=== PATIENT | female | born 1945 | race Caucasian/White ===

== ENCOUNTER 2024-02-15 01:46 | Outpatient (REF) | payer MEDICARE, SELFPAY ==
[2024-02-15 11:27] LABS: Hematocrit 31.1 % (36.0-48.0); Hemoglobin 9.4 g/dL (12.0-16.0); Mean Corpuscular HGB Conc 30.2 g/dL (29.9-35.2); Mean Corpuscular Hemoglobin 26.6 pg (26.7-34.0); Mean Corpuscular Volume 88.1 fL (81.0-99.0); Mean Platelet Volume 10.5 fL (9.5-13.5); Platelet Count 530 10^3/uL (150-450); Red Blood Count 3.53 10^6/uL (4.20-5.40); Red Cell Distribution Width 22.6 % (11.0-15.0); White Blood Count 23.1 10^3/uL (4.0-11.0)
[2024-02-15 11:35] LABS: INR 2.57; Prothrombin Time 24.8 sec (9.0-11.6)
[2024-02-15 11:36] LABS: Anion Gap 17.7; BUN Creatinine Ratio 12.7; Calcium 8.7 mg/dL (8.5-10.1); Carbon Dioxide 25.5 mmol/L (21.0-32.0); Chloride 93 mmol/L (98-107); Estimated GFR (African America 11 (>=60); Estimated GFR (Non-African Ame 9 (>=60); Glucose 145 mg/dL (74-106); Potassium 5.2 mmol/L (3.5-5.1); Sodium 131 mmol/L (136-145); Vancomycin Trough 18.9 ug/mL (5.0-20.0)
[2024-02-15 14:53] LABS: Band Neutrophils Absolute 0.2 10^3/uL (0.0-0.3); Segmented Neut Absolute Manual 19.63 10^3/uL (1.4-6.5)
[2024-02-15 14:54] LABS: Anisocytosis 2+; Eosinophils Absolute Manual 0.23 10^3/uL (0.00-0.70); Hypochromasia 1+; Lymphocytes Absolute Manual 1.61 10^3/uL (1.20-3.80); Monocytes Absolute Manual 1.38 10^3/uL (0.30-0.80)
== END 2024-02-15 01:47 | disposition home or self-care (01) ==
LOC: LAB 01:46
PROVIDERS: PCP Family Medicine; Visit Provider Family Medicine
DX: M86.9 Osteomyelitis, unspecified (principal)
CPT/HCPCS: 36415; 80048; 80202; 85007; 85027; 85610

== ENCOUNTER 2024-02-22 07:45 | Outpatient (REF) | payer MEDICARE, SELFPAY ==
[2024-02-22 08:57] LABS: Basophils Absolute Auto 0.1 10^3/uL (0.0-0.1); Basophils Percent Auto 0.6 % (0.2-2.0); Eosinophils Absolute Auto 0.8 10^3/uL (0.0-0.7); Eosinophils Percent Auto 4.4 % (0.9-7.0); Hematocrit 25.1 % (36.0-48.0); Hemoglobin 7.7 g/dL (12.0-16.0); Immature Granulocytes Abs Auto 0.25 10^3/uL (0.00-0.03); Immature Granulocytes Pct Auto 1.3 % (0.0-0.5); Lymphocytes Absolute Auto 1.4 10^3/uL (1.2-3.8); Lymphocytes Percent Auto 7.6 % (20.5-60.0); Mean Corpuscular HGB Conc 30.7 g/dL (29.9-35.2); Mean Corpuscular Hemoglobin 27.3 pg (26.7-34.0); Mean Platelet Volume 10.5 fL (9.5-13.5); Monocytes Absolute Auto 1.3 10^3/uL (0.3-0.8); Neutrophils Absolute Auto 14.9 10^3/uL (1.4-6.5); Neutrophils Percent Auto 79.1 % (43.0-75.0); Platelet Count 466 10^3/uL (150-450); Red Blood Count 2.82 10^6/uL (4.20-5.40); Red Cell Distribution Width 21.7 % (11.0-15.0); White Blood Count 18.8 10^3/uL (4.0-11.0)
[2024-02-22 09:12] LABS: INR 2.85; Prothrombin Time 27.2 sec (9.0-11.6)
[2024-02-22 09:25] LABS: Anion Gap 13.2; BUN Creatinine Ratio 13.7; Calcium 8.4 mg/dL (8.5-10.1); Carbon Dioxide 27.4 mmol/L (21.0-32.0); Chloride 97 mmol/L (98-107); Estimated GFR (African America 14 (>=60); Estimated GFR (Non-African Ame 11 (>=60); Glucose 98 mg/dL (74-106); Potassium 4.6 mmol/L (3.5-5.1); Sodium 133 mmol/L (136-145)
== END 2024-02-22 07:46 | disposition home or self-care (01) ==
LOC: LAB 07:45
PROVIDERS: PCP Family Medicine; Visit Provider Family Medicine
DX: N18.6 End stage renal disease (principal)
CPT/HCPCS: 36415; 80048; 85025; 85610

== ENCOUNTER 2024-02-24 03:49 | Outpatient (REF) | payer MEDICARE, SELFPAY ==
[2024-02-24 08:27] LABS: Anion Gap 12.3; BUN Creatinine Ratio 15.6; Calcium 8.6 mg/dL (8.5-10.1); Carbon Dioxide 27.8 mmol/L (21.0-32.0); Chloride 98 mmol/L (98-107); Estimated GFR (African America 19 (>=60); Estimated GFR (Non-African Ame 16 (>=60); Glucose 101 mg/dL (74-106); Potassium 4.1 mmol/L (3.5-5.1); Sodium 134 mmol/L (136-145)
== END 2024-02-24 03:50 | disposition home or self-care (01) ==
LOC: LAB 03:49
PROVIDERS: PCP Family Medicine; Visit Provider Family Medicine
DX: M86.9 Osteomyelitis, unspecified (principal)
CPT/HCPCS: 36415; 80048

== ENCOUNTER 2024-02-29 09:00 | Outpatient (REF) | payer MEDICARE, SELFPAY ==
--- OUTSIDE RECORDS SUMMARY | 2024-02-26 02:17 | XMS_ITS | CCD ---
Author Organization [facility] Inform ion Partnership [facility] Care Team Providers Care Talent Specialist Name Role Phone JOCELYN, RUGEN Unavailable Unavailable JOCELYN, RUGEN Unavailable Unavailable JOCELYN, RUGEN Unavailable Unavailable Yuhas Annabelle ROA Primary Care Provider ANNABELLE ARCHER L Attending Unavailable YUHAS, ANNABELLE L Referring Unavailable YUHAS, ANNABELLE L Primary Care Unavailable YUHAS, ANNABELLE L Attending Unavailable YUHAS, ANNABELLE L Referring Unavailable YUHAS, ANNABELLE L Primary Care Unavailable SERVICE, JOBST Referring Unavailable YUHAS, ANNABELLE L Primary Care Unavailable SERVICE, JOBST Referring Unavailable YUHAS, ANNABELLE L Primary Care Unavailable SERVICE, JOBST Referring Unavailable YUHAS, ANNABELLE L Primary Care Unavailable SERVICE, JOBST Referring Unavailable YUHAS, ANNABELLE L Primary Care Unavailable YUHAS, ANNABELLE L Referring Unavailable YUHAS, ANNABELLE L Primary Care Unavailable SERVICE, JOBST Referring Unavailable YUHAS, ANNABELLE L Primary Care Unavailable YUHAS, ANNABELLE L Primary Care Unavailable ERNESTO DELEON Attending Unavailable YUHAS, ANNABELLE L Admitting Unavailable [place] Consulting Unavailable ERNESTO DELEON Attending Unavailable ERNESTO DELEON Referring Unavailable YUHAS, ANNABELLE L Primary Care Unavailable YUHAS, ANNABELLE L Attending Unavailable YUHAS, ANNABELLE L Referring Unavailable YUHAS, ANNABELLE L Primary Care Unavailable SERVICE, JOBST Referring Unavailable YUHAS, ANNABELLE L Primary Care Unavailable LIGIBEL, SEMBRIA L Referring Unavailable YUHAS, ANNABELLE L Primary Care Unavailable LIGIBEL, SEMBRIA L Referring Unavailable YUHAS, ANNABELLE L Primary Care Unavailable SERVICE, JOBST Referring Unavailable YUHAS, ANNABELLE L Primary Care Unavailable SERVICE, JOBST Referring Unavailable YUHAS, ANNABELLE L Primary Care Unavailable YUHAS, ANNABELLE L Primary Care Unavailable BRYANT LANG Attending UnavailDOTTY Leahy Attending Unavailable DOTTY HADLEY Referring Unavailable YUHAS, ANNABELLE L Primary Care Unavailable YUHAS, ANNABELLE L Primary Care Unavailable LYDIAYONAS Attending Unavailable LYDIAYONAS HOUSE Attending Unavailable LYDIA, YONAS L Referring Unavailable YUHAS, ANNABELLE L Primary Care Unavailable SERVICE, JOBST Referring Unavailable YUHAS, ANNABELLE L Primary Care Unavailable RANKER, ANNABELLE O Referring Unavailable YUHAS, ANNABELLE L Primary Care Unavailable SERVICE, JOBST Referring Unavailable YUHAS, ANNABELLE L Primary Care Unavailable RANKER, ANNABELLE O Referring Unavailable YUHAS, ANNABELLE L Primary Care Unavailable SERVICE, JOBST Referring Unavailable YUHAS, ANNABELLE L Primary Care Unavailable Yuhas, DO Annabelle Primary Care Provider [phone] MD Virgen Vivar Admit Provider [phone] MD Virgen Vivar Attending Provider MD Tres King Other Provider MD Emelyn Bennett Other Provider MD Mukul Durbin Other Provider [phone] DO Mirza Coulter Emergency Provider [phone] YUHAS, ANNABELLE L Referring Unavailable YUHAS, ANNABELLE L Primary Care Unavailable GANIM, EVELYN A Admitting Unavailable GANIM, EVELYN A Attending Unavailable YONAS FREEMAN Referring Unavailable YUHAS, ANNABELLE L Primary Care Unavailable ABDELRAHMAN GOMEZ Consulting Unavailable NISREEN SCHUSTER Consulting Unavailable ONLY), [facility] (INPATIENT Consult ing Unavailable PATY BRITT Consulting Unavailable SOLA CANTU Consulting Unavailable VELMA MACDONALD I Consulting Unavailable ([facility] ONLY), SURGERY B Consulting Unavailabl e DIVISION OF INFECTIOUS DISEASE, [facility] Consulting Unavailable MYAH VERDE Consulting Unavailable YUHAS, ANNABELLE L Referring Unavailable YUHAS, ANNABELLE L Primary Care Unavailable TAMAR, NAHUSH Referring Unavailable YUHAS, ANNABELLE L Primary Care Unavailable YUHAS, ANNABELLE L Referring Unavailable YUHAS, ANNABELLE L Primary Care Unavailable MD Carlos Novak Other Provider DO Teddy Valero Other Provider Margret Morales Admitting Unavailable Mona Banks Primary Care Unavailable Margret Morales Attending Unavailable Annabelle Archer Primary Care Unavailable Virgen Vivar Attending Unavailable Virgen Vivar Admitting Unavailable Carlos Novak Consulting Unavailable Tres King Consulting Unavailable Emelyn Bennett Consulting Unavailable Teddy Valero Consulting Unavailable Mukul Durbin Consulting Unavaila ble Medications Current Medications Medication Drug Class(es) Dates Sig (Normalized) Sig (Original) acetaminophen 650 mg oral tablet (2 sources) Start: 02-10-2021 take 650 mg by mouth every six hours Acetaminophen Active 650 MG PO Q6H February 10, 2021 12:00am Pain or Fever acetaminophen 325 mg / HYDROcodone bitartrate 5 mg oral tablet (3 sources) Opioid Agonist Start: 02-15-2024 End: 02-19-2024 take 1 tablet by mouth every six hours Hydrocodone-Acetami nophen Active 1 TAB PO Every 6 hours 12 3 February 19, 2024 allopurinol 100 mg oral tablet (12 sources) Xanthine Oxidase Inhibitor Start: 10-31-2023 allopurinoL (ZYLOPRIM) 100 mg tablet Indications: Hyperuricemia TAKE 2 TABLETS EVERY MORNING 180 tablet 0 10/31/2023 Active Start: 04-26-2023 End: 10-31-2023 allopurinoL (ZYLOPRIM) 100 m g tablet Indications: Hyperuricemia TAKE 2 TABLETS EVERY MORNING 180 tablet 1 04/26/2023 10/31/2023 Discontinued Start: 02-10-2021 End: 02-19-2024 Allopurinol Active 100 MG PO [id number] 0 February 19, 2024 12:00am atorvastatin 20 mg oral tablet (11 sources) HMG-CoA Reductase Inhibitor Start: 02-10-2021 End: 09-23-2023 take 20 mg by mouth once daily at bedtime Atorvastatin Active 20 MG PO Daily at bedtime February 10, 2021 12:00am brimonidine tartrate 2 mg/ml ophthalmic solution (2 sources) alpha-Adrenergic Agonist Start: 02-15-2024 take 1 drop(s) into the eye(s) three times daily Brimonidine Active 1 DROPS OPHTHALMIC Three times daily February 15, 2024 12:00am Start: 02-15-2024 take 1 drop(s) into the eye(s) every eight hours Brimonidine Active 1 DROPS OPHTHALMIC Every 8 hours February 15, 2024 12:00am calcitriol 0.32704 mg oral capsule (11 sources) Vitamin D3 Analog Start: 02-15-2024 take 0.25 ug by mouth once daily Calcitriol Active 0.25 MCG PO Daily February 15, 2024 12:00am Start: 03-19-2023 End: 09-23-2023 calcitrioL (ROCALTROL) 0.25 MCG capsule Indications: Chronic kidney disease, stage 4 (severe) ([facility] [place]) TAKE 1 CAPSULE EVERY MORNING 90 capsule 1 09/23/2023 Active dapagliflozin 5 mg oral tablet (8 sources) Sodium-Glucose Cotransporter 2 Inhibitor take 1 tablet by mouth every twenty-four hours FARXIGA 5 mg tablet Take 1 tablet (5 mg total) by mouth daily. 0 Active docusate sodium 100 mg oral capsule (3 sources) Start: End: take 100 mg by mouth twice daily Docusate Sodium Active 100 MG PO Twice daily February 19, 2024 1:27pm ferrous sulfate 325 mg oral tablet (2 sources) Start: take 1 tablet by mouth once daily Ferrous Sulfate (Ferosul) 325 mg (65 mg iron) tablet Active 325 MG PO Daily February 15, 2024 12:00am furosemide 40 mg oral tablet (15 sources) Loop Diuretic Start: take 1 tablet by mouth twice daily Furosemide (Lasix) 40 mg Tablet Active 40 MG PO Twice daily February 15, 2024 12:00am Start: 10-31-2023 furosemide (LA SIX) 40 mg tablet Indications: Chronic kidney disease, stage 4 (severe) ([facility] [place]) take 1 tablet twice a day 180 tablet 0 10/31/2023 Active Start: 04-26-2023 End: 10-31-2023 furosemide (LASIX) 40 mg tab let Indications: Chronic kidney disease, stage 4 (severe) ([facility] [place]) TAKE 1 TABLET TWICE A DAY 180 tablet 1 04/26/2023 10/31/2023 Discontinued Start: 02-13-2021 End: 02-15-2024 take 1 tablet by mouth once daily Furosemide (Lasix) 40 mg Tablet Discontinued 40 MG PO Daily 0 February 13, 2021 11:54am February 15, 2024 3:06pm Start: 02-10-2021 End: 02-13-2021 take 1 tablet by mouth twice daily Furosemide (Lasix) 40 mg Tablet Discontinued 40 MG PO Twice daily February 10, 2021 12:00am February 13, 2021 11:58am gabapentin 100 mg oral capsule (1 source) Anti-epileptic Agent Start: 02-19-2024 Gabapentin Active 100 MG PO Q48H 0 February 19, 2024 12:00am hydrALAZINE hydrochloride 25 mg oral tablet (11 sources) Arteriolar Vasodilator Start: 02-15-2024 take 25 mg by mouth three times daily Hydralazine Active 25 MG PO Three times daily February 15, 2024 12:00am Start: 07-07-2023 End: 10-14-2023 take 1 tablet by mouth three times daily hydrALAZINE (APRESOLINE) 25 mg tablet Indications: Hypertensive renal disease Take 1 tablet (25 mg total) by mouth 3 (three) times a day. 270 tablet 0 10/14/2023 Active 3 ml insulin isophane, human 100 unt/ml pen injector (12 sources) Start: 02-15-2024 Insulin Nph Is oph U-100 Human (Humulin N Nph Insulin Kwikpen) 100 unit/mL (3 mL) Insulin Pen Active 30 UNIT SUBCUT Twice daily February 15, 2024 12:00am Start: 10-13-2022 inject 0.3 mL by sub cutaneous injection in the morning insulin NPH (HumuLIN N,NovoLIN N) 100 unit/mL injection Inject 0.3 mL (30 Units total) under the skin in the morning and 0.3 mL (30 Units total) in the evening. Inject before meals. 30 mL 1 10/13/2022 Active Start: 02-13-2021 End: 02-15-2024 inject 20 [IU] by subcutaneous injection twice daily, then inject 20 [IU] by subcutaneous injection twice daily Insulin Nph Isoph U-100 Human (Humulin N Nph Insulin Kwikpen) 100 unit/mL (3 mL) Insulin Pen Discontinued 20 UNIT SUBCUT Twice daily 0 February 13, 2021 12:00am February 15, 2024 3:06pm Same home insulin. The change her dose to 20 units twice a day labetalol hydrochloride 100 mg oral tablet (14 sources) beta-Adrenergic Wang Start: 02-15-2024 take 200 mg by mouth twice daily Labetalol Active 200 MG PO Twice daily February 15, 2024 12:00am Start: 07-10-2023 take 2 tablets by [facility] in the morning, then take 2 tablets by mouth at bedtime labetaloL (NORMODYNE) 200 mg tablet Indications: Hypertensive renal disease Take 2 tablets (400 mg total) by mouth in the morning and 2 tablets (400 mg total) before bedtime. 360 tablet 0 07/10/2023 Active Start: 02-13-2021 End: 02-15-2024 take 100 mg by mouth twice daily Labetalol Discontinue d 100 MG PO Twice daily 60 February 13, 2021 12:00am February 15, 2024 3:06pm Start: 02-10-2021 End: 02-13-2021 take 300 mg by mouth twice daily Labetalol Discontinue d 300 MG PO Twice daily February 10, 2021 12:00am February 13, 2021 11:58am lidocaine 0.04 mg/mg medicated patch (12 sources) Antiarrhythmic, Amide Local Anesthetic Start: 02-15-2024 apply 1 dose topically once daily Lidocaine (Aspercreme (Lidocaine)) 4 % adhesive patch,medicated Active 1 PATCH TOPICAL Daily February 15, 2024 12:00am may leave on for up to 12 hrs Start: 02-15-2024 Lidocaine Acti ve 1 APPLIC TOPICAL Twice daily February 15, 2024 12:00am Start: 06-03-2023 apply 1 dose transde rmal route once daily lidocaine (SALONPAS) 4 % Place 1 patch on the skin daily. 30 patch 0 06/03/2023 Active polyethylene glycol 3350 02651 mg powder for oral solution (2 sources) Osmotic Laxative Start: 02-15-2024 take 17 g by mouth once daily Polyethylene Glycol 3350 (Laxative Peg 3350) 17 gram/dose powder Active 17 GM PO Daily February 15, 2024 12:00am QUEtiapine 50 mg oral tablet (4 sources) Atypical Antipsychotic Start: 02-15-2024 take 1 tablet by mouth once daily in the morning Quetiapine (Seroquel) 25 mg tablet Active 25 MG PO Every morning February 15, 2024 12:00am Start: 02-15-2024 take 1 tablet by [facility] once daily at bedtime Quetiapine (Seroquel) 50 mg tablet Active 50 MG PO Daily at bedtime February 15, 2024 12:00am warfarin sodium 2.5 mg oral tablet (15 sources) Vitamin K Antagonist Start: 02-15-2024 take 2.5 mg by mouth once daily at bedtime Warfarin Active 2.5 MG PO Daily at bedtime February 15, 2024 12:00am Follow your doctor's instructions on dosing based on the blood test PT/INR report Start: 10-31-2023 JANTOVEN 2.5 m g tablet Indications: Atrial fibrillation ([facility]) TAKE 1 TO 2 TABLETS IN THE EVENING. TAKE DAILY DIRECTED BY INTERNATIONAL NORMALIZED RATIO TESTING 180 tablet 0 10/31/2023 Active Start: 02-10-2021 End: 02-15-2024 take 2.5 mg by mouth once daily Warfarin Discontinued 2.5 MG PO Daily 0 February 13, 2021 11:54am February 15, 2024 3:06pm Follow your doctor's instructions on dosing based on the blood test PT/INR report Completed/Discontinued Medications Medication Drug Class(es) Dates Sig (Normalized) Sig (Original) cefdinir 50 mg/ml oral suspension (2 sources) Cephalosporin Antibacterial Start: 02-13-2021 End: 02-15-2024 take 150 mg by mouth twice daily Cefdinir Discontinued 150 MG PO Twice daily 42 7 February 13, 2021 12:00am February 15, 2024 3:06pm cholecalciferol 5000 unt / folic acid 1 mg oral tablet (6 sources) Vitamin D End: 10-14-2023 take 1 mg by mouth once daily vitamin D3-folic acid 125 mcg (5,000 unit)-1 mg tablet Take 125 mcg by mouth daily. 0 10/14/2023 Discontinued (Discontinued by another clinician) dexamethasone 1 mg/ml / neomycin 3.5 mg/ml / polymyxin b 65370 unt/ml ophthalmic suspension (6 sources) Aminoglycoside Antibacterial, Polymyxin-class Antibacterial, Corticosteroid End: 10-14-2023 take 1 drop(s) into the eye(s) once daily neomycin-polymyxin- dexAMETHasone (MAXITROL) 3.5mg/mL-10,000 unit/mL-0.1 % ophthalmic suspension INSTILL 1 DROP INTO EACH EYE ONCE DAILY 0 10/14/2023 Discontinued (Patient Stopped On Own) doxycycline hyclate 100 mg oral tablet (2 sources) Tetracycline-class Drug Start: 02-13-2021 End: 02-15-2024 take 100 mg by mouth twice daily Doxycycline Hyclate Discontinued 100 MG PO Twice daily 14 February 13, 2021 12:00am February 15, 2024 3:06pm ergocalciferol 1.25 mg oral capsule (2 sources) Provitamin D2 Compound Start: 02-10-2021 End: 02-15-2024 Ergocalciferol (Vitamin D2) (Drisdol) 1,250 mcg (50,000 unit) Capsule Discontinued 93032 UNIT PO every week February 10, 2021 12:00am February 15, 2024 3:06pm Thursday glucose 0.4 mg/mg oral gel (2 sources) Start: 02-13-2021 End: 02-15-2024 Dextrose (Glutose-15) 40 % Gel Discontinued 0.6 GM PO PRN 37.5 February 13, 2021 12:00am February 15, 2024 3:06pm As needed for blood sugar less than 100 Insulin Nph Isoph U-100 Human (Humulin N Nph U-100 Insulin) 100 unit/mL Cartridge (2 sources) Start: 02-10-2021 End: 02-13-2021 inject 30 [IU] by subcutaneous injection twice daily in the morning Insulin Nph Isoph U-100 Human (Humulin N Nph U-100 Insulin) 100 unit/mL Cartridge Discontinued 30 UNIT SUBCUT Twice daily February 10, 2021 12:00am February 13, 2021 11:58am 30 Units AM 30 Units PM lactobacillus acidophilus [id number] unt oral capsule (2 sources) Start: 02-13-2021 End: 02-15-2024 take 100 mg by mouth twice daily Lactobacillus Acidophilus Discontinued 100 MG PO Twice daily February 13, 2021 12:00am February 15, 2024 3:06pm lisinopril 5 mg oral tablet (4 sources) Angiotensin Converting Enzyme Inhibitor Start: 02-13-2021 End: 02-15-2024 take 5 mg by mouth once daily Lisinopril Discontinued 5 MG PO Daily February 13, 2021 12:00am February 15, 2024 3:06pm Start: 02-10-2021 End: 02-13-2021 take 20 mg by mouth once daily Lisinopril Discontinued 20 MG PO Daily February 10, 2021 12:00am February 13, 2021 11:58am meropenem 500 mg injection (2 sources) Penem Antibacterial Start: 02-15-2024 End: 02-19-2024 take 500 mg intravenously three times weekly Meropenem-0.9% Sodium Chloride Discontinued 500 MG IV 3 Times a week February 15, 2024 12:00am February 19, 2024 1:29pm Vancomycin In 0.9 % Sodium Chl (2 sources) Start: 02-15-2024 End: 02-19-2024 Vancomycin In 0.9 % Sodium Chl Discontinued 1 GM IV 3 Times a week February 15, 2024 12:00am February 19, 2024 1:29pm Start: 02-15-2024 Vancomycin In 0.9 % Sodium Chl Active 1 GM IV 3 Times a week February 15, 2024 12:00am Problems Active Problems Problem Classification Problem Date Documented Date Episodic/Chronic Acute and unspecified renal failure (2 sources) Acute renal failure syndrome; Translations: [Acute kidney failure, unspecified] 07-08-2023 Episodic Administrative/social admission (3 sources) Advance directive discussed with patient; Translations: [Other specified counseling] Onset: 02-15-2024 02-17-2024 Episodic Cancer of kidney and renal pelvis (10 sources) Renal cell carcinoma; Translations: [Malignant neoplasm of unspecified kidney, except renal pelvis] Onset: 10-27-2017 03-14-2021 Chronic Cardiac dysrhythmias (20 sources) Atrial fibrillation; Translations: [Unspecified atrial fibrillation] Onset: 12-29-2019 07-22-2023 Chronic Cataract (8 sources) Nuclear senile cataract; Translations: [Age-related nuclear cataract, unspecified eye] Onset: 01-28-2018 05-18-2023 Chronic Chronic kidney disease (20 sources) Chronic kidney disease stage 4; Translations: [Chronic kidney disease, stage 4 (severe)] Onset: 11-28-2019 11-28-2019 Chronic Chronic kidney disease (1 source) Chronic kidney disease; Translations: [Chronic kidney disease, stage 3b] Onset: 11-06-2023 Chronic ulcer of skin (13 sources) Non-pressure chronic ulcer of back limited to breakdown of skin; Translations: [Pressure ulcer of unspecified buttock, stage 3] Onset: 01-29-2024 02-16-2024 Chronic Congestive heart failure; nonhypertensive (19 sources) Chronic diastolic heart failure; Translations: [Chronic diastolic (congestive) heart failure] Onset: 11-28-2019 Resolved: 04-28-2022 05-18-2023 Chronic Deficiency and other anemia (1 source) Anemia in chronic kidney disease; Translations: [Anemia in chronic kidney disease] Onset: 02-15-2024 Chronic Diabetes mellitus with complications (14 sources) 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; Translations: [Type 2 diabetes mellitus with mild nonproliferative diabetic retinopathy without macular edema, unspecified eye] Onset: 10-13-2018 04-28-2022 Chronic Diabetes mellitus without complication (14 sources) Type 2 diabetes mellitus; Translations: [Type 2 diabetes mellitus without complications] Onset: 04-28-2022 05-18-2023 Chronic Diseases of white blood cells (5 sources) Leukocytosis; Translations: [Elevated white blood cell count, unspecified] Onset: 02-15-2024 02-15-2024 Chronic Disorders of lipid metabolism (10 sources) Hyperlipidemia; Translations: [Hyperlipidemia, unspecified] Onset: 01-08-2018 01-08-2018 Chronic Essential hypertension (20 sources) Essential hypertension; Translations: [Essential (primary) hypertension] Onset: 04-28-2022 Resolved: 05-18-2023 04-28-2022 Chronic Fever of unknown origin (1 source) Fever Onset: 01-31-2024 Episodic Gangrene (1 source) Gangrene, not elsewhere classified; Translations: [Gangrene, not elsewhere classified] Onset: 01-31-2024 Episodic Hypertension with complications and secondary hypertension (11 sources) Hypertensive renal disease; Translations: [Hypertensive chronic kidney disease with stage 1 through stage 4 chronic kidney disease, or unspecified chronic kidney disease] Onset: 01-29-2022 04-28-2022 Chronic Immunizations and screening for infectious disease (1 source) Encounter for screening for other viral diseases; Translations: [Encounter for screening for other viral diseases] Onset: 01-07-2024 Episodic Malaise and fatigue (3 sources) Weakness; Translations: [Asthenia] Onset: 01-31-2024 3 Episodic Nonmalignant breast conditions (1 source) Unspecified lump in the left breast, unspecified quadrant; Translations: [Unspecified lump in the left breast, unspecified quadrant] Onset: 02-09-2024 Episodic Open wounds of extremities (1 source) Unspecified open wound, right hip, initial encounter; Translations: [Unspecified open wound, right hip, initial encounter] Onset: 02-11-2024 Episodic Open wounds of head; neck; and trunk (1 source) Unspecified open wound of lower back and pelvis without penetration into retroperitoneum, initial encounter; Translations: [Unspecified open wound of lower back and pelvis without penetration into retroperitoneum, initial encounter] Onset: 02-05-2024 Episodic Osteoarthritis (8 sources) Osteoarthritis of knee; Translations: [Osteoarthritis of knee, unspecified] Onset: 04-28-2022 04-28-2022 Chronic Other circulatory disease (2 sources) Low blood pressure; Translations: [Hypotension, unspecified] 02-15-2024 Episodic Other circulatory disease (3 sources) Hypotension, unspecified; Translations: [Hypotension, unspecified] Onset: 02-15-2024 02-15-2024 Episodic Other injuries and conditions due to external causes (1 source) Systemic inflammatory response syndrome (SIRS) of non-infectious origin without acute organ dysfunction; Translations: [Systemic inflammatory response syndrome (sirs) of non-infectious origin without acute organ dysfunction] Onset: 01-31-2024 Episodic Other injuries and conditions due to external causes (1 source) Wound of skin; Translations: [Other injury of unspecified body region, initial encounter] 02-16-2024 Episodic Other injuries and conditions due to external causes (2 sources) Other injury of unspecified body region, initial encounter; Translations: [Other specified sites, including multiple injury] Onset: 02-15-2024 02-19-2024 Episodic Other lower respiratory disease (1 source) Acute pulmonary edema; Translations: [Acute pulmonary edema] Onset: 12-20-2023 Episodic Other lower respiratory disease (1 source) Shortness of breath; Translations: [Shortness of breath] Onset: 12-20-2023 Episodic Other lower respiratory disease (1 source) Shortness of breath Onset: 12-20-2023 Episodic Other lower respiratory disease (1 source) Dyspnea Onset: 12-20-2023 Episodic Other nutritional; endocrine; and metabolic disorders (9 sources) Body mass index 40+ - severely obese; Translations: [Body mass index (BMI) 50.0-59.9, adult] Onset: 11-30-2017 11-28-2019 Chronic Other nutritional; endocrine; and metabolic disorders (8 sources) Hypoxemia; Translations: [Obesity, unspecified] Onset: 11-29-2019 11-29-2019 Chronic Other nutritional; endocrine; and metabolic disorders (1 source) Body mass index (BMI) 50.0-59.9, adult; Translations: [Body mass index (BMI) 50.0-59.9, adult] Onset: 11-28-2019 Chronic Other nutritional; endocrine; and metabolic disorders (1 source) Calciphylaxis; 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] 02-16-2024 Chronic Other nutritional; endocrine; and metabolic disorders (2 sources) Other disorders of calcium metabolism; 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] Onset: 02-15-2024 02-19-2024 Chronic Other nutritional; endocrine; and metabolic disorders (9 sources) Hyperuricemia; Translations: [Hyperuricemia without signs of inflammatory arthritis and tophaceous disease] Onset: 05-30-2017 04-28-2022 Episodic Other skin disorders (1 source) Skin problem Onset: 01-21-2024 Episodic Pneumonia (except that caused by tuberculosis or sexually transmitted disease) (2 sources) Pneumonia; Translations: [Pneumonia, unspecified organism] 07-08-2023 Episodic Pulmonary heart disease (1 source) Pulmonary hypertension due to lung diseases and hypoxia; Translations: [Pulmonary hypertension due to lung diseases and hypoxia] Onset: 12-23-2023 Chronic Residual codes; unclassified (1 source) Disorientation, unspecified; Translations: [Disorientation, unspecified] Onset: 02-01-2024 Episodic Respiratory failure; insufficiency; arrest (adult) (2 sources) Acute respiratory failure; Translations: [Acute respiratory failure with hypoxia] 07-08-2023 Episodic Septicemia (except in labor) (5 sources) Sepsis, unspecified organism; Translations: [Sepsis] Onset: 02-01-2024 02-16-2024 Episodic Shock (1 source) Severe sepsis with septic shock; Translations: [Severe sepsis with septic shock] Onset: 02-15-2024 Episodic Superficial injury; contusion (4 sources) Contusion of lower back and pelvis, initial encounter; Translations: [Contusion of left hip, initial encounter] Onset: 01-21-2024 Episodic Syncope (5 sources) Syncope; Translations: [Syncope and collapse] Onset: 02-15-2024 02-15-2024 Episodic Thyroid disorders (1 source) Other specified hypothyroidism; Translations: [Other specified hypothyroidism] Onset: 12-20-2023 Chronic Unclassified (1 source) Wound Check Onset: 01-21-2024 Unclassified (1 source) Unspecified lump in the left breast, overlapping quadrants; Translations: [Unspecified lump in the left breast, overlapping quadrants] Onset: 02-09-2024 Past or Other Problems Problem Classification Problem Date Documented Da te Episodic/Chronic Deficiency and other anemia (8 sources) Iron deficiency anemia; Translations: [Iron deficiency anemia, unspecified] Onset: 11-29-2019 Resolved: 04-28-2022 04-28-2022 Episodic Inflammation; infection of eye (except that caused by tuberculosis or sexually transmitteddisease) (8 sources) Allergic conjunctivitis; Translations: [Acute atopic conjunctivitis, unspecified eye] Onset: 07-07-2023 07-07-2023 Episodic Mood disorders (8 sources) Mood disorders Onset: 06-01-2023 Resolved: 10-14-2023 06-01-2023 Other aftercare (3 sources) [facility] (current) use of insulin; 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] Onset: 05-18-2023 Episodic Other and unspecified benign neoplasm (8 sources) History of polyp of colon; Translations: [Personal history of colonic polyps] Onset: 05-05-2018 05-05-2018 Episodic Other and unspecified benign neoplasm (8 sources) Polyp of transverse colon; Translations: [Polyp of colon] Onset: 07-07-2018 07-07-2018 Episodic Other and unspecified benign neoplasm (8 sources) Polyp of descending colon; Translations: [Polyp of colon] Onset: 07-07-2018 07-07-2018 Episodic Residual codes; unclassified (8 sources) Edema; Translations: [Edema, unspecified] Onset: 01-08-2018 Resolved: 04-28-2022 04-28-2022 Episodic Urinary tract infections (8 sources) Escherichia coli urinary tract infection; Translations: [Urinary tract infection, site not specified] Onset: 11-27-2019 Resolved: 04-28-2022 04-28-2022 Episodic Results Test Name Value Interpretation Reference Range Facility Albumin [Mass/volume] in Ser um or Plasma by Bromocresol green (BCG) dye binding methoOrdered By: Emelyn Bennett on 02-19-2024 Albumin BCG dye [Mass/Vol] 2.5 g/dL Low 3.5-5.7 [facility] Calcium [Mass/volume] in Ser um or PlasmaOrdered By: Emelyn Bennett on 02-19-2024 Calcium [Mass/Vol] 8.1 mg/dL Low 8.6-10.3 [facility] Comment on above: Performed By: #### D IFF CBC, HS TROP, MG, CMP, BNP #### [facility] [address] [place] [address] Capillary blood glucose manjeet urement by glucometer (mass/volume)Ordered By: Virgen Vivar on 02-19-2024 Glucose [Mass/Vol] 159 mg/dL Normal [facility] Comment on above: Random Glucose Refer ence Range is dependent on time and content of last meal. Glucose of more than 200 mg/dL in a nonstressed, ambulatory subject supports the diagnosis of Diabetes Mellitus. Result Comment: [facility] Glucose Reference Range is dependent on time and content of last meal. Glucose of more than 200 mg/dL in a nonstressed, ambulatory subject supports the diagnosis of Diabetes Mellitus. PERFORMED BY: [place] [address] PATHOLOGIST JOB SITE SUPERVISOR SERGIO VIRGEN M.D. Performed By: #### G LULS #### Point of Care testing , Carbon dioxide, total [Moles /volume] in Serum or PlasmaOrdered By: Emelyn Bennett on 02-19-2024 CO2 [Moles/Vol] 27.1 mmol/L Normal 21.0-31.0 [facility] Comment on above: Performed By: #### D IFF CBC, HS TROP, MG, CMP, BNP #### [facility] [address] [place] [address] [place] Chloride [Moles/volume] in S boris or PlasmaOrdered By: Emelyn Bennett on 02-19-2024 Chloride [Moles/Vol] 96 mmol/L Low 98-107 [facility] Comment on above: Performed By: #### D IFF CBC, HS TROP, MG, CMP, BNP #### [facility] [address] Creatinine [Mass/volume] in Serum or PlasmaOrdered By: Emelyn Bennett on 02-19-2024 Creatinine [Mass/Vol] 3.00 mg/dL Significan t change up 0.60-1.20 [facility] Comment on above: Delta: 2.21 on 02/17-499 Performed By: #### D IFF CBC, HS TROP, MG, CMP, BNP #### [address] Erythrocyte distribution wid th [Ratio] by Automated countOrdered By: Emelyn Bennett on 02-19-2024 Erythrocyte distribution width (RBC) [Ratio] 23.5 % High 11.9-15.3 [facility] Comment on above: Performed By: #### C UBLD, LACTIC #### [address] Erythrocytes [#/volume] in B lood by Automated countOrdered By: Emelyn Bennett on 02-19-2024 RBC (Bld) [#/Vol] 3.13 10*6/uL Low 3.60-5.00 [facility] Comment on above: Performed By: #### C UBLD, LACTIC #### [place] [address] [place] Glucose [Mass/volume] in Ser um or PlasmaOrdered By: Emelyn Bennett on 02-19-2024 Glucose [Mass/Vol] 147 mg/dL High 70-100 [facility] Comment on above: ADA recommended refe rence rangeRandom Glucose Reference Range is dependent on time and content of last meal. Glucose of more than 200 mg/dL in a nonstressed, ambulatory subject supports the diagnosis of Diabetes Mellitus. Result Comment: [facility] Glucose Reference Range is dependent on time and content of last meal. Glucose of more than 200 mg/dL in a nonstressed, ambulatory subject supports the diagnosis of Diabetes Mellitus. ADA recommended reference range Performed By: #### D IFF CBC, HS TROP, MG, CMP, BNP #### [address] Hematocrit [Volume Fraction] of Blood by Automated countOrdered By: Emelyn Bennett on 02-19-2024 Hematocrit (Bld) [Volume fraction] 26.3 % Low 34.0-46.4 [facility] Comment on above: Performed By: #### C UBLD, LACTIC #### [address] Hemoglobin [Mass/volume] in BloodOrdered By: Emelyn Bennett on 02-19-2024 Hemoglobin (Bld) [Mass/Vol] 8.4 g/dL Low 11.8-15.4 [facility] Comment on above: Performed By: #### C UBLD, LACTIC #### [address] Hemogram CBC Without Diffon 02-19-2024 Mean Corpuscular HGB Conc 31.8 g/dL Low 32.0-35.0 [facility] Comment on above: Performed By: #### C UBLD, LACTIC #### [address] WBC (Bld) [#/Vol] 15.1 10*3/uL High 3.8-11.6 [facility] Comment on above: Performed By: #### C UBLD, LACTIC #### [address] INR in Platelet poor plasma by Coagulation assayOrdered By: Virgen Vivar on 02-19-2024 INR Coag (PPP) [Relative time] 3.0 {INR} Normal [facility] Comment on above: INR Therapeutic Rang e A) Pre- and Peroperative OAT started two weeks before surgery. NOT HIP SURGERY: 1.5 - 2.5 HIP SURGERY: 2 - 3B) Primary and secondary prevention of venous THROMBOSIS: 2 - 3C) Active venous thrombosis, pulmonary embolismand prevention of recurrent venous thrombosis: 2 - 3D) Prevention of arterial thromboembolismincluding patients with mechanical heart valves: 3 - 4.5 Result Comment: INR Therapeutic Range A) Pre- and Peroperative OAT started two weeks before surgery. NOT HIP SURGERY: 1.5 - 2.5 HIP SURGERY: 2 - 3 B) Primary and secondary prevention of venous THROMBOSIS: 2 - 3 C) Active venous thrombosis, pulmonary embolism and prevention of recurrent venous thrombosis: 2 - 3 D) Prevention of arterial thromboembolism including patients with mechanical heart valves: 3 - 4.5 PERFORMED BY: [place] [address] PATHOLOGIST JOB SITE SUPERVISOR SERGIO VIRGEN M.D. Performed By: #### D IFF CBC, HS TROP, MG, CMP, BNP #### [facility] [address] [place] [address] Leukocytes [#/volume] correc ann for nucleated erythrocytes in Blood by Automated counOrdered By: Emelyn Bennett on 02-19-2024 WBC corrected for nucl RBC Auto (Bld) [#/Vol] 15.1 10*3/uL High 3.8-11.6 [facility] MCH [Entitic mass] by Automa ann countOrdered By: Emelyn Bennett on 02-19-2024 MCH (RBC) [Entitic mass] 26.8 pg Normal 24.7-34.3 [facility] Comment on above: Performed By: #### C UBLD, LACTIC #### [facility] [address] [place] [address] MCHC Auto (RBC) [Mass/Vol]Or dered By: Emelyn Bennett on 02-19-2024 MCHC (RBC) [Mass/Vol] 31.8 g/dL Low 32.0-35.0 [facility] MCV [Entitic volume] by Auto mated countOrdered By: Emelyn Bennett on 02-19-2024 MCV (RBC) [Entitic vol] 84.0 fL Normal 80-100 [facility] Comment on above: Performed By: #### C UBLD, LACTIC #### [facility] [address] [place] [address] No Panel InformationOrdered By: Emelyn Bennett on 02-19-2024 Estimated GFR (CKD-EPI) 15.239 mL/Min [facility] Creatinine Clearance (Chem 15.97 [facility] Phosphate [Mass/volume] in S boris or PlasmaOrdered By: Emelyn Bennett on 02-19-2024 Phosphate [Mass/Vol] 3.5 mg/dL Normal 2.5-4.5 [facility] Comment on above: Performed By: #### D IFF CBC, HS TROP, MG, CMP, BNP #### [address] Platelet mean volume [Entiti c volume] in Blood by Automated countOrdered By: Emelyn Bennett on 02-19-2024 Platelet mean volume (Bld) [Entitic vol] 7.9 fL Normal 6.3-10.7 [facility] Comment on above: Result Comment: PERF ORMED BY: [place] [address] PATHOLOGIST JOB SITE SUPERVISOR SERGIO VIRGEN M.D. Performed By: #### C UBLD, LACTIC #### [address] Platelets [#/volume] in Bloo d by Automated countOrdered By: Emelyn Bennett on 02-19-2024 Platelets (Bld) [#/Vol] 489 10*3/uL High 150-450 [facility] Comment on above: Performed By: #### C UBLD, LACTIC #### [address] Potassium [Moles/volume] in Serum or PlasmaOrdered By: Emelyn Bennett on 02-19-2024 Potassium [Moles/Vol] 4.3 mmol/L Normal 3.5-5.1 [facility] Comment on above: Performed By: #### D IFF CBC, HS TROP, MG, CMP, BNP #### [facility] [address] [place] [address] Prothrombin time (PT)Ordered By: Obaydah Daromar on 02-19-2024 PT Coag (PPP) [Time] 33.2 s High 9.0-12.9 [facility] Comment on above: A hematocrit value g reater than 55% may lead to inaccurate results in coagulation testing. Patients having hematocrit values >55% require a special collection tube for coagulation studies. Please contact the laboratory at [phone] for redraw instructions. Result Comment: A he matocrit value greater than 55% may lead to inaccurate results in coagulation testing. Patients having hematocrit values >55% require a special collection tube for coagulation studies. Please contact the laboratory at [phone] for redraw instructions. Performed By: #### D IFF CBC, HS TROP, MG, CMP, BNP #### [address] Renal Function Panelon 02-18 Albumin [Mass/Vol] 2.5 g/dL Low 3.5-5.7 [facility] Comment on above: Performed By: #### D IFF CBC, HS TROP, MG, CMP, BNP #### [address] Creatinine Clr Calc Pharmacy 15.97 Normal [facility] Comment on above: Result Comment: PERF ORMED BY: [place] [address] PATHOLOGIST JOB SITE SUPERVISOR SERGIO VIRGEN M.D. Performed By: #### D IFF CBC, HS TROP, MG, CMP, BNP #### [address] GFR/1.73 sq M.predicted MDRD (S/P/Bld) [Vol rate/Area] 15.239 mL/min/{1.73_m2} Normal [facility] Comment on above: Performed By: #### D IFF CBC, HS TROP, MG, CMP, BNP #### [address] Serum or plasma anion gap de terminationOrdered By: Emelyn Bennett on 02-19-2024 Anion gap [Moles/Vol] 13.2 mmol/L Normal 6.0-15.0 [facility] Comment on above: Performed By: #### D IFF CBC, HS TROP, MG, CMP, BNP #### [facility] [address] [place] [address] [place] Sodium [Moles/volume] in Ser um or PlasmaOrdered By: Emelyn Bennett on 02-19-2024 Sodium [Moles/Vol] 132 mmol/L Low 136-145 [facility] Comment on above: Performed By: #### D IFF CBC, HS TROP, MG, CMP, BNP #### [facility] [address] [place] [address] [place] Urea nitrogen [Mass/volume] in Serum or PlasmaOrdered By: Emelyn Bennett on 02-19-2024 Urea nitrogen [Mass/Vol] 35 mg/dL High 7-25 [facility] Comment on above: Performed By: #### D IFF CBC, HS TROP, MG, CMP, BNP #### [facility] [address] Glucose Poct Glucometerson 0 02-18-2024 Glucose [Mass/Vol] 266 mg/dL Normal [facility] Comment on above: Result Comment: [facility] Glucose Reference Range is dependent on time and content of last meal. Glucose of more than 200 mg/dL in a nonstressed, ambulatory subject supports the diagnosis of Diabetes Mellitus. PERFORMED BY: [place] [address] PATHOLOGIST JOB SITE SUPERVISOR SERGIO VIRGEN M.D. Performed By: #### C UBLD, LACTIC #### [facility] [address] Glucose [Mass/Vol] 241 mg/dL Normal [facility] Comment on above: Result Comment: [facility] Glucose Reference Range is dependent on time and content of last meal. Glucose of more than 200 mg/dL in a nonstressed, ambulatory subject supports the diagnosis of Diabetes Mellitus. PERFORMED BY: [place] [address] PATHOLOGIST JOB SITE SUPERVISOR SERGIO VIRGEN M.D. Performed By: #### C UBLD, LACTIC #### [address] Commemt1 Glu2: Cleaned Meter Normal [facility] Comment on above: Result Comment: PERF ORMED BY: [place] [address] PATHOLOGIST JOB SITE SUPERVISOR SERGIO VIRGEN M.D. Performed By: #### P HOS #### [address] Glucose [Mass/Vol] 273 mg/dL Normal [facility] Comment on above: Result Comment: [facility] Glucose Reference Range is dependent on time and content of last meal. Glucose of more than 200 mg/dL in a nonstressed, ambulatory subject supports the diagnosis of Diabetes Mellitus. Performed By: #### P HOS #### [address] Commemt1 Glu2: Cleaned Meter Normal [facility] Comment on above: Result Comment: PERF ORMED BY: [place] [address] PATHOLOGIST JOB SITE SUPERVISOR SERGIO VIRGEN M.D. Performed By: #### P HOS #### [address] Glucose [Mass/Vol] 164 mg/dL Normal [facility] Comment on above: Result Comment: [facility] Glucose Reference Range is dependent on time and content of last meal. Glucose of more than 200 mg/dL in a nonstressed, ambulatory subject supports the diagnosis of Diabetes Mellitus. Performed By: #### P HOS #### [address] Hemogram CBC Without Diffon 02-18-2024 Erythrocyte distribution width (RBC) [Ratio] 23.4 % High 11.9-15.3 [facility] Comment on above: Performed By: #### P HOS #### [address] Hematocrit (Bld) [Volume fraction] 26.1 % Low 34.0-46.4 [facility] Comment on above: Performed By: #### P HOS #### [address] Hemoglobin (Bld) [Mass/Vol] 8.4 g/dL Low 11.8-15.4 [facility] Comment on above: Performed By: #### P HOS #### [address] MCH (RBC) [Entitic mass] 26.7 pg Normal 24.7-34.3 [facility] Comment on above: Performed By: #### P HOS #### [address] MCV (RBC) [Entitic vol] 83.4 fL Normal 80-100 [facility] Comment on above: Performed By: #### P HOS #### [address] Mean Corpuscular HGB Conc 32.0 g/dL Normal 32.0-35.0 [facility] Comment on above: Performed By: #### P HOS #### [address] Platelet mean volume (Bld) [Entitic vol] 8.2 fL Normal 6.3-10.7 [facility] Comment on above: Result Comment: PERF ORMED BY: [place] [address] PATHOLOGIST JOB SITE SUPERVISOR SERGIO VIRGEN M.D. Performed By: #### P HOS #### [address] Platelets (Bld) [#/Vol] 471 10*3/uL High 150-450 [facility] Comment on above: Performed By: #### P HOS #### [address] RBC (Bld) [#/Vol] 3.14 10*6/uL Low 3.60-5.00 [facility] Comment on above: Performed By: #### P HOS #### [address] WBC (Bld) [#/Vol] 16.3 10*3/uL High 3.8-11.6 [facility] Comment on above: Performed By: #### P HOS #### [address] No Panel InformationOrdered By: Virgen Vivar on 02-18-2024 Bedside Glucose Comment Glu2: cleaned meter [facility] Prothrombin Time INRon 02-17 INR Coag (PPP) [Relative time] 4.1 {INR} Normal [facility] Comment on above: Result Comment: INR Therapeutic Range A) Pre- and Peroperative OAT started two weeks before surgery. NOT HIP SURGERY: 1.5 - 2.5 HIP SURGERY: 2 - 3 B) Primary and secondary prevention of venous THROMBOSIS: 2 - 3 C) Active venous thrombosis, pulmonary embolism and prevention of recurrent venous thrombosis: 2 - 3 D) Prevention of arterial thromboembolism including patients with mechanical heart valves: 3 - 4.5 PERFORMED BY: [place] [address] PATHOLOGIST JOB SITE SUPERVISOR SERGIO VIRGEN M.D. Performed By: #### C UBLD, LACTIC #### [address] PT Coag (PPP) [Time] 45.3 s High 9.0-12.9 [facility] Comment on above: Result Comment: A he matocrit value greater than 55% may lead to inaccurate results in coagulation testing. Patients having hematocrit values >55% require a special collection tube for coagulation studies. Please contact the laboratory at [phone] for redraw instructions. Performed By: #### C UBLD, LACTIC #### [address] Renal Function Panelon 02-17 Albumin [Mass/Vol] 2.5 g/dL Low 3.5-5.7 [facility] Comment on above: Performed By: #### D IFF CBC, HS TROP, MG, CMP, BNP #### [address] Anion gap [Moles/Vol] 13.4 mmol/L Normal 6.0-15.0 [facility] Comment on above: Performed By: #### D IFF CBC, HS TROP, MG, CMP, BNP #### [address] Calcium [Mass/Vol] 8.1 mg/dL Low 8.6-10.3 [facility] Comment on above: Performed By: #### D IFF CBC, HS TROP, MG, CMP, BNP #### [place] [address] [place] Chloride [Moles/Vol] 97 mmol/L Low 98-107 [facility] Comment on above: Performed By: #### D IFF CBC, HS TROP, MG, CMP, BNP #### [address] CO2 [Moles/Vol] 27.6 mmol/L Normal 21.0-31.0 [facility] Comment on above: Performed By: #### D IFF CBC, HS TROP, MG, CMP, BNP #### [place] [address] [place] Creatinine [Mass/Vol] 2.21 mg/dL High 0.60-1.20 [facility] Comment on above: Performed By: #### D IFF CBC, HS TROP, MG, CMP, BNP #### [place] [address] [place] Creatinine Clr Calc Pharmacy 21.68 Normal [facility] Comment on above: Result Comment: PERF ORMED BY: [place] [address] PATHOLOGIST JOB SITE SUPERVISOR SERGIO VIRGEN M.D. Performed By: #### D IFF CBC, HS TROP, MG, CMP, BNP #### [place] [address] [place] GFR/1.73 sq M.predicted MDRD (S/P/Bld) [Vol rate/Area] 21.991 mL/min/{1.73_m2} Normal [facility] Comment on above: Performed By: #### D IFF CBC, HS TROP, MG, CMP, BNP #### [facility] [address] [place] [address] [place] Glucose [Mass/Vol] 149 mg/dL High 70-100 [facility] Comment on above: Result Comment: [facility] Glucose Reference Range is dependent on time and content of last meal. Glucose of more than 200 mg/dL in a nonstressed, ambulatory subject supports the diagnosis of Diabetes Mellitus. ADA recommended reference range Performed By: #### D IFF CBC, HS TROP, MG, CMP, BNP #### [facility] [address] Phosphate [Mass/Vol] 2.8 mg/dL Normal 2.5-4.5 [facility] Comment on above: Performed By: #### D IFF CBC, HS TROP, MG, CMP, BNP #### [facility] [address] Potassium [Moles/Vol] 4.0 mmol/L Normal 3.5-5.1 [facility] Comment on above: Performed By: #### D IFF CBC, HS TROP, MG, CMP, BNP #### [place] [address] [place] Sodium [Moles/Vol] 134 mmol/L Low 136-145 [facility] Comment on above: Performed By: #### D IFF CBC, HS TROP, MG, CMP, BNP #### [place] [address] [place] Urea nitrogen [Mass/Vol] 21 mg/dL Normal 7-25 [facility] Comment on above: Performed By: #### D IFF CBC, HS TROP, MG, CMP, BNP #### [facility] [address] Glucose Poct Glucometerson 0 02-17-2024 Glucose [Mass/Vol] 155 mg/dL Normal [facility] Comment on above: Result Comment: [facility] Glucose Reference Range is dependent on time and content of last meal. Glucose of more than 200 mg/dL in a nonstressed, ambulatory subject supports the diagnosis of Diabetes Mellitus. PERFORMED BY: [place] [address] PATHOLOGIST JOB SITE SUPERVISOR SERGIO VIRGEN M.D. Performed By: #### D IFF CBC, HS TROP, MG, CMP, BNP #### [address] Glucose [Mass/Vol] 271 mg/dL Normal [facility] Comment on above: Result Comment: [facility] Glucose Reference Range is dependent on time and content of last meal. Glucose of more than 200 mg/dL in a nonstressed, ambulatory subject supports the diagnosis of Diabetes Mellitus. PERFORMED BY: [place] [phone] PATHOLOGIST JOB SITE SUPERVISOR SERGIO VIRGEN M.D. Performed By: #### P HOS #### [address] Glucose [Mass/Vol] 135 mg/dL Normal [facility] Comment on above: Result Comment: [facility] Glucose Reference Range is dependent on time and content of last meal. Glucose of more than 200 mg/dL in a nonstressed, ambulatory subject supports the diagnosis of Diabetes Mellitus. PERFORMED BY: [place] [phone] PATHOLOGIST JOB SITE SUPERVISOR SERGIO VIRGEN M.D. Performed By: #### C UBLD, LACTIC #### [address] Glucose [Mass/Vol] 150 mg/dL Normal [facility] Comment on above: Result Comment: [facility] Glucose Reference Range is dependent on time and content of last meal. Glucose of more than 200 mg/dL in a nonstressed, ambulatory subject supports the diagnosis of Diabetes Mellitus. PERFORMED BY: [place] [phone] PATHOLOGIST JOB SITE SUPERVISOR SERGIO VIRGEN M.D. Performed By: #### C UBLD, LACTIC #### [address] Hemogram CBC Without Diffon 02-17-2024 Erythrocyte distribution width (RBC) [Ratio] 23.3 % High 11.9-15.3 [facility] Comment on above: Performed By: #### C UBLD, LACTIC #### [address] Hematocrit (Bld) [Volume fraction] 26.8 % Low 34.0-46.4 [facility] Comment on above: Performed By: #### C UBLD, LACTIC #### [address] Hemoglobin (Bld) [Mass/Vol] 8.5 g/dL Low 11.8-15.4 [facility] Comment on above: Performed By: #### C UBLD, LACTIC #### [address] MCH (RBC) [Entitic mass] 26.8 pg Normal 24.7-34.3 [facility] Comment on above: Performed By: #### C UBLD, LACTIC #### [address] MCV (RBC) [Entitic vol] 84.3 fL Normal 80-100 [facility] Comment on above: Performed By: #### C UBLD, LACTIC #### [address] Mean Corpuscular HGB Conc 31.8 g/dL Low 32.0-35.0 [facility] [facility] Comment on above: Performed By: #### C UBLD, LACTIC #### [address] Platelet mean volume (Bld) [Entitic vol] 8.6 fL Normal 6.3-10.7 [facility] Comment on above: Result Comment: PERF ORMED BY: [place] [address] PATHOLOGIST JOB SITE SUPERVISOR SERGIO VIRGEN M.D. Performed By: #### C UBLD, LACTIC #### [address] Platelets (Bld) [#/Vol] 478 10*3/uL High 150-450 [facility] Comment on above: Performed By: #### C UBLD, LACTIC #### [address] RBC (Bld) [#/Vol] 3.18 10*6/uL Low 3.60-5.00 [facility] Comment on above: Performed By: #### C UBLD, LACTIC #### [address] WBC (Bld) [#/Vol] 20.2 10*3/uL High 3.8-11.6 [facility] Comment on above: Performed By: #### C UBLD, LACTIC #### [address] Prothrombin Time INRon 02-16 INR Coag (PPP) [Relative time] 5.7 {INR} Off scale high [facility] Comment on above: Result Comment: Crit ical value result called at 0644 on 02/17/24 INR Therapeutic Range A) Pre- and Peroperative OAT started two weeks before surgery. NOT HIP SURGERY: 1.5 - 2.5 HIP SURGERY: 2 - 3 B) Primary and secondary prevention of venous THROMBOSIS: 2 - 3 C) Active venous thrombosis, pulmonary embolism and prevention of recurrent venous thrombosis: 2 - 3 D) Prevention of arterial thromboembolism including patients with mechanical heart valves: 3 - 4.5 PERFORMED BY: [place] [address] PATHOLOGIST JOB SITE SUPERVISOR SERGIO VIRGEN M.D. Performed By: #### C UBLD, LACTIC #### [address] PT Coag (PPP) [Time] 63.0 s High 9.0-12.9 [facility] Comment on above: Result Comment: A he matocrit value greater than 55% may lead to inaccurate results in coagulation testing. Patients having hematocrit values >55% require a special collection tube for coagulation studies. Please contact the laboratory at [phone] for redraw instructions. Performed By: #### C UBLD, LACTIC #### [address] Renal Function Panelon 02-16 Albumin [Mass/Vol] 2.5 g/dL Low 3.5-5.7 [facility] Comment on above: Performed By: #### C UBLD, LACTIC #### [address] Anion gap [Moles/Vol] 13.2 mmol/L Normal 6.0-15.0 Th e [facility] Comment on above: Performed By: #### C UBLD, LACTIC #### [address] Calcium [Mass/Vol] 8.1 mg/dL Low 8.6-10.3 [facility] Comment on above: Performed By: #### C UBLD, LACTIC #### [address] Chloride [Moles/Vol] 99 mmol/L Normal 98-107 [facility] Comment on above: Performed By: #### C UBLD, LACTIC #### [address] CO2 [Moles/Vol] 25.8 mmol/L Normal 21.0-31.0 [facility] Comment on above: Performed By: #### C UBLD, LACTIC #### [address] Creatinine [Mass/Vol] 2.30 mg/dL Significan t change up 0.60-1.20 [facility] Comment on above: Performed By: #### C UBLD, LACTIC #### [place] [address] [place] Creatinine Clr Calc Pharmacy 20.38 Normal [facility] Comment on above: Result Comment: PERF ORMED BY: [place] [address] PATHOLOGIST JOB SITE SUPERVISOR SERGIO VIRGEN M.D. Performed By: #### C UBLD, LACTIC #### [place] [address] [place] GFR/1.73 sq M.predicted MDRD (S/P/Bld) [Vol rate/Area] 20.962 mL/min/{1.73_m2} Normal [facility] Comment on above: Performed By: #### C UBLD, LACTIC #### [address] Glucose [Mass/Vol] 117 mg/dL High 70-100 [facility] Comment on above: Result Comment: [facility] Glucose Reference Range is dependent on time and content of last meal. Glucose of more than 200 mg/dL in a nonstressed, ambulatory subject supports the diagnosis of Diabetes Mellitus. ADA recommended reference range Performed By: #### C UBLD, LACTIC #### [address] Phosphate [Mass/Vol] 2.9 mg/dL Normal 2.5-4.5 [facility] Comment on above: Performed By: #### C UBLD, LACTIC #### [place] [address] [place] Potassium [Moles/Vol] 4.0 mmol/L Normal 3.5-5.1 [facility] Comment on above: Performed By: #### C UBLD, LACTIC #### [place] [address] [place] Sodium [Moles/Vol] 134 mmol/L Low 136-145 [facility] Comment on above: Performed By: #### C UBLD, LACTIC #### [place] [address] [place] Urea nitrogen [Mass/Vol] 23 mg/dL Significant change down 02-17 [facility] Comment on above: Performed By: #### C UBLD, LACTIC #### [place] [address] [place] Alanine aminotransferase [En zymatic activity/volume] in Serum or PlasmaOrdered By: Virgen Vivar on 02-16-2024 ALT [Catalytic activity/Vol] 26 U/L Normal 7-52 [facility] Comment on above: Performed By: #### P HOS #### [place] [address] [place] Alkaline phosphatase [Enzyma tic activity/volume] in Serum or PlasmaOrdered By: Obaydah Daromar on 02-16-2024 ALP [Catalytic activity/Vol] 158 U/L High 34-104 [facility] Comment on above: Performed By: #### P HOS #### [address] Anisocytosis [Presence] in B lood by Light microscopyOrdered By: Obaydah Daromar on 02-16-2024 Anisocytosis Ql (Bld) Marked Normal [facility] Comment on above: Performed By: #### C UBLD, LACTIC #### [address] Aspartate aminotransferase [ Enzymatic activity/volume] in Serum or PlasmaOrdered By: Obaydah Daromar on 02-16-2024 AST [Catalytic activity/Vol] 32 U/L Normal 13-39 [facility] Comment on above: Performed By: #### P HOS #### [address] Automated basophil %Ordered By: Obaydah Daromar on 02-16-2024 Basophils/100 WBC (Bld) 0.7 % Normal . [facility] Comment on above: Performed By: #### C UBLD, LACTIC #### [address] Automated basophil countOrde red By: Obaydah Daromar on 02-16-2024 Basophils (Bld) [#/Vol] 0.2 10*3/uL Normal 0.0-0.2 [facility] Comment on above: Performed By: #### C UBLD, LACTIC #### [address] Automated blood monocyte cou ntOrdered By: Obaydah Daromar on 02-16-2024 Monocytes (Bld) [#/Vol] 2.3 10*3/uL High 0.0-0.8 [facility] Comment on above: Performed By: #### C UBLD, LACTIC #### [address] Automated eosinophil %Ordere d By: Obaydah Daromar on 02-16-2024 Eosinophils/100 WBC (Bld) 2.1 % Normal . [facility] Comment on above: Performed By: #### C UBLD, LACTIC #### [address] Automated eosinophil countOr dered By: Obaydah Daromar on 02-16-2024 Eosinophils (Bld) [#/Vol] 0.5 10*3/uL High 0.0-0.45 [facility] Comment on above: Performed By: #### C UBLD, LACTIC #### [address] Automated monocyte %Ordered By: Obaydah Daromar on 02-16-2024 Monocytes/100 WBC (Bld) 9.0 % Normal . [facility] Comment on above: Performed By: #### C UBLD, LACTIC #### [address] Automated neutrophil %Ordere d By: Obaydah Daromar on 02-16-2024 Neutrophils/100 WBC (Bld) 84.9 % Normal . [facility] Comment on above: Performed By: #### C UBLD, LACTIC #### [address] Beta Hydroxybuterateon 02-15 Beta Hydroxybuterate 0.22 mmol/L Normal 0.02-0.27 [facility] Comment on above: Result Comment: PERF ORMED BY: [place] [address] PATHOLOGIST JOB SITE SUPERVISOR SERGIO VIRGEN M.D. Performed By: #### C UBLD, LACTIC #### [address] Beta hydroxybutyrate [Moles/ volume] in Serum or PlasmaOrdered By: Emelyn Bennett on 02-16-2024 Beta hydroxybutyrate [Moles/Vol] 0.22 mmol/L 0.02-0.27 [facility] Bilirubin.total [Mass/volume ] in Serum or PlasmaOrdered By: Obabbie Lucianoomar on 02-16-2024 Bilirubin [Mass/Vol] 0.7 mg/dL Normal 0.3-1.0 [facility] Comment on above: Performed By: #### P HOS #### [address] C reactive protein [Mass/vol ume] in Serum or PlasmaOrdered By: Obshemardaskylar Daromar on 02-16-2024 CRP [Mass/Vol] 28.4 mg/dL High 0.0-0.5 [facility] C-Reactive Proteinon 024 C-Reactive Protein 28.4 mg/dL High 0.0-0.5 [facility] Comment on above: Result Comment: PERF ORMED BY: [place] [address] PATHOLOGIST JOB SITE SUPERVISOR SERGIO VIRGEN M.D. Performed By: #### C UBLD, LACTIC #### [address] Comprehensive Metabolic Pane harley 02-16-2024 Albumin [Mass/Vol] 2.8 g/dL Low 3.5-5.7 [facility] Comment on above: Performed By: #### P HOS #### [address] Anion gap [Moles/Vol] 17.5 mmol/L High 6.0-15.0 Th e [facility] Comment on above: Performed By: #### P HOS #### [address] Calcium [Mass/Vol] 8.6 mg/dL Normal 8.6-10.3 [facility] Comment on above: Performed By: #### P HOS #### [address] Chloride [Moles/Vol] 96 mmol/L Low 98-107 [facility] Comment on above: Performed By: #### P HOS #### [place] [address] [place] CO2 [Moles/Vol] 20.6 mmol/L Low 21.0-31.0 [facility] Comment on above: Performed By: #### P HOS #### [address] Creatinine [Mass/Vol] 4.26 mg/dL High 0.60-1.20 [facility] Comment on above: Performed By: #### P HOS #### [place] [address] [place] Creatinine Clr Calc Pharmacy 11.00 Normal [facility] Comment on above: Performed By: #### P HOS #### [place] [address] [place] GFR/1.73 sq M.predicted MDRD (S/P/Bld) [Vol rate/Area] 10.005 mL/min/{1.73_m2} Normal [facility] Comment on above: Performed By: #### P HOS #### [address] Glucose [Mass/Vol] 172 mg/dL High 70-100 [facility] Comment on above: Result Comment: [facility] Glucose Reference Range is dependent on time and content of last meal. Glucose of more than 200 mg/dL in a nonstressed, ambulatory subject supports the diagnosis of Diabetes Mellitus. ADA recommended reference range Performed By: #### P HOS #### [address] Potassium [Moles/Vol] 5.1 mmol/L Normal 3.5-5.1 [facility] Comment on above: Performed By: #### P HOS #### [place] [address] [place] Sodium [Moles/Vol] 129 mmol/L Low 136-145 [facility] Comment on above: Performed By: #### P HOS #### [address] Urea nitrogen [Mass/Vol] 57 mg/dL High 7-25 [facility] Comment on above: Performed By: #### P HOS #### [address] [place] [address] [facility] echo transthoracicon [facility] echo transthoracic [facility] [address] [place] [address] [place] [address] Echocardiogram Signed Patient: Rosa Winter MR#: [id number] : 1945 Acct:[id number] Age/Sex: 78 / F ADM Date: 02/15/24 Loc: Room: [address] [place] [address] Type: ADM IN Attending Dr: Virgen Vivar MD Ordering Provider: Mukul Durbin MD Date of Service: 02/16/24 [facility] echo transthoracic: evaluate for systolic/diastolic dysfunction Copies to: MD Anders Ramirez MD Weight: 207 lb Performed By: Mary Jo Vogel RDCS BSA: 1.9 m2 BP: 93/55 mmHg HR: 55 Reason For Study: evaluate for systolic/diastolic dysfunction History: DM. Afib. CHF. CKD. HLD. Morbid Obesity. Interpretation Summary The left ventricular wall motion is normal. Mild concentric left ventricular hypertrophy. Ejection Fraction = 60-65%. The left atrium appears severely dilated. The right atrium is moderately dilated. There is mild mitral regurgitation. There is mild tricuspid regurgitation. The right ventricular systolic pressure is 55 mmHg. Right ventricular systolic pressure is consistent with moderate pulmonary hypertension. Moderately dilated inferior vena cava There is no comparison study available. Procedure/Quality: A two-dimensional transthoracic echocardiogram with color flow, Doppler and injection of contrast agent Definity was performed. A two- dimensional transthoracic echocardiogram with color flow and Doppler was performed. Left Ventricle: The left ventricular size is normal. Mild concentric left ventricular hypertrophy. Ejection Fraction = 60-65%. The left ventricular wall motion is normal. Left Atrium: The left atrium appears severely dilated. The atrial septum appears normal. Right Atrium: The right atrium is moderately dilated. Right Ventricle: The right ventricular size, thickness and function are normal. Aortic Valve: The aortic valve is normal in structure and function. No aortic regurgitation is present. Mitral Valve: The mitral valve is moderately sclerotic. There is mild mitral regurgitation. Tricuspid Valve: The tricuspid valve is normal in structure and function. There is mild tricuspid regurgitation. The right ventricular systolic pressure is 55 mmHg. Right ventricular systolic pressure is consistent with moderate pulmonary hypertension. Pulmonic Valve: The pulmonic valve is normal in structure and function. Arteries: The aortic root is normal size. Pericardium/Pleura: No pericardial effusion seen. There is no pleural effusion. IVC/Hepatic Veins: Moderately dilated inferior vena cava. Measurements with Normals IVSd: 1.2 cm (0.7-1.1 cm)LVIDd: 4.7 cm (3.7-5.4 cm) LVPWd: 1.3 cm (0.7-1.1 cm)LVIDs: 3.3 cm (2.3-3.6 cm) LA dimension: 5.9 cm (2.3-4.0 cm)Ao root diam: 2.7 cm(2.0-3.6 cm) asc Aorta Diam: 3.1 cm(2.1-3.4cm) Doppler with Normals RVSP(TR): 57.8 mmHg (18-35mmHg) LV V1 max: 115.7 cm/sec(0.7-1.7m/s)MV E max devi: 159.0 cm/sec(0.8-1.3m/s) MMode/2D Measurements Calculations TAPSE: 1.6 cm FS: 30.2 % Ao root area: LVOT diam: 1.9 cm RV S Devi: EDV(Teich): 5.6 cm2 LVOT area: 11.1 cm/sec 101.1 ml 2.9 cm2 ESV(Teich): 43.0 ml EF(Teich): 57.5 % __ LVLd ap4: 6.5 cm SV(MOD-sp4): EDV(MOD-sp4): 63.9 ml 88.7 ml LVLs ap4: 5.7 cm ESV(MOD-sp4): 24.8 ml EF(MOD-sp4): 72.0 % Doppler Measurements Calculations MV dec time: MV V2 max: MV dec slope: Ao V2 max: 0.18 sec 181.5 cm/sec 873.4 cm/sec2 174.8 cm/sec MV max PG: Ao max P.0 mmHg 12.2 mmHg MV V2 mean: Ao mean P.4 cm/sec 6.4 mmHg MV mean PG: Ao V2 mean: 4.2 mmHg 121.2 cm/sec MV V2 VTI: 43.0 cm Ao V2 VTI: 33.9 cm MVA(VTI): 1.7 cm2 ESPERANZA(I,D): 2.2 cm2 ESPERANZA(V,D): 1.9 cm2 __ LV V1 max PG: MR max devi: TV max P.0 mmHg TR max devi: 5.4 mmHg 423.9 cm/sec 352.9 cm/sec LV V1 mean PG: MR max PG: TR max P.6 mmHg 72.0 mmHg 49.8 mmHg LV V1 mean: RAP systole: 76.6 cm/sec 8.0 mmHg LV V1 VTI: 24.9 cm Transcribed By: SCV Performed At: 02/16/24 0937 Signed By: Anders Ernandez MD 02/16/24 1403 Normal [facility] Erythrocyte Sedimentation Ra tena 02-16-2024 ESR (Bld) [Velocity] mm/h High 0-29 [facility] Comment on above: Result Comment: PERF ORMED BY: [place] [address] PATHOLOGIST JOB SITE SUPERVISOR SERGIO VIRGEN M.D. Performed By: #### C UBLD, LACTIC #### [address] Erythrocyte sedimentation ra te by Photometric methodOrdered By: Virgen Vivar on 02-16-2024 ESR Photometric method (Bld) [Velocity] > 130 mm/hr High 0-29 [facility] Ferritin [Mass/volume] in Se rum or PlasmaOrdered By: Emelyn Bennett on 02-16-2024 Ferritin [Mass/Vol] 655.5 ng/mL High 11.0-306.8 [facility] Comment on above: Result Comment: PERF ORMED BY: [place] [address] PATHOLOGIST JOB SITE SUPERVISOR SERGIO VIRGEN M.D. Performed By: #### C UBLD, LACTIC #### [facility] [address] [place] [address] Glucose Poct Glucometerson 0 02-16-2024 Commemt1 Glu2: Cleaned Meter Normal [facility] Comment on above: Result Comment: PERF ORMED BY: [place] [address] PATHOLOGIST JOB SITE SUPERVISOR SERGIO VIRGEN M.D. Performed By: #### G LULS #### Point of Care testing , Glucose [Mass/Vol] 228 mg/dL Normal [facility] Comment on above: Result Comment: [facility] Glucose Reference Range is dependent on time and content of last meal. Glucose of more than 200 mg/dL in a nonstressed, ambulatory subject supports the diagnosis of Diabetes Mellitus. Performed By: #### G LULS #### Point of Care testing , Glucose [Mass/Vol] 147 mg/dL Normal [facility] Comment on above: Result Comment: [facility] Glucose Reference Range is dependent on time and content of last meal. Glucose of more than 200 mg/dL in a nonstressed, ambulatory subject supports the diagnosis of Diabetes Mellitus. PERFORMED BY: [place] [address] PATHOLOGIST JOB SITE SUPERVISOR SERGIO VIRGEN M.D. Performed By: #### C UBLD, LACTIC #### [facility] [address] [place], [place] [id number] [facility] Hypochromia LM Ql (Bld)Order ed By: Virgen Vivar on 02-16-2024 Hypochromia Ql (Bld) Slight [facility] Iron [Mass/volume] in Serum or PlasmaOrdered By: Emelyn Bennett on 02-16-2024 Iron [Mass/Vol] 12 ug/dL Low 50-212 [facility] Comment on above: Performed By: #### C UBLD, LACTIC #### [facility] [address] Iron and TIBC Profileon 01-25 % Iron Saturation 9.8 % Low 20-50 [facility] Comment on above: Performed By: #### C UBLD, LACTIC #### [facility] [address] Total Iron Binding Capacity 123 ug/dL Low 255-450 [facility] Comment on above: Performed By: #### C UBLD, LACTIC #### [facility] [address] Iron binding capacity [Mass/ volume] in Serum or PlasmaOrdered By: Emelyn Sabrina on 02-16-2024 Iron binding capacity [Mass/Vol] 123 ug/dL Low 255-450 [facility] Iron saturation [Mass Fracti on] in Serum or PlasmaOrdered By: Emelyn Sabrina on 02-16-2024 Iron saturation [Mass fraction] 9.8 % Low 20-50 [facility] Leukocytes [#/volume] in Blo od by Automated countOrdered By: Obaydah Daromar on 02-16-2024 WBC (Bld) [#/Vol] 25.6 10*3/uL High 3.8-11.6 [facility] Comment on above: Performed By: #### C UBLD, LACTIC #### [facility] [address] [place] [address] [place] Lymphocytes [#/volume] in Bl ood by Automated countOrdered By: Obaydah Daromar on 02-16-2024 Lymphocytes (Bld) [#/Vol] 0.8 10*3/uL Low 1.00-4.8 [facility] Comment on above: Performed By: #### C UBLD, LACTIC #### [facility] [address] [place] [address] [place] Lymphocytes/100 leukocytes i n Blood by Automated countOrdered By: Obaydah Daromar on 02-16-2024 Lymphocytes/100 WBC (Bld) 3.3 % Normal . [facility] Comment on above: Performed By: #### C UBLD, LACTIC #### [facility] [address] Magnesium [Mass/volume] in S boris or PlasmaOrdered By: Obshemardah Mustaphaomar on 02-16-2024 Magnesium [Mass/Vol] 2.0 mg/dL Normal 1.9-2.7 [facility] Comment on above: Result Comment: PERF ORMED BY: [place] [address] PATHOLOGIST JOB SITE SUPERVISOR SERGIO VIRGEN M.D. Performed By: #### P HOS #### [facility] [address] [place] [address] Neutrophils [#/volume] in Bl ood by Automated countOrdered By: Obabbie Lucianoomar on 02-16-2024 Neutrophils (Bld) [#/Vol] 21.8 10*3/uL High 1.8-7.7 [facility] Comment on above: Performed By: #### C UBLD, LACTIC #### [facility] [address] [place] [address] Nucleated erythrocytes [Pres ence] in Blood by Automated countOrdered By: Sharondaskylar Lucianoomar on 02-16-2024 Nucleated RBC Auto Ql (Bld) 0.1 /100{WBC} 0-0.5 [facility] Ovalocyte detectionOrdered B y: Obaydah Daromar on 02-16-2024 Ovalocytes LM Ql (Bld) Slight [facility] Platelet adequacy [Presence] in Blood by Light microscopyOrdered By: Obshemardah Mustaphaomar on 02-16-2024 Platelets LM Ql (Bld) Increased Normal [facility] Platelet morphology finding [Identifier] in BloodOrdered By: Obaydah Daromar on 02-16-2024 Platelet morphology finding Nom (Bld) N/A [facility] Platelets Large [Presence] i n Blood by Light microscopyOrdered By: Obshemardah Daromar on 02-16-2024 Platelets Large LM Ql (Bld) Slight [facility] Polychromasia [Presence] in Blood by Light microscopyOrdered By: Virgen Vivar on 02-16-2024 Polychromasia LM Ql (Bld) Slight [facility] Protein [Mass/volume] in Ser um or PlasmaOrdered By: Virgen Vivar on 02-16-2024 Protein [Mass/Vol] 6.2 g/dL Low 6.4-8.9 [facility] Comment on above: Performed By: #### P HOS #### [address] Prothrombin Time INRon 02-15 INR Coag (PPP) [Relative time] 4.6 {INR} Normal [facility] Comment on above: Result Comment: INR Therapeutic Range A) Pre- and Peroperative OAT started two weeks before surgery. NOT HIP SURGERY: 1.5 - 2.5 HIP SURGERY: 2 - 3 B) Primary and secondary prevention of venous THROMBOSIS: 2 - 3 C) Active venous thrombosis, pulmonary embolism and prevention of recurrent venous thrombosis: 2 - 3 D) Prevention of arterial thromboembolism including patients with mechanical heart valves: 3 - 4.5 PERFORMED BY: [place] [address] PATHOLOGIST JOB SITE SUPERVISOR SERGIO VIRGEN M.D. Performed By: #### P HOS #### [address] PT Coag (PPP) [Time] 51.2 s High 9.0-12.9 [facility] Comment on above: Result Comment: A he matocrit value greater than 55% may lead to inaccurate results in coagulation testing. Patients having hematocrit values >55% require a special collection tube for coagulation studies. Please contact the laboratory at [phone] for redraw instructions. Performed By: #### P HOS #### [address] RBC morphologyOrdered By: Ena Vivar on 02-16-2024 RBC morphology finding Nom (Bld) N/A [facility] Scan and CBCon 02-16-2024 Erythrocyte distribution width (RBC) [Ratio] 23.7 % High 11.9-15.3 [facility] Comment on above: Performed By: #### C UBLD, LACTIC #### [address] Hematocrit (Bld) [Volume fraction] 29.6 % Low 34.0-46.4 [facility] Comment on above: Performed By: #### C UBLD, LACTIC #### [address] Hemoglobin (Bld) [Mass/Vol] 9.1 g/dL Low 11.8-15.4 [facility] Comment on above: Performed By: #### C UBLD, LACTIC #### [address] Hypochromasia Slight Normal [facility] Comment on above: Performed By: #### C UBLD, LACTIC #### [address] Large Platelets Slight Normal [facility] Comment on above: Performed By: #### C UBLD, LACTIC #### [address] MCH (RBC) [Entitic mass] 26.1 pg Normal 24.7-34.3 [facility] Comment on above: Performed By: #### C UBLD, LACTIC #### [address] MCV (RBC) [Entitic vol] 84.5 fL Normal 80-100 [facility] [facility] Comment on above: Performed By: #### C UBLD, LACTIC #### [address] Mean Corpuscular HGB Conc 30.9 g/dL Low 32.0-35.0 [facility] Comment on above: Performed By: #### C UBLD, LACTIC #### [address] NRBC% 0.1 /100{WBC} Normal 0-0.5 [facility] Comment on above: Performed By: #### C UBLD, LACTIC #### [address] [place] [address] [place] Ovalocytes Slight Normal [facility] Comment on above: Performed By: #### C UBLD, LACTIC #### [address] Platelet Estimate Increased Normal Normal [facility] Comment on above: Performed By: #### C UBLD, LACTIC #### [address] Platelet mean volume (Bld) [Entitic vol] 8.3 fL Normal 6.3-10.7 [facility] Comment on above: Performed By: #### C UBLD, LACTIC #### [address] Platelets (Bld) [#/Vol] 543 10*3/uL High 150-450 [facility] Comment on above: Performed By: #### C UBLD, LACTIC #### [address] Polychromasia Slight Normal [facility] Comment on above: Performed By: #### C UBLD, LACTIC #### [address] RBC (Bld) [#/Vol] 3.50 10*6/uL Low 3.60-5.00 [facility] Comment on above: Performed By: #### C UBLD, LACTIC #### [address] Serum globulin measurement b y calculation (mass/volume)Ordered By: Virgen Vivar on 02-16-2024 Globulin (S) [Mass/Vol] 3.4 g/dL Normal [facility] Comment on above: Performed By: #### P HOS #### [address] Serum or plasma albumin/glob ulin mass ratioOrdered By: Virgen Lucianoomar on 02-16-2024 Albumin/Globulin [Mass ratio] 0.8 {ratio} Normal [facility] Comment on above: Performed By: #### P HOS #### [address] [place] [address] [place] Transferrin [Mass/volume] in Serum or PlasmaOrdered By: Emelyn Bennett on 02-16-2024 Transferrin [Mass/Vol] 88 mg/dL Low 203-362 [facility] Comment on above: Performed By: #### C UBLD, LACTIC #### [place] [address] [place] Alanine aminotransferase [En zymatic activity/volume] in Serum or PlasmaOrdered By: Alejandro Rendon on 02-15-2024 ALT [Catalytic activity/Vol] 28 U/L Normal 7-52 [facility] Comment on above: Performed By: #### D IFF CBC, HS TROP, MG, CMP, BNP #### [place] [address] [place] Albumin [Mass/volume] in Ser um or Plasma by Bromocresol green (BCG) dye binding methoOrdered By: Alejandro Rendon on 02-15-2024 Albumin BCG dye [Mass/Vol] 2.8 g/dL Low 3.5-5.7 [facility] Alkaline phosphatase [Enzyma tic activity/volume] in Serum or PlasmaOrdered By: Alejandro Rendon on 02-15-2024 ALP [Catalytic activity/Vol] 151 U/L High 34-104 [facility] Comment on above: Performed By: #### D IFF CBC, HS TROP, MG, CMP, BNP #### [place] [address] [place] Anisocytosis [Presence] in B lood by Light microscopyOrdered By: Alejandro Rendon on 02-15-2024 Anisocytosis Ql (Bld) Marked Normal [facility] Comment on above: Performed By: #### D IFF CBC, HS TROP, MG, CMP, BNP #### [place] [address] [place] Aspartate aminotransferase [ Enzymatic activity/volume] in Serum or PlasmaOrdered By: Alejandro Rendon on 02-15-2024 AST [Catalytic activity/Vol] 40 U/L High 13-39 [facility] Comment on above: Performed By: #### D IFF CBC, HS TROP, MG, CMP, BNP #### [facility] [address] BNP ser/plasOrdered By: Shannon Rendon on 02-15-2024 Natriuretic peptide B (Bld) [Mass/Vol] 525.0 pg/mL High 5-100 [facility] Comment on above: Result Comment: PERF ORMED BY: [place] [address] PATHOLOGIST JOB SITE SUPERVISOR SERGIO VIRGEN M.D. Performed By: #### D IFF CBC, HS TROP, MG, CMP, BNP #### [address] Basophils Auto (Bld) [#/Vol] Ordered By: Alejandro Rendon on 02-15-2024 Basophils (Bld) [#/Vol] N/A [facility] Basophils/100 WBC Auto (Bld) Ordered By: Alejandro Rendon on 02-15-2024 Basophils/100 WBC (Bld) N/A [facility] Bilirubin.total [Mass/volume ] in Serum or PlasmaOrdered By: Alejandro Rendon on 02-15-2024 Bilirubin [Mass/Vol] 0.6 mg/dL Normal 0.3-1.0 [facility] Comment on above: Performed By: #### D IFF CBC, HS TROP, MG, CMP, BNP #### [address] Blood Cultureon 02-15-2024 Bacteria identified Cx Nom (Bld) NO GROWTH 5 DAYS PERFORMED BY: [place] [address] PATHOLOGIST JOB SITE SUPERVISOR SERGIO VIRGEN M.D. Normal [facility] Comment on above: Performed By: #### P HOS #### [address] Bacteria identified Cx Nom (Bld) NO GROWTH 5 DAYS PERFORMED BY: [place] [address] PATHOLOGIST JOB SITE SUPERVISOR SERGIO VIRGEN M.D. Normal [facility] Comment on above: Performed By: #### C UBLD, LACTIC #### [facility] [address] [place] [id number] [facility] CT abdomen pelvis w conon CT abdomen pelvis w con [facility] [place] [address] [place] [address] CT Scan Report Signed Patient: Rosa Winter MR#: [id number] : 1945 Acct:[id number] Age/Sex: 78 / F ADM Date: 02/15/24 Loc: Room: [address] [place] [address] Type: ADM IN Attending Dr: Virgen Vivar MD Copies to: ELEAZAR Sher MD Ordering Provider: Alejandro Rendon PA-C Date of Service: 02/15/24 CT/CT abdomen pelvis w con: abdominal infection CT ABDOMEN AND PELVIS WITH INTRAVENOUS CONTRAST: CLINICAL HISTORY: Unresponsive hypotensive at dialysis today. Elevated white count. COMPARISON: None TECHNIQUE: Spiral images were obtained through the abdomen and pelvis following the administration of intravenous contrast. This CT exam was performed using one or more following dose reduction techniques: Automated exposure control, adjustment of the mA and/or kV according to patient size, or use of iterative reconstruction technique. FINDINGS: Lung Bases: [Bibasilar atelectasis] Organs:Liver gallbladder portal vein pancreas and adrenal glands appear unremarkable. Splenic granulomas. No enhancing renal mass or hydronephrosis. Abdominal demonstrates moderate calcification without aneurysm.[ GI: Stomach is grossly unremarkable. Small bowel appears nondilated. Moderate stool burden.[ Pelvis:[Urinary bladder is grossly unremarkable. Uterus has been removed. No adnexal mass.] Peritoneum/Retroperitoneum :No free air, free fluid or lymphadenopathy.[ Abd wall/Bones:Abdominal wall demonstrates no acute findings. Osseous structures demonstrate degenerative change.[ CT/CT abdomen pelvis w con IMPRESSION: No acute findings. Impression dictated by: Brennan Mcdonough Jr., D.O.02/15/2024 7:43 PM Dictation Location: [place] [address] Transcribed By: [facility] 02/15/241942 Dictated By: Brennan Mcdonough Jr, DO 02/15/241937 Signed By: 02/15/241942 [facility] Calcium [Mass/volume] in Ser um or PlasmaOrdered By: Alejandro Rendon on 02-15-2024 Calcium [Mass/Vol] 8.9 mg/dL Normal 8.6-10.3 [facility] Comment on above: Performed By: #### D IFF CBC, HS TROP, MG, CMP, BNP #### [facility] [address] Capillary blood glucose manjeet urement by glucometer (mass/volume)Ordered By: Alejandro Rendon on 02-15-2024 Glucose [Mass/Vol] 254 mg/dL Normal [facility] Comment on above: Random Glucose Refer ence Range is dependent on time and content of last meal. Glucose of more than 200 mg/dL in a nonstressed, ambulatory subject supports the diagnosis of Diabetes Mellitus. Result Comment: [place] om Glucose Reference Range is dependent on time and content of last meal. Glucose of more than 200 mg/dL in a nonstressed, ambulatory subject supports the diagnosis of Diabetes Mellitus. Performed By: #### C UBLD, LACTIC #### [facility] [address] Carbon dioxide, total [Moles /volume] in Serum or PlasmaOrdered By: Alejandro Rendon on 02-15-2024 CO2 [Moles/Vol] 20.8 mmol/L Low 21.0-31.0 [facility] Comment on above: Performed By: #### D IFF CBC, HS TROP, MG, CMP, BNP #### [facility] [address] Chloride [Moles/volume] in S boris or PlasmaOrdered By: Alejandro Rendon on 02-15-2024 Chloride [Moles/Vol] 95 mmol/L Low 98-107 [facility] Comment on above: Performed By: #### D IFF CBC, HS TROP, MG, CMP, BNP #### [facility] [address] [place] [id number] [facility] Comprehensive Metabolic Pane harley 02-15-2024 Albumin [Mass/Vol] 2.8 g/dL Low 3.5-5.7 [facility] Comment on above: Performed By: #### D IFF CBC, HS TROP, MG, CMP, BNP #### [facility] [address] Creatinine Clr Calc Pharmacy 11.60 Normal [facility] Comment on above: Performed By: #### D IFF CBC, HS TROP, MG, CMP, BNP #### [facility] [address] GFR/1.73 sq M.predicted MDRD (S/P/Bld) [Vol rate/Area] 10.662 mL/min/{1.73_m2} Normal [facility] Comment on above: Performed By: #### D IFF CBC, HS TROP, MG, CMP, BNP #### [address] Creatinine [Mass/volume] in Serum or PlasmaOrdered By: Alejandro Rendon on 02-15-2024 Creatinine [Mass/Vol] 4.04 mg/dL High 0.60-1.20 [facility] Comment on above: Performed By: #### D IFF CBC, HS TROP, MG, CMP, BNP #### [facility] [address] Diff and CBCon 02-15-2024 Giant Platelet Tally 1 /100{WBC} Normal [facility] Comment on above: Performed By: #### D IFF CBC, HS TROP, MG, CMP, BNP #### [facility] [address] [place] [address] Mean Corpuscular HGB Conc 31.1 g/dL Low 32.0-35.0 [facility] Comment on above: Performed By: #### D IFF CBC, HS TROP, MG, CMP, BNP #### [address] Metamyelocytes 1 % High 0-0 [facility] Comment on above: Performed By: #### D IFF CBC, HS TROP, MG, CMP, BNP #### [address] Monocytes/100 WBC (Bld) 25.57 % High 0.00-20.00 [facility] Comment on above: Result Comment: For adults in ED, MDW > 20.0 may be associated with a higher risk of sepsis during the first 12 hrs of hospital admission Performed By: #### D IFF CBC, HS TROP, MG, CMP, BNP #### [address] Myelocytes 1 % High 0-0 [facility] Comment on above: Performed By: #### D IFF CBC, HS TROP, MG, CMP, BNP #### [address] Ovalocytes Slight Normal [facility] Comment on above: Performed By: #### D IFF CBC, HS TROP, MG, CMP, BNP #### [address] Platelet Estimate Increased Normal Normal [facility] Comment on above: Performed By: #### D IFF CBC, HS TROP, MG, CMP, BNP #### [address] Platelet Morphology Normal Normal Normal [facility] Comment on above: Result Comment: PERF ORMED BY: [place] [address] PATHOLOGIST JOB SITE SUPERVISOR SERGIO VIRGEN M.D. Performed By: #### D IFF CBC, HS TROP, MG, CMP, BNP #### [address] Poikilocytosis Slight Normal [facility] Comment on above: Performed By: #### D IFF CBC, HS TROP, MG, CMP, BNP #### [address] Polychromasia Marked Normal [facility] Comment on above: Performed By: #### D IFF CBC, HS TROP, MG, CMP, BNP #### [address] Promyelocytes 1 % High 0-0 [facility] Comment on above: Performed By: #### D IFF CBC, HS TROP, MG, CMP, BNP #### [facility] [address] Tear Drop Cells Slight Normal [facility] Comment on above: Performed By: #### D IFF CBC, HS TROP, MG, CMP, BNP #### [facility] [address] ECG 12 lead ECGon 02-15-2024 ECG 12 lead ECG [facility] [place] [address] [place] [address] Electrocardiograph Report Signed Patient: Rosa Winter MR#: [id number] : 1945 Acct:[id number] Age/Sex: 78 / F ADM Date: 02/15/24 Loc: Room: [address] [place] [address] Type: ADM IN Attending Dr: Virgen Vivar MD Ordering Provider: Alejandro Rendon PA-C Date of Service: 02/15/24 ECG/ECG 12 lead ECG: Weakness Copies to: Test Reason : Blood Pressure : 91/51 mmHG Vent. Rate : 54 BPM Atrial Rate : 326 BPM P-R Int : * ms QRS Dur : 92 ms QT Int : 460 ms P-R-T Axes : * -8 59 degrees QTcB Int : 436 ms Atrial fibrillation with slow ventricular response Confirmed by Mirza COULTER DO ([id number]) on 02/15/2024 7:43:42 PM Referred By: Electronically Signed By: Mirza OCULTER DO Transcribed By: MUS Signed By Mirza Coulter DO 0 02/15/241942 Normal [facility] Eosinophils Auto (Bld) [#/Vo l]Ordered By: Alejandro Rendon on 02-15-2024 Eosinophils (Bld) [#/Vol] N/A [facility] Eosinophils/100 WBC Auto (Bl d)Ordered By: Alejandro Rendon on 02-15-2024 Eosinophils/100 WBC (Bld) N/A [facility] Erythrocyte distribution wid th [Ratio] by Automated countOrdered By: Alejandro Rendon on 02-15-2024 Erythrocyte distribution width (RBC) [Ratio] 23.2 % High 11.9-15.3 [facility] Comment on above: Performed By: #### D IFF CBC, HS TROP, MG, CMP, BNP #### [facility] [address] [place] [address] [place] Erythrocytes [#/volume] in B lood by Automated countOrdered By: Alejandro Rendon on 02-15-2024 RBC (Bld) [#/Vol] 3.79 10*6/uL Normal 3.60-5.00 [facility] Comment on above: Performed By: #### D IFF CBC, HS TROP, MG, CMP, BNP #### [facility] [address] [place] [address] [place] Giant platelets/100 leukocyt es [Ratio] in Blood by Manual countOrdered By: Alejandro Rendon on 02-15-2024 Giant platelets/100 WBC Manual cnt (Bld) [Ratio] 1 /100{WBC} [facility] Glucose Poct Glucometerson 0 02-15-2024 Commemt1 Glu2: Cleaned Meter Normal [facility] Comment on above: Result Comment: PERF ORMED BY: [place] [address] PATHOLOGIST JOB SITE SUPERVISOR SERGIO VIRGEN M.D. Performed By: #### C UBLD, LACTIC #### [address] Glucose [Mass/volume] in Ser um or PlasmaOrdered By: Alejandro Rendon on 02-15-2024 Glucose [Mass/Vol] 211 mg/dL High 70-100 [facility] Comment on above: ADA recommended refe rence rangeRandom Glucose Reference Range is dependent on time and content of last meal. Glucose of more than 200 mg/dL in a nonstressed, ambulatory subject supports the diagnosis of Diabetes Mellitus. Result Comment: [place] om Glucose Reference Range is dependent on time and content of last meal. Glucose of more than 200 mg/dL in a nonstressed, ambulatory subject supports the diagnosis of Diabetes Mellitus. ADA recommended reference range Performed By: #### D IFF CBC, HS TROP, MG, CMP, BNP #### [facility] [address] [place] [address] [place] Hematocrit [Volume Fraction] of Blood by Automated countOrdered By: Alejandro Rendon on 02-15-2024 Hematocrit (Bld) [Volume fraction] 32.2 % Low 34.0-46.4 [facility] Comment on above: Performed By: #### D IFF CBC, HS TROP, MG, CMP, BNP #### [facility] [address] Hemoglobin [Mass/volume] in BloodOrdered By: Alejandro Rendon on 02-15-2024 Hemoglobin (Bld) [Mass/Vol] 10.0 g/dL Low 11.8-15.4 [facility] Comment on above: Performed By: #### D IFF CBC, HS TROP, MG, CMP, BNP #### [facility] [address] [place] [address] [place] INR in Platelet poor plasma by Coagulation assayOrdered By: Virgen Vivar on 02-15-2024 INR Coag (PPP) [Relative time] 3.9 {INR} Normal [facility] Comment on above: INR Therapeutic Rang e A) Pre- and Peroperative OAT started two weeks before surgery. NOT HIP SURGERY: 1.5 - 2.5 HIP SURGERY: 2 - 3B) Primary and secondary prevention of venous THROMBOSIS: 2 - 3C) Active venous thrombosis, pulmonary embolismand prevention of recurrent venous thrombosis: 2 - 3D) Prevention of arterial thromboembolismincluding patients with mechanical heart valves: 3 - 4.5 Result Comment: INR Therapeutic Range A) Pre- and Peroperative OAT started two weeks before surgery. NOT HIP SURGERY: 1.5 - 2.5 HIP SURGERY: 2 - 3 B) Primary and secondary prevention of venous THROMBOSIS: 2 - 3 C) Active venous thrombosis, pulmonary embolism and prevention of recurrent venous thrombosis: 2 - 3 D) Prevention of arterial thromboembolism including patients with mechanical heart valves: 3 - 4.5 PERFORMED BY: [place] [address] PATHOLOGIST JOB SITE SUPERVISOR SERGIO VIRGEN M.D. Performed By: #### C UBLD, LACTIC #### [place] [address] [place] Lactate [Moles/volume] in Se rum or PlasmaOrdered By: Alejandro Rendon on 02-15-2024 Lactate [Moles/Vol] 1.5 mmol/L Normal 0.5-2.2 [facility] Comment on above: Result Comment: PERF ORMED BY: [place] [address] PATHOLOGIST JOB SITE SUPERVISOR SERGIO VIRGEN M.D. Performed By: #### C UBLD, LACTIC #### [facility] [address] [place] [address] Leukocytes [#/volume] correc ann for nucleated erythrocytes in Blood by Automated counOrdered By: Alejandro Rendon on 02-15-2024 WBC corrected for nucl RBC Auto (Bld) [#/Vol] 24.2 10*3/uL High 3.8-11.6 [facility] Leukocytes [#/volume] in Blo od by Automated countOrdered By: Alejandro Rendon on 02-15-2024 WBC (Bld) [#/Vol] 24.2 10*3/uL High 3.8-11.6 [facility] Comment on above: Performed By: #### D IFF CBC, HS TROP, MG, CMP, BNP #### [facility] [address] [place] [address] Lymphocytes Auto (Bld) [#/Vo l]Ordered By: Alejandro Rendon on 02-15-2024 Lymphocytes (Bld) [#/Vol] N/A [facility] Lymphocytes/100 WBC Auto (Bl d)Ordered By: Alejandro Rendon on 02-15-2024 Lymphocytes/100 WBC (Bld) N/A [facility] Lymphocytes/100 leukocytes i n Blood by Manual countOrdered By: Alejandro Rendon on 02-15-2024 Lymphocytes/100 WBC (Bld) 6 % Low 18-42 [facility] Comment on above: Performed By: #### D IFF CBC, HS TROP, MG, CMP, BNP #### [facility] [address] [place] [address] MCH [Entitic mass] by Automa ann countOrdered By: Alejandro Rendon on 02-15-2024 MCH (RBC) [Entitic mass] 26.4 pg Normal 24.7-34.3 [facility] Comment on above: Performed By: #### D IFF CBC, HS TROP, MG, CMP, BNP #### [facility] [address] MCHC Auto (RBC) [Mass/Vol]Or dered By: Alejandro Rendon on 02-15-2024 MCHC (RBC) [Mass/Vol] 31.1 g/dL Low 32.0-35.0 [facility] MCV [Entitic volume] by Auto mated countOrdered By: Alejandro Rendon on 02-15-2024 MCV (RBC) [Entitic vol] 85.0 fL Normal 80-100 [facility] Comment on above: Performed By: #### D IFF CBC, HS TROP, MG, CMP, BNP #### [facility] [address] [place] [address] Magnesium [Mass/volume] in S boris or PlasmaOrdered By: Alejandro Rendon on 02-15-2024 Magnesium [Mass/Vol] 2.1 mg/dL Normal 1.9-2.7 [facility] Comment on above: Result Comment: PERF ORMED BY: [place] [address] PATHOLOGIST JOB SITE SUPERVISOR SERGIO VIRGEN M.D. Performed By: #### D IFF CBC, HS TROP, MG, CMP, BNP #### [facility] [address] [place] [address] Manual blood segmented neutr ophils/100 leukocytesOrdered By: Alejandro Rendon on 02-15-2024 Segmented neutrophils/100 WBC (Bld) 83 % High 50-70 [facility] Comment on above: Performed By: #### D IFF CBC, HS TROP, MG, CMP, BNP #### [facility] [address] [place] [address] [place] Metamyelocytes/100 WBC Manua l cnt (Bld)Ordered By: Alejandro Rendon on 02-15-2024 Metamyelocytes/100 WBC (Bld) 1 % High 0-0 [facility] Monocyte distribution width [Entitic volume] in Blood by AutomatedOrdered By: Alejandro Rendon on 02-15-2024 Monocyte distribution width Auto (Bld) [Entitic vol] 25.57 % High 0.00-20.00 [facility] Comment on above: For adults in ED, MD W > 20.0 may be associated with a higher risk of sepsis during the first 12 hrs of hospital admission Monocytes Auto (Bld) [#/Vol] Ordered By: Alejandro Rendon on 02-15-2024 Monocytes (Bld) [#/Vol] N/A [facility] Monocytes/100 WBC Auto (Bld) Ordered By: Alejandro Rendon on 02-15-2024 Monocytes/100 WBC (Bld) N/A [facility] Monocytes/100 leukocytes in Blood by Manual countOrdered By: Alejandro Rendon on 02-15-2024 Monocytes/100 WBC (Bld) 6 % Normal 2-11 [facility] Comment on above: Performed By: #### D IFF CBC, HS TROP, MG, CMP, BNP #### [facility] [address] Myelocytes/100 WBC Manual cn t (Bld)Ordered By: Alejandro Rendon on 02-15-2024 Myelocytes/100 WBC (Bld) 1 % High 0-0 [facility] Neutrophils Auto (Bld) [#/Vo l]Ordered By: Alejandro Rendon on 02-15-2024 Neutrophils (Bld) [#/Vol] N/A [facility] Neutrophils/100 WBC Auto (Bl d)Ordered By: Alejandro Rendon on 02-15-2024 Neutrophils/100 WBC (Bld) N/A [facility] No Panel InformationOrdered By: Alejandro Rendon on 02-15-2024 Estimated GFR (CKD-EPI) 10.662 mL/Min [facility] Creatinine Clearance (Chem 11.60 [facility] Bedside Glucose Comment Glu2: cleaned meter [facility] Nucleated erythrocytes [Pres ence] in Blood by Automated countOrdered By: Alejandro Rendon on 02-15-2024 Nucleated RBC Auto Ql (Bld) N/A [facility] Ovalocyte detectionOrdered B y: Alejandro Rendon on 02-15-2024 Ovalocytes LM Ql (Bld) [facility] Peripheral white blood cell differential % bands, microscopic examOrdered By: Alejandro Rendon on 02-15-2024 Band form neutrophils/100 WBC (Bld) 3 % Normal 0-5 [facility] Comment on above: Performed By: #### D IFF CBC, HS TROP, MG, CMP, BNP #### [facility] [address] [place] [address] [place] Phosphate [Mass/volume] in S boris or PlasmaOrdered By: Alejandro Rendon on 02-15-2024 Phosphate [Mass/Vol] 5.1 mg/dL High 2.5-4.5 [facility] Comment on above: Result Comment: PERF ORMED BY: [place] [address] PATHOLOGIST JOB SITE SUPERVISOR SERGIO VIRGEN M.D. Performed By: #### P HOS #### [facility] [address] [place] [address] Platelet adequacy [Presence] in Blood by Light microscopyOrdered By: Alejandro Rendon on 02-15-2024 Platelets LM Ql (Bld) Increased Normal [facility] Platelet mean volume [Entiti c volume] in Blood by Automated countOrdered By: Alejandro Rendon on 02-15-2024 Platelet mean volume (Bld) [Entitic vol] 8.3 fL Normal 6.3-10.7 [facility] Comment on above: Performed By: #### D IFF CBC, HS TROP, MG, CMP, BNP #### [facility] [address] [place] [address] Platelet morphology finding [Identifier] in BloodOrdered By: Alejandro Rendon on 02-15-2024 Platelet morphology finding Nom (Bld) Normal Normal [facility] Platelets [#/volume] in Bloo d by Automated countOrdered By: Alejandro Rendon on 02-15-2024 Platelets (Bld) [#/Vol] 465 10*3/uL High 150-450 [facility] Comment on above: Performed By: #### D IFF CBC, HS TROP, MG, CMP, BNP #### [facility] [address] [place] [address] [place] Poikilocytosis [Presence] in Blood by Light microscopyOrdered By: Alejandro Rendon on 02-15-2024 Poikilocytosis LM Ql (Bld) Slight [facility] Polychromasia [Presence] in Blood by Light microscopyOrdered By: Alejandro Rendon on 02-15-2024 Polychromasia LM Ql (Bld) Marked [facility] Potassium [Moles/volume] in Serum or PlasmaOrdered By: Alejandro Rendon on 02-15-2024 Potassium [Moles/Vol] 4.9 mmol/L Normal 3.5-5.1 [facility] Comment on above: Performed By: #### D IFF CBC, HS TROP, MG, CMP, BNP #### [facility] [address] [place] [address] [place] Promyelocytes/100 WBC Manual cnt (Bld)Ordered By: Alejandro Rendon on 02-15-2024 Promyelocytes/100 WBC (Bld) 1 % High 0-0 [facility] Protein [Mass/volume] in Ser um or PlasmaOrdered By: Alejandro Rendon on 02-15-2024 Protein [Mass/Vol] 6.3 g/dL Low 6.4-8.9 [facility] Comment on above: Performed By: #### D IFF CBC, HS TROP, MG, CMP, BNP #### [facility] [address] [place] [id number] [facility] Prothrombin time (PT)Ordered By: Virgen Vivar on 02-15-2024 PT Coag (PPP) [Time] 43.4 s High 9.0-12.9 [facility] Comment on above: A hematocrit value g reater than 55% may lead to inaccurate results in coagulation testing. Patients having hematocrit values >55% require a special collection tube for coagulation studies. Please contact the laboratory at [phone] for redraw instructions. Result Comment: A he matocrit value greater than 55% may lead to inaccurate results in coagulation testing. Patients having hematocrit values >55% require a special collection tube for coagulation studies. Please contact the laboratory at [phone] for redraw instructions. Performed By: #### C UBLD, LACTIC #### [facility] [address] [id number] [facility] RBC morphologyOrdered By: Nathen Rendon on 02-15-2024 RBC morphology finding Nom (Bld) N/A [facility] Serum globulin measurement b y calculation (mass/volume)Ordered By: Alejandro Rendon on 02-15-2024 Globulin (S) [Mass/Vol] 3.5 g/dL Normal [facility] Comment on above: Performed By: #### D IFF CBC, HS TROP, MG, CMP, BNP #### [facility] [address] [place] [address] Serum or plasma albumin/glob ulin mass ratioOrdered By: Alejandro Rendon on 02-15-2024 Albumin/Globulin [Mass ratio] 0.8 {ratio} [facility] Comment on above: Performed By: #### D IFF CBC, HS TROP, MG, CMP, BNP #### [facility] [address] [place] [address] Serum or plasma anion gap de terminationOrdered By: Alejandro Rendon on 02-15-2024 Anion gap [Moles/Vol] 18.1 mmol/L High 6.0-15.0 [facility] Comment on above: Performed By: #### D IFF CBC, HS TROP, MG, CMP, BNP #### [facility] [address] [place] [address] Sodium [Moles/volume] in Ser um or PlasmaOrdered By: Alejandro Rendon on 02-15-2024 Sodium [Moles/Vol] 129 mmol/L Low 136-145 [facility] Comment on above: Performed By: #### D IFF CBC, HS TROP, MG, CMP, BNP #### [facility] [address] [place] [address] Teardrop cell detectionOrder ed By: Alejandro Rendon on 02-15-2024 Dacrocytes LM Ql (Bld) Slight [facility] Troponin I High Sensitivityo n 02-15-2024 Troponin I High Sensitivity 21.4 pg/mL High 0.0-15.0 [facility] Comment on above: Result Comment: PERF ORMED BY: [place] [address] PATHOLOGIST JOB SITE SUPERVISOR SERGIO VIRGEN M.D. Performed By: #### D IFF CBC, HS TROP, MG, CMP, BNP #### [facility] [address] Troponin I.cardiac [Mass/vol ume] in Serum or Plasma by Detection limit <= 0.01 ng/Ordered By: Alejandro Rendon on 02-15-2024 Troponin I.cardiac DL <= 0.01 ng/mL [Mass/Vol] 21.4 pg/mL High 0.0-15.0 [facility] Urea nitrogen [Mass/volume] in Serum or PlasmaOrdered By: Alejandro Rendon on 02-15-2024 Urea nitrogen [Mass/Vol] 52 mg/dL High - [facility] Comment on above: Performed By: #### D IFF CBC, HS TROP, MG, CMP, BNP #### [facility] [address] [place] [address] XR chest 1V portableon 02-14 XR chest 1V portable [facility] [place] [address] [place] [address] XRay Report Signed Patient: Rosa Winter MR#: [id number] : 1945 Acct:[id number] Age/Sex: 78 / F ADM Date: 02/15/24 Loc: ER Room: Type: [facility] ER Attending Dr: Copies to: Alejandro Rendon PA-C Ordering Provider: Alejandro Rendon PA-C Date of Service: 02/15/24 XR/XR chest 1V portable: Weakness SINGLE VIEW CHEST CLINICAL HISTORY: Unresponsive at dialysis. COMPARISON: Chest 02/10/2021 FINDINGS: Left-sided dialysis catheter is in place. Heart and mediastinal structures appear unchanged. Degree of vascular congestion is unchanged. No consolidation pneumothorax pleural effusion or free air. XR/XR chest 1V portable IMPRESSION: NO ACUTE FINDINGS Impression dictated by: Brennan Mcdonough Jr., D.OSom02/15/2024 2:52 PM Dictation Location: [place] [address] Transcribed By: [facility] 02/15/24 1452 Dictated By: Brennan Mcdonough Jr, DO 02/15/24 1451 Signed By: 02/15/24 1452 Normal [facility] CBC AND AUTO DIFFon 02-13-20 Anisocytosis Ql (Bld) 2+ Abnormal NONE [facility] Comment on above: Performed By: #### C MAGAN, 38337-5 #### [facility] ([id number]) [address] [place] [address] Eosinophils (Bld) [#/Vol] 0.2 10*3/uL Normal 0.0-0.4 [facility] Comment on above: Performed By: #### Rob CARRERO, 91310-8 #### [facility] ([id number]) [address], [facility] [address] [place] [address] Eosinophils/100 WBC (Bld) 1.0 % Normal [facility] Comment on above: Performed By: #### Rob CARRERO, 47077-8 #### [facility] ([id number]) [address] [place] [address] Erythrocyte distribution width (RBC) [Ratio] 23.7 % High 11.5-15.0 [facility] Comment on above: Performed By: #### Rob CARRERO, 82860-2 #### [facility] ([id number]) [address], [facility] [address] [place] [address] Hematocrit (Bld) [Volume fraction] 30.3 % Low 35-47 [facility] Comment on above: Performed By: #### Rob CARRERO, 75117-1 #### [facility] ([id number]) [address], [facility] [address] [place] [address] Hemoglobin (Bld) [Mass/Vol] 9.9 g/dL Low 11.7-15.5 [facility] Comment on above: Performed By: #### Rob CARRERO, 26096-1 #### [facility] ([id number]) [address] [place] [address] HYPOCHROMIA 1+ Abnormal NONE [facility] Comment on above: Performed By: #### Rob CARRERO, 47049-9 #### [facility] ([id number]) [address] [place] [address] Lymphocytes (Bld) [#/Vol] 0.8 10*3/uL Low 1.0-3.5 [facility] Comment on above: Performed By: #### Rob CARRERO, 50030-6 #### [facility] ([id number]) [address] [address] [place] [address] Lymphocytes/100 WBC (Bld) 4.0 % Normal [facility] Comment on above: Performed By: #### Rob CARRERO 09567-5 #### [facility] ([id number]) [address] [facility] [address] [place] [address] MCH (RBC) [Entitic mass] 27.5 pg Normal 27-34 [facility] Comment on above: Performed By: #### Rob CARRERO, 21629-9 #### [facility] ([id number]) [address] [place] [address] MCHC (RBC) [Mass/Vol] 32.5 g/dL Normal 32-36 [facility] Comment on above: Performed By: #### Rob CARRERO, 81179-4 #### [facility] ([id number]) [address] [place] [address] MCV (RBC) [Entitic vol] 85 fL Normal 80-100 [facility] Comment on above: Performed By: #### Rob CARRERO, 11016-4 #### [facility] ([id number]) [address] [place] [address] Monocytes (Bld) [#/Vol] 1.8 10*3/uL High 0-0.9 [facility] Comment on above: Performed By: #### Rob CARRERO 55273-8 #### [facility] ([id number]) [address] [place] [address] Monocytes/100 WBC (Bld) 9.0 % Normal [facility] Comment on above: Performed By: #### Rob CARRERO, 79589-8 #### [facility] ([id number]) [address] [place] [address] MYELOCYTE 2.0 % Normal [facility] Comment on above: Performed By: #### Rob CARRERO, 58867-7 #### [facility] ([id number]) [address] [place] [address] Neutrophils (Bld) [#/Vol] 17.3 10*3/uL High 1.5-6.6 [facility] Comment on above: Performed By: #### Rob CARRERO, 87720-2 #### [facility] ([id number]) [address] [place] [address] Platelet mean volume (Bld) [Entitic vol] 8.5 fL Normal 7-12 [facility] Comment on above: Performed By: #### Rob CARRERO, 31341-1 #### [facility] ([id number]) [address], [address] [place] [address] Platelets (Bld) [#/Vol] 430 10*3/uL Normal 150-450 [facility] Comment on above: Performed By: #### Rob CARRERO, 18305-0 #### [facility] ([id number]) [address] [place] [address] POLYCHROMASIA 1+ Abnormal NONE [facility] Comment on above: Performed By: #### Rob CARRERO, 02457-2 #### [facility] ([id number]) [address] [place] [address] RBC COUNT 3.59 X10E12/L Low 3.80-5.20 [facility] Comment on above: Performed By: #### Rob CARRERO, 03778-0 #### [facility] ([id number]) [address] [place] [address] SEG NEUTROPHIL 84.0 % Normal [facility] Comment on above: Performed By: #### Rob CARRERO 95912-8 #### [facility] ([id number]) [address] [place] [address] WBC (Bld) [#/Vol] 20.5 10*3/uL High 4.0-11.0 [facility] Comment on above: Performed By: #### Rob CARRERO 91793-0 #### [facility] ([id number]) [address] [place] [address] COMPREHENSIVE METABOLIC PANE Harley 02-13-2024 Albumin [Mass/Vol] 2.9 g/dL Low 3.2-5.3 [facility] Comment on above: Performed By: #### Rob CARRERO 90689-5 #### [facility] ([id number]) [address] [place] [address] ALP [Catalytic activity/Vol] 134 U/L High 39-130 [facility] Comment on above: Performed By: #### Rob CARRERO 33221-4 #### [facility] ([id number]) [address] [place] [address] ALT [Catalytic activity/Vol] 20 U/L Normal 0-31 [facility] Comment on above: Performed By: #### Rob CARRERO 80609-4 #### [facility] ([id number]) [address] [place] [address] Anion gap [Moles/Vol] 16 mmol/L High 5-15 [facility] Comment on above: Performed By: #### Rob CARRERO 35177-7 #### [facility] ([id number]) [address] [place] [address] AST [Catalytic activity/Vol] 37 U/L Normal 0-41 [facility] Comment on above: Performed By: #### Rob CARRERO, 41753-4 #### [facility] ([id number]) [address] [place] [address] Bilirubin [Mass/Vol] 0.6 mg/dL Normal 0.3-1.2 [facility] Comment on above: Performed By: #### Rob CARRERO, 21788-9 #### [facility] ([id number]) [address] [place] [address] Calcium [Mass/Vol] 9.2 mg/dL Normal 8.5-10.5 [facility] Comment on above: Performed By: #### Rob CARRERO, 35772-5 #### [facility] ([id number]) [address] [place] [address] Chloride [Moles/Vol] 97 mmol/L Low 98-109 [facility] Comment on above: Performed By: #### Rob CARRERO, 99715-4 #### [facility] ([id number]) [address] [place] [address] CO2 [Moles/Vol] 22 mmol/L Normal 22-32 [facility] Comment on above: Performed By: #### Rob CARRERO, 01160-6 #### [facility] ([id number]) [address] [place] [address] Creatinine [Mass/Vol] 4.21 mg/dL High 0.40-1.00 [facility] Comment on above: Result Comment: METH OD TRACEABLE TO IDMS STANDARD Performed By: #### Rob CARRERO, 30812-7 #### [facility] ([id number]) [address] [place] [address] GFR/1.73 sq M.predicted among non-blacks MDRD (S/P/Bld) [Vol rate/Area] 10 mL/min/{1.73_m2} Low >59 [facility] Comment on above: Result Comment: Reported eGFR is based on the CKD-EPI 2020 equation that does not use a race coefficient. Performed By: #### Rob CARRERO, 36356-7 #### [facility] ([id number]) [address] [place] [address] Glucose [Mass/Vol] 162 mg/dL High 65-99 [facility] Comment on above: Performed By: #### Rob CARRERO 32205-2 #### [facility] ([id number]) [address] [place] [address] Potassium [Moles/Vol] 4.8 mmol/L Normal 3.5-5.0 [facility] Comment on above: Performed By: #### Rob CARRERO, 03217-8 #### [facility] ([id number]) [address] [place] [address] Protein [Mass/Vol] 6.2 g/dL Normal 6.0-8.0 [facility] Comment on above: Performed By: #### Rob CARRERO, 11229-7 #### [facility] ([id number]) [address] [place] [address] Sodium [Moles/Vol] 135 mmol/L Normal 134-146 [facility] Comment on above: Performed By: #### Rob CARRERO 56485-1 #### [facility] ([id number]) [address] [place] [address] Urea nitrogen [Mass/Vol] 64 mg/dL High 5-27 [facility] Comment on above: Performed By: #### Rob CARRERO, 71036-8 #### [facility] ([id number]) [address] [place] [address] Glucose Glucometer (BldC) [M ass/Vol]on 02-13-2024 Glucose [Mass/Vol] 301 mg/dL High 65-99 [facility] Glucose [Mass/Vol] 231 mg/dL High 65-99 [facility] MAGNESIUMon 02-13-2024 Magnesium [Mass/Vol] 2.2 mg/dL Normal 1.8-2.6 [facility] Comment on above: Performed By: #### Rob CARRERO, 45075-9 #### [facility] ([id number]) [address] [place] [address] PHOSPHORUSon 02-13-2024 Phosphate [Mass/Vol] 4.6 mg/dL Normal 2.4-4.9 [facility] Comment on above: Performed By: #### Rob CARRERO, 80129-1 #### [facility] ([id number]) [address] [facility] [address] [place] [address] PROTIME AND INRon 02-13-2024 INR Coag (PPP) [Relative time] 2.7 {INR} High 0.8-1.1 [facility] Comment on above: Performed By: #### Rob CARRERO, 72107-6 #### [facility] ([id number]) [address] [facility] [address] [place] [address] PT Coag (PPP) [Time] 30.2 s High 9.8-13.2 [facility] Comment on above: Performed By: #### Rob CARRERO, 06186-8 #### [facility] ([id number]) [address] [place] [address] CBC AND AUTO DIFFon 02-12-20 24 ABSOLUTE BASOPHIL 0.1 X10E9/L Normal 0.0-0.2 [facility] Comment on above: Performed By: #### Rob CARRERO, 54403-2 #### [facility] ([id number]) [address] [place] [address] ABSOLUTE NEUTROPHIL 20.4 X10E9/L High 1.5-6.6 [facility] Comment on above: Performed By: #### Rob CARRERO 12812-1 #### [facility] ([id number]) [address] [place] [address] Anisocytosis Ql (Bld) 2+ Abnormal NONE [facility] Comment on above: Performed By: #### Rob CARRERO 78996-5 #### [facility] ([id number]) [address] [place] [address] Basophils/100 WBC (Bld) 0.6 % Normal [facility] Comment on above: Performed By: #### Rob CARRERO 92585-6 #### [facility] ([id number]) [address] [place] [address] Eosinophils (Bld) [#/Vol] 0.5 10*3/uL High 0.0-0.4 [facility] Comment on above: Performed By: #### Rob CARRERO 33297-8 #### [facility] ([id number]) [address] [place] [address] Eosinophils/100 WBC (Bld) 2.0 % Normal [facility] Comment on above: Performed By: #### Rob CARRERO 38007-5 #### [facility] ([id number]) [address] [place] [address] Erythrocyte distribution width (RBC) [Ratio] 24.4 % High 11.5-15.0 [facility] Comment on above: Performed By: #### Rob CARRERO 38148-1 #### [facility] ([id number]) [address] [place] [address] Hematocrit (Bld) [Volume fraction] 33.1 % Low 35-47 [facility] Comment on above: Performed By: #### Rob CARRERO 18672-2 #### [facility] ([id number]) [address] [place] [address] Hemoglobin (Bld) [Mass/Vol] 10.2 g/dL Low 11.7-15.5 [facility] Comment on above: Performed By: #### Rob CARRERO, 23025-5 #### [facility] ([id number]) [address] [place] [address] Lymphocytes (Bld) [#/Vol] 1.4 10*3/uL Normal 1.0-3.5 [facility] Comment on above: Performed By: #### Rob CARRERO, 99013-4 #### [facility] ([id number]) [address] [place] [address] Lymphocytes/100 WBC (Bld) 5.6 % Normal [facility] Comment on above: Performed By: #### Rob CARRERO, 07240-3 #### [facility] ([id number]) [address] [place] [address] MCH (RBC) [Entitic mass] 26.4 pg Low 27-34 [facility] Comment on above: Performed By: #### Rob CARRERO, 18876-5 #### [facility] ([id number]) [address] [place] [address] MCHC (RBC) [Mass/Vol] 30.8 g/dL Low 32-36 [facility] Comment on above: Performed By: #### Rob CARRERO, 76934-2 #### [facility] ([id number]) [address] [place] [address] MCV (RBC) [Entitic vol] 86 fL Normal 80-100 [facility] Comment on above: Performed By: #### Rob CARRERO, 73494-0 #### [facility] ([id number]) [address] [place] [address] Monocytes (Bld) [#/Vol] 2.7 10*3/uL High 0-0.9 [facility] Comment on above: Performed By: #### Rob CARRERO, 64083-9 #### [facility] ([id number]) [address] [place] [address] Monocytes/100 WBC (Bld) 10.6 % Normal [facility] Comment on above: Performed By: #### Rob CARRERO, 24019-5 #### [facility] ([id number]) [address] [place] [address] Neutrophils/100 WBC (Bld) 81.2 % Normal [facility] Comment on above: Performed By: #### Rob CARRERO, 86326-2 #### [facility] ([id number]) [address] [place] [address] OVALOCYTE 1+ Abnormal NONE [facility] Comment on above: Performed By: #### Rob CARRERO, 44996-4 #### [facility] ([id number]) [address] [place] [address] Platelet mean volume (Bld) [Entitic vol] 8.5 fL Normal 7-12 [facility] Comment on above: Performed By: #### Rob CARRERO, 91702-9 #### [facility] ([id number]) [address] [place] [address] Platelets (Bld) [#/Vol] 472 10*3/uL High 150-450 [facility] Comment on above: Performed By: #### Rob CARRERO, 07972-2 #### [facility] ([id number]) [address] [place] [address] POLYCHROMASIA 1+ Abnormal NONE [facility] Comment on above: Performed By: #### Rob CARRERO, 64992-9 #### [facility] ([id number]) [address] [place] [address] RBC COUNT 3.86 X10E12/L Normal 3.80-5.20 [facility] Comment on above: Performed By: #### Rob CARRERO, 48805-7 #### [facility] ([id number]) [address] [place] [address] WBC (Bld) [#/Vol] 25.1 10*3/uL High 4.0-11.0 [facility] Comment on above: Performed By: #### Rob CARRERO, 02134-4 #### [facility] ([id number]) [address] [place] [address] COMPREHENSIVE METABOLIC PANE Harley 02-12-2024 Albumin [Mass/Vol] 3.0 g/dL Low 3.2-5.3 [facility] Comment on above: Performed By: #### Rob CARRERO, 86291-6 #### [facility] ([id number]) [address] [place] [address] ALP [Catalytic activity/Vol] 132 U/L High 39-130 [facility] Comment on above: Performed By: #### Rob CARRERO, 29418-5 #### [facility] ([id number]) [address] [place] [address] ALT [Catalytic activity/Vol] 21 U/L Normal 0-31 [facility] Comment on above: Performed By: #### Rob CARRERO, 70268-6 #### [facility] ([id number]) [address] [place] [address] Anion gap [Moles/Vol] 14 mmol/L Normal 5-15 [facility] Comment on above: Performed By: #### Rob CARRERO, 25749-1 #### [facility] ([id number]) [address] [place] [address] AST [Catalytic activity/Vol] 25 U/L Normal 0-41 [facility] Comment on above: Performed By: #### Rob CARRERO, [id number] #### [facility] ([id number]) [address], [address] [place] [address] Bilirubin [Mass/Vol] 0.7 mg/dL Normal 0.3-1.2 [facility] Comment on above: Performed By: #### Rob CARRERO 14098-5 #### [facility] ([id number]) [address], [address] [place] [address] Calcium [Mass/Vol] 9.1 mg/dL Normal 8.5-10.5 [facility] Comment on above: Performed By: #### Rob CARRERO, [id number] #### [facility] ([id number]) [address] [place] [address] Chloride [Moles/Vol] 99 mmol/L Normal 98-109 [facility] Comment on above: Performed By: #### Rob CARRERO 37956-2 #### [facility] ([id number]) [address] [place] [address] CO2 [Moles/Vol] 23 mmol/L Normal 22-32 [facility] Comment on above: Performed By: #### Rob CARRERO, 73431-0 #### [facility] ([id number]) [address] [place] [address] Creatinine [Mass/Vol] 3.30 mg/dL High 0.40-1.00 [facility] Comment on above: Result Comment: METH OD TRACEABLE TO IDMS STANDARD Performed By: #### Rob CARRERO, 95732-2 #### [facility] ([id number]) [address] [place] [address] GFR/1.73 sq M.predicted among non-blacks MDRD (S/P/Bld) [Vol rate/Area] 14 mL/min/{1.73_m2} Low >59 [facility] Comment on above: Result Comment: Reported eGFR is based on the CKD-EPI 2020 equation that does not use a race coefficient. Performed By: #### Rob CARRERO, 54729-2 #### [facility] ([id number]) [address], [address] [place] [address] Glucose [Mass/Vol] 158 mg/dL High 65-99 [facility] Comment on above: Performed By: #### Rob CARRERO 67486-2 #### [facility] ([id number]) [address], [address] [place] [address] Potassium [Moles/Vol] 4.2 mmol/L Normal 3.5-5.0 [facility] Comment on above: Performed By: #### Rob CARRERO 89299-4 #### [facility] ([id number]) [address], [address] [place] [address] Protein [Mass/Vol] 6.6 g/dL Normal 6.0-8.0 [facility] Comment on above: Performed By: #### Rob CARRERO 78741-3 #### [facility] ([id number]) [address], [address] [place] [address] Sodium [Moles/Vol] 136 mmol/L Normal 134-146 [facility] Comment on above: Performed By: #### Rob CARRERO 76031-7 #### [facility] ([id number]) [address], [address] [place] [address] Urea nitrogen [Mass/Vol] 36 mg/dL High 5-27 [facility] Comment on above: Performed By: #### Rob CARRERO, 23866-1 #### [facility] ([id number]) [address], [address] [place] [address] Glucose Glucometer (BldC) [M ass/Vol]on 07-19-2024 Glucose [Mass/Vol] 221 mg/dL High 65-99 [facility] Glucose [Mass/Vol] 237 mg/dL High 65-99 [facility] Glucose [Mass/Vol] 355 mg/dL High 65-99 [facility] Glucose [Mass/Vol] 219 mg/dL High 65-99 [facility] PHOSPHORUSon 02-12-2024 Phosphate [Mass/Vol] 4.0 mg/dL Normal 2.4-4.9 [facility] Comment on above: Performed By: #### Rob CARRERO, 14873-8 #### [facility] ([id number]) [address] [place] [address] PROTIME AND INRon 02-12-2024 INR Coag (PPP) [Relative time] 3.1 {INR} High 0.8-1.1 [facility] Comment on above: Performed By: #### Rob CARRERO, 93360-0 #### [facility] ([id number]) [address] [place] [address] PT Coag (PPP) [Time] 34.7 s High 9.8-13.2 [facility] Comment on above: Performed By: #### Rob CARRERO, 02535-6 #### [facility] ([id number]) [address], [address] [place] [address] CBC AND AUTO DIFFon 02-11-20 ABSOLUTE BASOPHIL 0.1 X10E9/L Normal 0.0-0.2 [facility] Comment on above: Performed By: #### Rob CARRERO, 10375-0 #### [facility] ([id number]) [address], [address] [place] [address] ABSOLUTE NEUTROPHIL 18.2 X10E9/L High 1.5-6.6 [facility] Comment on above: Performed By: #### Rob CARRERO, 24108-9 #### [facility] ([id number]) [address], [address] [place] [address] Anisocytosis Ql (Bld) 2+ Abnormal NONE [facility] Comment on above: Performed By: #### Rob CARRERO, 76141-3 #### [facility] ([id number]) [address], [address] [place] [address] Basophils/100 WBC (Bld) 0.5 % Normal [facility] Comment on above: Performed By: #### Rob CARRERO, 48480-4 #### [facility] ([id number]) [address] [place] [address] Eosinophils (Bld) [#/Vol] 0.6 10*3/uL High 0.0-0.4 [facility] Comment on above: Performed By: #### Rob CARRERO 28425-9 #### [facility] ([id number]) [address] [place] [address] Eosinophils/100 WBC (Bld) 2.5 % Normal [facility] Comment on above: Performed By: #### Rob CARRERO, 98991-0 #### [facility] ([id number]) [address] [place] [address] Erythrocyte distribution width (RBC) [Ratio] 24.1 % High 11.5-15.0 [facility] Comment on above: Performed By: #### Rob CARRERO, 77300-6 #### [facility] ([id number]) [address], [address] [place] [address] Hematocrit (Bld) [Volume fraction] 28.8 % Low 35-47 [facility] Comment on above: Performed By: #### Rob CARRERO, 45322-7 #### [facility] ([id number]) [address] [place] [address] Hemoglobin (Bld) [Mass/Vol] 8.9 g/dL Low 11.7-15.5 [facility] Comment on above: Performed By: #### Rob CARRERO, 17076-6 #### [facility] ([id number]) [address] [place] [address] Lymphocytes (Bld) [#/Vol] 1.2 10*3/uL Normal 1.0-3.5 [facility] Comment on above: Performed By: #### Rob CARRERO, 68847-3 #### [facility] ([id number]) [address] [place] [address] Lymphocytes/100 WBC (Bld) 5.5 % Normal [facility] Comment on above: Performed By: #### Rob CARRERO, 25721-3 #### [facility] ([id number]) [address] [place] [address] MCH (RBC) [Entitic mass] 26.6 pg Low 27-34 [facility] Comment on above: Performed By: #### Rob CARRERO, 82001-8 #### [facility] ([id number]) [address] [place] [address] MCHC (RBC) [Mass/Vol] 31.0 g/dL Low 32-36 [facility] Comment on above: Performed By: #### Rob CARRERO, 51564-7 #### [facility] ([id number]) [address] [place] [address] MCV (RBC) [Entitic vol] 86 fL Normal 80-100 [facility] Comment on above: Performed By: #### Rob CARRERO, 10049-6 #### [facility] ([id number]) [address] [place] [address] Monocytes (Bld) [#/Vol] 2.2 10*3/uL High 0-0.9 [facility] Comment on above: Performed By: #### Rob CARRERO, 99544-9 #### [facility] ([id number]) [address], [address] [place] [address] Monocytes/100 WBC (Bld) 10.0 % Normal [facility] Comment on above: Performed By: #### Rob CARRERO, 63797-9 #### [facility] ([id number]) [address], [address] [place] [address] Neutrophils/100 WBC (Bld) 81.5 % Normal [facility] Comment on above: Performed By: #### Rob CARRERO, 41997-3 #### [facility] ([id number]) [address], [address] [place] [address] Platelet mean volume (Bld) [Entitic vol] 8.4 fL Normal 7-12 [facility] Comment on above: Performed By: #### Rob CARRERO, 13134-3 #### [facility] ([id number]) [address], [address] [place] [address] Platelets (Bld) [#/Vol] 402 10*3/uL Normal 150-450 [facility] Comment on above: Performed By: #### Rob CARRERO, 30587-8 #### [facility] ([id number]) [address] [place] [address] POLYCHROMASIA 1+ Abnormal NONE [facility] Comment on above: Performed By: #### Rob CARRERO, 37586-8 #### [facility] ([id number]) [address], [address] [place] [address] RBC COUNT 3.36 X10E12/L Low 3.80-5.20 [facility] Comment on above: Performed By: #### Rob CARRERO, 99480-5 #### [facility] ([id number]) [address], [address] [place] [address] WBC (Bld) [#/Vol] 22.3 10*3/uL High 4.0-11.0 [facility] Comment on above: Performed By: #### Rob CARRERO, 60533-2 #### [facility] ([id number]) [address], [address] [place] [address] COMPREHENSIVE METABOLIC PANE Harley 02-11-2024 Albumin [Mass/Vol] 2.7 g/dL Low 3.2-5.3 [facility] Comment on above: Performed By: #### Rob CARRERO, 70231-9 #### [facility] ([id number]) [address], [address] [place] [address] ALP [Catalytic activity/Vol] 111 U/L Normal 39-130 [facility] Comment on above: Performed By: #### Rob CARRERO, 70380-5 #### [facility] ([id number]) [address], [address] [place] [address] ALT [Catalytic activity/Vol] 16 U/L Normal 0-31 [facility] Comment on above: Performed By: #### Rob CARRERO, 07906-8 #### [facility] ([id number]) [address], [address] [place] [address] Anion gap [Moles/Vol] 13 mmol/L Normal 5-15 [facility] Comment on above: Performed By: #### Rob CARRERO, 87216-5 #### [facility] ([id number]) [address], [address] [place] [address] AST [Catalytic activity/Vol] 18 U/L Normal 0-41 [facility] Comment on above: Performed By: #### Rob CARRERO, 89689-5 #### [facility] ([id number]) [address], [address] [place] [address] Bilirubin [Mass/Vol] 0.6 mg/dL Normal 0.3-1.2 [facility] Comment on above: Performed By: #### Rob ACRRERO, 79448-9 #### [facility] ([id number]) [address], [address] [place] [address] Calcium [Mass/Vol] 8.8 mg/dL Normal 8.5-10.5 [facility] Comment on above: Performed By: #### Rob CARRERO, 51027-6 #### [facility] ([id number]) [address], [address] [place] [address] Chloride [Moles/Vol] 100 mmol/L Normal 98-109 [facility] Comment on above: Performed By: #### Rob CARRERO, 25240-9 #### [facility] ([id number]) [address], [address] [place] [address] CO2 [Moles/Vol] 22 mmol/L Normal 22-32 [facility] Comment on above: Performed By: #### Rob CARRERO, 97441-3 #### [facility] ([id number]) [address], [address] [place] [address] Creatinine [Mass/Vol] 4.51 mg/dL High 0.40-1.00 [facility] Comment on above: Result Comment: METH OD TRACEABLE TO IDMS STANDARD Performed By: #### Rob CARRERO, 60568-6 #### [facility] ([id number]) [address], [address] [place] [address] GFR/1.73 sq M.predicted among non-blacks MDRD (S/P/Bld) [Vol rate/Area] 9 mL/min/{1.73_m2} Low >59 [facility] Comment on above: Result Comment: Reported eGFR is based on the CKD-EPI 2020 equation that does not use a race coefficient. Performed By: #### Rob CARRERO, 06439-6 #### [facility] ([id number]) [address], [address] [place] [address] Glucose [Mass/Vol] 150 mg/dL High 65-99 [facility] Comment on above: Performed By: #### Rob CARRERO, 04332-3 #### [facility] ([id number]) [address], [address] [place] [address] Potassium [Moles/Vol] 4.5 mmol/L Normal 3.5-5.0 [facility] Comment on above: Performed By: #### Rob CARRERO, 96341-9 #### [facility] ([id number]) [address], [address] [place] [address] Protein [Mass/Vol] 6.0 g/dL Normal 6.0-8.0 [facility] Comment on above: Performed By: #### Rob CARRERO, 93394-6 #### [facility] ([id number]) [address] [place] [address] Sodium [Moles/Vol] 135 mmol/L Normal 134-146 [facility] Comment on above: Performed By: #### Rob CARRERO, 58233-9 #### [facility] ([id number]) [address] [place] [address] Urea nitrogen [Mass/Vol] 56 mg/dL High 5-27 [facility] Comment on above: Performed By: #### Rob CARRERO, 09202-6 #### [facility] ([id number]) [address], [address] [place] [address] Glucose Glucometer (BldC) [M ass/Vol]on 02-11-2024 Glucose [Mass/Vol] 206 mg/dL High 65-99 [facility] Glucose [Mass/Vol] 206 mg/dL High 65-99 [facility] Glucose [Mass/Vol] 151 mg/dL High 65-99 [facility] PHOSPHORUSon 02-11-2024 Phosphate [Mass/Vol] 5.0 mg/dL High 2.4-4.9 [facility] Comment on above: Performed By: #### Rob CARRERO, 72911-8 #### [facility] ([id number]) [address], [address] [place] [address] PROTIME AND INRon 02-11-2024 INR Coag (PPP) [Relative time] 3.7 {INR} High 0.8-1.1 [facility] Comment on above: Performed By: #### Rob CARRERO, 05285-2 #### [facility] ([id number]) [address], [facility] [address] [place] [address] PT Coag (PPP) [Time] 41.2 s High 9.8-13.2 [facility] Comment on above: Performed By: #### Rob CARRERO, 64366-0 #### [facility] ([id number]) [address] [address] Vancomycin [Mass/Vol]on 01-24 VANCOMYCIN 21.9 ug/mL Normal 5.0-40.0 [facility] Comment on above: Result Comment: Peak 30-40 ug/mL Trough 5-20 ug/ml Performed By: #### Rob CARRERO, 69753-6 #### [facility] ([id number]) [address] [address] CBC AND AUTO DIFFon 02-10-20 24 Anisocytosis Ql (Bld) 2+ Abnormal NONE [facility] Comment on above: Performed By: #### Rob CARRERO, 15193-7 #### [facility] ([id number]) [address] [address] [place] [address] Erythrocyte distribution width (RBC) [Ratio] 24.3 % High 11.5-15.0 [facility] Comment on above: Performed By: #### Rob CARRERO, 05162-9 #### [facility] ([id number]) [address] [address] Hematocrit (Bld) [Volume fraction] 28.4 % Low 35-47 [facility] Comment on above: Performed By: #### Rob CARRERO, 58547-8 #### [facility] ([id number]) [address] [place] [address] Hemoglobin (Bld) [Mass/Vol] 9.1 g/dL Low 11.7-15.5 [facility] Comment on above: Performed By: #### Rob CARRERO, 58050-1 #### [facility] ([id number]) [address] [place] [address] Lymphocytes (Bld) [#/Vol] 1.4 10*3/uL Normal 1.0-3.5 [facility] Comment on above: Performed By: #### Rob CARRERO, 78985-7 #### [facility] ([id number]) [address] [place] [address] Lymphocytes/100 WBC (Bld) 6.0 % Normal [facility] Comment on above: Performed By: #### Rob CARRERO, 93234-1 #### [facility] ([id number]) [address] [place] [address] MCH (RBC) [Entitic mass] 27.1 pg Normal 27-34 [facility] Comment on above: Performed By: #### Rob CARRERO, 75004-8 #### [facility] ([id number]) [address] [place] [address] MCHC (RBC) [Mass/Vol] 31.9 g/dL Low 32-36 [facility] Comment on above: Performed By: #### Rob CARRERO, 64937-0 #### [facility] ([id number]) [address] [place] [address] MCV (RBC) [Entitic vol] 85 fL Normal 80-100 [facility] Comment on above: Performed By: #### Rob CARRERO, 71739-5 #### [facility] ([id number]) [address] [place] [address] Metamyelocytes/100 WBC (Bld) 2.0 % Normal [facility] Comment on above: Performed By: #### Rob CARRERO, 77332-3 #### [facility] ([id number]) [address] [place] [address] Monocytes (Bld) [#/Vol] 1.8 10*3/uL High 0-0.9 [facility] Comment on above: Performed By: #### Rob CARRERO, 54608-3 #### [facility] ([id number]) [address] [place] [address] Monocytes/100 WBC (Bld) 8.0 % Normal [facility] Comment on above: Performed By: #### Rob CARRERO, 61497-0 #### [facility] ([id number]) [address] [place] [address] Neutrophils (Bld) [#/Vol] 19.0 10*3/uL High 1.5-6.6 [facility] Comment on above: Performed By: #### Rob CARRERO, 92352-6 #### [facility] ([id number]) [address] [place] [address] Platelet mean volume (Bld) [Entitic vol] 8.5 fL Normal 7-12 [facility] Comment on above: Performed By: #### Rob CARRERO, 69435-4 #### [facility] ([id number]) [address] [place] [address] Platelets (Bld) [#/Vol] 404 10*3/uL Normal 150-450 [facility] Comment on above: Performed By: #### Rob CARRERO, 13117-7 #### [facility] ([id number]) [address] [place] [address] POLYCHROMASIA 1+ Abnormal NONE [facility] Comment on above: Performed By: #### Rob CARRERO, 53132-5 #### [facility] ([id number]) [address] [place] [address] RBC COUNT 3.34 X10E12/L Low 3.80-5.20 [facility] Comment on above: Performed By: #### Rob CARRERO, 50161-2 #### [facility] ([id number]) [address] [place] [address] SEG NEUTROPHIL 84.0 % Normal [facility] Comment on above: Performed By: #### Rob CARRERO, 86204-6 #### [facility] ([id number]) [address] [place] [address] WBC (Bld) [#/Vol] 22.7 10*3/uL High 4.0-11.0 [facility] Comment on above: Performed By: #### Rob CARRERO, 73501-9 #### [facility] ([id number]) [address] [place] [address] COMPREHENSIVE METABOLIC PANE Harley 02-10-2024 Albumin [Mass/Vol] 2.7 g/dL Low 3.2-5.3 [facility] Comment on above: Performed By: #### Rob CARRERO, 63177-5 #### [facility] ([id number]) [address] [place] [address] ALP [Catalytic activity/Vol] 101 U/L Normal 39-130 [facility] Comment on above: Performed By: #### Rob CARRERO, 92357-9 #### [facility] ([id number]) [address] [place] [address] ALT [Catalytic activity/Vol] 15 U/L Normal 0-31 [facility] Comment on above: Performed By: #### Kadeem Rivas [id number] #### [facility] ([id number]) [address] [place] [address] Anion gap [Moles/Vol] 13 mmol/L Normal 5-15 [facility] Comment on above: Performed By: #### Rob CARRERO, 09890-4 #### [facility] ([id number]) [address] [place] [address] AST [Catalytic activity/Vol] 15 U/L Normal 0-41 [facility] Comment on above: Performed By: #### Rob CARRERO, 92340-9 #### [facility] ([id number]) [address] [place] [address] Bilirubin [Mass/Vol] 0.7 mg/dL Normal 0.3-1.2 [facility] Comment on above: Performed By: #### Rob CARRERO, 62270-6 #### [facility] ([id number]) [address] [place] [address] Calcium [Mass/Vol] 8.5 mg/dL Normal 8.5-10.5 [facility] Comment on above: Performed By: #### Rob CARRERO, 88127-9 #### [facility] ([id number]) [address] [place] [address] Chloride [Moles/Vol] 99 mmol/L Normal 98-109 [facility] Comment on above: Performed By: #### Rob CARRERO, 91007-7 #### [facility] ([id number]) [address] [place] [address] CO2 [Moles/Vol] 22 mmol/L Normal 22-32 [facility] Comment on above: Performed By: #### Rob CARRERO, 85268-3 #### [facility] ([id number]) [address] [place] [address] Creatinine [Mass/Vol] 3.23 mg/dL High 0.40-1.00 [facility] Comment on above: Result Comment: METH OD TRACEABLE TO IDMS STANDARD Performed By: #### Rob CARRERO, 00362-4 #### [facility] ([id number]) [address] [place] [address] GFR/1.73 sq M.predicted among non-blacks MDRD (S/P/Bld) [Vol rate/Area] 14 mL/min/{1.73_m2} Low >59 [facility] Comment on above: Result Comment: Reported eGFR is based on the CKD-EPI 2020 equation that does not use a race coefficient. Performed By: #### Rob CARRERO 93619-5 #### [facility] ([id number]) [address] [place] [address] Glucose [Mass/Vol] 150 mg/dL High 65-99 [facility] Comment on above: Performed By: #### Rob CARRERO, 23094-7 #### [facility] ([id number]) [address] [place] [address] Potassium [Moles/Vol] 4.5 mmol/L Normal 3.5-5.0 [facility] Comment on above: Performed By: #### Rob CARRERO, 85794-4 #### [facility] ([id number]) [address] [place] [address] Protein [Mass/Vol] 5.8 g/dL Low 6.0-8.0 [facility] Comment on above: Performed By: #### Rob CARRERO, 39500-8 #### [facility] ([id number]) [address] [place] [address] Sodium [Moles/Vol] 134 mmol/L Normal 134-146 [facility] Comment on above: Performed By: #### Rob CARRERO, 24263-2 #### [facility] ([id number]) [address] [place] [address] Urea nitrogen [Mass/Vol] 38 mg/dL High 5-27 [facility] Comment on above: Performed By: #### Rob CARRERO, 80891-8 #### [facility] ([id number]) [address] [place] [address] Glucose Glucometer (BldC) [M ass/Vol]on 02-10-2024 Glucose [Mass/Vol] 208 mg/dL High 65-99 [facility] Glucose [Mass/Vol] 251 mg/dL High 65-99 [facility] Glucose [Mass/Vol] 278 mg/dL High 65-99 [facility] Glucose [Mass/Vol] 246 mg/dL High 65-99 [facility] PHOSPHORUSon 02-10-2024 Phosphate [Mass/Vol] 4.1 mg/dL Normal 2.4-4.9 [facility] Comment on above: Performed By: #### Rob CARRERO, [id number] #### [facility] ([id number]) [address] [place] [address] PROTIME AND INRon 02-10-2024 INR Coag (PPP) [Relative time] 4.3 {INR} Critically high 0.8-1.1 [facility] Comment on above: Performed By: #### Rob CARRERO, [id number] #### [facility] ([id number]) [address] [place] [address] PT Coag (PPP) [Time] 47.0 s High 9.8-13.2 [facility] Comment on above: Performed By: #### Rob CARRERO, [id number] #### [facility] ([id number]) [address], [address] [place] [address] BLOOD CULTUREon 02-09-2024 Bacteria identified Aer cx Nom (Bld) CULTURE RESULTS NO GROWTH 5 DAYS Normal [facility] Bacteria identified Aer cx Nom (Bld) CULTURE RESULTS NO GROWTH 5 DAYS Normal [facility] CBC AND AUTO DIFFon 02-09-20 24 ABSOLUTE BASOPHIL 0.2 X10E9/L Normal 0.0-0.2 [facility] Comment on above: Performed By: #### Rob CARRERO, [id number] #### [facility] ([id number]) [address], [address] [place] [address] ABSOLUTE NEUTROPHIL 23.9 X10E9/L High 1.5-6.6 [facility] Comment on above: Performed By: #### Rob CARRERO, [id number] #### [facility] ([id number]) [address] [place] [address] Basophils/100 WBC (Bld) 0.6 % Normal [facility] Comment on above: Performed By: #### Rob CARRERO, [id number] #### [facility] ([id number]) [address], [address] [place] [address] Eosinophils (Bld) [#/Vol] 0.5 10*3/uL High 0.0-0.4 [facility] [facility] Comment on above: Performed By: #### Rob CARRERO, 35249-7 #### [facility] ([id number]) [address] [place] [address] Eosinophils/100 WBC (Bld) 1.7 % Normal [facility] Comment on above: Performed By: #### Rob CARRERO, 35397-7 #### [facility] ([id number]) [address], [address] [place] [address] Erythrocyte distribution width (RBC) [Ratio] 24.4 % High 11.5-15.0 [facility] Comment on above: Performed By: #### Rob CARRERO, 73406-5 #### [facility] ([id number]) [address], [address] [place] [address] Hematocrit (Bld) [Volume fraction] 28.2 % Low 35-47 [facility] Comment on above: Performed By: #### Rob CARRERO, 99343-9 #### [facility] ([id number]) [address], [address] [place] [address] Hemoglobin (Bld) [Mass/Vol] 8.8 g/dL Low 11.7-15.5 [facility] Comment on above: Performed By: #### Rob CARRERO, 00751-7 #### [facility] ([id number]) [address], [address] [place] [address] Lymphocytes (Bld) [#/Vol] 1.5 10*3/uL Normal 1.0-3.5 [facility] Comment on above: Performed By: #### Rob CARRERO, 67758-4 #### [facility] ([id number]) [address] [place] [address] Lymphocytes/100 WBC (Bld) 5.4 % Normal [facility] Comment on above: Performed By: #### Rob CARRERO, 33756-2 #### [facility] ([id number]) [address] [place] [address] MCH (RBC) [Entitic mass] 26.6 pg Low 27-34 [facility] Comment on above: Performed By: #### Rob CARRERO, 41586-1 #### [facility] ([id number]) [address], [address] [place] [address] MCHC (RBC) [Mass/Vol] 31.4 g/dL Low 32-36 [facility] Comment on above: Performed By: #### Rob CARRERO, 17914-1 #### [facility] ([id number]) [address], [address] [place] [address] MCV (RBC) [Entitic vol] 85 fL Normal 80-100 [facility] Comment on above: Performed By: #### Rob CARRERO, 12110-1 #### [facility] ([id number]) [address], [address] [place] [address] Monocytes (Bld) [#/Vol] 2.2 10*3/uL High 0-0.9 [facility] Comment on above: Performed By: #### C MAGAN, 90510-7 #### [facility] ([id number]) [address], [address] [place] [address] Monocytes/100 WBC (Bld) 7.6 % Normal [facility] Comment on above: Performed By: #### Rob CARRERO, 26840-8 #### [facility] ([id number]) [address], [address] [place] [address] Neutrophils/100 WBC (Bld) 84.7 % Normal [facility] Comment on above: Performed By: #### Rob CARRERO, 80188-5 #### [facility] ([id number]) [address] [place] [address] OVALOCYTE 1+ Abnormal NONE [facility] Comment on above: Performed By: #### Rob CARRERO, 48953-6 #### [facility] ([id number]) [address], [address] [place] [address] Platelet mean volume (Bld) [Entitic vol] 8.6 fL Normal 7-12 [facility] Comment on above: Performed By: #### Rob CARRERO, 89184-8 #### [facility] ([id number]) [address], [address] [place] [address] Platelets (Bld) [#/Vol] 386 10*3/uL Normal 150-450 [facility] Comment on above: Performed By: #### Rob CARRERO, 90119-9 #### [facility] ([id number]) [address] [place] [address] POLYCHROMASIA 1+ Abnormal NONE [facility] Comment on above: Performed By: #### Rob CARRERO, 34499-3 #### [facility] ([id number]) [address] [place] [address] RBC COUNT 3.32 X10E12/L Low 3.80-5.20 [facility] Comment on above: Performed By: #### Rob CARRERO, 83020-5 #### [facility] ([id number]) [address] [place] [address] WBC (Bld) [#/Vol] 28.2 10*3/uL High 4.0-11.0 [facility] Comment on above: Performed By: #### Rob CARRERO, 86644-2 #### [facility] ([id number]) [address], [address] [place] [address] COMPREHENSIVE METABOLIC PANE [facility] 02-09-2024 Albumin [Mass/Vol] 2.7 g/dL Low 3.2-5.3 [facility] Comment on above: Performed By: #### Rob CARRERO, 57602-2 #### [facility] ([id number]) [address] [place] [address] ALP [Catalytic activity/Vol] 98 U/L Normal 39-130 [facility] Comment on above: Performed By: #### Rob CARRERO, 82638-6 #### [facility] ([id number]) [address] [place] [address] ALT [Catalytic activity/Vol] 12 U/L Normal 0-31 [facility] Comment on above: Performed By: #### Rob CARRERO, 84823-5 #### [facility] ([id number]) [address] [place] [address] Anion gap [Moles/Vol] 16 mmol/L High 5-15 [facility] Comment on above: Performed By: #### Rob CARRERO, 83831-4 #### [facility] ([id number]) [address] [place] [address] AST [Catalytic activity/Vol] 11 U/L Normal 0-41 [facility] Comment on above: Performed By: #### Rob CARRERO, 34390-5 #### [facility] ([id number]) [address], [address] [place] [address] Bilirubin [Mass/Vol] 0.6 mg/dL Normal 0.3-1.2 [facility] Comment on above: Performed By: #### Rob CARRERO 75169-2 #### [facility] ([id number]) [address], [address] [place] [address] Calcium [Mass/Vol] 8.7 mg/dL Normal 8.5-10.5 [facility] Comment on above: Performed By: #### Rob CARRERO 55369-7 #### [facility] ([id number]) [address], [address] [place] [address] Chloride [Moles/Vol] 98 mmol/L Normal 98-109 [facility] Comment on above: Performed By: #### Rob CARRERO, 28517-0 #### [facility] ([id number]) [address], [address] [place] [address] CO2 [Moles/Vol] 21 mmol/L Low 22-32 [facility] Comment on above: Performed By: #### Rob CARRERO, 57759-3 #### [facility] ([id number]) [address], [address] [place] [address] Creatinine [Mass/Vol] 5.39 mg/dL High 0.40-1.00 [facility] Comment on above: Result Comment: METH OD TRACEABLE TO IDMS STANDARD Performed By: #### Rob CARRERO, 58689-7 #### [facility] ([id number]) [address], [address] [place] [address] GFR/1.73 sq M.predicted among non-blacks MDRD (S/P/Bld) [Vol rate/Area] 8 mL/min/{1.73_m2} Low >59 [facility] Comment on above: Result Comment: Reported eGFR is based on the CKD-EPI 2020 equation that does not use a race coefficient. Performed By: #### Rob CARRERO, 69484-5 #### [facility] ([id number]) [address], [address] [place] [address] Glucose [Mass/Vol] 154 mg/dL High 65-99 [facility] Comment on above: Performed By: #### Rob CARRERO 94174-9 #### [facility] ([id number]) [address], [address] [place] [address] Potassium [Moles/Vol] 4.4 mmol/L Normal 3.5-5.0 [facility] Comment on above: Performed By: #### Rob CARRERO, 10949-4 #### [facility] ([id number]) [address], [address] [place] [address] Protein [Mass/Vol] 5.7 g/dL Low 6.0-8.0 [facility] Comment on above: Performed By: #### Rob CARRERO, 46838-8 #### [facility] ([id number]) [address], [address] [place] [address] Sodium [Moles/Vol] 135 mmol/L Normal 134-146 [facility] Comment on above: Performed By: #### Rob CARRERO, 41957-1 #### [facility] ([id number]) [address], [address] [place] [address] Urea nitrogen [Mass/Vol] 77 mg/dL High 5-27 [facility] Comment on above: Performed By: #### Rob CARRERO, 98143-9 #### [facility] ([id number]) [address], [address] [place] [address] CRP [Mass/Vol]on 02-09-2024 C REACTIVE PROTEIN 16.8 mg/dL High 0.000-0.7 4 4 [facility] Comment on above: Performed By: #### Rob CARRERO, 67180-7 #### [facility] ([id number]) [address], [address] [place] [address] Glucose Glucometer (BldC) [M ass/Vol]on 02-09-2024 Glucose [Mass/Vol] 250 mg/dL High 65-99 [facility] Glucose [Mass/Vol] 187 mg/dL High 65-99 [facility] Glucose [Mass/Vol] 147 mg/dL High 65-99 [facility] Glucose [Mass/Vol] 176 mg/dL High 65-99 [facility] PHOSPHORUSon 02-09-2024 Phosphate [Mass/Vol] 5.3 mg/dL High 2.4-4.9 [facility] Comment on above: Performed By: #### Rob CARRERO, 81520-6 #### [facility] ([id number]) [address], [address] [place] [address] PROTIME AND INRon 02-09-2024 INR Coag (PPP) [Relative time] 5.0 {INR} Critically high 0.8-1.1 [facility] Comment on above: Performed By: #### Rob CARRERO, 07796-8 #### [facility] ([id number]) [address] [place] [address] PT Coag (PPP) [Time] 54.5 s High 9.8-13.2 [facility] Comment on above: Performed By: #### Rob CARRERO, 39816-6 #### [facility] ([id number]) [address], [address] [place] [address] Procalcitonin IA [Mass/Vol]o n 02-09-2024 PROCALCITONIN 1.90 ng/mL High <0.05 [facility] Comment on above: Result Comment: NOTE <0.50 ng/mL - Low risk of severe sepsis and/or septic shock. <2.00 ng/mL - Recommend retesting within 6-24 hours. >2.00 ng/mL - High risk of sepsis and/or septic shock. Performed By: #### C MP, 04785-7 #### [facility] ([id number]) [address], [address] [place] [address] CBC AND AUTO DIFFon 02-08-20 24 ABSOLUTE BASOPHIL 0.2 X10E9/L Normal 0.0-0.2 [facility] Comment on above: Performed By: #### C GAGE, 4679-7, CMP, FEPR, PINR, THYR, 2276- 4, 2284-8, 2132-9, 2692-2, 2777-1 #### [facility] ([id number]) [address], [address] [place] [address] ABSOLUTE NEUTROPHIL 21.6 X10E9/L High 1.5-6.6 [facility] Comment on above: Performed By: #### C BCA, 4679-7, CMP, FEPR, PINR, THYR, 2276- 4, 2284-8, 2132-9, 2692-2, 2777-1 #### [facility] ([id number]) [address], [address] [place] [address] Basophils/100 WBC (Bld) 0.8 % Normal [facility] Comment on above: Performed By: #### C BCA, 4679-7, CMP, FEPR, PINR, THYR, 2276- 4, 2284-8, 2132-9, 2692-2, 2777-1 #### [facility] ([id number]) [address], [address] [place] [address] Eosinophils (Bld) [#/Vol] 0.5 10*3/uL High 0.0-0.4 [facility] Comment on above: Performed By: #### C BCA, 4679-7, CMP, FEPR, PINR, THYR, 2276- 4, 2284-8, 2132-9, 2692-2, 2777-1 #### [facility] ([id number]) [address], [address] [place] [address] Eosinophils/100 WBC (Bld) 1.8 % Normal [facility] Comment on above: Performed By: #### C BCA, 4679-7, CMP, FEPR, PINR, THYR, 2276- 4, 2284-8, 2132-9, 2692-2, 2777-1 #### [facility] ([id number]) [address], [address] [place] [address] Erythrocyte distribution width (RBC) [Ratio] 24.1 % High 11.5-15.0 [facility] Comment on above: Performed By: #### C BCA, 4679-7, CMP, FEPR, PINR, THYR, 2276- 4, 2284-8, 2-9, 2692-2, 277-1 #### [facility] ([id number]) [address], [address] [place] [address] Hematocrit (Bld) [Volume fraction] 28.7 % Low 35-47 [facility] Comment on above: Performed By: #### C BCA, 4679-7, CMP, FEPR, PINR, THYR, 2276- 4, 2284-8, 2132-9, 2692-2, 2777-1 #### [facility] ([id number]) [address] [place] [address] Hemoglobin (Bld) [Mass/Vol] 9.3 g/dL Low 11.7-15.5 [facility] Comment on above: Performed By: #### C BCA, 4679-7, CMP, FEPR, PINR, THYR, 2276- 4, 2284-8, 2132-9, 2692-2, 2777-1 #### [facility] ([id number]) [address] [place] [address] Lymphocytes (Bld) [#/Vol] 1.6 10*3/uL Normal 1.0-3.5 [facility] Comment on above: Performed By: #### C BCA, 4679-7, CMP, FEPR, PINR, THYR, 2276- 4, 2284-8, 2-9, 2692-2, 2776-1 #### [facility] ([id number]) [address], [address] [place] [address] Lymphocytes/100 WBC (Bld) 6.3 % Normal [facility] Comment on above: Performed By: #### C BCA, 4679-7, CMP, FEPR, PINR, THYR, 2276- 4, 4-8, 2131-9, 2691-2, 2776- #### [facility] ([id number]) [address] [place] [address] MCH (RBC) [Entitic mass] 27.3 pg Normal 27-34 [facility] Comment on above: Performed By: #### C BCA, 4679-7, CMP, FEPR, PINR, THYR, 2276- 4, 2284-8, 2-9, 2692-2, 2776- #### [facility] ([id number]) [address] [place] [address] MCHC (RBC) [Mass/Vol] 32.3 g/dL Normal 32-36 [facility] Comment on above: Performed By: #### C BCA, 4679-7, CMP, FEPR, PINR, THYR, 2276- 4, 2284-8, 2-9, 2692-2, 2776-1 #### [facility] ([id number]) [address] [place] [address] MCV (RBC) [Entitic vol] 84 fL Normal 80-100 [facility] Comment on above: Performed By: #### C BCA, 4679-7, CMP, FEPR, PINR, THYR, 2276- 4, 2284-8, 2-9, 2692-2, 2777-1 #### [facility] ([id number]) [address] [place] [address] Monocytes (Bld) [#/Vol] 2.2 10*3/uL High 0-0.9 [facility] Comment on above: Performed By: #### C BCA, 4679-7, CMP, FEPR, PINR, THYR, 2276- 4, 2284-8, 2-9, 2692-2, 2777-1 #### [facility] ([id number]) [address] [place] [address] Monocytes/100 WBC (Bld) 8.2 % Normal [facility] Comment on above: Performed By: #### C BCA, 4679-7, CMP, FEPR, PINR, THYR, 2276- 4, 4-8, 2131-9, 2692-2, 277-1 #### [facility] ([id number]) [address] [place] [address] Neutrophils/100 WBC (Bld) 82.9 % Normal [facility] Comment on above: Performed By: #### C BCA, 4679-7, CMP, FEPR, PINR, THYR, 2276- 4, 2284-8, 2-9, 2692-2, 2777-1 #### [facility] ([id number]) [address] [place] [address] Platelet mean volume (Bld) [Entitic vol] 8.4 fL Normal 7-12 [facility] Comment on above: Performed By: #### C BCA, 4679-7, CMP, FEPR, PINR, THYR, 2276- 4, 2284-8, 2132-9, 2692-2, 2777-1 #### [facility] ([id number]) [address] [place] [address] Platelets (Bld) [#/Vol] 400 10*3/uL Normal 150-450 [facility] Comment on above: Performed By: #### C BCA, 4679-7, CMP, FEPR, PINR, THYR, 2276- 4, 2284-8, 2132-9, 2692-2, 2777-1 #### [facility] ([id number]) [address], [address] [place] [address] POLYCHROMASIA 1+ Abnormal NONE [facility] Comment on above: Performed By: #### C BCA, 4679-7, CMP, FEPR, PINR, THYR, 2276- 4, 2284-8, 2132-9, 2692-2, 2777-1 #### [facility] ([id number]) [address], [address] [place] [address] RBC COUNT 3.41 X10E12/L Low 3.80-5.20 [facility] Comment on above: Performed By: #### C BCA, 4679-7, CMP, FEPR, PINR, THYR, 2276- 4, 2284-8, 2132-9, 2692-2, 2777-1 #### [facility] ([id number]) [address], [address] [place] [address] WBC (Bld) [#/Vol] 26.1 10*3/uL High 4.0-11.0 [facility] Comment on above: Performed By: #### C BCA, 4679-7, CMP, FEPR, PINR, THYR, 2276- 4, 2284-8, 2132-9, 2692-2, 2777-1 #### [facility] ([id number]) [address] [place] [address] COMPREHENSIVE METABOLIC PANE [facility] 02-08-2024 Albumin [Mass/Vol] 2.7 g/dL Low 3.2-5.3 [facility] Comment on above: Performed By: #### C BCA, 4679-7, CMP, FEPR, PINR, THYR, 2276- 4, 2284-8, 2132-9, 2692-2, 2777-1 #### [facility] ([id number]) [address] [place] [address] ALP [Catalytic activity/Vol] 103 U/L Normal 39-130 [facility] Comment on above: Performed By: #### C BCA, 4679-7, CMP, FEPR, PINR, THYR, 2276- 4, 2284-8, 2132-9, 2692-2, 2777-1 #### [facility] ([id number]) [address] [place] [address] ALT [Catalytic activity/Vol] 14 U/L Normal 0-31 [facility] Comment on above: Performed By: #### C BCA, 4679-7, CMP, FEPR, PINR, THYR, 2276- 4, 2284-8, 2132-9, 2692-2, 2777-1 #### [facility] ([id number]) [address] [place] [address] Anion gap [Moles/Vol] 16 mmol/L High 5-15 [facility] Comment on above: Performed By: #### C BCA, 4679-7, CMP, FEPR, PINR, THYR, 2276- 4, 2284-8, 2132-9, 2692-2, 2777-1 #### [facility] ([id number]) [address] [place] [address] AST [Catalytic activity/Vol] 12 U/L Normal 0-41 [facility] Comment on above: Performed By: #### C BCA, 4679-7, CMP, FEPR, PINR, THYR, 2276- 4, 2284-8, 2132-9, 2692-2, 2777-1 #### [facility] ([id number]) [address] [place] [address] Bilirubin [Mass/Vol] 0.7 mg/dL Normal 0.3-1.2 [facility] Comment on above: Performed By: #### C BCA, 4679-7, CMP, FEPR, PINR, THYR, 2276- 4, 2284-8, 2132-9, 2692-2, 2777-1 #### [facility] ([id number]) [address] [place] [address] Calcium [Mass/Vol] 8.8 mg/dL Normal 8.5-10.5 [facility] Comment on above: Performed By: #### C BCA, 4679-7, CMP, FEPR, PINR, THYR, 2276- 4, 2284-8, 2-9, 2692-2, 2777-1 #### [facility] ([id number]) [address] [place] [address] Chloride [Moles/Vol] 99 mmol/L Normal 98-109 [facility] Comment on above: Performed By: #### C BCA, 4679-7, CMP, FEPR, PINR, THYR, 2276- 4, 2284-8, 2132-9, 2692-2, 2777-1 #### [facility] ([id number]) [address] [place] [address] CO2 [Moles/Vol] 21 mmol/L Low 22-32 [facility] Comment on above: Performed By: #### C BCA, 4679-7, CMP, FEPR, PINR, THYR, 2276- 4, 2284-8, 2132-9, 2692-2, 2777-1 #### [facility] ([id number]) [address] [place] [address] Creatinine [Mass/Vol] 4.49 mg/dL High 0.40-1.00 [facility] Comment on above: Result Comment: METH OD TRACEABLE TO IDMS STANDARD Performed By: #### C BCA, 4679-7, CMP, FEPR, PINR, THYR, 2276-4, 2284-8, 2132-9, 2692-2, 2777-1 #### [facility] ([id number]) [address] [place] [address] GFR/1.73 sq M.predicted among non-blacks MDRD (S/P/Bld) [Vol rate/Area] 9 mL/min/{1.73_m2} Low >59 [facility] Comment on above: Result Comment: Reported eGFR is based on the CKD-EPI 2020 equation that does not use a race coefficient. Performed By: #### C BCA, 4679-7, CMP, FEPR, PINR, THYR, 2276-4, 2284-8, 2-9, 2692-2, 2777-1 #### [facility] ([id number]) [address] [place] [address] Glucose [Mass/Vol] 162 mg/dL High 65-99 [facility] Comment on above: Performed By: #### C BCA, 4679-7, CMP, FEPR, PINR, THYR, 2276- 4, 2284-8, 2-9, 2692-2, 2777-1 #### [facility] ([id number]) [address] [place] [address] Potassium [Moles/Vol] 4.7 mmol/L Normal 3.5-5.0 [facility] Comment on above: Performed By: #### C BCA, 4679-7, CMP, FEPR, PINR, THYR, 2276- 4, 2284-8, 2132-9, 2692-2, 2777-1 #### [facility] ([id number]) [address], [address] [place] [address] Protein [Mass/Vol] 5.6 g/dL Low 6.0-8.0 [facility] Comment on above: Performed By: #### C BCA, 4679-7, CMP, FEPR, PINR, THYR, 2276- 4, 2284-8, 2132-9, 2692-2, 2777-1 #### [facility] ([id number]) [address], [address] [place] [address] Sodium [Moles/Vol] 136 mmol/L Normal 134-146 [facility] Comment on above: Performed By: #### C BCA, 4679-7, CMP, FEPR, PINR, THYR, 2276- 4, 2284-8, 2132-9, 2692-2, 2777-1 #### [facility] ([id number]) [address] [place] [address] Urea nitrogen [Mass/Vol] 63 mg/dL High 5-27 [facility] Comment on above: Performed By: #### C BCA, 4679-7, CMP, FEPR, PINR, THYR, 2276- 4, 2284-8, 2132-9, 2692-2, 2777-1 #### [facility] ([id number]) [address] [place] [address] Clinical Pathology Blood Sme ar Reviewon 02-08-2024 Clinical Pathology Blood Smear Review Normal [facility] Comment on above: Result Comment: [facility] [address] [place] [address] Clinical Pathology Report Patient Name:ROSA WINTER:1945 (Age: 78)Gender:FTaken:4Reported:4Physician(s):Kesha Garrido M.D. ([phone])Copy To: Rec. #:[id number]: #[id number] Final Pathologic Diagnosis Peripheral blood smear: Neutrophilia and normocytic anemia. See note. Comment Note: The etiology is not evident from the morphology. There is no significant left shifting or toxic granulation typically seen with infections and no blasts. Neutrophilia can be due to medications, toxins, tissue necrosis, autoimmune disorders, renal disease, etc. The anemia may be due to blood loss, nutritional deficiencies, ineffective erythropoiesis, etc. There is no hemolysis. Report Electronically Signed Out 02/09/2024Hawa Sam MD Interpretation [place] [address], License number: [id number]. Clinical History S31.000A, S71.001A, L89.303, A41.9, R41.0. BLOOD SMEAR EVALUATION CBC (02/08/2024 0613): WBC = 26.1 X10E9/L; HGB = 9.3 g/dL; HCT = 28.7%; MCV = 84 fL; PLT = 400 X10E9/L OTHER LAB DATA: BLOOD SMEAR: Leukocytes: There is an absolute neutrophilia with a slight left shift, but no toxic granulation, vacuolization or blasts. Lymphocytes and monocytes are unremarkable. Erythrocytes: Anisocytosis, hypochromasia, occasional target cells. Platelets: Morphologically unremarkable, no clumping. Specimen(s) Received Blood Smear Review Fee Codes(s): 1; 35076 Glucose Glucometer ([facility]) [M ass/Vol]on 02-08-2024 Glucose [Mass/Vol] 299 mg/dL High 65-99 [facility] Glucose [Mass/Vol] 217 mg/dL High 65-99 [facility] Glucose [Mass/Vol] 234 mg/dL High 65-99 [facility] Glucose [Mass/Vol] 208 mg/dL High 65-99 [facility] PHOSPHORUSon 02-08-2024 Phosphate [Mass/Vol] 4.3 mg/dL Normal 2.4-4.9 [facility] Comment on above: Performed By: #### C BCA, 4679-7, CMP, FEPR, PINR, THYR, 2276- 4, 2284-8, 2-9, 2-2, 2777-1 #### [facility] ([id number]) [address], [address] [place] [address] PROTIME AND INRon 02-08-2024 INR Coag (PPP) [Relative time] 3.7 {INR} High 0.8-1.1 [facility] Comment on above: Performed By: #### C BCA, 4679-7, CMP, FEPR, PINR, THYR, 2276- 4, 2284-8, 2131-9, 2-2, 2777-1 #### [facility] [facility] ([id number]) [address] [facility], [address] [place] [address] PT Coag (PPP) [Time] 40.6 s High 9.8-13.2 [facility] Comment on above: Performed By: #### C BCA, 4679-7, CMP, FEPR, PINR, THYR, 2276- 4, 2284-8, 2131-9, 2-2, 2777-1 #### [facility] ([id number]) [address] [facility], [address] [place] [address] comment (Bld) [Interp]on 02-08-2024 STAFF REVIEW NOTE Normal [facility] Comment on above: Result Comment: [facility] [address] [place] [address] Clinical Pathology Report Patient Name:ROSA WINTER:1945 (Age: 78)Gender:FTaken:4Reported:4Physician(s):Kesha Garrido M.D. ([phone])Copy To: Rec. #:[id number]: #[phone] Final Pathologic Diagnosis Peripheral blood smear: Neutrophilia and normocytic anemia. See note. Comment Note: The etiology is not evident from the morphology. There is no significant left shifting or toxic granulation typically seen with infections and no blasts. Neutrophilia can be due to medications, toxins, tissue necrosis, autoimmune disorders, renal disease, etc. The anemia may be due to blood loss, nutritional deficiencies, ineffective erythropoiesis, etc. There is no hemolysis. Report Electronically Signed Out sps/02/09/2024Hawa Sam MD Interpretation performed at [facility], [address] [place] [address], License number: [id number]. Clinical History S31.000A, S71.001A, L89.303, A41.9, R41.0. BLOOD SMEAR EVALUATION CBC (02/08/2024 0613): WBC = 26.1 X10E9/L; HGB = 9.3 g/dL; HCT = 28.7%; MCV = 84 fL; PLT = 400 X10E9/L OTHER LAB DATA: BLOOD SMEAR: Leukocytes: There is an absolute neutrophilia with a slight left shift, but no toxic granulation, vacuolization or blasts. Lymphocytes and monocytes are unremarkable. Erythrocytes: Anisocytosis, hypochromasia, occasional target cells. Platelets: Morphologically unremarkable, no clumping. Specimen(s) Received Blood Smear Review Fee Codes(s): 1; 44428 Performed By: #### C BCA, 4679-7, CMP, FEPR, PINR, THYR, 2276-4, 2284-8, 2132-9, 2692-2, 2777-1 #### [facility] ([id number]) [address] [place] [address], [address] [place] [address] US BREAST LT LIMITEDon 02-07 US BREAST LT LIMITED US BREAST LT LIMITE D EXAM: US BREAST LT LIMITED, 02/08/2024 10:09 AM CLINICAL INDICATIONS:left breast lesion. Targeted ultrasound performed for further characterization of an area of palpable abnormality/lump COMPARISON: Compared to prior study dated bilateral screening mammograms 12/09/2021 TECHNIQUE: Multiple real-time curiel-scale images of the left breast in the retroareolar axis and area of concern were performed. Color Doppler was utilized to assess vascular flow. FINDINGS: There is no focal mass, architectural distortion or abnormal vascularity seen. No abscess is identified. Skin thickening is noted. Heterogeneous tissue is noted in the area of concern. Patient could not undergo mammography at this time given her current condition. IMPRESSION: Probably benign area of skin thickening and heterogeneous tissue in the left breast with no focal mass or abscess identified at the site of concern left breast. Patient could not undergo mammography at this time given her current condition. BI-RADS: BI-RADS 3 - Probably Benign Recommendation: Ultrasound in 1 month following appropriate treatment. At that time patient should also undergo bilateral diagnostic mammograms. Skin biopsy may need to be considered as well if skin thickening persists following treatment. Finalized by Nick Douglas MD on 02/08/2024 10:46 AM 3 US 1 MONTH Normal [facility] CBC AND AUTO DIFFon 02-07-20 24 Anisocytosis Ql (Bld) 2+ Abnormal NONE [facility] Comment on above: Performed By: #### C BCA, 4679-7, CMP, FEPR, PINR, THYR, 2276- 4, 2284-8, 2132-9, 2692-2, 2777-1 #### [facility] ([id number]) [address], [address] [place] [address] Band form neutrophils/100 WBC (Bld) 2.9 % Normal [facility] Comment on above: Performed By: #### C BCA, 4679-7, CMP, FEPR, PINR, THYR, 2276- 4, 2284-8, 2132-9, 2692-2, 2777-1 #### [facility] ([id number]) [address], [address] [place] [address] Eosinophils (Bld) [#/Vol] 0.2 10*3/uL Normal 0.0-0.4 [facility] Comment on above: Performed By: #### C BCA, 4679-7, CMP, FEPR, PINR, THYR, 2276- 4, 2284-8, 2132-9, 2692-2, 2777-1 #### [facility] ([id number]) [address], [address] [place] [address] Eosinophils/100 WBC (Bld) 1.0 % Normal [facility] Comment on above: Performed By: #### C BCA, 4679-7, CMP, FEPR, PINR, THYR, 2276- 4, 2284-8, 2132-9, 2692-2, 2777-1 #### [facility] ([id number]) [address], [address] [place] [address] Erythrocyte distribution width (RBC) [Ratio] 23.1 % High 11.5-15.0 [facility] Comment on above: Performed By: #### C BCA, 4679-7, CMP, FEPR, PINR, THYR, 2276- 4, 2284-8, 2132-9, 2692-2, 2777-1 #### [facility] ([id number]) [address], [address] [place] [address] Hematocrit (Bld) [Volume fraction] 28.7 % Low 35-47 [facility] Comment on above: Performed By: #### C BCA, 4679-7, CMP, FEPR, PINR, THYR, 2276- 4, 2284-8, 2132-9, 2692-2, 2777-1 #### [facility] ([id number]) [address], [address] [place] [address] Hemoglobin (Bld) [Mass/Vol] 9.3 g/dL Low 11.7-15.5 [facility] Comment on above: Performed By: #### C BCA, 4679-7, CMP, FEPR, PINR, THYR, 2276- 4, 2284-8, 2132-9, 2692-2, 2777-1 #### [facility] ([id number]) [address], [address] [place] [address] Lymphocytes (Bld) [#/Vol] 0.5 10*3/uL Low 1.0-3.5 [facility] Comment on above: Performed By: #### C BCA, 4679-7, CMP, FEPR, PINR, THYR, 2276- 4, 2284-8, 2132-9, 2692-2, 2777-1 #### [facility] ([id number]) [address], [address] [place] [address] Lymphocytes/100 WBC (Bld) 1.9 % Normal [facility] Comment on above: Performed By: #### C BCA, 4679-7, CMP, FEPR, PINR, THYR, 2276- 4, 2284-8, 2-9, 2692-2, 2777-1 #### [facility] ([id number]) [address], [address] [place] [address] MCH (RBC) [Entitic mass] 27.5 pg Normal 27-34 [facility] Comment on above: Performed By: #### C BCA, 4679-7, CMP, FEPR, PINR, THYR, 2276- 4, 2284-8, 2-9, 2692-2, 2777-1 #### [facility] ([id number]) [address] [place] [address] MCHC (RBC) [Mass/Vol] 32.5 g/dL Normal 32-36 [facility] Comment on above: Performed By: #### C BCA, 4679-7, CMP, FEPR, PINR, THYR, 2276- 4, 2284-8, 2-9, 2692-2, 2777-1 #### [facility] ([id number]) [address] [place] [address] MCV (RBC) [Entitic vol] 85 fL Normal 80-100 [facility] Comment on above: Performed By: #### C BCA, 4679-7, CMP, FEPR, PINR, THYR, 2276- 4, 2284-8, 2132-9, 2692-2, 2777-1 #### [facility] ([id number]) [address], [address] [place] [address] Metamyelocytes/100 WBC (Bld) 1.9 % Normal [facility] Comment on above: Performed By: #### C BCA, 4679-7, CMP, FEPR, PINR, THYR, 2276- 4, 2284-8, 2132-9, 2692-2, 2777-1 #### [facility] ([id number]) [address], [address] [place] [address] Monocytes (Bld) [#/Vol] 2.1 10*3/uL High 0-0.9 [facility] Comment on above: Performed By: #### C BCA, 4679-7, CMP, FEPR, PINR, THYR, 2276- 4, 2284-8, 2-9, 2692-2, 2777-1 #### [facility] ([id number]) [address], [address] [place] [address] Monocytes/100 WBC (Bld) 8.6 % Normal [facility] Comment on above: Performed By: #### C BCA, 4679-7, CMP, FEPR, PINR, THYR, 2276- 4, 2284-8, 2132-9, 2692-2, 2777-1 #### [facility] ([id number]) [address], [address] [place] [address] Neutrophils (Bld) [#/Vol] 21.1 10*3/uL High 1.5-6.6 [facility] Comment on above: Performed By: #### C BCA, 4679-7, CMP, FEPR, PINR, THYR, 2276- 4, 2284-8, 2132-9, 2692-2, 2777-1 #### [facility] ([id number]) [address], [address] [place] [address] Platelet mean volume (Bld) [Entitic vol] 8.5 fL Normal 7-12 [facility] Comment on above: Performed By: #### C BCA, 4679-7, CMP, FEPR, PINR, THYR, 2276- 4, 2284-8, 2132-9, 2692-2, 2777-1 #### [facility] ([id number]) [address], [address] [place] [address] Platelets (Bld) [#/Vol] 398 10*3/uL Normal 150-450 [facility] Comment on above: Performed By: #### C BCA, 4679-7, CMP, FEPR, PINR, THYR, 2276- 4, 2284-8, 2132-9, 2692-2, 2776-1 #### [facility] ([id number]) [address], [address] [place] [address] POLYCHROMASIA 1+ Abnormal NONE [facility] Comment on above: Performed By: #### C BCA, 4679-7, CMP, FEPR, PINR, THYR, 2276- 4, 2284-8, 2132-9, 2692-2, 2777-1 #### [facility] ([id number]) [address], [address] [place] [address] RBC COUNT 3.39 X10E12/L Low 3.80-5.20 [facility] Comment on above: Performed By: #### C BCA, 4679-7, CMP, FEPR, PINR, THYR, 2276- 4, 2284-8, 2132-9, 2692-2, 2777-1 #### [facility] ([id number]) [address], [address] [place] [address] SEG NEUTROPHIL 83.7 % Normal [facility] Comment on above: Performed By: #### C BCA, 4679-7, CMP, FEPR, PINR, THYR, 2276- 4, 2284-8, 2131-9, 2692-2, 2777-1 #### [facility] ([id number]) [address], [address] [place] [address] WBC (Bld) [#/Vol] 24.3 10*3/uL High 4.0-11.0 [facility] Comment on above: Performed By: #### C BCA, 4679-7, CMP, FEPR, PINR, THYR, 2276- 4, 4-8, 2131-9, 2692-2, 2777-1 #### [facility] ([id number]) [address], [address] [place] [address] COMPREHENSIVE METABOLIC PANE Harley 02-07-2024 Albumin [Mass/Vol] 2.7 g/dL Low 3.2-5.3 [facility] Comment on above: Performed By: #### C BCA, 4679-7, CMP, FEPR, PINR, THYR, 2276- 4, 2283-8, 2131-9, 2691-2, 2776-1 #### [facility] ([id number]) [address], [address] [place] [address] ALP [Catalytic activity/Vol] 101 U/L Normal 39-130 [facility] Comment on above: Performed By: #### C BCA, 4679-7, CMP, FEPR, PINR, THYR, 2276- 4, 4-8, 2131-9, 2-2, 277-1 #### [facility] ([id number]) [address], [address] [place] [address] ALT [Catalytic activity/Vol] 16 U/L Normal 0-31 [facility] Comment on above: Performed By: #### C BCA, 4679-7, CMP, FEPR, PINR, THYR, 2276- 4, 4-8, 2132-9, 2692-2, 2777-1 #### [facility] ([id number]) [address], [address] [place] [address] Anion gap [Moles/Vol] 14 mmol/L Normal 5-15 [facility] Comment on above: Performed By: #### C BCA, 4679-7, CMP, FEPR, PINR, THYR, 2276- 4, 2284-8, 2-9, 2692-2, 2777-1 #### [facility] ([id number]) [address], [address] [place] [address] AST [Catalytic activity/Vol] 12 U/L Normal 0-41 [facility] Comment on above: Performed By: #### C BCA, 4679-7, CMP, FEPR, PINR, THYR, 2276- 4, 2284-8, 2-9, 2692-2, 2777-1 #### [facility] ([id number]) [address], [address] [place] [address] Bilirubin [Mass/Vol] 0.8 mg/dL Normal 0.3-1.2 [facility] Comment on above: Performed By: #### C BCA, 4679-7, CMP, FEPR, PINR, THYR, 2276- 4, 2284-8, 2-9, 2692-2, 2777-1 #### [facility] ([id number]) [address], [address] [place] [address] Calcium [Mass/Vol] 8.6 mg/dL Normal 8.5-10.5 [facility] Comment on above: Performed By: #### C BCA, 4679-7, CMP, FEPR, PINR, THYR, 2276- 4, 2284-8, 2132-9, 2692-2, 2777-1 #### [facility] ([id number]) [address], [address] [address] Chloride [Moles/Vol] 99 mmol/L Normal 98-109 [facility] Comment on above: Performed By: #### C BCA, 4679-7, CMP, FEPR, PINR, THYR, 2276- 4, 2284-8, 2132-9, 2692-2, 2777-1 #### [facility] ([id number]) [address], [address] [address] CO2 [Moles/Vol] 23 mmol/L Normal 22-32 [facility] Comment on above: Performed By: #### C BCA, 4679-7, CMP, FEPR, PINR, THYR, 2276- 4, 2284-8, 2-9, 2692-2, 2777-1 #### [facility] ([id number]) [address] [address] Creatinine [Mass/Vol] 3.33 mg/dL High 0.40-1.00 [facility] Comment on above: Result Comment: METH OD TRACEABLE TO IDMS STANDARD Performed By: #### C BCA, 4679-7, CMP, FEPR, PINR, THYR, 2276-4, 2284-8, 2-9, 2692-2, 2777-1 #### [facility] ([id number]) [address] [address] GFR/1.73 sq M.predicted among non-blacks MDRD (S/P/Bld) [Vol rate/Area] 13 mL/min/{1.73_m2} Low >59 [facility] Comment on above: Result Comment: Reported eGFR is based on the CKD-EPI 2020 equation that does not use a race coefficient. Performed By: #### C BCA, 4679-7, CMP, FEPR, PINR, THYR, 2276-4, 2284-8, 2132-9, 2692-2, 2777-1 #### [facility] ([id number]) [address] [address] [place] [address] Glucose [Mass/Vol] 177 mg/dL High 65-99 [facility] Comment on above: Performed By: #### C BCA, 4679-7, CMP, FEPR, PINR, THYR, 2276- 4, 2284-8, 2-9, 2692-2, 2777-1 #### [facility] ([id number]) [address], [address] [place] [address] Potassium [Moles/Vol] 4.6 mmol/L Normal 3.5-5.0 [facility] Comment on above: Performed By: #### C BCA, 4679-7, CMP, FEPR, PINR, THYR, 2276- 4, 2284-8, 2-9, 2692-2, 2777-1 #### [facility] ([id number]) [address], [address] [place] [address] Protein [Mass/Vol] 5.5 g/dL Low 6.0-8.0 [facility] Comment on above: Performed By: #### C BCA, 4679-7, CMP, FEPR, PINR, THYR, 2276- 4, 4-8, 2-9, 2692-2, 2777-1 #### [facility] ([id number]) [address], [address] [place] [address] Sodium [Moles/Vol] 136 mmol/L Normal 134-146 [facility] Comment on above: Performed By: #### C BCA, 4679-7, CMP, FEPR, PINR, THYR, 2276- 4, 4-8, 2131-9, 2692-2, 2777-1 #### [facility] ([id number]) [address], [address] [place] [address] Urea nitrogen [Mass/Vol] 47 mg/dL High 5-27 [facility] Comment on above: Performed By: #### C BCA, 4679-7, CMP, FEPR, PINR, THYR, 2276- 4, 2283-8, 9, 2-2, 2777-1 #### [facility] ([id number]) [address] [facility] [place] [address] FL SWALLOW MOTILITY FUNCTION on 02-07-2024 FL SWALLOW MOTILITY FUNCTION FL SWALLOW MOTILITY FUNCTION CLINICAL INFORMATION: Oropharyngeal dysphagia. TECHNIQUE: Lateral videofluoroscopy during oral administration of one or more radiopaque diet consistencies. Reference air kerma: 4.38 mGy 8 cine runs captured. Zero spot images. COMPARISON: None. FINDINGS: Thin: Penetration when taken from cup. No aspiration or penetration with taken from straw. Applesauce: No aspiration or penetration. Fruit: No aspiration or penetration. IMPRESSION: * Penetration of thin barium when taken from cup. * No aspiration or penetration of thin barium observed when taken from straw. * No aspiration or penetration of applesauce or fruit. * See speech pathology report for dietary recommendations. Approved by Resident: Taz Reyes DO on 02/07/2024 10:27 AM ITres MD have personally reviewed the image(s) and agree with and/or edited the report Finalized by Tres Rock MD on 02/07/2024 10:52 AM Normal [facility] Glucose Glucometer (dC) [M ass/Vol]on 02-07-2024 Glucose [Mass/Vol] 183 mg/dL High 65-99 [facility] Glucose [Mass/Vol] 298 mg/dL High 65-99 [facility] Glucose [Mass/Vol] 230 mg/dL High 65-99 [facility] Glucose [Mass/Vol] 211 mg/dL High 65-99 [facility] PHOSPHORUSon 02-07-2024 Phosphate [Mass/Vol] 3.5 mg/dL Normal 2.4-4.9 [facility] Comment on above: Performed By: #### C GAGE, 4679-7, CMP, FEPR, PINR, THYR, 6- 4, 2283-8, 9, 2691-2, 7-1 #### [facility] ([id number]) [address] [place] [address] PROTIME AND INRon 02-07-2024 INR Coag (PPP) [Relative time] 2.4 {INR} High 0.8-1.1 [facility] Comment on above: Performed By: #### C GAGE, 4679-7, CMP, FEPR, PINR, THYR, 6- 4, 2283-8, 2131-9, 2691-2, 2776-1 #### [facility] ([id number]) [address], [address] [place] [address] PT Coag (PPP) [Time] 27.4 s High 9.8-13.2 [facility] Comment on above: Performed By: #### C GAGE, 4679-7, CMP, FEPR, PINR, THYR, 2275- 4, 2283-8, 2131-, 2691-2, 2776-1 #### [facility] ([id number]) [address] [place] [address] CBC AND AUTO DIFFon 02-06-20 24 ABSOLUTE BASOPHIL 0.2 X10E9/L Normal 0.0-0.2 [facility] Comment on above: Performed By: #### C GAGE, 4679-7, CMP, FEPR, PINR, THYR, 2275- 4, 2283-8, 2131-9, 2691-2, 2776-1 #### [facility] ([id number]) [address] [place] [address] Anisocytosis Ql (Bld) 2+ Abnormal NONE [facility] Comment on above: Performed By: #### C GAGE, 4679-7, CMP, FEPR, PINR, THYR, 6- 4, 2283-8, 2131-9, 2691-2, 2776-1 #### [facility] ([id number]) [address] [place] [address] Band form neutrophils/100 WBC (Bld) 2.9 % Normal [facility] Comment on above: Performed By: #### C BCA, 4679-7, CMP, FEPR, PINR, THYR, 2276- 4, 2284-8, 2132-9, 2692-2, 2777-1 #### [facility] ([id number]) [address] [place] [address] Basophils/100 WBC (Bld) 1.0 % Normal [facility] Comment on above: Performed By: #### C BCA, 4679-7, CMP, FEPR, PINR, THYR, 2276- 4, 2284-8, 2-9, 2-2, 2777-1 #### [facility] ([id number]) [address] [place] [address] Eosinophils (Bld) [#/Vol] 0.4 10*3/uL Normal 0.0-0.4 [facility] Comment on above: Performed By: #### C BCA, 4679-7, CMP, FEPR, PINR, THYR, 2276- 4, 2284-8, 2-9, 2692-2, 2777-1 #### [facility] ([id number]) [address] [place] [address] Eosinophils/100 WBC (Bld) 1.9 % Normal [facility] Comment on above: Performed By: #### C BCA, 4679-7, CMP, FEPR, PINR, THYR, 2276- 4, 2284-8, 2-9, 2692-2, 277-1 #### [facility] ([id number]) [address] [place] [address] Erythrocyte distribution width (RBC) [Ratio] 23.2 % High 11.5-15.0 [facility] Comment on above: Performed By: #### C BCA, 4679-7, CMP, FEPR, PINR, THYR, 2276- 4, 2284-8, 2132-9, 2692-2, 2777-1 #### [facility] ([id number]) [address] [place] [address] Hematocrit (Bld) [Volume fraction] 30.4 % Low 35-47 [facility] Comment on above: Performed By: #### C BCA, 4679-7, CMP, FEPR, PINR, THYR, 2276- 4, 2284-8, 2132-9, 2692-2, 2777-1 #### [facility] ([id number]) [address] [place] [address] Hemoglobin (Bld) [Mass/Vol] 9.5 g/dL Low 11.7-15.5 [facility] Comment on above: Performed By: #### C BCA, 4679-7, CMP, FEPR, PINR, THYR, 2276- 4, 2284-8, 2-9, 2692-2, 277-1 #### [facility] ([id number]) [address] [place] [address] Lymphocytes (Bld) [#/Vol] 1.1 10*3/uL Normal 1.0-3.5 [facility] Comment on above: Performed By: #### C BCA, 4679-7, CMP, FEPR, PINR, THYR, 2276- 4, 2284-8, 2132-9, 2692-2, 2777-1 #### [facility] ([id number]) [address] [place] [address] Lymphocytes/100 WBC (Bld) 4.8 % Normal [facility] Comment on above: Performed By: #### C BCA, 4679-7, CMP, FEPR, PINR, THYR, 2276- 4, 2284-8, 2132-9, 2692-2, 2777-1 #### [facility] ([id number]) [address] [place] [address] MCH (RBC) [Entitic mass] 26.5 pg Low 27-34 [facility] Comment on above: Performed By: #### C GAGE, 4679-7, CMP, FEPR, PINR, THYR, 2276- 4, 2284-8, 2132-9, 2692-2, 277- #### [facility] ([id number]) [address] [place] [address] MCHC (RBC) [Mass/Vol] 31.2 g/dL Low 32-36 [facility] Comment on above: Performed By: #### C GAGE, 4679-7, CMP, FEPR, PINR, THYR, 2276- 4, 2284-8, 2-9, 269-2, 2776- #### [facility] ([id number]) [address], [address] [place] [address] MCV (RBC) [Entitic vol] 85 fL Normal 80-100 [facility] Comment on above: Performed By: #### C BCA, 4679-7, CMP, FEPR, PINR, THYR, 2276- 4, 2284-8, 2-9, 2691-2, 2776- #### [facility] ([id number]) [address], [address] [place] [address] Metamyelocytes/100 WBC (Bld) 1.9 % Normal [facility] Comment on above: Performed By: #### C BCA, 4679-7, CMP, FEPR, PINR, THYR, 2276- 4, 2284-8, 2-9, 269-2, 2776-1 #### [facility] ([id number]) [address], [address] [place] [address] Monocytes (Bld) [#/Vol] 1.3 10*3/uL High 0-0.9 [facility] Comment on above: Performed By: #### C BCA, 4679-7, CMP, FEPR, PINR, THYR, 2276- 4, 2284-8, 2132-9, 2692-2, 2777-1 #### [facility] ([id number]) [address], [address] [place] [address] Monocytes/100 WBC (Bld) 5.7 % Normal [facility] Comment on above: Performed By: #### C BCA, 4679-7, CMP, FEPR, PINR, THYR, 2276- 4, 2284-8, 2132-9, 2692-2, 2777-1 #### [facility] ([id number]) [address], [address] [place] [address] Neutrophils (Bld) [#/Vol] 19.3 10*3/uL High 1.5-6.6 [facility] Comment on above: Performed By: #### C BCA, 4679-7, CMP, FEPR, PINR, THYR, 2276- 4, 2284-8, 2132-9, 2692-2, 2777-1 #### [facility] ([id number]) [address], [address] [place] [address] Platelet mean volume (Bld) [Entitic vol] 8.5 fL Normal 7-12 [facility] Comment on above: Performed By: #### C BCA, 4679-7, CMP, FEPR, PINR, THYR, 2276- 4, 2284-8, 2132-9, 2692-2, 2777-1 #### [facility] ([id number]) [address], [address] [place] [address] Platelets (Bld) [#/Vol] 407 10*3/uL Normal 150-450 [facility] Comment on above: Performed By: #### C BCA, 4679-7, CMP, FEPR, PINR, THYR, 2276- 4, 2284-8, 2132-9, 2692-2, 2777-1 #### [facility] ([id number]) [address], [address] [place] [address] POLYCHROMASIA 1+ Abnormal NONE [facility] Comment on above: Performed By: #### C BCA, 4679-7, CMP, FEPR, PINR, THYR, 2276- 4, 2284-8, 2132-9, 2692-2, 2777-1 #### [facility] ([id number]) [address], [address] [place] [address] RBC COUNT 3.58 X10E12/L Low 3.80-5.20 [facility] Comment on above: Performed By: #### C BCA, 4679-7, CMP, FEPR, PINR, THYR, 2276- 4, 2284-8, 2132-9, 2692-2, 2777-1 #### [facility] ([id number]) [address], [address] [place] [address] SEG NEUTROPHIL 81.8 % Normal [facility] Comment on above: Performed By: #### C BCA, 4679-7, CMP, FEPR, PINR, THYR, 2276- 4, 2284-8, 2132-9, 2692-2, 2777-1 #### [facility] ([id number]) [address], [address] [place] [address] WBC (Bld) [#/Vol] 22.7 10*3/uL High 4.0-11.0 [facility] Comment on above: Performed By: #### C BCA, 4679-7, CMP, FEPR, PINR, THYR, 2276- 4, 2284-8, 2132-9, 2692-2, 2777-1 #### [facility] ([id number]) [address], [address] [place] [address] COMPREHENSIVE METABOLIC PANE Harley 07-13-2024 Albumin [Mass/Vol] 2.9 g/dL Low 3.2-5.3 [facility] Comment on above: Performed By: #### C BCA, 4679-7, CMP, FEPR, PINR, THYR, 2276- 4, 2284-8, 2132-9, 2692-2, 2777-1 #### [facility] ([id number]) [address], [address] [place] [address] ALP [Catalytic activity/Vol] 118 U/L Normal 39-130 [facility] Comment on above: Performed By: #### C BCA, 4679-7, CMP, FEPR, PINR, THYR, 2276- 4, 2284-8, 2132-9, 2692-2, 2777-1 #### [facility] ([id number]) [address], [address] [place] [address] ALT [Catalytic activity/Vol] 22 U/L Normal 0-31 [facility] Comment on above: Performed By: #### C BCA, 4679-7, CMP, FEPR, PINR, THYR, 2276- 4, 2284-8, 2132-9, 2692-2, 2777-1 #### [facility] ([id number]) [address], [address] [place] [address] Anion gap [Moles/Vol] 13 mmol/L Normal 5-15 [facility] Comment on above: Performed By: #### C BCA, 4679-7, CMP, FEPR, PINR, THYR, 2276- 4, 2284-8, 2132-9, 2692-2, 2777-1 #### [facility] ([id number]) [address], [address] [place] [address] AST [Catalytic activity/Vol] 12 U/L Normal 0-41 [facility] Comment on above: Performed By: #### C BCA, 4679-7, CMP, FEPR, PINR, THYR, 2276- 4, 2284-8, 2132-9, 2692-2, 2777-1 #### [facility] ([id number]) [address], [address] [place] [address] Bilirubin [Mass/Vol] 0.8 mg/dL Normal 0.3-1.2 [facility] Comment on above: Performed By: #### C BCA, 4679-7, CMP, FEPR, PINR, THYR, 2276- 4, 2284-8, 2132-9, 2692-2, 2777-1 #### [facility] ([id number]) [address], [address] [place] [address] Calcium [Mass/Vol] 8.7 mg/dL Normal 8.5-10.5 [facility] [place] Comment on above: Performed By: #### C BCA, 4679-7, CMP, FEPR, PINR, THYR, 2276- 4, 2284-8, 2-9, 2692-2, 2777-1 #### [facility] ([id number]) [address], [address] [place] [address] Chloride [Moles/Vol] 100 mmol/L Normal 98-109 [facility] Comment on above: Performed By: #### C BCA, 4679-7, CMP, FEPR, PINR, THYR, 2276- 4, 2284-8, 2132-9, 2692-2, 2777-1 #### [facility] ([id number]) [address], [address] [place] [address] CO2 [Moles/Vol] 22 mmol/L Normal 22-32 [facility] Comment on above: Performed By: #### C BCA, 4679-7, CMP, FEPR, PINR, THYR, 2276- 4, 2284-8, 2132-9, 2692-2, 2777-1 #### [facility] ([id number]) [address], [address] [place] [address] Creatinine [Mass/Vol] 2.73 mg/dL High 0.40-1.00 [facility] Comment on above: Result Comment: METH OD TRACEABLE TO IDMS STANDARD Performed By: #### C BCA, 4679-7, CMP, FEPR, PINR, THYR, 2276-4, 2284-8, 2132-9, 2692-2, 2777-1 #### [facility] ([id number]) [address], [address] [place] [address] GFR/1.73 sq M.predicted among non-blacks MDRD (S/P/Bld) [Vol rate/Area] 17 mL/min/{1.73_m2} Low >59 [facility] Comment on above: Result Comment: Reported eGFR is based on the CKD-EPI 2020 equation that does not use a race coefficient. Performed By: #### C BCA, 4679-7, CMP, FEPR, PINR, THYR, 2276-4, 2284-8, 2-9, 2692-2, 2776-1 #### [facility] ([id number]) [address], [address] [place] [address] Glucose [Mass/Vol] 185 mg/dL High 65-99 [facility] [place] Comment on above: Performed By: #### C BCA, 4679-7, CMP, FEPR, PINR, THYR, 2276- 4, 2284-8, 2-9, 2692-2, 2776-1 #### [facility] ([id number]) [address], [address] [place] [address] Potassium [Moles/Vol] 4.2 mmol/L Normal 3.5-5.0 [facility] Comment on above: Performed By: #### C BCA, 4679-7, CMP, FEPR, PINR, THYR, 2276- 4, 2284-8, 2132-9, 2692-2, 2777-1 #### [facility] ([id number]) [address], [address] [place] [address] Protein [Mass/Vol] 5.8 g/dL Low 6.0-8.0 [facility] Comment on above: Performed By: #### C BCA, 4679-7, CMP, FEPR, PINR, THYR, 2276- 4, 2284-8, 2132-9, 2692-2, 2777-1 #### [facility] ([id number]) [address], [address] [place] [address] Sodium [Moles/Vol] 135 mmol/L Normal 134-146 [facility] Comment on above: Performed By: #### C BCA, 4679-7, CMP, FEPR, PINR, THYR, 2276- 4, 2284-8, 2132-9, 2692-2, 2777-1 #### [facility] ([id number]) [address], [address] [place] [address] Urea nitrogen [Mass/Vol] 39 mg/dL High 5-27 [facility] Comment on above: Performed By: #### C BCA, 4679-7, CMP, FEPR, PINR, THYR, 2276- 4, 2284-8, 2132-9, 2692-2, 2777-1 #### [facility] ([id number]) [address], [address] [place] [address] Albumin [Mass/Vol] 3.0 g/dL Low 3.2-5.3 [facility] Comment on above: Performed By: #### C BCA, 4679-7, CMP, FEPR, PINR, THYR, 2276- 4, 2284-8, 2132-9, 2692-2, 2777-1 #### [facility] ([id number]) [address], [address] [place] [address] ALP [Catalytic activity/Vol] 129 U/L Normal 39-130 [facility] Comment on above: Performed By: #### C BCA, 4679-7, CMP, FEPR, PINR, THYR, 2276- 4, 2284-8, 2132-9, 2692-2, 2777-1 #### [facility] ([id number]) [address], [address] [place] [address] ALT [Catalytic activity/Vol] 20 U/L Normal 0-31 [facility] Comment on above: Performed By: #### C BCA, 4679-7, CMP, FEPR, PINR, THYR, 2276- 4, 2284-8, 2132-9, 2692-2, 2777-1 #### [facility] ([id number]) [address], [address] [place] [address] Anion gap [Moles/Vol] 16 mmol/L High 5-15 [facility] Comment on above: Performed By: #### C BCA, 4679-7, CMP, FEPR, PINR, THYR, 2276- 4, 2284-8, 2-9, 2692-2, 2777-1 #### [facility] ([id number]) [address], [address] [place] [address] AST [Catalytic activity/Vol] 11 U/L Normal 0-41 [facility] Comment on above: Performed By: #### C BCA, 4679-7, CMP, FEPR, PINR, THYR, 2276- 4, 2284-8, 2-9, 2692-2, 2777-1 #### [facility] ([id number]) [address], [address] [place] [address] Bilirubin [Mass/Vol] 0.8 mg/dL Normal 0.3-1.2 [facility] Comment on above: Performed By: #### C BCA, 4679-7, CMP, FEPR, PINR, THYR, 2276- 4, 2284-8, 2132-9, 2692-2, 2777-1 #### [facility] ([id number]) [address], [address] [place] [address] Calcium [Mass/Vol] 9.0 mg/dL Normal 8.5-10.5 [facility] Comment on above: Performed By: #### C BCA, 4679-7, CMP, FEPR, PINR, THYR, 2276- 4, 2284-8, 2132-9, 2692-2, 2777-1 #### [facility] ([id number]) [address], [address] [place] [address] Chloride [Moles/Vol] 101 mmol/L Normal 98-109 [facility] Comment on above: Performed By: #### C BCA, 4679-7, CMP, FEPR, PINR, THYR, 2276- 4, 2284-8, 2132-9, 2692-2, 2777-1 #### [facility] ([id number]) [address], [address] [place] [address] CO2 [Moles/Vol] 19 mmol/L Low 22-32 [facility] Comment on above: Performed By: #### C BCA, 4679-7, CMP, FEPR, PINR, THYR, 2276- 4, 2284-8, 2132-9, 2692-2, 2777-1 #### [facility] ([id number]) [address], [address] [place] [address] Creatinine [Mass/Vol] 4.22 mg/dL High 0.40-1.00 [facility] Comment on above: Result Comment: METH OD TRACEABLE TO IDMS STANDARD Performed By: #### C BCA, 4679-7, CMP, FEPR, PINR, THYR, 2276-4, 2284-8, 2132-9, 2692-2, 2777-1 #### [facility] ([id number]) [address], [address] [place] [address] GFR/1.73 sq M.predicted among non-blacks MDRD (S/P/Bld) [Vol rate/Area] 10 mL/min/{1.73_m2} Low >59 [facility] Comment on above: Result Comment: Reported eGFR is based on the CKD-EPI 2020 equation that does not use a race coefficient. Performed By: #### C BCA, 4679-7, CMP, FEPR, PINR, THYR, 2276-4, 2284-8, 2132-9, 2692-2, 2777-1 #### [facility] ([id number]) [address], [address] [place] [address] Glucose [Mass/Vol] 186 mg/dL High 65-99 [facility] Comment on above: Performed By: #### C BCA, 4679-7, CMP, FEPR, PINR, THYR, 2276- 4, 2284-8, 2-9, 2692-2, 2777-1 #### [facility] ([id number]) [address], [address] [place] [address] Potassium [Moles/Vol] 4.5 mmol/L Normal 3.5-5.0 [facility] Comment on above: Performed By: #### C BCA, 4679-7, CMP, FEPR, PINR, THYR, 2276- 4, 2284-8, 2-9, 2692-2, 2777-1 #### [facility] ([id number]) [address], [address] [place] [address] Protein [Mass/Vol] 5.8 g/dL Low 6.0-8.0 [facility] Comment on above: Performed By: #### C BCA, 4679-7, CMP, FEPR, PINR, THYR, 2276- 4, 2284-8, 2132-9, 2692-2, 2777-1 #### [facility] ([id number]) [address], [address] [place] [address] Sodium [Moles/Vol] 136 mmol/L Normal 134-146 [facility] Comment on above: Performed By: #### C BCA, 4679-7, CMP, FEPR, PINR, THYR, 6- 4, 4-8, 2131-9, 2-2, 7-1 #### [facility] ([id number]) [address], [address] [place] [address] Urea nitrogen [Mass/Vol] 72 mg/dL High 5-27 [facility] Comment on above: Performed By: #### C BCA, 4679-7, CMP, FEPR, PINR, THYR, 6- 4, 2283-8, 9, 2691-2, 2776-1 #### [facility] ([id number]) [address], [address] [place] [address] Glucose Glucometer (BldC) [M ass/Vol]on 02-06-2024 Glucose [Mass/Vol] 205 mg/dL High 65-99 [facility] Glucose [Mass/Vol] 212 mg/dL High 65-99 [facility] Glucose [Mass/Vol] 208 mg/dL High 65-99 [facility] Glucose [Mass/Vol] 191 mg/dL High 65-99 [facility] Glucose [Mass/Vol] 260 mg/dL High 65-99 [facility] PHOSPHORUSon 02-06-2024 Phosphate [Mass/Vol] 3.9 mg/dL Normal 2.4-4.9 [facility] Comment on above: Performed By: #### C BCA, 4679-7, CMP, FEPR, PINR, THYR, 6- 4, 2283-8, 9, 2691-2, 2776-1 #### [facility] ([id number]) [address], [address] [place] [address] PROTIME AND INRon 02-06-2024 INR Coag (PPP) [Relative time] 2.1 {INR} High 0.8-1.1 [facility] Comment on above: Performed By: #### C BCA, 4679-7, CMP, FEPR, PINR, THYR, 6- 4, 2283-8, 9, 2691-2, 2776-1 #### [facility] ([id number]) [address], [address] [place] [address] PT Coag (PPP) [Time] 23.4 s High 9.8-13.2 [facility] Comment on above: Performed By: #### C BCA, 4679-7, CMP, FEPR, PINR, THYR, 6- 4, 2283-8, 2132-03, 2691-2, 2776- #### [facility] ([id number]) [address], [address] [place] [address] Troponin I.cardiac High sens itivity method [Mass/Vol]on 02-06-2024 1 HOUR TROP I, HIGH SENSITIVITY 23 ng/L High <16 [facility] Comment on above: Result Comment: Elevations of hs-Troponin may be due to causes other than myocardial ischemia. Recommend serial hs-Troponin testing be performed. For the initial evaluation and management of chest pain patients, refer to the algorithms linked below. Emergency Patient: [email or web address] Inpatient: [email or web address] Performed By: #### C BCA, 4679-7, CMP, FEPR, PINR, THYR, 6-4, 2283-8, 9, 2691-2, 2776- #### [facility] ([id number]) [address] [place] [address] TROPONIN I, HIGH SENSITIVITY 22 ng/L High <16 [facility] Comment on above: Result Comment: Elevations of hs-Troponin may be due to causes other than myocardial ischemia. Recommend serial hs-Troponin testing be performed. For the initial evaluation and management of chest pain patients, refer to the algorithms linked below. Emergency Patient: [email or web address] Inpatient: [email or web address] Performed By: #### C BCA, 4679-7, CMP, FEPR, PINR, THYR, 2276-4, 2284-8, 2132-9, 2692-2, 2777-1 #### [facility] ([id number]) [address], [address] [place] [address] CBC AND AUTO DIFFon 02-05-20 24 Anisocytosis Ql (Bld) 2+ Abnormal NONE [facility] Comment on above: Performed By: #### C BCA, 4679-7, CMP, FEPR, PINR, THYR, 2276- 4, 2284-8, 2-9, 2692-2, 2777-1 #### [facility] ([id number]) [address], [address] [place] [address] Band form neutrophils/100 WBC (Bld) 1.0 % Normal [facility] Comment on above: Performed By: #### C BCA, 4679-7, CMP, FEPR, PINR, THYR, 2276- 4, 2284-8, 2-9, 2692-2, 2777-1 #### [facility] ([id number]) [address], [address] [place] [address] Eosinophils (Bld) [#/Vol] 0.6 10*3/uL High 0.0-0.4 [facility] Comment on above: Performed By: #### C BCA, 4679-7, CMP, FEPR, PINR, THYR, 2276- 4, 2284-8, 2132-9, 2692-2, 2777-1 #### [facility] ([id number]) [address] [place] [address] Eosinophils/100 WBC (Bld) 3.0 % Normal [facility] Comment on above: Performed By: #### C BCA, 4679-7, CMP, FEPR, PINR, THYR, 2276- 4, 2284-8, 2-9, 2692-2, 277-1 #### [facility] ([id number]) [address] [place] [address] Erythrocyte distribution width (RBC) [Ratio] 23.3 % High 11.5-15.0 [facility] Comment on above: Performed By: #### C BCA, 4679-7, CMP, FEPR, PINR, THYR, 2276- 4, 2284-8, 2-9, 2692-2, 2776-1 #### [facility] ([id number]) [address] [place] [address] Hematocrit (Bld) [Volume fraction] 28.5 % Low 35-47 [facility] Comment on above: Performed By: #### C BCA, 4679-7, CMP, FEPR, PINR, THYR, 2276- 4, 2284-8, 2-9, 2692-2, 2776-1 #### [facility] ([id number]) [address] [place] [address] Hemoglobin (Bld) [Mass/Vol] 9.1 g/dL Low 11.7-15.5 [facility] Comment on above: Performed By: #### C BCA, 4679-7, CMP, FEPR, PINR, THYR, 2276- 4, 2284-8, 2132-9, 2692-2, 2777-1 #### [facility] ([id number]) [address] [place] [address] Lymphocytes (Bld) [#/Vol] 2.3 10*3/uL Normal 1.0-3.5 [facility] Comment on above: Performed By: #### C BCA, 4679-7, CMP, FEPR, PINR, THYR, 2276- 4, 2284-8, 2132-9, 2692-2, 2777-1 #### [facility] ([id number]) [address], [address] [address] Lymphocytes/100 WBC (Bld) 11.0 % Normal [facility] Comment on above: Performed By: #### C BCA, 4679-7, CMP, FEPR, PINR, THYR, 2276- 4, 2284-8, 2-9, 2692-2, 277-1 #### [facility] ([id number]) [address], [address] [address] MCH (RBC) [Entitic mass] 27.2 pg Normal 27-34 [facility] Comment on above: Performed By: #### C BCA, 4679-7, CMP, FEPR, PINR, THYR, 2276- 4, 2284-8, 2-9, 2692-2, 2777-1 #### [facility] ([id number]) [address] [address] MCHC (RBC) [Mass/Vol] 32.0 g/dL Normal 32-36 [facility] Comment on above: Performed By: #### C BCA, 4679-7, CMP, FEPR, PINR, THYR, 2276- 4, 2284-8, 2132-9, 2692-2, 2777-1 #### [facility] ([id number]) [address] [place] [address] MCV (RBC) [Entitic vol] 85 fL Normal 80-100 [facility] Comment on above: Performed By: #### C BCA, 4679-7, CMP, FEPR, PINR, THYR, 2276- 4, 2284-8, 2132-9, 2692-2, 2777-1 #### [facility] ([id number]) [address] [place] [address] Monocytes (Bld) [#/Vol] 2.1 10*3/uL High 0-0.9 [facility] Comment on above: Performed By: #### C BCA, 4679-7, CMP, FEPR, PINR, THYR, 2276- 4, 2284-8, 2132-9, 2692-2, 2777-1 #### [facility] ([id number]) [address] [place] [address] Monocytes/100 WBC (Bld) 10.0 % Normal [facility] Comment on above: Performed By: #### C BCA, 4679-7, CMP, FEPR, PINR, THYR, 2276- 4, 2284-8, 2132-9, 2692-2, 2777-1 #### [facility] ([id number]) [address] [place] [address] MYELOCYTE 1.0 % Normal [facility] Comment on above: Performed By: #### C BCA, 4679-7, CMP, FEPR, PINR, THYR, 2276- 4, 2284-8, 2132-9, 2692-2, 2777-1 #### [facility] ([id number]) [address] [place] [address] Neutrophils (Bld) [#/Vol] 16.0 10*3/uL High 1.5-6.6 [facility] Comment on above: Performed By: #### C BCA, 4679-7, CMP, FEPR, PINR, THYR, 2276- 4, 2284-8, 2132-9, 2692-2, 2777-1 #### [facility] ([id number]) [address] [place] [address] Platelet mean volume (Bld) [Entitic vol] 8.7 fL Normal 7-12 [facility] Comment on above: Performed By: #### C BCA, 4679-7, CMP, FEPR, PINR, THYR, 2276- 4, 2284-8, 2132-9, 2692-2, 2777-1 #### [facility] ([id number]) [address] [place] [address] Platelets (Bld) [#/Vol] 416 10*3/uL Normal 150-450 [facility] Comment on above: Performed By: #### C BCA, 4679-7, CMP, FEPR, PINR, THYR, 2276- 4, 2284-8, 2132-9, 2692-2, 2777-1 #### [facility] ([id number]) [address], [address] [place] [address] POLYCHROMASIA 1+ Abnormal NONE [facility] Comment on above: Performed By: #### C BCA, 4679-7, CMP, FEPR, PINR, THYR, 2276- 4, 2284-8, 2132-9, 2692-2, 2777-1 #### [facility] ([id number]) [address] [place] [address] RBC COUNT 3.37 X10E12/L Low 3.80-5.20 [facility] Comment on above: Performed By: #### C BCA, 4679-7, CMP, FEPR, PINR, THYR, 2276- 4, 2284-8, 2132-9, 2692-2, 2777-1 #### [facility] ([id number]) [address] [place] [address] SEG NEUTROPHIL 74.0 % Normal [facility] Comment on above: Performed By: #### C BCA, 4679-7, CMP, FEPR, PINR, THYR, 2276- 4, 2284-8, 2132-9, 2692-2, 2777-1 #### [facility] ([id number]) [address] [place] [address] WBC (Bld) [#/Vol] 21.2 10*3/uL High 4.0-11.0 [facility] Comment on above: Performed By: #### C BCA, 4679-7, CMP, FEPR, PINR, THYR, 2276- 4, 2284-8, 2132-9, 2692-2, 2777-1 #### [facility] ([id number]) [address], [address] [place] [address] COMPREHENSIVE METABOLIC PANE Harley 02-05-2024 Albumin [Mass/Vol] 2.8 g/dL Low 3.2-5.3 [facility] Comment on above: Performed By: #### C BCA, 4679-7, CMP, FEPR, PINR, THYR, 2276- 4, 2284-8, 2132-9, 2692-2, 2777-1 #### [facility] ([id number]) [address], [address] [place] [address] ALP [Catalytic activity/Vol] 129 U/L Normal 39-130 [facility] Comment on above: Performed By: #### C BCA, 4679-7, CMP, FEPR, PINR, THYR, 2276- 4, 2284-8, 2132-9, 2692-2, 2777-1 #### [facility] ([id number]) [facility], [address] [place] [address] ALT [Catalytic activity/Vol] 22 U/L Normal 0-31 [facility] Comment on above: Performed By: #### C BCA, 4679-7, CMP, FEPR, PINR, THYR, 2276- 4, 2284-8, 2132-9, 2692-2, 2777-1 #### [facility] ([id number]) [address], [address] [place] [address] Anion gap [Moles/Vol] 14 mmol/L Normal 5-15 [facility] Comment on above: Performed By: #### C BCA, 4679-7, CMP, FEPR, PINR, THYR, 2276- 4, 2284-8, 2131-9, 2-2, 2777-1 #### [facility] ([id number]) [address], [address] [place] [address] AST [Catalytic activity/Vol] 18 U/L Normal 0-41 [facility] Comment on above: Performed By: #### C BCA, 4679-7, CMP, FEPR, PINR, THYR, 2276- 4, 2284-8, 2131-9, 2-2, 2777-1 #### [facility] ([id number]) [address], [address] [place] [address] Bilirubin [Mass/Vol] 0.6 mg/dL Normal 0.3-1.2 [facility] Comment on above: Performed By: #### C BCA, 4679-7, CMP, FEPR, PINR, THYR, 2276- 4, 2284-8, 2131-9, 2-2, 2777-1 #### [facility] ([id number]) [address], [address] [place] [address] Calcium [Mass/Vol] 8.6 mg/dL Normal 8.5-10.5 [facility] Comment on above: Performed By: #### C BCA, 4679-7, CMP, FEPR, PINR, THYR, 2276- 4, 2284-8, 2131-9, 2-2, 2777-1 #### [facility] ([id number]) [address], [address] [place] [address] Chloride [Moles/Vol] 100 mmol/L Normal 98-109 [facility] Comment on above: Performed By: #### C BCA, 4679-7, CMP, FEPR, PINR, THYR, 2276- 4, 2284-8, 2132-9, 2692-2, 2777-1 #### [facility] ([id number]) [address], [address] [place] [address] CO2 [Moles/Vol] 21 mmol/L Low 22-32 [facility] Comment on above: Performed By: #### C BCA, 4679-7, CMP, FEPR, PINR, THYR, 2276- 4, 2284-8, 2-9, 2692-2, 2777-1 #### [facility] ([id number]) [address], [address] [place] [address] Creatinine [Mass/Vol] 3.37 mg/dL High 0.40-1.00 [facility] Comment on above: Result Comment: METH OD TRACEABLE TO IDMS STANDARD Performed By: #### C BCA, 4679-7, CMP, FEPR, PINR, THYR, 2276-4, 2284-8, 2131-9, 2692-2, 2777-1 #### [facility] ([id number]) [address], [address] [place] [address] GFR/1.73 sq M.predicted among non-blacks MDRD (S/P/Bld) [Vol rate/Area] 13 mL/min/{1.73_m2} Low >59 [facility] Comment on above: Result Comment: Reported eGFR is based on the CKD-EPI 2020 equation that does not use a race coefficient. Performed By: #### C BCA, 4679-7, CMP, FEPR, PINR, THYR, 2276-4, 2284-8, 2132-9, 2692-2, 2777-1 #### [facility] ([id number]) [address], [address] [place] [address] Glucose [Mass/Vol] 183 mg/dL High 65-99 [facility] Comment on above: Performed By: #### C BCA, 4679-7, CMP, FEPR, PINR, THYR, 6- 4, 4-8, 2131-9, 2-2, 2777-1 #### [facility] ([id number]) [address], [address] [place] [address] Potassium [Moles/Vol] 4.5 mmol/L Normal 3.5-5.0 [facility] Comment on above: Performed By: #### C BCA, 4679-7, CMP, FEPR, PINR, THYR, 6- 4, 4-8, 2131-9, 2-2, 2776-1 #### [facility] ([id number]) [address], [address] [place] [address] Protein [Mass/Vol] 5.5 g/dL Low 6.0-8.0 [facility] Comment on above: Performed By: #### C BCA, 4679-7, CMP, FEPR, PINR, THYR, 6- 4, 2283-8, 2131-9, 2691-2, 2776-1 #### [facility] ([id number]) [address] [place] [address] Sodium [Moles/Vol] 135 mmol/L Normal 134-146 [facility] Comment on above: Performed By: #### C BCA, 4679-7, CMP, FEPR, PINR, THYR, 6- 4, 2283-8, 2131-9, 2692-2, 2776-1 #### [facility] ([id number]) [address] [place] [address] Urea nitrogen [Mass/Vol] 52 mg/dL High 5-27 [facility] Comment on above: Performed By: #### C BCA, 4679-7, CMP, FEPR, PINR, THYR, 2276- 4, 2284-8, 2-9, 2692-2, 2777-1 #### [facility] ([id number]) [address], [address] [place], [place] [address] Glucose Glucometer (BldC) [M ass/Vol]on 02-05-2024 Glucose [Mass/Vol] 258 mg/dL High 65-99 [facility] Glucose [Mass/Vol] 389 mg/dL High 65-99 [facility] Glucose [Mass/Vol] 292 mg/dL High 65-99 [facility] Glucose [Mass/Vol] 206 mg/dL High 65-99 [facility] Glucose [Mass/Vol] 189 mg/dL High 65-99 [facility] Heparin unfractionated Chrom ogenic method Qn (PPP)on 02-05-2024 ANTI XA UFH 0.29 IU/mL Low 0.30-0.70 [facility] Comment on above: Result Comment: Opti mal time for testing is 6 hrs post dosage This test is specific for monitoring patients on UFH, and is not recommended for use with other Anti-Xa medications. Performed By: #### C BCA, 4679-7, CMP, FEPR, PINR, THYR, 6-4, 2283-8, 2131-9, 2-2, 2777-1 #### [facility] ([id number]) [address] [place] [address] MAGNESIUMon 02-05-2024 Magnesium [Mass/Vol] 1.8 mg/dL Normal 1.8-2.6 [facility] Comment on above: Performed By: #### C BCA, 4679-7, CMP, FEPR, PINR, THYR, 6- 4, 2283-8, 2131-9, 2-2, 2777-1 #### [facility] ([id number]) [address], [address] [place] [address] PHOSPHORUSon 02-05-2024 Phosphate [Mass/Vol] 3.4 mg/dL Normal 2.4-4.9 [facility] Comment on above: Performed By: #### C BCA, 4679-7, CMP, FEPR, PINR, THYR, 2276- 4, 4-8, 2131-9, 2-2, 7-1 #### [facility] ([id number]) [address] [place] [address] PROTIME AND INRon 02-05-2024 INR Coag (PPP) [Relative time] 2.0 {INR} High 0.8-1.1 [facility] Comment on above: Performed By: #### C BCA, 4679-7, CMP, FEPR, PINR, THYR, 6- 4, 4-8, 2131-9, 2691-2, 2776-1 #### [facility] ([id number]) [address] [place] [address] PT Coag (PPP) [Time] 22.8 s High 9.8-13.2 [facility] Comment on above: Performed By: #### C BCA, 4679-7, CMP, FEPR, PINR, THYR, 6- 4, 4-8, 2131-9, 2691-2, 2776-1 #### [facility] ([id number]) [address] [place] [address] Thiamine (Bld) [Moles/Vol]on 02-05-2024 Thiamin (Vitamin B1), WB 202 nmol/L High 70-180 [facility] Comment on above: Result Comment: NOTE ADDITIONAL INFORMATION This test was developed and its performance characteristics determined by [facility] in a manner consistent with CLIA requirements. This test has not been cleared or approved by the U.S. Food and Drug Administration. Test Performed by: [facility] [address] [place] [id number] Pediatrician/Medical Doctor: Elroy Cruz Ph.D.; CLIA# [id number] Performed By: #### C BCA, 4679-7, CMP, FEPR, PINR, THYR, 2276-4, 2284-8, 2132-9, 2692-2, 2777-1 #### [facility] ([id number]) [address] [place] [address] XR CHEST 1 VWon 02-05-2024 XR CHEST 1 VW XR CHEST 1 VW History: Shortness of breath EXAM: Chest AP portable upright Person: 02/01/2024 FINDINGS: Stable cardiac silhouette, left IJ central line. No pneumothorax. Mild vascular congestion. No infiltrate or pleural effusion. IMPRESSION: Mild vascular congestion. Finalized by Huber Lima MD on 02/05/2024 12:58 PM Normal [facility] AMMONIAon 02-04-2024 Ammonia (P) [Moles/Vol] 37 umol/L Normal 18-72 [facility] Comment on above: Result Comment: NEW REFERENCE RANGE Performed By: #### C BCA, 4679-7, CMP, FEPR, PINR, THYR, 2276-4, 2284-8, 2-9, 2692-2, 2777-1 #### [facility] ([id number]) [address] [place] [address] CBC AND AUTO DIFFon 02-04-20 24 Anisocytosis Ql (Bld) 2+ Abnormal NONE [facility] Comment on above: Performed By: #### C BCA, PINR, 3274-8, CMP, 7-1, 64331-4 ####[facility] ([id number])[address], [place] [address] Band form neutrophils/100 WBC (Bld) 4.0 % Normal [facility] Comment on above: Performed By: #### C BCA, PINR, 3274-8, CMP, 7-1, 56441-7 ####[facility] ([id number])[address] [place] [address] Erythrocyte distribution width (RBC) [Ratio] 23.0 % High 11.5-15.0 [facility] Comment on above: Performed By: #### C BCA, PINR, 3274-8, CMP, 2776-07, 30897-1 ####[facility] ([id number])[address] [place] [address] Hematocrit (Bld) [Volume fraction] 27.4 % Low 35-47 [facility] Comment on above: Performed By: #### C BCA, PINR, 4-8, CMP, 2776-07, ####[facility] ([id number])[address] [place] [address] Hemoglobin (Bld) [Mass/Vol] 8.9 g/dL Low 11.7-15.5 [facility] Comment on above: Performed By: #### C BCA, PINR, 3273-8, CMP, 2776-07, ####[facility] ([id number])[address] [place] [address] Lymphocytes (Bld) [#/Vol] 0.9 10*3/uL Low 1.0-3.5 [facility] Comment on above: Performed By: #### C BCA, PINR, 4-8, CMP, 2776-07, ####[facility] ([id number])[address] [place] [address] Lymphocytes/100 WBC (Bld) 4.0 % Normal [facility] Comment on above: Performed By: #### C BCA, PINR, 3274-8, CMP, 2776-07, 54556-3 ####[facility] ([id number])[address] [place] [address] MCH (RBC) [Entitic mass] 27.7 pg Normal 27-34 [facility] Comment on above: Performed By: #### C BCA, PINR, 3274-8, CMP, 2776-07, ####[facility] ([id number])[address], [place] [address] MCHC (RBC) [Mass/Vol] 32.6 g/dL Normal 32-36 [facility] Comment on above: Performed By: #### C BCA, PINR, 3274-8, CMP, 2776-, 52486-8 ####[facility] ([id number])[address], [place] [address] MCV (RBC) [Entitic vol] 85 fL Normal 80-100 [facility] Comment on above: Performed By: #### C BCA, PINR, 4-8, CMP, 2776-, 48281-2 ####[facility] ([id number])[address], [place] [address] Metamyelocytes/100 WBC (Bld) 3.0 % Normal [facility] Comment on above: Performed By: #### C BCA, PINR, 3274-8, CMP, 2776-07, ####[facility] ([id number])[address], [place] [address] Monocytes (Bld) [#/Vol] 1.8 10*3/uL High 0-0.9 [facility] Comment on above: Performed By: #### C BCA, PINR, 3274-8, CMP, 2776-, 61524-4 ####[facility] ([id number])[address], [place] [address] Monocytes/100 WBC (Bld) 8.0 % Normal [facility] Comment on above: Performed By: #### C BCA, PINR, 3274-8, CMP, 2776-, 80116-8 ####[facility] ([id number])[address], [place] [address] MYELOCYTE 1.0 % Normal [facility] Comment on above: Performed By: #### C BCA, PINR, 3274-8, CMP, 2776-, 96877-9 ####[facility] ([id number])[address], [address] [place] [address] Neutrophils (Bld) [#/Vol] 18.6 10*3/uL High 1.5-6.6 [facility] Comment on above: Performed By: #### C BCA, PINR, 3274-8, CMP, 2776-, 60008-6 ####[facility] ([id number])[address] [place] [address] Platelet mean volume (Bld) [Entitic vol] 8.8 fL Normal 7-12 [facility] Comment on above: Performed By: #### C BCA, PINR, 3274-8, CMP, 2776-, 45006-9 ####[facility] ([id number])[address] [place] [address] Platelets (Bld) [#/Vol] 419 10*3/uL Normal 150-450 [facility] Comment on above: Performed By: #### C BCA, PINR, 3274-8, CMP, 2776-, 08285-3 ####[facility] ([id number])[address] [place] [address], [place] [address] POLYCHROMASIA 1+ Abnormal NONE [facility] Comment on above: Performed By: #### C BCA, PINR, 3274-8, CMP, 2776-, 50918-7 ####[facility] ([id number])[address] [place] [address] RBC COUNT 3.23 X10E12/L Low 3.80-5.20 [facility] Comment on above: Performed By: #### C BCA, PINR, 3274-8, CMP, 7-1, 61610-1 ####[facility] ([id number])[address], [place] [address] SEG NEUTROPHIL 80.0 % Normal [facility] Comment on above: Performed By: #### C BCA, PINR, 3274-8, CMP, 7-1, 45597-6 ####[facility] ([id number])[address], [place] [address] WBC (Bld) [#/Vol] 22.2 10*3/uL High 4.0-11.0 [facility] Comment on above: Performed By: #### C BCA, PINR, 4-8, CMP, 2776-, 28795-3 ####[facility] ([id number])[address], [place] [address] COMPREHENSIVE METABOLIC PANE Harley 02-04-2024 Albumin [Mass/Vol] 2.8 g/dL Low 3.2-5.3 [facility] Comment on above: Performed By: #### C BCA, PINR, 3274-8, CMP, 2776-1, 70677-1 ####[facility] ([id number])[address], [place] [address] ALP [Catalytic activity/Vol] 128 U/L Normal 39-130 [facility] Comment on above: Performed By: #### C BCA, PINR, 3274-8, CMP, 7-1, 17317-0 ####[facility] ([id number])[address], [place] [address] ALT [Catalytic activity/Vol] 28 U/L Normal 0-31 [facility] Comment on above: Performed By: #### C BCA, PINR, 3274-8, CMP, 2776-, 39094-2 ####[facility] ([id number])[address], [place] [address] Anion gap [Moles/Vol] 15 mmol/L Normal 5-15 [facility] Comment on above: Performed By: #### C BCA, PINR, 3274-8, CMP, 2776-, 21049-3 ####[facility] ([id number])[address] [place] [address] AST [Catalytic activity/Vol] 33 U/L Normal 0-41 [facility] Comment on above: Performed By: #### C BCA, PINR, 3274-8, CMP, 7-, 70026-8 ####[facility] ([id number])[address] [place] [address] Bilirubin [Mass/Vol] 0.7 mg/dL Normal 0.3-1.2 [facility] Comment on above: Performed By: #### C BCA, PINR, 3274-8, CMP, 2776-, 27362-9 ####[facility] ([id number])[address] [place] [address] Calcium [Mass/Vol] 8.9 mg/dL Normal 8.5-10.5 [facility] Comment on above: Performed By: #### C BCA, PINR, 3274-8, CMP, 2776-, 44086-8 ####[facility] ([id number])[address] [place] [address] Chloride [Moles/Vol] 99 mmol/L Normal 98-109 [facility] Comment on above: Performed By: #### C BCA, PINR, 3274-8, CMP, 2776-1, 79199-5 ####[facility] ([id number])[address], [place] [address] CO2 [Moles/Vol] 21 mmol/L Low 22-32 [facility] Comment on above: Performed By: #### C BCA, PINR, 3274-8, CMP, 2776-, 95951-2 ####[facility] ([id number])[address] [address], [place] [address] Creatinine [Mass/Vol] 4.39 mg/dL High 0.40-1.00 [facility] Comment on above: Result Comment: METH OD TRACEABLE TO IDMS STANDARD Performed By: #### C BCA, PINR, 3274-8, CMP, 2776-, 83461-0 ####[facility] ([id number])[address] [address] GFR/1.73 sq M.predicted among non-blacks MDRD (S/P/Bld) [Vol rate/Area] 10 mL/min/{1.73_m2} Low >59 [facility] Comment on above: Result Comment: Reported eGFR is based on the CKD-EPI 2020 equation that does not use a race coefficient. Performed By: #### C BCA, PINR, 3274-8, CMP, 2776-07, ####[facility] ([id number])[address] [address] Glucose [Mass/Vol] 178 mg/dL High 65-99 [facility] Comment on above: Performed By: #### C BCA, PINR, 3274-8, CMP, 2776-, 62569-4 ####[facility] ([id number])[address] [address] Potassium [Moles/Vol] 4.6 mmol/L Normal 3.5-5.0 [facility] Comment on above: Performed By: #### C BCA, PINR, 3274-8, CMP, 2776-, 56938-6 ####[facility] ([id number])[address], [place] [address] Protein [Mass/Vol] 5.7 g/dL Low 6.0-8.0 [facility] Comment on above: Performed By: #### C BCA, PINR, 3274-8, CMP, 2777-1, 25965-0 ####[facility] ([id number])[address], [place] [address] Sodium [Moles/Vol] 135 mmol/L Normal 134-146 [facility] Comment on above: Performed By: #### C BCA, PINR, 3274-8, CMP, 2777-1, 86645-6 ####[facility] ([id number])[address], [place] [address] Urea nitrogen [Mass/Vol] 71 mg/dL High 5-27 [facility] Comment on above: Performed By: #### C BCA, PINR, 3274-8, CMP, 2777-1, 94943-3 ####[facility] ([id number])[address] [place] [address] BRAIN WO CONT STROKE FAISALR Wojciech 02-04-2024 CT BRAIN WO CONT STROKE ALERT CT BRAIN WO CONT STROKE ALERT HISTORY: An 78-year-old female with the history of the acute neurological deficit. Altered mental status. Stroke is suspected. EXAM/TECHNIQUE: Multidetector spiral CT scan of brain is performed. Multiplanar reconstruction images are reformatted. All CT scans at this facility use dose modulation, iterative reconstruction, and/or weight based dosing when appropriate to reduce radiation dose to as low as reasonably achievable. COMPARISON: Comparison is made with the CT scan of the brain of 05/17/2023. FINDINGS: The ventricular system is normal in size and configuration. There is mild degree of cortical atrophy. There is normal differentiation of curiel and white matters. There is no evidence of intracranial hemorrhage or acute pathology. The cerebellum and brainstem are unremarkable. No mass effect, midline shift of the structures or extra-axial fluid collections are noted. The calvarium is intact. No fractures are seen. There are intracranial vascular calcifications. Mucosal thickening is seen in the maxillary sinuses. Other paranasal sinuses and mastoid air cells are clear. IMPRESSION: * No evidence of intracranial hemorrhage or acute pathology. * Mild degree of generalized cortical atrophy. * Mild chronic bilateral maxillary sinusitis. Finalized by Max Rodriguez MD on 02/04/2024 2:09 PM Normal [facility] Glucose Glucometer (BldC) [M ass/Vol]on 02-04-2024 Glucose [Mass/Vol] 227 mg/dL High 65-99 [facility] Glucose [Mass/Vol] 259 mg/dL High 65-99 [facility] Glucose [Mass/Vol] 175 mg/dL High 65-99 [facility] Heparin unfractionated Chrom ogenic method Qn (PPP)on 02-04-2024 ANTI XA UFH 0.21 IU/mL Low 0.30-0.70 [facility] Comment on above: Result Comment: Opti mal time for testing is 6 hrs post dosage This test is specific for monitoring patients on UFH, and is not recommended for use with other Anti-Xa medications. Performed By: #### C GAGE, 4679-7, CMP, FEPR, PINR, THYR, 6-4, 4-8, 2-9, 2692-2, 2777-1 #### [facility] ([id number]) [address] [place] [address] ANTI XA UFH 0.16 IU/mL Low 0.30-0.70 [facility] Comment on above: Result Comment: Opti mal time for testing is 6 hrs post dosage This test is specific for monitoring patients on UFH, and is not recommended for use with other Anti-Xa medications. Performed By: #### C GAGE, 4679-7, CMP, FEPR, PINR, THYR, 2276-4, 2284-8, 2132-9, 2692-2, 2777-1 #### [facility] ([id number]) [address] [facility] [place] [address] ANTI XA UFH 0.14 IU/mL Low 0.30-0.70 [facility] Comment on above: Result Comment: Opti mal time for testing is 6 hrs post dosage This test is specific for monitoring patients on UFH, and is not recommended for use with other Anti-Xa medications. Performed By: #### C BCA, 4679-7, CMP, FEPR, PINR, THYR, 2276-4, 2284-8, 2132-9, 2692-2, 2776-1 #### [facility] ([id number]) [address] [place] [address] ANTI XA UFH 0.19 IU/mL Low 0.30-0.70 [facility] Comment on above: Result Comment: Opti mal time for testing is 6 hrs post dosage This test is specific for monitoring patients on UFH, and is not recommended for use with other Anti-Xa medications. Performed By: #### C BCA, PINR, 3274-8, CMP, 2777-1, 75006-5 ####[facility] ([id number])[address] [place] [address] PHOSPHORUSon 02-04-2024 Phosphate [Mass/Vol] 5.0 mg/dL High 2.4-4.9 [facility] Comment on above: Performed By: #### C BCA, PINR, 3274-8, CMP, 2776-1, 13678-7 ####[facility] ([id number])[address] [address] [place] [address] PROTIME AND INRon 02-04-2024 INR Coag (PPP) [Relative time] 1.6 {INR} High 0.8-1.1 [facility] Comment on above: Performed By: #### C BCA, PINR, 3274-8, CMP, 2776-1, 87134-6 ####[facility] ([id number])[address] [place] [address] PT Coag (PPP) [Time] 18.4 s High 9.8-13.2 [facility] Comment on above: Performed By: #### C GAGE, PINR, 3274-8, CMP, 2777-1, 29563-5 ####[facility] ([id number])[address] [place] [address] Vancomycin [Mass/Vol]on 01-24 VANCOMYCIN 11.9 ug/mL Normal 5.0-40.0 [facility] Comment on above: Result Comment: Peak 30-40 ug/mL Trough 5-20 ug/ml Performed By: #### C GAGE, PINR, 3274-8, CMP, 2777-1, 01791-9 ####[facility] ([id number])[address] [place] [address] CBC AND AUTO DIFFon 02-03-20 24 Anisocytosis Ql (Bld) 2+ Abnormal NONE [facility] Comment on above: Performed By: #### Rob ALMONTE CMP, 2777-1 ####[facility] ([id number])[address] [place] [address] Band form neutrophils/100 WBC (Bld) 1.0 % Normal [facility] Comment on above: Performed By: #### Rob ALMONTE CMP, 2777-1 ####[facility] ([id number])[address] [place] [address] Erythrocyte distribution width (RBC) [Ratio] 23.2 % High 11.5-15.0 [facility] Comment on above: Performed By: #### Rob ALMONTE CMP, 2777-1 ####[facility] ([id number])[address] [place] [address] Hematocrit (Bld) [Volume fraction] 27.7 % Low 35-47 [facility] Comment on above: Performed By: #### Rob ALMONTE CMP, 2777- ####[facility] ([id number])[address] [place] [address] Hemoglobin (Bld) [Mass/Vol] 9.1 g/dL Low 11.7-15.5 [facility] Comment on above: Performed By: #### Rob ALMONTE CMP, 2776- ####[facility] ([id number])[address], [place] [address] Lymphocytes (Bld) [#/Vol] 0.2 10*3/uL Low 1.0-3.5 [facility] Comment on above: Performed By: #### Rob ALMONTE CMP, 2776- ####[facility] ([id number])[address] [address], [place] [address] Lymphocytes/100 WBC (Bld) 1.0 % Normal [facility] Comment on above: Performed By: #### Rob ALMONTE CMP, 2776- ####[facility] ([id number])[address] [address], [place] [address] MCH (RBC) [Entitic mass] 27.2 pg Normal 27-34 [facility] Comment on above: Performed By: #### C BELLA ALMONTE, 2776- ####[facility] ([id number])[address] [address] [address], [place] [address] MCHC (RBC) [Mass/Vol] 32.7 g/dL Normal 32-36 [facility] Comment on above: Performed By: #### Rob ALMONTE CMP, 2776- ####[facility] ([id number])[address], [place] [address] MCV (RBC) [Entitic vol] 83 fL Normal 80-100 [facility] Comment on above: Performed By: #### C BCA, CMP, 2776- ####[facility] ([id number])[address] [place] [address] Monocytes (Bld) [#/Vol] 0.4 10*3/uL Normal 0-0.9 [facility] Comment on above: Performed By: #### Rob ALMONTE, CMP, 2776- ####[facility] ([id number])[address], [place] [address] Monocytes/100 WBC (Bld) 1.9 % Normal [facility] Comment on above: Performed By: #### Rob ALMONTE CMP, 2776- ####[facility] ([id number])[address] [address] [address], [place] [address] Neutrophils (Bld) [#/Vol] 21.0 10*3/uL High 1.5-6.6 [facility] Comment on above: Performed By: #### Rob ALMONTE, CMP, 2776- ####[facility] ([id number])[address] [address] [address], [place] [address] Platelet mean volume (Bld) [Entitic vol] 8.1 fL Normal 7-12 [facility] Comment on above: Performed By: #### Rob ALMONTE, CMP, 2776- ####[facility] ([id number])[address], [place] [address] Platelets (Bld) [#/Vol] 427 10*3/uL Normal 150-450 [facility] Comment on above: Performed By: #### Rob ALMONTE, CMP, 2776- ####[facility] ([id number])[address] [place] [address] POLYCHROMASIA 1+ Abnormal NONE [facility] Comment on above: Performed By: #### Rob ALMONTE, CMP, 2776- ####[facility] ([id number])[address], [place] [address] RBC COUNT 3.33 X10E12/L Low 3.80-5.20 [facility] Comment on above: Performed By: #### C BCA, CMP, 2777-1 ####[facility] ([id number])[address], [place] [address] SEG NEUTROPHIL 96.1 % Normal [facility] Comment on above: Performed By: #### C BCA, CMP, 2777-1 ####[facility] ([id number])[address], [place] [address] WBC (Bld) [#/Vol] 21.6 10*3/uL High 4.0-11.0 [facility] Comment on above: Performed By: #### C BCA, CMP, 2777-1 ####[facility] ([id number])[address] [place] [address] COMPREHENSIVE METABOLIC PANE Harley 02[birth year]03-2024 Albumin [Mass/Vol] 2.9 g/dL Low 3.2-5.3 [facility] Comment on above: Performed By: #### C BCA, CMP, 2777-1 ####[facility] ([id number])[address], [place] [address] ALP [Catalytic activity/Vol] 131 U/L High 39-130 [facility] Comment on above: Performed By: #### C BCA, CMP, 2777-1 ####[facility] ([id number])[address] [place] [address] ALT [Catalytic activity/Vol] 29 U/L Normal 0-31 [facility] Comment on above: Performed By: #### C BCA, CMP, 2777-1 ####[facility] ([id number])[address], [place] [address] Anion gap [Moles/Vol] 14 mmol/L Normal 5-15 [facility] Comment on above: Performed By: #### Rob ALMONTE CMP, 2777-1 ####[facility] ([id number])[address] [address], [place] [address] AST [Catalytic activity/Vol] 44 U/L High 0-41 [facility] Comment on above: Performed By: #### Rob ALMONTE CMP, 2776-1 ####[facility] ([id number])[address], [place] [address] Bilirubin [Mass/Vol] 0.8 mg/dL Normal 0.3-1.2 [facility] Comment on above: Performed By: #### Rob ALMONTE CMP, 2776- ####[facility] ([id number])[address], [address], [place] [address] Calcium [Mass/Vol] 8.8 mg/dL Normal 8.5-10.5 [facility] Comment on above: Performed By: #### Rob ALMONTE CMP, 2776- ####[facility] ([id number])[address], [address], [place] [address] Chloride [Moles/Vol] 101 mmol/L Normal 98-109 [facility] Comment on above: Performed By: #### Rob ALMONTE CMP, 2777- ####[facility] ([id number])[address], [address], [place] [address] CO2 [Moles/Vol] 21 mmol/L Low 22-32 [facility] Comment on above: Performed By: #### Rob ALMONTE CMP, 2777-1 ####[facility] ([id number])[address], [address], [place] [address] Creatinine [Mass/Vol] 3.04 mg/dL High 0.40-1.00 [facility] Comment on above: Result Comment: METH OD TRACEABLE TO IDMS STANDARD Performed By: #### C BELLA ALMONTE, 2777-1 ####[facility] ([id number])[address] [address] [place] [address] GFR/1.73 sq M.predicted among non-blacks MDRD (S/P/Bld) [Vol rate/Area] 15 mL/min/{1.73_m2} Low >59 [facility] Comment on above: Result Comment: Reported eGFR is based on the CKD-EPI 2020 equation that does not use a race coefficient. Performed By: #### C BELLA ALMONTE, 2777-1 ####[facility] ([id number])[address] [address] [place] [address] Glucose [Mass/Vol] 194 mg/dL High 65-99 [facility] Comment on above: Performed By: #### Rob ALMONTE CMP, 2777-1 ####[facility] ([id number])[address] [address] [place] [address] Potassium [Moles/Vol] 4.6 mmol/L Normal 3.5-5.0 [facility] Comment on above: Performed By: #### Rob ALMONTE CMP, 2777-1 ####[facility] ([id number])[address] [address] [place] [address] Protein [Mass/Vol] 6.0 g/dL Normal 6.0-8.0 [facility] Comment on above: Performed By: #### Rob ALMONTE CMP, 2777-1 ####[facility] ([id number])[address] [address] [place] [address] Sodium [Moles/Vol] 136 mmol/L Normal 134-146 [facility] Comment on above: Performed By: #### Rob ALMONTE CMP, 2777-1 ####[facility] ([id number])[address] [address] [place] [address] Urea nitrogen [Mass/Vol] 46 mg/dL High 5-27 [facility] Comment on above: Performed By: #### C BCA, [facility], 2777-1 ####[facility] ([id number])[address], [address] [place] [address] Glucose Glucometer (BldC) [M ass/Vol]on 02-03-2024 Glucose [Mass/Vol] 216 mg/dL High 65-99 [facility] Glucose [Mass/Vol] 172 mg/dL High 65-99 [facility] Glucose [Mass/Vol] 249 mg/dL High 65-99 [facility] Glucose [Mass/Vol] 215 mg/dL High 65-99 [facility] Heparin unfractionated Chrom ogenic method Qn (PPP)on 02-03-2024 ANTI XA UFH 0.06 IU/mL Low 0.30-0.70 [facility] Comment on above: Result Comment: Opti mal time for testing is 6 hrs post dosage This test is specific for monitoring patients on UFH, and is not recommended for use with other Anti-Xa medications. Performed By: #### P INR, 3274-8 ####[facility] ([id number])[address], [address] [place] [address] ANTI XA UFH 0.11 IU/mL Low 0.30-0.70 [facility] Comment on above: Result Comment: Opti mal time for testing is 6 hrs post dosage This test is specific for monitoring patients on UFH, and is not recommended for use with other Anti-Xa medications. Performed By: #### 3 274-8 ####[facility] ([id number])[address], [address] [place] [address] ANTI XA UFH 0.06 IU/mL Low 0.30-0.70 [facility] Comment on above: Result Comment: Opti mal time for testing is 6 hrs post dosage This test is specific for monitoring patients on UFH, and is not recommended for use with other Anti-Xa medications. Performed By: #### 3 274-8 ####[facility] ([id number])[address] [address] [place] [address] ANTI XA UFH <0.04 Low 0.30-0.70 [facility] Comment on above: Result Comment: Opti mal time for testing is 6 hrs post dosage This test is specific for monitoring patients on UFH, and is not recommended for use with other Anti-Xa medications. Performed By: #### 3 274-8 ####[facility] ([id number])[address] [address] [place] [address] PHOSPHORUSon 02-03-2024 Phosphate [Mass/Vol] 4.2 mg/dL Normal 2.4-4.9 [facility] Comment on above: Performed By: #### C BCA, CMP, 2777-1 ####[facility] ([id number])[address] [address] [place] [address] PROTIME AND INRon 02-03-2024 INR Coag (PPP) [Relative time] 1.7 {INR} High 0.8-1.1 [facility] Comment on above: Performed By: #### P INR, 3274-8 ####[facility] ([id number])[address] [address] [place] [address] PT Coag (PPP) [Time] 19.0 s High 9.8-13.2 [facility] Comment on above: Performed By: #### P INR, 3274-8 ####[facility] ([id number])[address] [address] [place] [address] CBC AND AUTO DIFFon 02-02-20 24 Anisocytosis Ql (Bld) 2+ Abnormal NONE [facility] Comment on above: Performed By: #### [place], [address]-7 #### [facility] ([id number]) [address] [address] [place] [address] Erythrocyte distribution width (RBC) [Ratio] 23.1 % High 11.5-15.0 [facility] Comment on above: Performed By: #### Rob CARRERO, 91677-1 #### [facility] ([id number]) [address], [address] [place] [address] Hematocrit (Bld) [Volume fraction] 28.6 % Low 35-47 [facility] Comment on above: Performed By: #### Rob CARRERO, 81625-5 #### [facility] ([id number]) [address] [place] [address] Hemoglobin (Bld) [Mass/Vol] 9.0 g/dL Low 11.7-15.5 [facility] Comment on above: Performed By: #### Rob CARRERO 33633-3 #### [facility] ([id number]) [address], [address] [place] [address] HYPOCHROMIA 1+ Abnormal NONE [facility] Comment on above: Performed By: #### Rob CARRERO 20620-2 #### [facility] ([id number]) [address], [address] [place] [address] Lymphocytes (Bld) [#/Vol] 1.2 10*3/uL Normal 1.0-3.5 [facility] Comment on above: Performed By: #### Rob CARRERO, 67890-1 #### [facility] ([id number]) [address], [address] [place] [address] Lymphocytes/100 WBC (Bld) 6.0 % Normal [facility] Comment on above: Performed By: #### Rob CARRERO 83817-0 #### [facility] ([id number]) [address] [place] [address] MCH (RBC) [Entitic mass] 26.6 pg Low 27-34 [facility] Comment on above: Performed By: #### Rob CARRERO 34753-6 #### [facility] ([id number]) [address], [address] [place] [address] MCHC (RBC) [Mass/Vol] 31.6 g/dL Low 32-36 [facility] Comment on above: Performed By: #### Rob CARRERO, 45418-3 #### [facility] ([id number]) [address], [address] [place] [address] MCV (RBC) [Entitic vol] 84 fL Normal 80-100 [facility] Comment on above: Performed By: #### Rob CARRERO, 29396-6 #### [facility] ([id number]) [address], [address] [place] [address] Metamyelocytes/100 WBC (Bld) 1.0 % Normal [facility] Comment on above: Performed By: #### Rob CARRERO, 06706-5 #### [facility] ([id number]) [address] [place] [address] Monocytes (Bld) [#/Vol] 1.9 10*3/uL High 0-0.9 [facility] Comment on above: Performed By: #### Rob CARRERO, 24164-8 #### [facility] ([id number]) [address] [place] [address] Monocytes/100 WBC (Bld) 9.0 % Normal [facility] Comment on above: Performed By: #### Rob CARRERO, 70272-0 #### [facility] ([id number]) [address], [address] [place] [address] Neutrophils (Bld) [#/Vol] 17.3 10*3/uL High 1.5-6.6 [facility] Comment on above: Performed By: #### Rob CARRERO, 84002-9 #### [facility] ([id number]) [address] [place] [address] Platelet mean volume (Bld) [Entitic vol] 8.2 fL Normal 7-12 [facility] Comment on above: Performed By: #### Rob CARRERO, 49215-1 #### [facility] ([id number]) [address] [place] [address] Platelets (Bld) [#/Vol] 408 10*3/uL Normal 150-450 [facility] Comment on above: Performed By: #### Rob CARRERO, 15204-2 #### [facility] ([id number]) [address], [address] [place] [address] POLYCHROMASIA 1+ Abnormal NONE [facility] Comment on above: Performed By: #### Rob CARRERO, 15015-3 #### [facility] ([id number]) [address] [place] [address] RBC COUNT 3.39 X10E12/L Low 3.80-5.20 [facility] Comment on above: Performed By: #### Rob CARRERO, 96430-0 #### [facility] ([id number]) [address], [address] [place] [address] SEG NEUTROPHIL 84.0 % Normal [facility] Comment on above: Performed By: #### Rob CARRERO, 35063-7 #### [facility] ([id number]) [address] [place] [address] WBC (Bld) [#/Vol] 20.6 10*3/uL High 4.0-11.0 [facility] Comment on above: Performed By: #### Rob CARRERO, 19997-9 #### [facility] ([id number]) [address] [place] [address] COMPREHENSIVE METABOLIC PANE Harley 02-02-2024 Albumin [Mass/Vol] 2.8 g/dL Low 3.2-5.3 [facility] Comment on above: Performed By: #### Rob CARRERO 36256-1 #### [facility] ([id number]) [address], [address] [place] [address] ALP [Catalytic activity/Vol] 136 U/L High 39-130 [facility] Comment on above: Performed By: #### Rob CARRERO, 59349-7 #### [facility] ([id number]) [address] [place] [address] ALT [Catalytic activity/Vol] 27 U/L Normal 0-31 [facility] Comment on above: Performed By: #### Rob CARRERO, 21177-2 #### [facility] ([id number]) [address] [place] [address] Anion gap [Moles/Vol] 16 mmol/L High 5-15 [facility] Comment on above: Performed By: #### Rob CARRERO, 05177-5 #### [facility] ([id number]) [address] [place] [address] AST [Catalytic activity/Vol] 48 U/L High 0-41 [facility] Comment on above: Performed By: #### Rob CARRERO, 55222-8 #### [facility] ([id number]) [address], [address] [place] [address] Bilirubin [Mass/Vol] 0.9 mg/dL Normal 0.3-1.2 [facility] Comment on above: Performed By: #### Rob CARRERO, 09750-7 #### [facility] ([id number]) [address], [address] [place] [address] Calcium [Mass/Vol] 8.7 mg/dL Normal 8.5-10.5 [facility] Comment on above: Performed By: #### Rob CARRERO, 13483-1 #### [facility] ([id number]) [address] [place] [address] Chloride [Moles/Vol] 99 mmol/L Normal 98-109 [facility] Comment on above: Performed By: #### Rob CARRERO, 55365-9 #### [facility] ([id number]) [address] [place] [address] CO2 [Moles/Vol] 18 mmol/L Low 22-32 [facility] Comment on above: Performed By: #### Rob CARRERO, 22770-8 #### [facility] ([id number]) [address] [address] [place] [address] Creatinine [Mass/Vol] 4.12 mg/dL High 0.40-1.00 [facility] Comment on above: Result Comment: METH OD TRACEABLE TO IDMS STANDARD Performed By: #### Rob CARRERO, 93180-6 #### [facility] ([id number]) [address] [address] [place] [address] GFR/1.73 sq M.predicted among non-blacks MDRD (S/P/Bld) [Vol rate/Area] 10 mL/min/{1.73_m2} Low >59 [facility] Comment on above: Result Comment: Reported eGFR is based on the CKD-EPI 2020 equation that does not use a race coefficient. Performed By: #### Rob CARRERO, 46163-4 #### [facility] ([id number]) [address] [address] [place] [address] Glucose [Mass/Vol] 105 mg/dL High 65-99 [facility] Comment on above: Performed By: #### Rob CARRERO, 00159-1 #### [facility] ([id number]) [address] [address] [place] [address] Potassium [Moles/Vol] 4.9 mmol/L Normal 3.5-5.0 [facility] Comment on above: Performed By: #### Rob CARRERO, 88109-4 #### [facility] ([id number]) [address] [place] [address] Protein [Mass/Vol] 5.6 g/dL Low 6.0-8.0 [facility] Comment on above: Performed By: #### Rob CARRERO, 65495-1 #### [facility] ([id number]) [address] [place] [address] Sodium [Moles/Vol] 133 mmol/L Low 134-146 [facility] Comment on above: Performed By: #### Rob CARRERO, 77041-8 #### [facility] ([id number]) [address] [place] [address] Urea nitrogen [Mass/Vol] 69 mg/dL High 5-27 [facility] Comment on above: Performed By: #### Rob CARRERO, 22603-1 #### [facility] ([id number]) [address] [place] [address] Glucose Glucometer (BldC) [M ass/Vol]on 02-02-2024 Glucose [Mass/Vol] 257 mg/dL High 65-99 [facility] Glucose [Mass/Vol] 112 mg/dL High 65-99 [facility] PHOSPHORUSon 02-02-2024 Phosphate [Mass/Vol] 5.1 mg/dL High 2.4-4.9 [facility] Comment on above: Performed By: #### Rob CARRERO, 41002-0 #### [facility] ([id number]) [address] [place] [address] PROTIME AND INRon 02-02-2024 INR Coag (PPP) [Relative time] 1.6 {INR} High 0.8-1.1 [facility] Comment on above: Performed By: #### Rob CARRERO, 75922-7 #### [facility] ([id number]) [address] [place] [address] PT Coag (PPP) [Time] 18.5 s High 9.8-13.2 [facility] Comment on above: Performed By: #### C MAGAN, 54606-8 #### [facility] ([id number]) [address] [place] [address] INR Coag (PPP) [Relative time] 1.5 {INR} High 0.8-1.1 [facility] Comment on above: Performed By: #### C MAGAN, 05583-8 #### [facility] ([id number]) [address] [facility] [place] [address] PT Coag (PPP) [Time] 17.7 s High 9.8-13.2 [facility] Comment on above: Performed By: #### C MAGAN, 55230-6 #### [facility] ([id number]) [address] [facility] [place] [address] Surgical Pathologyon 024 Surgical Pathology Normal [facility] Comment on above: Result Comment: [facility] [address] [place] [address] Surgical Pathology Consultation Patient Name:ROSA WINTER:1945 (Age: 78)Gender:FTaken:4Reported:4Physician(s):Taz Reese MD ([phone])Copy To: Rec. #:[id number]: #[id number] Final Pathologic Diagnosis 1. Sacrum: Ulceration, soft tissue necrosis and acute inflammation. 2. Right lateral hip: Ulceration, soft tissue necrosis and acute inflammation. Report Electronically Signed Out cjb/4Crenu Villalta MD Interpretation performed at [facility], [address] [place] [address], License number: [id number]. Clinical History Sacral & hip ulcer. Gross Description 1. Received in formalin labeled GILBERT, sacral decubitus is a purple-guevara to green, ovoid sheet of plaque like material, 7.5 x 3 x 0.2 cm, resected with fibrofatty tissue, up to 0.7 cm in thickness. Serial sections reveal guevara-pink to green-yellow cut surfaces. Nutrition Instructor sections are submitted in a single cassette. (1, ss, [id number], m6) J 2. Received in formalin labeled MAGGY, right lateral hip is a purple-guevara to green, ovoid sheet of plaque-like material, 2.5 x 2 x 0.2 cm, resected with fibrofatty tissue, up to 0.3 cm in thickness. Serial sections reveal guevara-pink to purple cut surfaces. Nutrition Instructor sections are submitted in a single cassette. (1, ss, [id number], m6) JG jmg/02/02/2024SSI Specimen(s) Received 1: Sacrum decubitis 2: Right lateral hip Fee Codes(s): 1; 69945 2; 38599 aPTT Coag (PPP) [Time]on aPTT Coag (Bld) [Time] 33 s Normal 26-37 Pr [facility] Comment on above: Performed By: #### P INR, 63436-9 ####[facility] ([id number])[address] [place] [address] CBC AND AUTO DIFFon 02-01-20 24 ABSOLUTE BASOPHIL 0.1 X10E9/L Normal 0.0-0.2 [facility] Comment on above: Performed By: #### C BCA, 4679-7, CMP, FEPR, PINR, THYR, 2276- 4, 2284-8, 2132-9, 2692-2, 2777-1 #### [facility] ([id number]) [address] [place] [address] ABSOLUTE NEUTROPHIL 17.5 X10E9/L High 1.5-6.6 [facility] Comment on above: Performed By: #### C BCA, 4679-7, CMP, FEPR, PINR, THYR, 2276- 4, 2284-8, 2132-9, 2692-2, 2777-1 #### [facility] ([id number]) [address] [place] [address] Anisocytosis Ql (Bld) 2+ Abnormal NONE [facility] Comment on above: Performed By: #### C BCA, 4679-7, CMP, FEPR, PINR, THYR, 2276- 4, 2284-8, 2-9, 2692-2, 2777-1 #### [facility] ([id number]) [address] [place] [address] Basophils/100 WBC (Bld) 0.3 % Normal [facility] Comment on above: Performed By: #### C GAGE, 4679-7, CMP, FEPR, PINR, THYR, 2276- 4, 2284-8, 2131-9, 2-2, 2776-1 #### [facility] ([id number]) [address] [place] [address] Eosinophils (Bld) [#/Vol] 0.2 10*3/uL Normal 0.0-0.4 [facility] Comment on above: Performed By: #### C GAGE, 4679-7, CMP, FEPR, PINR, THYR, 2276- 4, 2284-8, 2-9, 2692-2, 2776-1 #### [facility] ([id number]) [address] [place] [address] Eosinophils/100 WBC (Bld) 1.1 % Normal [facility] Comment on above: Performed By: #### C BCA, 4679-7, CMP, FEPR, PINR, THYR, 2276- 4, 2284-8, 2-9, 2692-2, 2777-1 #### [facility] ([id number]) [address] [place] [address] Erythrocyte distribution width (RBC) [Ratio] 22.5 % High 11.5-15.0 [facility] Comment on above: Performed By: #### C BCA, 4679-7, CMP, FEPR, PINR, THYR, 2276- 4, 2284-8, 2-9, 2-2, 2777-1 #### [facility] ([id number]) [address] [place] [address] Hematocrit (Bld) [Volume fraction] 29.0 % Low 35-47 [facility] Comment on above: Performed By: #### C BCA, 4679-7, CMP, FEPR, PINR, THYR, 6- 4, 4-8, 2-9, 2692-2, 2777-1 #### [facility] ([id number]) [address] [place] [address] Hemoglobin (Bld) [Mass/Vol] 9.6 g/dL Low 11.7-15.5 [facility] Comment on above: Performed By: #### C BCA, 4679-7, CMP, FEPR, PINR, THYR, 6- 4, 4-8, 2131-9, 2692-2, 277-1 #### [facility] ([id number]) [address] [place] [address] Lymphocytes (Bld) [#/Vol] 1.0 10*3/uL Normal 1.0-3.5 [facility] Comment on above: Performed By: #### C BCA, 4679-7, CMP, FEPR, PINR, THYR, 6- 4, 4-8, 2131-9, 2692-2, 2777-1 #### [facility] ([id number]) [address] [place] [address] Lymphocytes/100 WBC (Bld) 4.8 % Normal [facility] Comment on above: Performed By: #### C BCA, 4679-7, CMP, FEPR, PINR, THYR, 2276- 4, 2284-8, 2132-9, 2692-2, 2777-1 #### [facility] ([id number]) [address] [place] [address] MCH (RBC) [Entitic mass] 27.4 pg Normal 27-34 [facility] Comment on above: Performed By: #### C BCA, 4679-7, CMP, FEPR, PINR, THYR, 2276- 4, 2284-8, 2132-9, 2692-2, 2777-1 #### [facility] ([id number]) [address] [place] [address] MCHC (RBC) [Mass/Vol] 33.2 g/dL Normal 32-36 [facility] Comment on above: Performed By: #### C BCA, 4679-7, CMP, FEPR, PINR, THYR, 2276- 4, 2284-8, 2-9, 2692-2, 2776-1 #### [facility] ([id number]) [address], [address] [place] [address] MCV (RBC) [Entitic vol] 83 fL Normal 80-100 [facility] Comment on above: Performed By: #### C BCA, 4679-7, CMP, FEPR, PINR, THYR, 2276- 4, 2284-8, 2-9, 2692-2, 277-1 #### [facility] ([id number]) [address], [address] [place] [address] Monocytes (Bld) [#/Vol] 2.3 10*3/uL High 0-0.9 [facility] Comment on above: Performed By: #### C BCA, 4679-7, CMP, FEPR, PINR, THYR, 2276- 4, 2284-8, 2132-9, 2692-2, 2777-1 #### [facility] ([id number]) [address], [address] [place] [address] Monocytes/100 WBC (Bld) 10.9 % Normal [facility] Comment on above: Performed By: #### C BCA, 4679-7, CMP, FEPR, PINR, THYR, 2276- 4, 2284-8, 2132-9, 2692-2, 2777-1 #### [facility] ([id number]) [address], [address] [place] [address] Neutrophils/100 WBC (Bld) 82.9 % Normal [facility] Comment on above: Performed By: #### C BCA, 4679-7, CMP, FEPR, PINR, THYR, 2276- 4, 2284-8, 2-9, 2692-2, 2776-1 #### [facility] ([id number]) [address], [address] [place] [address] Platelet mean volume (Bld) [Entitic vol] 8.1 fL Normal 7-12 [facility] Comment on above: Performed By: #### C BCA, 4679-7, CMP, FEPR, PINR, THYR, 2276- 4, 2284-8, 2132-9, 2692-2, 2776-1 #### [facility] ([id number]) [address], [address] [place] [address] Platelets (Bld) [#/Vol] 443 10*3/uL Normal 150-450 [facility] Comment on above: Performed By: #### C BCA, 4679-7, CMP, FEPR, PINR, THYR, 2276- 4, 2284-8, 2132-9, 2692-2, 277-1 #### [facility] ([id number]) [address], [address] [place] [address] POLYCHROMASIA 1+ Abnormal NONE [facility] Comment on above: Performed By: #### C BCA, 4679-7, CMP, FEPR, PINR, THYR, 2276- 4, 2284-8, 2132-9, 2692-2, 2777-1 #### [facility] ([id number]) [address], [address] [place] [address] RBC COUNT 3.51 X10E12/L Low 3.80-5.20 [facility] Comment on above: Performed By: #### C BCA, 4679-7, CMP, FEPR, PINR, THYR, 2276- 4, 2284-8, 2-9, 2692-2, 2777-1 #### [facility] ([id number]) [address], [address] [place] [address] WBC (Bld) [#/Vol] 21.1 10*3/uL High 4.0-11.0 [facility] Comment on above: Performed By: #### C BCA, 4679-7, CMP, FEPR, PINR, THYR, 2276- 4, 4-8, 2-9, 2692-2, 2777-1 #### [facility] ([id number]) [address], [address] [place] [address] COMPREHENSIVE METABOLIC PANE Harley 02-01-2024 Albumin [Mass/Vol] 2.8 g/dL Low 3.2-5.3 [facility] Comment on above: Performed By: #### C BCA, 4679-7, CMP, FEPR, PINR, THYR, 2276- 4, 4-8, 2-9, 2692-2, 2777-1 #### [facility] ([id number]) [address], [address] [place] [address] ALP [Catalytic activity/Vol] 118 U/L Normal 39-130 [facility] Comment on above: Performed By: #### C BCA, 4679-7, CMP, FEPR, PINR, THYR, 2276- 4, 2284-8, 2132-9, 2692-2, 2777-1 #### [facility] ([id number]) [address] [place] [address] ALT [Catalytic activity/Vol] 28 U/L Normal 0-31 [facility] Comment on above: Performed By: #### C BCA, 4679-7, CMP, FEPR, PINR, THYR, 2276- 4, 2284-8, 2132-9, 2692-2, 2777-1 #### [facility] ([id number]) [address] [place] [address] Anion gap [Moles/Vol] 13 mmol/L Normal 5-15 [facility] Comment on above: Performed By: #### C BCA, 4679-7, CMP, FEPR, PINR, THYR, 2276- 4, 2284-8, 2-9, 2692-2, 2777-1 #### [facility] ([id number]) [address] [place] [address] AST [Catalytic activity/Vol] 36 U/L Normal 0-41 [facility] Comment on above: Performed By: #### C BCA, 4679-7, CMP, FEPR, PINR, THYR, 2276- 4, 2284-8, 2132-9, 2692-2, 2777-1 #### [facility] ([id number]) [address], [address] [place] [address] Bilirubin [Mass/Vol] 0.9 mg/dL Normal 0.3-1.2 [facility] Comment on above: Performed By: #### C BCA, 4679-7, CMP, FEPR, PINR, THYR, 2276- 4, 2284-8, 2132-9, 2692-2, 2777-1 #### [facility] ([id number]) [address] [place] [address] Calcium [Mass/Vol] 8.8 mg/dL Normal 8.5-10.5 [facility] Comment on above: Performed By: #### C BCA, 4679-7, CMP, FEPR, PINR, THYR, 2276- 4, 2284-8, 2132-9, 2692-2, 2777-1 #### [facility] ([id number]) [address], [address] [place] [address] Chloride [Moles/Vol] 97 mmol/L Low 98-109 [facility] Comment on above: Performed By: #### C BCA, 4679-7, CMP, FEPR, PINR, THYR, 2276- 4, 2284-8, 2132-9, 2692-2, 2777-1 #### [facility] ([id number]) [address], [address] [place] [address] CO2 [Moles/Vol] 22 mmol/L Normal 22-32 [facility] Comment on above: Performed By: #### C BCA, 4679-7, CMP, FEPR, PINR, THYR, 2276- 4, 2284-8, 2-9, 2692-2, 2777-1 #### [facility] ([id number]) [address], [address] [place] [address] Creatinine [Mass/Vol] 3.39 mg/dL High 0.40-1.00 [facility] Comment on above: Result Comment: METH OD TRACEABLE TO IDMS STANDARD Performed By: #### C BCA, 4679-7, CMP, FEPR, PINR, THYR, 2276-4, 2284-8, 2132-9, 2692-2, 2777-1 #### [facility] ([id number]) [address], [address] [place] [address] GFR/1.73 sq M.predicted among non-blacks MDRD (S/P/Bld) [Vol rate/Area] 13 mL/min/{1.73_m2} Low >59 [facility] Comment on above: Result Comment: Reported eGFR is based on the CKD-EPI 2020 equation that does not use a race coefficient. Performed By: #### C BCA, 4679-7, CMP, FEPR, PINR, THYR, 2276-4, 2284-8, 2132-9, 2692-2, 2777-1 #### [facility] ([id number]) [address], [address] [place] [address] Glucose [Mass/Vol] 99 mg/dL Normal 65-99 [facility] Comment on above: Performed By: #### C BCA, 4679-7, CMP, FEPR, PINR, THYR, 2276- 4, 2284-8, 2-9, 2692-2, 2777-1 #### [facility] ([id number]) [address], [address] [place] [address] Potassium [Moles/Vol] 4.3 mmol/L Normal 3.5-5.0 [facility] Comment on above: Performed By: #### C BCA, 4679-7, CMP, FEPR, PINR, THYR, 2276- 4, 2284-8, 2-9, 2692-2, 2777-1 #### [facility] ([id number]) [address], [address] [place] [address] Protein [Mass/Vol] 5.9 g/dL Low 6.0-8.0 [facility] Comment on above: Performed By: #### C BCA, 4679-7, CMP, FEPR, PINR, THYR, 2276- 4, 2284-8, 2-9, 2692-2, 2777-1 #### [facility] ([id number]) [address] [place] [address] Sodium [Moles/Vol] 132 mmol/L Low 134-146 [facility] Comment on above: Performed By: #### C BCA, 4679-7, CMP, FEPR, PINR, THYR, 2276- 4, 2284-8, 2132-9, 2692-2, 2777-1 #### [facility] ([id number]) [address] [place] [address] Urea nitrogen [Mass/Vol] 58 mg/dL High 5-27 [facility] Comment on above: Performed By: #### C BCA, 4679-7, CMP, FEPR, PINR, THYR, 2276- 4, 2284-8, 2132-9, 2692-2, 2777-1 #### [facility] ([id number]) [address] [place] [address] FERRITINon 02-01-2024 Ferritin [Mass/Vol] 616 ng/mL High 11-307 [facility] Comment on above: Performed By: #### Rob CARRERO, 44586-5 #### [facility] ([id number]) [address] [place] [address] Folate [Mass/Vol]on 02-01-20 24 FOLIC ACID 7.9 ng/mL Normal >5.8 [facility] Comment on above: Result Comment: NEW REFERENCE RANGE Performed By: #### Rob CARRERO, 40951-2 #### [facility] ([id number]) [address], [address] [place] [address] Glucose Glucometer (BldC) [M ass/Vol]on 02-01-2024 Glucose [Mass/Vol] 143 mg/dL High 65-99 [facility] Glucose [Mass/Vol] 86 mg/dL Normal 65-99 [facility] Glucose [Mass/Vol] 84 mg/dL Normal 65-99 [facility] Glucose [Mass/Vol] 103 mg/dL High 65-99 [facility] Glucose [Mass/Vol] 135 mg/dL High 65-99 [facility] Heparin unfractionated Chrom ogenic method Qn (PPP)on 02-01-2024 ANTI XA UFH 0.05 IU/mL Low 0.30-0.70 [facility] Comment on above: Result Comment: Opti mal time for testing is 6 hrs post dosage This test is specific for monitoring patients on UFH, and is not recommended for use with other Anti-Xa medications. Performed By: #### Rob CARRERO, 73938-5 #### [facility] ([id number]) [address], [address] [place] [address] IRON PROFILEon 02-01-2024 Iron [Mass/Vol] 16 ug/dL Low 50-170 [facility] Comment on above: Performed By: #### C GAGE, 4679-7, CMP, FEPR, PINR, THYR, 2276- 4, 2284-8, 2132-9, 2692-2, 2777-1 #### [facility] ([id number]) [address], [address] [place] [address] IRON BINDING 151 ug/dL Low 250-425 [facility] Comment on above: Performed By: #### C BCA, 4679-7, CMP, FEPR, PINR, THYR, 2276- 4, 2284-8, 2132-9, 2692-2, 2777-1 #### [facility] ([id number]) [address], [address] [place] [address] IRON SATURATION 11 % SATURATION Low 15-50 [facility] Comment on above: Performed By: #### C BCA, 4679-7, CMP, FEPR, PINR, THYR, 2276- 4, 2284-8, 2132-9, 2692-2, 2777-1 #### [facility] ([id number]) [address], [address] [place] [address] Osmolality [Osmolality]on OSMOLALITY 296 mOsm/kg H2 Normal 280-300 [facility] Comment on above: Performed By: #### Rob CARRERO, 30520-0 #### [facility] ([id number]) [address] [place] [address] PHOSPHORUSon 02-01-2024 Phosphate [Mass/Vol] 4.0 mg/dL Normal 2.4-4.9 [facility] Comment on above: Performed By: #### C MAGAN, 98554-8 #### [facility] ([id number]) [address], [address] [place] [address] PROTIME AND INRon 02-01-2024 INR Coag (PPP) [Relative time] 1.6 {INR} High 0.8-1.1 [facility] Comment on above: Performed By: #### C MAGAN, 66045-2 #### [facility] ([id number]) [address], [address] [place] [address] PT Coag (PPP) [Time] 18.8 s High 9.8-13.2 [facility] Comment on above: Performed By: #### Rob CARRERO, 20852-9 #### [facility] ([id number]) [address], [address] [place] [address] INR Coag (PPP) [Relative time] 1.8 {INR} High 0.8-1.1 [facility] Comment on above: Performed By: #### C MAGAN, 51937-6 #### [facility] ([id number]) [address], [address] [place] [address] PT Coag (PPP) [Time] 20.1 s High 9.8-13.2 [facility] Comment on above: Performed By: #### C MAGAN, 86664-6 #### [facility] ([id number]) [address], [address] [place] [address] INR Coag (PPP) [Relative time] 2.0 {INR} High 0.8-1.1 [facility] Comment on above: Performed By: #### C BCA, 4679-7, CMP, FEPR, PINR, THYR, 2276- 4, 2284-8, 2132-9, 2692-2, 2777-1 #### [facility] ([id number]) [address], [address] [place] [address] PT Coag (PPP) [Time] 22.9 s High 9.8-13.2 [facility] Comment on above: Performed By: #### C BCA, 4679-7, CMP, FEPR, PINR, THYR, 2276- 4, 2284-8, 2132-9, 2692-2, 2777-1 #### [facility] ([id number]) [address] [place] [address] Reticulocytes/100 RBC (Bld)o n 02-01-2024 RETICULOCYTE COUNT 1.7 % Normal 0.4-2.2 [facility] Comment on above: Performed By: #### C GAGE, 4679-7, CMP, FEPR, PINR, THYR, 2276- 4, 2284-8, 2-9, 2692-2, 2777-1 #### [facility] ([id number]) [address] [place] [address] THYROID PROFILEon 02-01-2024 Free T4 [Mass/Vol] 0.90 ng/dL Normal 0.61-1.60 [facility] Comment on above: Performed By: #### Rob CARRERO, 03318-4 #### [facility] ([id number]) [address] [place] [address] TSH 4.33 uIU/mL Normal 0.49-4.67 [facility] Comment on above: Performed By: #### Rob CARRERO, 32212-5 #### [facility] ([id number]) [address], [address] [place] [address] VITAMIN B12on 02-01-2024 Cobalamin (Vitamin B12) [Mass/Vol] 438 pg/mL Normal 180-914 [facility] Comment on above: Performed By: #### C MAGAN, 41947-5 #### [facility] ([id number]) [address] [place] [address] XR CHEST 1 VWon 02-01-2024 XR CHEST 1 VW XR CHEST 1 VW Single view chest History:elevated WBC, please eval for possible pneumonia as part of infectious workup Difficulty breathing, shortness of breath Comparison: 12/20/2023 Findings: Single portable view of the chest. The jugular catheter in the SVC. There is mild vascular congestion. Trace bilateral pleural effusions and lower lung atelectasis. Impression: Mild vascular congestion and trace bilateral pleural effusions. Bilateral lower lung atelectasis. Finalized by [place] MD on 02/01/2024 8:13 AM Normal [facility] aPTT Coag (PPP) [Time]on aPTT Coag (Bld) [Time] 34 s Normal 26-37 Pr [facility] Comment on above: Performed By: #### Rob CARRERO, 68251-6 #### [facility] ([id number]) [address] [place] [address] BLOOD CULTUREon 01-31-2024 Bacteria identified Aer cx Nom (Bld) CULTURE RESULTS NO GROWTH 5 DAYS Normal [facility] Bacteria identified Aer cx Nom (Bld) SPECIMEN NOTES SUBOPTIMAL VOLUME OF BLOOD COLLECTED, RESULTS MAY BE AFFECTED. CULTURE RESULTS NO GROWTH 5 DAYS Normal [facility] Comment on above: Performed By: #### C BC, 2731-8, BMP, 175-7, 62568-9, 2777-1, 52852-9 #### [facility] ([id number]) [address], [address] [place] [address] CBC AND AUTO DIFFon 01-31-20 24 Anisocytosis Ql (Bld) 2+ Abnormal NONE [facility] Comment on above: Performed By: #### C BC, 2731-8, BMP, 175-7, 17284-5, 2777-1, 07366-3 #### [facility] ([id number]) [address] [place] [address] Band form neutrophils/100 WBC (Bld) 2.0 % Normal [facility] Comment on above: Performed By: #### Rob BC, 2730-8, BMP, 1750-7, 80400-6, 2776-, 28841-9 #### [facility] ([id number]) [address] [address] Erythrocyte distribution width (RBC) [Ratio] 23.0 % High 11.5-15.0 [facility] Comment on above: Performed By: #### Rob NUÑEZ, 2730-8, BMP, 1751-01, , 2776-07, 28653-0 #### [facility] ([id number]) [address] [address] Hematocrit (Bld) [Volume fraction] 31.7 % Low 35-47 [facility] Comment on above: Performed By: #### C SAVANNAH, 2730-8, BMP, 1751-01, , 2776-07, 01749-4 #### [facility] ([id number]) [address] [place] [address] Hemoglobin (Bld) [Mass/Vol] 10.4 g/dL Low 11.7-15.5 [facility] Comment on above: Performed By: #### Rob BC, 2730-8, BMP, 1751-01, , 2776-, 71281-5 #### [facility] ([id number]) [address] [address] Lymphocytes (Bld) [#/Vol] 1.6 10*3/uL Normal 1.0-3.5 [facility] Comment on above: Performed By: #### Rob BC, 2730-8, BMP, 1751-01, 98439-9, 2776-, 11933-0 #### [facility] ([id number]) [address] [place] [address] Lymphocytes/100 WBC (Bld) 6.0 % Normal [facility] Comment on above: Performed By: #### Rob NUÑEZ, 2730-8, BMP, 1750-7, 36669-7, 2776-, 53728-9 #### [facility] ([id number]) [address] [place] [address] MCH (RBC) [Entitic mass] 26.5 pg Low 27-34 [facility] Comment on above: Performed By: #### Rob NUÑEZ, 2730-8, BMP, 1750-, 20661-2, 2776-, 98236-8 #### [facility] ([id number]) [address] [place] [address] MCHC (RBC) [Mass/Vol] 32.7 g/dL Normal 32-36 [facility] Comment on above: Performed By: #### Rob NUÑEZ, 2730-8, BMP, 1750-, 66199-3, 2776-, 68477-3 #### [facility] ([id number]) [address] [place] [address] MCV (RBC) [Entitic vol] 81 fL Normal 80-100 [facility] Comment on above: Performed By: #### Rob BC, 2730-8, BMP, 1750-, 77248-2, 2776-, 57423-5 #### [facility] ([id number]) [address] [place] [address] Monocytes (Bld) [#/Vol] 1.6 10*3/uL High 0-0.9 [facility] Comment on above: Performed By: #### Rob NUÑEZ, 2730-8, BMP, 1750-7, 64228-8, 2776-, 47043-5 #### [facility] ([id number]) [address] [place] [address] Monocytes/100 WBC (Bld) 6.0 % Normal [facility] Comment on above: Performed By: #### Rob NUÑEZ, 2730-8, BMP, 1750-7, 59468-1, 2776-1, 77466-0 #### [facility] ([id number]) [address] [place] [address] Neutrophils (Bld) [#/Vol] 23.2 10*3/uL High 1.5-6.6 [facility] Comment on above: Performed By: #### Rob NUÑEZ, 2730-8, BMP, 1750-, 26937-2, 2776-, 16061-6 #### [facility] ([id number]) [address] [place] [address] Platelet mean volume (Bld) [Entitic vol] 7.9 fL Normal 7-12 [facility] Comment on above: Performed By: #### Rob NUÑEZ, 2730-8, BMP, 1751-01, , 2776-, 89621-4 #### [facility] ([id number]) [address] [place] [address] Platelets (Bld) [#/Vol] 555 10*3/uL High 150-450 [facility] Comment on above: Performed By: #### Rob NUÑEZ, 2730-8, BMP, 1750-, 46393-6, 2776-, 81831-3 #### [facility] ([id number]) [address] [place] [address] RBC COUNT 3.91 X10E12/L Normal 3.80-5.20 [facility] Comment on above: Performed By: #### Rob NUÑEZ, 2730-8, BMP, 1751-01, , 2776-, 27487-4 #### [facility] ([id number]) [address] [place] [address] SEG NEUTROPHIL 86.0 % Normal [facility] Comment on above: Performed By: #### C BC, 1-8, BMP, 1750-7, 49126-4, 2776-1, 30576-3 #### [facility] ([id number]) [address] [place] [address] WBC (Bld) [#/Vol] 26.4 10*3/uL High 4.0-11.0 [facility] Comment on above: Performed By: #### C SAVANNAH, 2730-8, BMP, 1750-, 75453-1, 2776-, 49410-8 #### [facility] ([id number]) [address] [place] [address] COMPREHENSIVE METABOLIC PANE Harley 01-31-2024 Albumin [Mass/Vol] 2.7 g/dL Low 3.2-5.3 [facility] Comment on above: Performed By: #### Ash ALBU #### [facility] ([id number]) [address] [place] [address] ALP [Catalytic activity/Vol] 151 U/L High 39-130 [facility] Comment on above: Performed By: #### Ash ALBU #### [facility] ([id number]) [address] [place] [address] ALT [Catalytic activity/Vol] 41 U/L High 0-31 [facility] Comment on above: Performed By: #### Ash ALBU #### [facility] ([id number]) [address] [place] [address] Anion gap [Moles/Vol] 12 mmol/L Normal 5-15 [facility] Comment on above: Performed By: #### M ALBU #### [facility] ([id number]) [address] [place] [address] AST [Catalytic activity/Vol] 57 U/L High 0-41 [facility] Comment on above: Performed By: #### M ALBU #### [facility] ([id number]) [address] [place] [address] Bilirubin [Mass/Vol] 0.7 mg/dL Normal 0.3-1.2 [facility] Comment on above: Performed By: #### M ALBU #### [facility] ([id number]) [address] [place] [address] Calcium [Mass/Vol] 8.6 mg/dL Normal 8.5-10.5 [facility] Comment on above: Performed By: #### M ALBU #### [facility] ([id number]) [address] [place] [address] Chloride [Moles/Vol] 96 mmol/L Low 98-109 [facility] Comment on above: Performed By: #### M ALBU #### [facility] ([id number]) [address] [place] [address] CO2 [Moles/Vol] 20 mmol/L Low 22-32 [facility] Comment on above: Performed By: #### M ALBU #### [facility] ([id number]) [address] [place] [address] Creatinine [Mass/Vol] 3.67 mg/dL High 0.40-1.00 [facility] Comment on above: Result Comment: METH OD TRACEABLE TO IDMS STANDARD Performed By: #### M ALBU #### [facility] ([id number]) [address] [place] [address] GFR/1.73 sq M.predicted among non-blacks MDRD (S/P/Bld) [Vol rate/Area] 12 mL/min/{1.73_m2} Low >59 [facility] Comment on above: Result Comment: Reported eGFR is based on the CKD-EPI 2020 equation that does not use a race coefficient. Performed By: #### M ALBU #### [facility] ([id number]) [address] [place] [address] Glucose [Mass/Vol] 148 mg/dL High 65-99 [facility] Comment on above: Performed By: #### M ALBU #### [facility] ([id number]) [address] [place] [address] Potassium [Moles/Vol] 4.6 mmol/L Normal 3.5-5.0 [facility] Comment on above: Performed By: #### M ALBU #### [facility] ([id number]) [address] [place] [address] Protein [Mass/Vol] 7.1 g/dL Normal 6.0-8.0 [facility] Comment on above: Performed By: #### M ALBU #### [facility] ([id number]) [address] [place] [address] Sodium [Moles/Vol] 128 mmol/L Low 134-146 [facility] Comment on above: Performed By: #### M ALBU #### [facility] ([id number]) [address] [place] [address] Urea nitrogen [Mass/Vol] 61 mg/dL High 5-27 [facility] Comment on above: Performed By: #### M ALBU #### [facility] ([id number]) [address] [place] [address] CT ABDOMEN AND PELVIS W CONT on 01-31-2024 CT ABDOMEN AND PELVIS W CONT CT ABDOMEN AND PELVIS W CONT History: Fever, sacral lesion. Exam: CT abdomen pelvis with contrast 100 ml O[address]ip[address] All CT scans at this facility use dose modulation, iterative reconstruction, and/or weight based dosing when appropriate to reduce radiation dose to as low as reasonably achievable. Comparison: None CT abdomen with contrast: Liver, spleen, pancreas, adrenal glands and kidneys are within normal limits. No free intraperitoneal air or fluid. No enlarged lymph nodes. The gallbladder is unremarkable for CT technique. No abdominal aortic aneurysm. CT pelvis with contrast: No dilated bowel loops or pericolonic fat stranding. No enlarged pelvic or inguinal lymph nodes. No urinary tract obstruction or osseous lesions. Small focus of subcutaneous fat stranding, subcutaneous air in the mid low back posterior to the lumbosacral junction. Minimal fat stranding along the superior articular gluteal fold posterior to the coccyx. No abscess formation. No osseous destruction. No subcutaneous lesions identified lateral to the right hip, though portions of the soft tissues extending the on the [id number]. Large patient body habitus. Impression: Findings consistent with subcutaneous lesions in the mid low back, sacral decubitus region without evidence for focal abscess. Finalized by Huber Lima MD on 01/31/2024 8:36 PM Normal [facility] Lactate (P jose d) [Moles/Vol]o n 01-31-2024 LACTATE W/REFLEX 1.9 mmol/L Normal 0.4-2.0 [facility] Comment on above: Result Comment: Result did not trigger repeat Lactate, re-order if needed. Performed By: #### M ALBU #### [facility] ([id number]) [address], [address] [place] [address] MAGNESIUMon 01-31-2024 Magnesium [Mass/Vol] 1.8 mg/dL Normal 1.8-2.6 [facility] Comment on above: Performed By: #### M ALBU #### [facility] ([id number]) [address], [address] [place] [address] PROTIME AND INRon 01-31-2024 INR Coag (PPP) [Relative time] 2.4 {INR} High 0.8-1.1 [facility] Comment on above: Performed By: #### M ALBU #### [facility] ([id number]) [address], [address] [place] [address] PT Coag (PPP) [Time] 27.0 s High 9.8-13.2 [facility] Comment on above: Result Comment: NEW REFERENCE RANGE Performed By: #### M ALBU #### [facility] ([id number]) [address] [place] [address] Procalcitonin IA [Mass/Vol]o n 01-31-2024 PROCALCITONIN 2.17 ng/mL High <0.05 [facility] Comment on above: Result Comment: NOTE <0.50 ng/mL - Low risk of severe sepsis and/or septic shock. <2.00 ng/mL - Recommend retesting within 6-24 hours. >2.00 ng/mL - High risk of sepsis and/or septic shock. Performed By: #### C SAVANNAH, 2731-8, JOHNY, 7, 10100-0, 2777-1, 27763-6 #### [facility] ([id number]) [address] [place] [address], [address] [place] [id number] Troponin I.cardiac High sens itivity method [Mass/Vol]on 01-31-2024 1 HOUR TROP I, HIGH SENSITIVITY 30 ng/L High <16 [facility] Comment on above: Result Comment: Elevations of hs-Troponin may be due to causes other than myocardial ischemia. Recommend serial hs-Troponin testing be performed. For the initial evaluation and management of chest pain patients, refer to the algorithms linked below. Emergency Patient: [email or web address] Inpatient: [email or web address] Performed By: #### C BC, 2731-8, BMP, 1751-01, , 2776-1, 95321-1 #### [facility] ([id number]) [address] [address] TROPONIN I, HIGH SENSITIVITY 31 ng/L High <16 [facility] Comment on above: Result Comment: Elevations of hs-Troponin may be due to causes other than myocardial ischemia. Recommend serial hs-Troponin testing be performed. For the initial evaluation and management of chest pain patients, refer to the algorithms linked below. Emergency Patient: [email or web address] uh=[email or web address] Inpatient: [email or web address] uh=[email or web address] Performed By: #### C BC, 2731-8, BMP, 1750-7, 57660-1, 2776-1, 34736-1 #### [facility] ([id number]) [address] [address] aPTT Coag (PPP) [Time]on aPTT Coag (Bld) [Time] 39 s High 26-37 [facility] Comment on above: Result Comment: NEW REFERENCE RANGE Performed By: #### M ALBU #### [facility] ([id number]) [address] [address] COMPLETE BLOOD COUNTon 01-20 Erythrocyte distribution width (RBC) [Ratio] 23.1 % High 11.5-15.0 [facility] Comment on above: Performed By: #### U A #### [facility] ([id number]) [address] [place] [address], [place] [address] #### LANI #### [facility] ([id number]) [address] [address] Hematocrit (Bld) [Volume fraction] 33.0 % Low 35-47 [facility] Comment on above: Performed By: #### U A #### [facility] ([id number]) [address] [place] [address] #### VYBU #### [facility] ([id number]) [address] [place] [address] Hemoglobin (Bld) [Mass/Vol] 10.7 g/dL Low 11.7-15.5 [facility] Comment on above: Performed By: #### U A #### [facility] ([id number]) [address] [place] [address] #### VYBU #### [facility] ([id number]) [address] [place] [address] MCH (RBC) [Entitic mass] 26.5 pg Low 27-34 [facility] Comment on above: Performed By: #### U A #### [facility] ([id number]) [address] [place] [address] #### VYBU #### [facility] ([id number]) [address] [place] [address] MCHC (RBC) [Mass/Vol] 32.3 g/dL Normal 32-36 [facility] Comment on above: Performed By: #### U A #### [facility] ([id number]) [address] [place] [address] #### MALBU #### [facility] ([id number]) [address] [place] [address] MCV (RBC) [Entitic vol] 82 fL Normal 80-100 [facility] Comment on above: Performed By: #### U A #### [facility] ([id number]) [address] [place] [address], [place] [address] #### MALBU #### [facility] ([id number]) [address] [place] [address] Platelet mean volume (Bld) [Entitic vol] 8.5 fL Normal 7-12 [facility] Comment on above: Performed By: #### U A #### [facility] ([id number]) [address] [place] [address] #### MALBU #### [facility] ([id number]) [address] [place] [address] Platelets (Bld) [#/Vol] 357 10*3/uL Normal 150-450 [facility] Comment on above: Performed By: #### U A #### [facility] ([id number]) [address] [place] [address] #### MALBU #### [facility] ([id number]) [address] [place] [address] RBC COUNT 4.02 X10E12/L Normal 3.80-5.20 [facility] Comment on above: Performed By: #### U A #### [facility] ([id number]) [address] [place] [address] #### MALBU #### [facility] ([id number]) [address] [place] [address] WBC (Bld) [#/Vol] 15.6 10*3/uL High 4.0-11.0 [facility] Comment on above: Performed By: #### U A #### [facility] ([id number]) [address] [place] [address] #### MALBU #### [facility] ([id number]) [address], [address] [place] [address] COMPREHENSIVE METABOLIC PANE Harley 01-21-2024 Albumin [Mass/Vol] 3.2 g/dL Normal 3.2-5.3 [facility] Comment on above: Performed By: #### M ALBU #### [facility] ([id number]) [address], [address] [place] [address] ALP [Catalytic activity/Vol] 118 U/L Normal 39-130 [facility] Comment on above: Performed By: #### M ALBU #### [facility] ([id number]) [address], [address] [place] [address] ALT [Catalytic activity/Vol] 24 U/L Normal 0-31 [facility] Comment on above: Performed By: #### M ALBU #### [facility] ([id number]) [address], [address] [place] [address] Anion gap [Moles/Vol] 12 mmol/L Normal 5-15 [facility] Comment on above: Performed By: #### M ALBU #### [facility] ([id number]) [address], [address] [place] [address] AST [Catalytic activity/Vol] 26 U/L Normal 0-41 [facility] Comment on above: Performed By: #### M ALBU #### [facility] ([id number]) [address] [place] [address] Bilirubin [Mass/Vol] 0.8 mg/dL Normal 0.3-1.2 [facility] Comment on above: Performed By: #### M ALBU #### [facility] ([id number]) [address], [address] [place] [address] Calcium [Mass/Vol] 8.7 mg/dL Normal 8.5-10.5 [facility] Comment on above: Performed By: #### M ALBU #### [facility] ([id number]) [address] [place] [address] Chloride [Moles/Vol] 93 mmol/L Low 98-109 [facility] Comment on above: Performed By: #### M ALBU #### [facility] ([id number]) [address] [place] [address] CO2 [Moles/Vol] 25 mmol/L Normal 22-32 [facility] Comment on above: Performed By: #### M ALBU #### [facility] ([id number]) [address] [place] [address] Creatinine [Mass/Vol] 2.85 mg/dL High 0.40-1.00 [facility] Comment on above: Result Comment: METH OD TRACEABLE TO IDMS STANDARD Performed By: #### M ALBU #### [facility] ([id number]) [address], [address] [place] [address] GFR/1.73 sq M.predicted among non-blacks MDRD (S/P/Bld) [Vol rate/Area] 16 mL/min/{1.73_m2} Low >59 [facility] Comment on above: Result Comment: Reported eGFR is based on the CKD-EPI 2020 equation that does not use a race coefficient. Performed By: #### M ALBU #### [facility] ([id number]) [address] [place] [address] Glucose [Mass/Vol] 246 mg/dL High 65-99 [facility] Comment on above: Performed By: #### M ALBU #### [facility] ([id number]) [address] [place] [address] Potassium [Moles/Vol] 4.5 mmol/L Normal 3.5-5.0 [facility] Comment on above: Performed By: #### M ALBU #### [facility] ([id number]) [address] [place] [address] Protein [Mass/Vol] 7.4 g/dL Normal 6.0-8.0 [facility] Comment on above: Performed By: #### M ALBU #### [facility] ([id number]) [address] [place] [address] Sodium [Moles/Vol] 130 mmol/L Low 134-146 [facility] Comment on above: Performed By: #### M ALBU #### [facility] ([id number]) [address] [place] [address] Urea nitrogen [Mass/Vol] 36 mg/dL High 5-27 [facility] Comment on above: Performed By: #### M ALBU #### [facility] ([id number]) [address] [place] [address] CT PELVIS WO CONTon 01-21-[address] PELVIS WO CONT CT PELVIS WO CONT History: Soft tissue mass in groin. Bilateral hips and coccyx. Exam/Technique: Contiguous axial images are obtained of the CT pelvis without intravenous contrast. Coronal and sagittal reconstructions were performed and reviewed. Automatic dose exposure reduction technique utilized. Comparison: 03/11/2021 Findings: Soft tissues demonstrate no obvious large hernias or masses or fluid collections to the limits of the examination. Specific reference to the groin demonstrates no adenopathy or hernias. Extensive vascular calcification noted. Visualized bones demonstrate degenerative changes in the spinal column as well as in the hip joints and SI joints. No abdominal structures demonstrate no acute abnormality. There is a low lying right kidney. There is no internal pelvic mass or fluid collection noted. The uterus is surgically absent. Phleboliths are noted in the pelvis. Pelvic floor laxity is likely. IMPRESSION: No significant mass in the soft tissues or within the deep pelvis noted. No osseous abnormality of an acute nature. All CT scans at this facility use dose modulation, iterative reconstruction, and/or weight based dosing when appropriate to reduce radiation dose to as low as reasonably achievable. Finalized by Mario Bowling MD on 01/21/2024 7:55 PM Normal [facility] DIFFERENTIALon 01-21-2024 ABSOLUTE BASOPHIL 0.1 X10E9/L Normal 0.0-0.2 [facility] Comment on above: Performed By: #### M ALBU #### [facility] ([id number]) [address] [place] [address] ABSOLUTE NEUTROPHIL 13.0 X10E9/L High 1.5-6.6 [facility] Comment on above: Performed By: #### M ALBU #### [facility] ([id number]) [address] [place] [address] Basophils/100 WBC (Bld) 0.4 % Normal [facility] Comment on above: Performed By: #### M ALBU #### [facility] ([id number]) [address] [place] [address] Eosinophils (Bld) [#/Vol] 0.3 10*3/uL Normal 0.0-0.4 [facility] Comment on above: Performed By: #### M ALBU #### [facility] ([id number]) [address] [place] [address] Eosinophils/100 WBC (Bld) 2.1 % Normal [facility] Comment on above: Performed By: #### M ALBU #### [facility] ([id number]) [address] [place] [address] Lymphocytes (Bld) [#/Vol] 0.9 10*3/uL Low 1.0-3.5 [facility] Comment on above: Performed By: #### M ALBU #### [facility] ([id number]) [address] [place] [address] Lymphocytes/100 WBC (Bld) 6.1 % Normal [facility] Comment on above: Performed By: #### M ALBU #### [facility] ([id number]) [address] [place] [address] Monocytes (Bld) [#/Vol] 1.2 10*3/uL High 0-0.9 [facility] Comment on above: Performed By: #### M ALBU #### [facility] ([id number]) [address] [place] [address] Monocytes/100 WBC (Bld) 7.6 % Normal [facility] Comment on above: Performed By: #### M ALBU #### [facility] ([id number]) [address] [place] [address] Neutrophils/100 WBC (Bld) 83.8 % Normal [facility] Comment on above: Performed By: #### M ALBU #### [facility] ([id number]) [address] [place] [address] PROTIME AND INRon 01-21-2024 INR Coag (PPP) [Relative time] 2.8 {INR} High 0.8-1.1 [facility] Comment on above: Performed By: #### M ALBU #### [facility] ([id number]) [address] [place] [address] PT Coag (PPP) [Time] 31.9 s High 9.8-13.2 [facility] Comment on above: Result Comment: NEW REFERENCE RANGE Performed By: #### M ALBU #### [facility] ([id number]) [address] [place] [address] aPTT Coag (PPP) [Time]on aPTT Coag (Bld) [Time] 49 s High 26-37 [facility] Comment on above: Result Comment: NEW REFERENCE RANGE Performed By: #### M ALBU #### [facility] ([id number]) [address] [facility] [place] [address] HBV core Ab IA Qlon 01-01-20 ANTI HBc Negative Normal NEG [facility] Comment on above: Performed By: #### U A #### [facility] ([id number]) [address] [place] [address] #### LANI #### [facility] ([id number]) [address] [facility] [facility] [place] [address] HBV surface Ab IA Qnon 12-31 Anti HBs quant. <8.00 Normal [facility] Comment on above: Result Comment: Vacc inated: >=12mIU/mL, Positive (Immune) Unvaccinated: <8mIU/mL, Negative (Not Immune) 8-11.99 mIU/mL: Indeterminate, (Considered Not Immune) Performed By: #### U A #### [facility] ([id number]) [address] [place] [address] #### LANI #### [facility] ([id number]) [address] [place] [address], [address] [place] [address] QUANTIFERON TB GOLDon 2023 MITOGEN MINUS NIL 5.60 IU/mL Normal >=0.50 [facility] Comment on above: Performed By: #### U A #### [facility] ([id number]) [address] [place] [address] #### LNAI #### [facility] ([id number]) [address] [place] [address], [address] [place] [address] NIL RESULT 0.03 IU/mL Normal <=8.00 [facility] Comment on above: Performed By: #### U A #### [facility] ([id number]) [address] [place] [address] #### LANI #### [facility] ([id number]) [address] [place] [address] TB INTERPRETATION See below Normal [facility] Comment on above: Result Comment: NOTE Infection with M. tuberculosis complex is unlikely. If latent tuberculosis infection is highly suspected, a negative result does not rule out the infection. Specimens from immunocompromised patients and those <5 years of age may show false negative results. In case of a contact investigation, please repeat 8-12 weeks after a known exposure. Test Performed By: [place] [address] Juke Box Mechanic: Natividad Overton III #[id number] Performed By: #### U A #### [facility] ([id number]) [address] [place] [address] #### MALBU #### [facility] ([id number]) [address] [facility] [place] [address] TB RESULT Negative Normal [facility] Comment on above: Performed By: #### U A #### [facility] ([id number]) [address] [place] [address] #### MALBU #### [facility] ([id number]) [address] [place] [address] TB1 AG MINUS NIL 0.01 IU/mL Normal <0.35 [facility] Comment on above: Performed By: #### U A #### [facility] ([id number]) [address] [place] [address] #### MALBU #### [facility] ([id number]) [address] [place] [address] TB2 AG MINUS NIL 0.00 IU/mL Normal <0.35 [facility] Comment on above: Performed By: #### U A #### [facility] ([id number]) [address] [place] [address] #### MALBU #### [facility] ([id number]) [address] [place] [address] CBC AND AUTO DIFFon 12-25-19 24 ABSOLUTE BASOPHIL 0.1 X10E9/L Normal 0.0-0.2 [facility] Comment on above: Performed By: #### U A #### [facility] ([id number]) [address] [place] [address] #### MALBU #### [facility] ([id number]) [address] [place] [address] ABSOLUTE NEUTROPHIL 10.7 X10E9/L High 1.5-6.6 [facility] Comment on above: Performed By: #### U A #### [facility] ([id number]) [address] [place] [address] #### MALBU #### [facility] ([id number]) [address] [facility] [place] [address] Basophils/100 WBC (Bld) 0.4 % Normal [facility] Comment on above: Performed By: #### U A #### [facility] ([id number]) [address] [place] [address] #### MALBU #### [facility] ([id number]) [address] [place] [address] Eosinophils (Bld) [#/Vol] 0.6 10*3/uL High 0.0-0.4 [facility] Comment on above: Performed By: #### U A #### [facility] ([id number]) [address] [place] [address] #### MALBU #### [facility] ([id number]) [address] [place] [address] Eosinophils/100 WBC (Bld) 4.5 % Normal [facility] Comment on above: Performed By: #### U A #### [facility] ([id number]) [address] [place] [address] #### LANI #### [facility] ([id number]) [address], [facility] [address] [place] [address] Erythrocyte distribution width (RBC) [Ratio] 20.6 % High 11.5-15.0 [facility] Comment on above: Performed By: #### U A #### [facility] ([id number]) [address] [place] [address] #### LANI #### [facility] ([id number]) [address] [place] [address] Hematocrit (Bld) [Volume fraction] 30.2 % Low 35-47 [facility] Comment on above: Performed By: #### U A #### [facility] ([id number]) [address] [place] [address] #### LANI #### [facility] ([id number]) [address] [place] [address] Hemoglobin (Bld) [Mass/Vol] 9.4 g/dL Low 11.7-15.5 [facility] Comment on above: Performed By: #### U A #### [facility] ([id number]) [address] [place] [address] #### LANI #### [facility] ([id number]) [address] [facility] [address] [place] [address] Lymphocytes (Bld) [#/Vol] 1.3 10*3/uL Normal 1.0-3.5 [facility] Comment on above: Performed By: #### U A #### [facility] ([id number]) [address] [place] [address] #### LANI #### [facility] ([id number]) [address] [place] [address] Lymphocytes/100 WBC (Bld) 9.7 % Normal [facility] Comment on above: Performed By: #### U A #### [facility] ([id number]) [address] [place] [address] #### LANI #### [facility] ([id number]) [address] [place] [address] MCH (RBC) [Entitic mass] 25.5 pg Low 27-34 [facility] Comment on above: Performed By: #### U A #### [facility] ([id number]) [address] [place] [address] #### LANI #### [facility] ([id number]) [address] [place] [address] MCHC (RBC) [Mass/Vol] 31.0 g/dL Low 32-36 [facility] Comment on above: Performed By: #### U A #### [facility] ([id number]) [address] [place] [address] #### LANI #### [facility] ([id number]) [address] [place] [address] MCV (RBC) [Entitic vol] 82 fL Normal 80-100 [facility] Comment on above: Performed By: #### U A #### [facility] ([id number]) [address] [place] [address] #### LANI #### [facility] ([id number]) [address] [place] [address] Monocytes (Bld) [#/Vol] 1.1 10*3/uL High 0-0.9 [facility] Comment on above: Performed By: #### U A #### [facility] ([id number]) [address] [place] [address] #### VYBU #### [facility] ([id number]) [address] [place] [address] Monocytes/100 WBC (Bld) 8.0 % Normal [facility] Comment on above: Performed By: #### U A #### [facility] ([id number]) [address] [place] [address] #### LANI #### [facility] ([id number]) [address] [facility] [place] [address] Neutrophils/100 WBC (Bld) 77.4 % Normal [facility] Comment on above: Performed By: #### U A #### [facility] ([id number]) [address] [place] [address] #### LANI #### [facility] ([id number]) [address] [place] [address] Platelet mean volume (Bld) [Entitic vol] 9.1 fL Normal 7-12 [facility] Comment on above: Performed By: #### U A #### [facility] ([id number]) [address] [place] [address] #### VYBU #### [facility] ([id number]) [address] [place] [address] Platelets (Bld) [#/Vol] 354 10*3/uL Normal 150-450 [facility] Comment on above: Performed By: #### U A #### [facility] ([id number]) [address] [place] [address] #### MALBU #### [facility] ([id number]) [address] [facility], [address] [place] [address] RBC COUNT 3.67 X10E12/L Low 3.80-5.20 [facility] Comment on above: Performed By: #### U A #### [facility] ([id number]) [address] [place] [address] #### MALBU #### [facility] ([id number]) [address] [place] [address], [address] [place] [address] WBC (Bld) [#/Vol] 13.9 10*3/uL High 4.0-11.0 [facility] Comment on above: Performed By: #### U A #### [facility] ([id number]) [address] [place] [address] #### VYBU #### [facility] ([id number]) [address] [place] [address], [address] [place] [address] COMPREHENSIVE METABOLIC PANE Harley 12-25-2023 Albumin [Mass/Vol] 3.3 g/dL Normal 3.2-5.3 [facility] Comment on above: Performed By: #### U A #### [facility] ([id number]) [address] [place] [address] #### MALBU #### [facility] ([id number]) [address] [place] [address], [address] [place] [address] ALP [Catalytic activity/Vol] 94 U/L Normal 39-130 [facility] Comment on above: Performed By: #### U A #### [facility] ([id number]) [address] [place] [address] #### MALBU #### [facility] ([id number]) [address] [place] [address] ALT [Catalytic activity/Vol] 14 U/L Normal 0-31 [facility] Comment on above: Performed By: #### U A #### [facility] ([id number]) [address] [place] [address] #### MALBU #### [facility] ([id number]) [address] [place] [address] Anion gap [Moles/Vol] 12 mmol/L Normal 5-15 [facility] Comment on above: Performed By: #### U A #### [facility] ([id number]) [address] [place] [address] #### VYBU #### [facility] ([id number]) [address], [address] [place] [address] AST [Catalytic activity/Vol] 15 U/L Normal 0-41 [facility] Comment on above: Performed By: #### U A #### [facility] ([id number]) [address] [place] [address] #### LANI #### [facility] ([id number]) [address], [address] [place] [address] Bilirubin [Mass/Vol] 0.8 mg/dL Normal 0.3-1.2 [facility] Comment on above: Performed By: #### U A #### [facility] ([id number]) [address] [place] [address] #### MALBU #### [facility] ([id number]) [address] [place] [address] Calcium [Mass/Vol] 9.6 mg/dL Normal 8.5-10.5 [facility] Comment on above: Performed By: #### U A #### [facility] ([id number]) [address] [place] [address] #### MALBU #### [facility] ([id number]) [address], [address] [place] [address] Chloride [Moles/Vol] 98 mmol/L Normal 98-109 [facility] Comment on above: Performed By: #### U A #### [facility] ([id number]) [address] [place] [address] #### MALBU #### [facility] ([id number]) [address] [facility], [address] [place] [address] CO2 [Moles/Vol] 30 mmol/L Normal 22-32 [facility] Comment on above: Performed By: #### U A #### [facility] ([id number]) [address] [place] [address] #### VYBU #### [facility] ([id number]) [address] [facility], [address] [place] [address] Creatinine [Mass/Vol] 3.65 mg/dL High 0.40-1.00 [facility] Comment on above: Result Comment: METH OD TRACEABLE TO IDMS STANDARD Performed By: #### U A #### [facility] ([id number]) [address] [place] [address] 55474 #### VYBU #### [facility] ([id number]) [address], [address] [place] [address] GFR/1.73 sq M.predicted among non-blacks MDRD (S/P/Bld) [Vol rate/Area] 12 mL/min/{1.73_m2} Low >59 [facility] Comment on above: Result Comment: Reported eGFR is based on the CKD-EPI 2020 equation that does not use a race coefficient. Performed By: #### U A #### [facility] ([id number]) [address] [place] [address] 41603 #### MALBU #### [facility] ([id number]) [address], [address] [place] [address] Glucose [Mass/Vol] 132 mg/dL High 65-99 [facility] Comment on above: Performed By: #### U A #### [facility] ([id number]) [address] [place] [address] 13891 #### MALBU #### [facility] ([id number]) [address], [address] [place] [address] Potassium [Moles/Vol] 4.5 mmol/L Normal 3.5-5.0 [facility] Comment on above: Performed By: #### U A #### [facility] ([id number]) [address] [place] [address] 32629 #### MALBU #### [facility] ([id number]) [address], [address] [place] [address] Protein [Mass/Vol] 6.5 g/dL Normal 6.0-8.0 [facility] Comment on above: Performed By: #### U A #### [facility] ([id number]) [address] [place] [address] 38743 #### MALBU #### [facility] ([id number]) [address], [address] [place] [address] Sodium [Moles/Vol] 140 mmol/L Normal 134-146 [facility] Comment on above: Performed By: #### U A #### [facility] ([id number]) [address] [place] [address] 18046 #### MALBU #### [facility] ([id number]) [address] [place] [address] Urea nitrogen [Mass/Vol] 81 mg/dL High 5-27 [facility] Comment on above: Performed By: #### U A #### [facility] ([id number]) [address] [place] [address] 02012 #### MALBU #### [facility] ([id number]) [address] [place] [address] Glucose Glucometer (BldC) [M ass/Vol]on 12-25-2023 Glucose [Mass/Vol] 131 mg/dL High 65-99 [facility] PHOSPHORUSon 12-25-2023 Phosphate [Mass/Vol] 4.3 mg/dL Normal 2.4-4.9 [facility] Comment on above: Performed By: #### U A #### [facility] ([id number]) [address] [place] [address] 54666 #### LANI #### [facility] ([id number]) [address], [address] [place] [address] PROTIME AND INRon 12-25-2023 INR Coag (PPP) [Relative time] 2.8 {INR} High 0.8-1.1 [facility] Comment on above: Performed By: #### U A #### [facility] ([id number]) [address] [place] [address] 48962 #### VYBU #### [facility] ([id number]) [address], [address] [place] [address] PT Coag (PPP) [Time] 31.4 s High 9.8-13.2 [facility] Comment on above: Result Comment: NEW REFERENCE RANGE Performed By: #### U A #### [facility] ([id number]) [address] [place] [address] 12878 #### MALBU #### [facility] ([id number]) [address], [address] [place] [address] CBC AND AUTO DIFFon 05-30-20 24 ABSOLUTE BASOPHIL 0.1 X10E9/L Normal 0.0-0.2 [facility] Comment on above: Performed By: #### U A #### [facility] ([id number]) [address] [place] [address] 66103 #### MALBU #### [facility] ([id number]) [address], [address] [place] [address] ABSOLUTE NEUTROPHIL 10.0 X10E9/L High 1.5-6.6 [facility] Comment on above: Performed By: #### U A #### [facility] ([id number]) [address] [place] [address] 30534 #### MALBU #### [facility] ([id number]) [address] [place] [address] Basophils/100 WBC (Bld) 0.5 % Normal [facility] Comment on above: Performed By: #### U A #### [facility] ([id number]) [address] [place] [address] 80577 #### MALBU #### [facility] ([id number]) [address] [place] [address] Eosinophils (Bld) [#/Vol] 0.5 10*3/uL High 0.0-0.4 [facility] Comment on above: Performed By: #### U A #### [facility] ([id number]) [address] [place] [address] 41415 #### MALBU #### [facility] ([id number]) [address], [address] [place] [address] Eosinophils/100 WBC (Bld) 4.0 % Normal [facility] Comment on above: Performed By: #### U A #### [facility] ([id number]) [address] [place] [address] 35587 #### LANI #### [facility] ([id number]) [address], [address] [place] [address] Erythrocyte distribution width (RBC) [Ratio] 21.2 % High 11.5-15.0 [facility] Comment on above: Performed By: #### U A #### [facility] ([id number]) [address] [place] [address] 23675 #### LANI #### [facility] ([id number]) [address], [address] [place] [address] Hematocrit (Bld) [Volume fraction] 28.6 % Low 35-47 [facility] Comment on above: Performed By: #### U A #### [facility] ([id number]) [address] [place] [address] 38449 #### LANI #### [facility] ([id number]) [address] [place] [address] Hemoglobin (Bld) [Mass/Vol] 8.9 g/dL Low 11.7-15.5 [facility] Comment on above: Performed By: #### U A #### [facility] ([id number]) [address] [place] [address] 27858 #### LANI #### [facility] ([id number]) [address], [address] [place] [address] Lymphocytes (Bld) [#/Vol] 1.3 10*3/uL Normal 1.0-3.5 [facility] Comment on above: Performed By: #### U A #### [facility] ([id number]) [address] [place] [address] 96604 #### MALBU #### [facility] ([id number]) [address] [place] [address] Lymphocytes/100 WBC (Bld) 10.1 % Normal [facility] Comment on above: Performed By: #### U A #### [facility] ([id number]) [address] [place] [address] 20011 #### MALBU #### [facility] ([id number]) [address], [address] [place] [address] MCH (RBC) [Entitic mass] 25.4 pg Low 27-34 [facility] Comment on above: Performed By: #### U A #### [facility] ([id number]) [address] [place] [address] 09801 #### MALBU #### [facility] ([id number]) [address], [address] [place] [address] MCHC (RBC) [Mass/Vol] 31.0 g/dL Low 32-36 [facility] Comment on above: Performed By: #### U A #### [facility] ([id number]) [address] [place] [address] 49434 #### MALBU #### [facility] ([id number]) [address], [address] [place] [address] MCV (RBC) [Entitic vol] 82 fL Normal 80-100 [facility] Comment on above: Performed By: #### U A #### [facility] ([id number]) [address] [place] [address] 60332 #### MALBU #### [facility] ([id number]) [address] [place] [address] Monocytes (Bld) [#/Vol] 1.1 10*3/uL High 0-0.9 [facility] Comment on above: Performed By: #### U A #### [facility] ([id number]) [address] [place] [address] 45395 #### VYBU #### [facility] ([id number]) [address], [address] [place] [address] Monocytes/100 WBC (Bld) 8.7 % Normal [facility] Comment on above: Performed By: #### U A #### [facility] ([id number]) [address] [place] [address] 27370 #### VYBU #### [facility] ([id number]) [address], [address] [place] [address] Neutrophils/100 WBC (Bld) 76.7 % Normal [facility] Comment on above: Performed By: #### U A #### [facility] ([id number]) [address] [place] [address] 44108 #### LANI #### [facility] ([id number]) [address], [address] [place] [address] Platelet mean volume (Bld) [Entitic vol] 8.9 fL Normal 7-12 [facility] Comment on above: Performed By: #### U A #### [facility] ([id number]) [address] [place] [address] 40646 #### MALBU #### [facility] ([id number]) [address], [address] [place] [address] Platelets (Bld) [#/Vol] 345 10*3/uL Normal 150-450 [facility] Comment on above: Performed By: #### U A #### [facility] ([id number]) [address] [place] [address] 35554 #### MALBU #### [facility] ([id number]) [address] [facility], [address] [place] [address] RBC COUNT 3.49 X10E12/L Low 3.80-5.20 [facility] Comment on above: Performed By: #### U A #### [facility] ([id number]) [address] [place] [address] 43100 #### MALBU #### [facility] ([id number]) [address] [facility], [address] [place] [address] WBC (Bld) [#/Vol] 13.0 10*3/uL High 4.0-11.0 [facility] Comment on above: Performed By: #### U A #### [facility] ([id number]) [address] [place] [address] 46028 #### MALBU #### [facility] ([id number]) [facility] [facility], [address] [place] [address] COMPREHENSIVE METABOLIC PANE [facility] 12-24-2023 Albumin [Mass/Vol] 3.3 g/dL Normal 3.2-5.3 [facility] Comment on above: Performed By: #### U A #### [facility] ([id number]) [address] [place] [address] 89962 #### MALBU #### [facility] ([id number]) [address] [place] [address], [address] [place] [address] ALP [Catalytic activity/Vol] 91 U/L Normal 39-130 [facility] Comment on above: Performed By: #### U A #### [facility] ([id number]) [address] [place] [address] 91082 #### MALBU #### [facility] ([id number]) [address] [place] [address] ALT [Catalytic activity/Vol] 17 U/L Normal 0-31 [facility] Comment on above: Performed By: #### U A #### [facility] ([id number]) [address] [place] [address] 44583 #### MALBU #### [facility] ([id number]) [address] [place] [address] Anion gap [Moles/Vol] 9 mmol/L Normal 5-15 [facility] Comment on above: Performed By: #### U A #### [facility] ([id number]) [address] [place] [address] 19644 #### VYBU #### [facility] ([id number]) [address], [address] [place] [address] AST [Catalytic activity/Vol] 18 U/L Normal 0-41 [facility] Comment on above: Performed By: #### U A #### [facility] ([id number]) [address] [place] [address] 85804 #### LANI #### [facility] ([id number]) [address] [place] [address] Bilirubin [Mass/Vol] 0.7 mg/dL Normal 0.3-1.2 [facility] Comment on above: Performed By: #### U A #### [facility] ([id number]) [address] [place] [address] 36991 #### MALBU #### [facility] ([id number]) [address] [place] [address] Calcium [Mass/Vol] 9.2 mg/dL Normal 8.5-10.5 [facility] Comment on above: Performed By: #### U A #### [facility] ([id number]) [address] [place] [address] 85472 #### MALBU #### [facility] ([id number]) [address], [address] [place] [address] Chloride [Moles/Vol] 101 mmol/L Normal 98-109 [facility] Comment on above: Performed By: #### U A #### [facility] ([id number]) [address] [place] [address] 55661 #### MALBU #### [facility] ([id number]) [address] [facility], [address] [place] [address] CO2 [Moles/Vol] 30 mmol/L Normal 22-32 [facility] Comment on above: Performed By: #### U A #### [facility] ([id number]) [address] [place] [address] 33948 #### MALBU #### [facility] ([id number]) [address] [facility], [address] [place] [address] Creatinine [Mass/Vol] 3.57 mg/dL High 0.40-1.00 [facility] Comment on above: Result Comment: METH OD TRACEABLE TO IDMS STANDARD Performed By: #### U A #### [facility] ([id number]) [address] [place] [address] 57764 #### MALBU #### [facility] ([id number]) [address] [facility], [address] [place] [address] GFR/1.73 sq M.predicted among non-blacks MDRD (S/P/Bld) [Vol rate/Area] 12 mL/min/{1.73_m2} Low >59 [facility] Comment on above: Result Comment: Reported eGFR is based on the CKD-EPI 2020 equation that does not use a race coefficient. Performed By: #### U A #### [facility] ([id number]) [address] [place] [address] 88035 #### MALBU #### [facility] ([id number]) [address] [facility], [address] [place] [address] Glucose [Mass/Vol] 138 mg/dL High 65-99 [facility] Comment on above: Performed By: #### U A #### [facility] ([id number]) [address] [place] [address] 68252 #### MALBU #### [facility] ([id number]) [address] [facility] [place] [address] Potassium [Moles/Vol] 5.0 mmol/L Normal 3.5-5.0 [facility] Comment on above: Performed By: #### U A #### [facility] ([id number]) [address] [place] [address] 63263 #### MALBU #### [facility] ([id number]) [address] [facility] [place] [address] Protein [Mass/Vol] 6.2 g/dL Normal 6.0-8.0 [facility] Comment on above: Performed By: #### U A #### [facility] ([id number]) [address] [place] [address] 05894 #### MALBU #### [facility] ([id number]) [address] [facility], [address] [place] [address] Sodium [Moles/Vol] 140 mmol/L Normal 134-146 [facility] Comment on above: Performed By: #### U A #### [facility] ([id number]) [address] [place] [address] 16452 #### MALBU #### [facility] ([id number]) [address] [place] [address] Urea nitrogen [Mass/Vol] 76 mg/dL High 5-27 [facility] Comment on above: Performed By: #### U A #### [facility] ([id number]) [address] [place] [address] 37241 #### LANI #### [facility] ([id number]) [address] [place] [address] Glucose Glucometer (BldC) [M ass/Vol]on 12-24-2023 Glucose [Mass/Vol] 146 mg/dL High 65-99 [facility] Glucose [Mass/Vol] 177 mg/dL High 65-99 [facility] Glucose [Mass/Vol] 174 mg/dL High 65-99 [facility] PHOSPHORUSon 12-24-2023 Phosphate [Mass/Vol] 4.8 mg/dL Normal 2.4-4.9 [facility] Comment on above: Performed By: #### U A #### [facility] ([id number]) [address] [place] [address] 57416 #### LANI #### [facility] ([id number]) [address] [place] [address] PROTIME AND INRon 12-24-2023 INR Coag (PPP) [Relative time] 2.3 {INR} High 0.8-1.1 [facility] Comment on above: Performed By: #### U A #### [facility] ([id number]) [address] [place] [address] 70007 #### LANI #### [facility] ([id number]) [address] [place] [address] PT Coag (PPP) [Time] 25.9 s High 9.8-13.2 [facility] Comment on above: Result Comment: NEW REFERENCE RANGE Performed By: #### U A #### [facility] ([id number]) [address] [place] [address], [place] [address] #### MALBU #### [facility] ([id number]) [address] [place] [address] AMMONIAon 12-23-2023 Ammonia (P) [Moles/Vol] 22 umol/L Normal 11-35 [facility] Comment on above: Performed By: #### Rob NUÑEZ, 2730-8, BMP, 1751-01, , 2776-, 90675-6 #### [facility] ([id number]) [address] [facility] [address] [place] [address] CBC AND AUTO DIFFon 12-23-19 24 ABSOLUTE BASOPHIL 0.1 X10E9/L Normal 0.0-0.2 [facility] Comment on above: Performed By: #### Rob NUÑEZ, 2730-8, JOHNY, 1751-01, , 2776-07, 93777-4 #### [facility] ([id number]) [address] [place] [address] ABSOLUTE NEUTROPHIL 11.1 X10E9/L High 1.5-6.6 [facility] Comment on above: Performed By: #### Rob NUÑEZ, 2730-8, JOHNY, 1751-01, , 2776-, 27858-7 #### [facility] ([id number]) [address] [place] [address] Basophils/100 WBC (Bld) 0.7 % Normal [facility] Comment on above: Performed By: #### Rob NUÑEZ, 2730-8, BMP, 1751-01, , 2776-, 54106-2 #### [facility] ([id number]) [address] [place] [address] Eosinophils (Bld) [#/Vol] 0.4 10*3/uL Normal 0.0-0.4 [facility] Comment on above: Performed By: #### C BC, 2730-8, BMP, 1750-, 44004-7, 2776-, 32454-0 #### [facility] ([id number]) [address] [place] [address] Eosinophils/100 WBC (Bld) 2.9 % Normal [facility] Comment on above: Performed By: #### C BC, 2730-8, BMP, 1750-, 21492-7, 2776-, 06715-9 #### [facility] ([id number]) [address], [facility] [address] [place] [address] Erythrocyte distribution width (RBC) [Ratio] 21.0 % High 11.5-15.0 [facility] Comment on above: Performed By: #### Rob NUÑEZ, 2730-8, BMP, 1751-01, , 2776-, 28969-0 #### [facility] ([id number]) [address] [place] [address] Hematocrit (Bld) [Volume fraction] 29.5 % Low 35-47 [facility] Comment on above: Performed By: #### Rob NUÑEZ, 2730-8, BMP, 1751-01, , 2776-, 42155-8 #### [facility] ([id number]) [address] [place] [address] Hemoglobin (Bld) [Mass/Vol] 9.3 g/dL Low 11.7-15.5 [facility] Comment on above: Performed By: #### C BC, 2730-8, BMP, 1751-01, , 2776-, 26071-1 #### [facility] ([id number]) [address] [place] [address] Lymphocytes (Bld) [#/Vol] 1.2 10*3/uL Normal 1.0-3.5 [facility] Comment on above: Performed By: #### Rob NUÑEZ, 2730-8, BMP, 1750-, 66979-4, 2776-, 37577-1 #### [facility] ([id number]) [address] [place] [address] Lymphocytes/100 WBC (Bld) 8.6 % Normal [facility] Comment on above: Performed By: #### Rob NUÑEZ, 2730-8, BMP, 1750-, 84359-3, 2776-, 45774-2 #### [facility] ([id number]) [address] [place] [address] MCH (RBC) [Entitic mass] 25.5 pg Low 27-34 [facility] Comment on above: Performed By: #### Rob NUÑEZ, 2730-8, BMP, 1751-01, , 2776-, 18182-1 #### [facility] ([id number]) [address] [place] [address] MCHC (RBC) [Mass/Vol] 31.6 g/dL Low 32-36 [facility] Comment on above: Performed By: #### Rob NUÑEZ, 2730-8, BMP, 1751-01, , 2776-, 54326-7 #### [facility] ([id number]) [address] [place] [address] MCV (RBC) [Entitic vol] 81 fL Normal 80-100 [facility] Comment on above: Performed By: #### Rob NUÑEZ, 2730-8, BMP, 1751-01, , 2776-, 51027-5 #### [facility] ([id number]) [address] [place] [address] Monocytes (Bld) [#/Vol] 1.3 10*3/uL High 0-0.9 [facility] Comment on above: Performed By: #### Rob NUÑEZ, 1-8, BMP, 1750-7, 06852-8, 7-1, 08601-0 #### [facility] ([id number]) [address] [place] [address] Monocytes/100 WBC (Bld) 9.1 % Normal [facility] Comment on above: Performed By: #### Rob NUÑEZ, 2730-8, BMP, 1750-7, 83266-4, 7-1, 07891-2 #### [facility] ([id number]) [address] [place] [address] Neutrophils/100 WBC (Bld) 78.7 % Normal [facility] Comment on above: Performed By: #### Rob NUÑEZ, 2730-8, BMP, 1750-7, 08749-2, 2776-, 75530-5 #### [facility] ([id number]) [address] [place] [address] Platelet mean volume (Bld) [Entitic vol] 8.5 fL Normal 7-12 [facility] Comment on above: Performed By: #### Rob NUÑEZ, 2730-8, BMP, 1750-7, 75161-3, 2776-, 64921-4 #### [facility] ([id number]) [address] [place] [address] Platelets (Bld) [#/Vol] 362 10*3/uL Normal 150-450 [facility] Comment on above: Performed By: #### Rob NUÑEZ, 2730-8, BMP, 1750-7, 31314-3, 2776-1, 59585-1 #### [facility] ([id number]) [address], [address] [place] [address] RBC COUNT 3.66 X10E12/L Low 3.80-5.20 [facility] Comment on above: Performed By: #### C BC, 2731-8, BMP, 1751-7, 29209-0, 2777-1, 80869-3 #### [facility] ([id number]) [address], [address] [place] [address] WBC (Bld) [#/Vol] 14.1 10*3/uL High 4.0-11.0 [facility] Comment on above: Performed By: #### C BC, 2731-8, BMP, 1751-7, 13073-5, 2777-1, 94356-7 #### [facility] ([id number]) [address] [place] [address] COMPREHENSIVE METABOLIC PANE Harley 12-23-2023 Albumin [Mass/Vol] 3.1 g/dL Low 3.2-5.3 [facility] Comment on above: Performed By: #### Rob BC, 2731-8, BMP, 1751-7, 28330-1, 2777-1, 02945-2 #### [facility] ([id number]) [address], [address] [place] [address] ALP [Catalytic activity/Vol] 89 U/L Normal 39-130 [facility] Comment on above: Performed By: #### Rob BC, 2731-8, BMP, 1751-7, 13500-6, 2777-1, 36925-3 #### [facility] ([id number]) [address], [address] [place] [address] ALT [Catalytic activity/Vol] 16 U/L Normal 0-31 [facility] Comment on above: Performed By: #### Rob BC, 2731-8, BMP, 1751-7, 65113-1, 2777-1, 67107-9 #### [facility] ([id number]) [address] [place] [address] Anion gap [Moles/Vol] 11 mmol/L Normal 5-15 [facility] Comment on above: Performed By: #### C SAVANNAH, 1-8, BMP, 1750-7, 80272-0, 2776-1, 77395-9 #### [facility] ([id number]) [address], [address] [place] [address] AST [Catalytic activity/Vol] 22 U/L Normal 0-41 [facility] Comment on above: Performed By: #### Rob NUÑEZ, 2730-8, BMP, 1750-7, 51128-6, 2776-1, 83364-2 #### [facility] ([id number]) [address], [address] [place] [address] Bilirubin [Mass/Vol] 0.7 mg/dL Normal 0.3-1.2 [facility] Comment on above: Performed By: #### Rob NUÑEZ, 2730-8, BMP, 1751-01, 89349-5, 2776-, 43720-6 #### [facility] ([id number]) [address], [address] [place] [address] Calcium [Mass/Vol] 8.8 mg/dL Normal 8.5-10.5 [facility] Comment on above: Performed By: #### Rob NUÑEZ, 2730-8, BMP, 1750-, 76384-3, 2776-, 19001-4 #### [facility] ([id number]) [address], [address] [place] [address] Chloride [Moles/Vol] 100 mmol/L Normal 98-109 [facility] Comment on above: Performed By: #### Rob NUÑEZ, 1-8, BMP, 1751-01, 91624-7, 2776-, 51464-9 #### [facility] ([id number]) [address], [address] [place] [address] CO2 [Moles/Vol] 29 mmol/L Normal 22-32 [facility] Comment on above: Performed By: #### C BC, 2731-8, BMP, 1751-7, 79233-5, 2777-1, 83397-0 #### [facility] ([id number]) [address], [address] [place] [address] Creatinine [Mass/Vol] 3.42 mg/dL High 0.40-1.00 [facility] Comment on above: Result Comment: METH OD TRACEABLE TO IDMS STANDARD Performed By: #### C BC, 2731-8, BMP, 1751-7, 89614-7, 2777-1, 97401-1 #### [facility] ([id number]) [address], [address] [place] [address] GFR/1.73 sq M.predicted among non-blacks MDRD (S/P/Bld) [Vol rate/Area] 13 mL/min/{1.73_m2} Low >59 [facility] Comment on above: Result Comment: Reported eGFR is based on the CKD-EPI 2020 equation that does not use a race coefficient. Performed By: #### C BC, 2731-8, BMP, 175-7, 60894-0, 2777-1, 34571-7 #### [facility] ([id number]) [address], [address] [place] [address] Glucose [Mass/Vol] 72 mg/dL Normal 65-99 [facility] Comment on above: Performed By: #### C BC, 2731-8, BMP, 175-7, 70886-2, 2777-1, 13656-2 #### [facility] ([id number]) [address], [address] [place] [address] Potassium [Moles/Vol] 3.9 mmol/L Normal 3.5-5.0 [facility] Comment on above: Performed By: #### C BC, 2731-8, BMP, 175-7, 42774-4, 2777-1, 12816-3 #### [facility] ([id number]) [address], [address] [place] [address] Protein [Mass/Vol] 6.2 g/dL Normal 6.0-8.0 [facility] Comment on above: Performed By: #### Rob NUÑEZ, 2731-8, BMP, 1750-7, 13877-1, 2776-1, 69819-9 #### [facility] ([id number]) [address], [address] [place] [address] Sodium [Moles/Vol] 140 mmol/L Normal 134-146 [facility] Comment on above: Performed By: #### Rob NUÑEZ, 2731-8, BMP, 1750-, 10099-6, 2776-, 10024-0 #### [facility] ([id number]) [address], [address] [place] [address] Urea nitrogen [Mass/Vol] 71 mg/dL High 5-27 [facility] Comment on above: Performed By: #### Rob NUÑEZ, 1-8, BMP, 1750-, 99062-4, 2776-, 45613-9 #### [facility] ([id number]) [address], [address] [place] [address] ELECTROLYTESon 12-23-2023 Anion gap [Moles/Vol] 11 mmol/L Normal 5-15 [facility] Comment on above: Performed By: #### U A #### [facility] ([id number]) [address] [place] [address], [place] [address] #### VYBU #### [facility] ([id number]) [address], [address] [place] [address] Chloride [Moles/Vol] 100 mmol/L Normal 98-109 [facility] Comment on above: Performed By: #### U A #### [facility] ([id number]) [address] [place] [address] #### MALBU #### [facility] ([id number]) [address], [address] [place] [address] CO2 [Moles/Vol] 28 mmol/L Normal 22-32 [facility] Comment on above: Performed By: #### U A #### [facility] ([id number]) [address] [place] [address] #### MALBU #### [facility] ([id number]) [address], [address] [place] [address] Potassium [Moles/Vol] 4.4 mmol/L Normal 3.5-5.0 [facility] Comment on above: Performed By: #### U A #### [facility] ([id number]) [address] [place] [address] #### MALBU #### [facility] ([id number]) [address], [address] [place] [address] Sodium [Moles/Vol] 139 mmol/L Normal 134-146 [facility] Comment on above: Performed By: #### U A #### [facility] ([id number]) [address] [place] [address] #### MALBU #### [facility] ([id number]) [address], [address] [place] [address] Glucose Glucometer (BldC) [M ass/Vol]on 12-23-2023 Glucose [Mass/Vol] 205 mg/dL High 65-99 [facility] Glucose [Mass/Vol] 167 mg/dL High 65-99 [facility] Glucose [Mass/Vol] 174 mg/dL High 65-99 [facility] Glucose [Mass/Vol] 89 mg/dL Normal 65-99 [facility] PHOSPHORUSon 12-23-2023 Phosphate [Mass/Vol] 4.6 mg/dL Normal 2.4-4.9 [facility] Comment on above: Performed By: #### Rob NUÑEZ, 2730-8, BMP, 175-7, 86568-8, 2776-1, 27215-9 #### [facility] ([id number]) [address], [address] [place] [address] PROTIME AND INRon 12-23-2023 INR Coag (PPP) [Relative time] 1.8 {INR} High 0.8-1.1 [facility] Comment on above: Performed By: #### Rob NUÑEZ, 2730-8, BMP, 1750-7, 74641-1, 2776-1, 91809-1 #### [facility] ([id number]) [address], [address] [place] [address] PT Coag (PPP) [Time] 20.2 s High 9.8-13.2 [facility] Comment on above: Result Comment: NEW REFERENCE RANGE Performed By: #### Rob NUÑEZ, 2730-8, BMP, 1750-7, 35684-8, 2776-1, 76514-3 #### [facility] ([id number]) [address] [place] [address] CBC AND AUTO DIFFon 12-22-19 ABSOLUTE BASOPHIL 0.1 X10E9/L Normal 0.0-0.2 [facility] Comment on above: Performed By: #### Rob NUÑEZ, 2730-8, BMP, 1750-7, 85204-5, 2776-1, 14650-1 #### [facility] ([id number]) [address], [address] [place] [address] ABSOLUTE NEUTROPHIL 9.9 X10E9/L High 1.5-6.6 [facility] Comment on above: Performed By: #### Rob NUÑEZ, 2730-8, BMP, 1750-7, 54914-2, 2776-1, 34938-3 #### [facility] ([id number]) [address], [address] [place] [address] Basophils/100 WBC (Bld) 0.5 % Normal [facility] Comment on above: Performed By: #### C SAVANNAH, 2730-8, BMP, 1750-7, 88132-3, 2776-, 70456-4 #### [facility] ([id number]) [address], [address] [place] [address] Eosinophils (Bld) [#/Vol] 0.3 10*3/uL Normal 0.0-0.4 [facility] Comment on above: Performed By: #### Rob NUÑEZ, 2730-8, BMP, 1750-, , 2776-, 30158-2 #### [facility] ([id number]) [address], [address] [place] [address] Eosinophils/100 WBC (Bld) 2.6 % Normal [facility] Comment on above: Performed By: #### Rob NUÑEZ, 2730-8, BMP, 1751-01, , 2776-07, 37490-2 #### [facility] ([id number]) [address], [address] [place] [address] Erythrocyte distribution width (RBC) [Ratio] 21.4 % High 11.5-15.0 [facility] Comment on above: Performed By: #### Rob NUÑEZ, 2730-8, BMP, 1750-, 46602-3, 2776-, 43733-4 #### [facility] ([id number]) [address], [address] [place] [address] Hematocrit (Bld) [Volume fraction] 30.1 % Low 35-47 [facility] Comment on above: Performed By: #### Rob NUÑEZ, 2730-8, BMP, 1750-, 38239-6, 2776-, 66563-5 #### [facility] ([id number]) [address], [address] [place] [address] Hemoglobin (Bld) [Mass/Vol] 9.3 g/dL Low 11.7-15.5 [facility] Comment on above: Performed By: #### C SAVANNAH, 2731-8, BMP, 1750-7, 79632-7, 2776-1, 40990-3 #### [facility] ([id number]) [address], [address] [place] [address] Lymphocytes (Bld) [#/Vol] 1.1 10*3/uL Normal 1.0-3.5 [facility] Comment on above: Performed By: #### Rob NUÑEZ, 2730-8, BMP, 1750-7, 17363-2, 2776-, 14751-9 #### [facility] ([id number]) [address], [address] [place] [address] Lymphocytes/100 WBC (Bld) 8.9 % Normal [facility] Comment on above: Performed By: #### Rob NUÑEZ, 2730-8, BMP, 1750-7, 86404-0, 2776-, 68213-5 #### [facility] ([id number]) [address], [address] [place] [address] MCH (RBC) [Entitic mass] 25.6 pg Low 27-34 [facility] Comment on above: Performed By: #### Rob BC, 1-8, BMP, 1750-7, 03341-1, 2776-, 45085-9 #### [facility] ([id number]) [address], [address] [place] [address] MCHC (RBC) [Mass/Vol] 30.9 g/dL Low 32-36 [facility] Comment on above: Performed By: #### Rob BC, 2731-8, BMP, 1750-7, 36619-2, 2776-1, 07067-1 #### [facility] ([id number]) [address], [address] [place] [address] MCV (RBC) [Entitic vol] 83 fL Normal 80-100 [facility] Comment on above: Performed By: #### Rob NUÑEZ, 1-8, BMP, 1750-7, 03295-3, 7-, 87941-3 #### [facility] ([id number]) [address], [address] [place] [address] Monocytes (Bld) [#/Vol] 0.9 10*3/uL Normal 0-0.9 [facility] Comment on above: Performed By: #### Rob NUÑEZ, 2730-8, BMP, 1750-7, 83615-7, 2776-, 69990-3 #### [facility] ([id number]) [address], [address] [place] [address] Monocytes/100 WBC (Bld) 7.5 % Normal [facility] Comment on above: Performed By: #### Rob NUÑEZ, 2730-8, BMP, 1750-7, 22694-1, 2776-, 35215-5 #### [facility] ([id number]) [address], [address] [place] [address] Neutrophils/100 WBC (Bld) 80.5 % Normal [facility] Comment on above: Performed By: #### Rob NUÑEZ, 2730-8, BMP, 1750-, 67147-3, 2776-, 79477-4 #### [facility] ([id number]) [address], [address] [place] [address] Platelet mean volume (Bld) [Entitic vol] 8.9 fL Normal 7-12 [facility] Comment on above: Performed By: #### Rob NUÑEZ, 2730-8, BMP, 1750-7, 00643-0, 2776-, 67389-8 #### [facility] ([id number]) [address], [address] [place] [address] Platelets (Bld) [#/Vol] 371 10*3/uL Normal 150-450 [facility] Comment on above: Performed By: #### Rob BC, 2731-8, BMP, 1751-7, 11267-9, 2777-1, 05753-9 #### [facility] ([id number]) [address], [address] [place] [address] RBC COUNT 3.64 X10E12/L Low 3.80-5.20 [facility] Comment on above: Performed By: #### Rob NUÑEZ, 2731-8, BMP, 175-7, 69110-9, 2777-1, 49042-1 #### [facility] ([id number]) [address], [address] [place] [address] WBC (Bld) [#/Vol] 12.3 10*3/uL High 4.0-11.0 [facility] Comment on above: Performed By: #### Rob NUÑEZ, 2731-8, BMP, 1750-7, 30206-5, 2777-1, 52822-5 #### [facility] ([id number]) [address], [address] [place] [address] COMPLEMENT PROFILEon 12-21-2 024 COMPLEMENT C3 121 mg/dL Normal 86-184 [facility] Comment on above: Performed By: #### Rob BC, 2731-8, BMP, 175-7, 87246-3, 2777-1, 46824-3 #### [facility] ([id number]) [address], [address] [place] [address] COMPLEMENT C4 50 mg/dL High 16-47 [facility] Comment on above: Performed By: #### Rob BC, 2731-8, BMP, 175-7, 54485-3, 2777-1, 86318-6 #### [facility] ([id number]) [address], [address] [place] [address] COMPREHENSIVE METABOLIC PANE Harley 12-22-2023 Albumin [Mass/Vol] 3.3 g/dL Normal 3.2-5.3 [facility] Comment on above: Performed By: #### C BC, 2731-8, BMP, 1751-7, 80233-3, 2777-1, 41449-7 #### [facility] ([id number]) [address], [address] [place] [address] ALP [Catalytic activity/Vol] 84 U/L Normal 39-130 [facility] Comment on above: Performed By: #### Rob BC, 2731-8, BMP, 1751-7, 01781-2, 2777-1, 87075-9 #### [facility] ([id number]) [address], [address] [place] [address] ALT [Catalytic activity/Vol] 16 U/L Normal 0-31 [facility] Comment on above: Performed By: #### Rob NUÑEZ, 2731-8, BMP, 1751-7, 91324-5, 2777-1, 16979-1 #### [facility] ([id number]) [address], [address] [place] [address] Anion gap [Moles/Vol] 13 mmol/L Normal 5-15 [facility] Comment on above: Performed By: #### Rob BC, 2731-8, BMP, 1751-7, 93781-3, 2777-1, 50467-8 #### [facility] ([id number]) [address], [address] [place] [address] AST [Catalytic activity/Vol] 16 U/L Normal 0-41 [facility] Comment on above: Performed By: #### Rob BC, 2731-8, BMP, 1751-7, 16158-0, 2777-1, 21113-4 #### [facility] ([id number]) [address], [address] [place] [address] Bilirubin [Mass/Vol] 0.9 mg/dL Normal 0.3-1.2 [facility] Comment on above: Performed By: #### Rob BC, 2731-8, BMP, 1751-7, 04427-0, 2777-1, 64184-3 #### [facility] ([id number]) [address], [address] [place] [address] Calcium [Mass/Vol] 8.9 mg/dL Normal 8.5-10.5 [facility] Comment on above: Performed By: #### Rob NUÑEZ, 2731-8, BMP, 1750-7, 78001-9, 7-1, 68937-1 #### [facility] ([id number]) [address], [address] [place] [address] Chloride [Moles/Vol] 98 mmol/L Normal 98-109 [facility] Comment on above: Performed By: #### Rob NUÑEZ, 2731-8, BMP, 1750-7, 38426-1, 7-1, 99108-1 #### [facility] ([id number]) [address] [place] [address] CO2 [Moles/Vol] 28 mmol/L Normal 22-32 [facility] Comment on above: Performed By: #### Rob BC, 2731-8, BMP, 175-7, 46731-5, 2777-1, 80297-1 #### [facility] ([id number]) [address], [address] [place] [address] Creatinine [Mass/Vol] 3.01 mg/dL High 0.40-1.00 [facility] Comment on above: Result Comment: METH OD TRACEABLE TO IDMS STANDARD Performed By: #### Rob BC, 2731-8, BMP, 175-7, 93503-8, 2777-1, 45297-2 #### [facility] ([id number]) [address] [place] [address] GFR/1.73 sq M.predicted among non-blacks MDRD (S/P/Bld) [Vol rate/Area] 15 mL/min/{1.73_m2} Low >59 [facility] Comment on above: Result Comment: Reported eGFR is based on the CKD-EPI 2020 equation that does not use a race coefficient. Performed By: #### C BC, 2731-8, BMP, 175-7, 18005-7, 7-1, 90287-7 #### [facility] ([id number]) [address], [address] [place] [address] Glucose [Mass/Vol] 149 mg/dL High 65-99 [facility] Comment on above: Performed By: #### Rob NUÑEZ, 2730-8, BMP, 1750-7, 18359-4, 2776-1, 44385-1 #### [facility] ([id number]) [address] [place] [address] Potassium [Moles/Vol] 3.2 mmol/L Low 3.5-5.0 [facility] Comment on above: Performed By: #### Rob BC, 1-8, BMP, 1750-7, 50553-9, 7-1, 98581-4 #### [facility] ([id number]) [address], [address] [place] [address] Protein [Mass/Vol] 6.4 g/dL Normal 6.0-8.0 [facility] Comment on above: Performed By: #### Rob BC, 2731-8, BMP, 1750-7, 06337-2, 2777-1, 72316-4 #### [facility] ([id number]) [address] [place] [address] Sodium [Moles/Vol] 139 mmol/L Normal 134-146 [facility] Comment on above: Performed By: #### C BC, 2731-8, BMP, 1751-7, 28394-5, 2777-1, 61472-4 #### [facility] ([id number]) [address] [place] [address], [address] [place] [address] Urea nitrogen [Mass/Vol] 72 mg/dL High 5-27 [facility] Comment on above: Performed By: #### C BC, 2731-8, BMP, 1751-7, 17636-5, 2777-1, 80344-9 #### [facility] ([id number]) [address] [place] [address], [address] [place] [address] Clinical Pathologyon 024 Clinical Pathology Normal [facility] Comment on above: Result Comment: [facility] [employer] [facility] [facility] [address] [place] [address] Clinical Pathology Report Patient Name:ROSA WINTER:1945 (Age: 78)Gender:FTaken:4Reported:4Physician(s):Lynn Knapp MD ([phone])Copy To: Rec. #:[id number]: #[id number] Final Pathologic Diagnosis Hypoalbuminemia with increase in acute phase reactants. No monoclonal protein identified. Report Electronically Signed Out df/4Dkeerthi Charles MD [facility] [address], License number: [id number]. Clinical History J81.0, N18.32, R06.02. SERUM PROTEIN ELECTROPHORESIS SAMPLE NO: [id number] ELECTROPHORETIC FRACTION CONCENTRATIONS (g/dL) PATIENT REFERENCE RANGE Albumin 3.0 L 3.4 - 5.3 Alpha-1 globulin 0.5 H 0.1 - 0.4 Alpha-2 globulin 0.9 0.4 - 1.1 Beta globulin 0.6 0.5 - 1.2 Gamma globulin 0.6 0.5 - 1.6 Total protein 5.7 6.0 - 8.0 (Electrophoretic gels and densitometric tracings on file in lab.) Specimen(s) Received Serum Protein Electrophoresis Fee Codes(s): 1; 81886-53 ELECTROLYTESon 12-22-2023 Anion gap [Moles/Vol] 11 mmol/L Normal 5-15 [facility] Comment on above: Performed By: #### Rob NUÑEZ, 2730-8, BMP, 1750-7, 80201-1, 2776-, 05760-8 #### [facility] ([id number]) [address] [place] [address] Chloride [Moles/Vol] 101 mmol/L Normal 98-109 [facility] Comment on above: Performed By: #### Rob NUÑEZ, 2730-8, BMP, 1750-, 30413-9, 2776-, 98032-5 #### [facility] ([id number]) [address] [place] [address] CO2 [Moles/Vol] 28 mmol/L Normal 22-32 [facility] Comment on above: Performed By: #### Rob NUÑEZ, 2730-8, BMP, 1751-01, , 2776-, 78931-7 #### [facility] ([id number]) [address] [place] [address] Potassium [Moles/Vol] 3.4 mmol/L Low 3.5-5.0 [facility] Comment on above: Performed By: #### Rob NUÑEZ, 1-8, BMP, 1750-7, 36055-5, 2776-, 15487-1 #### [facility] ([id number]) [address] [place] [address] Sodium [Moles/Vol] 140 mmol/L Normal 134-146 [facility] Comment on above: Performed By: #### Rob NUÑEZ, 2730-8, BMP, 1751-01, , 2776-, 33558-7 #### [facility] ([id number]) [address] [place] [address] Glomerular basement membrane IgG Qn (S)on 12-22-2023 GBM IgG Ab <0.2 Normal <1.0 [facility] Comment on above: Performed By: #### C SAVANNAH, 2731-02, [facility], 1751-01, , 2776-07, 87290-2 #### [facility] ([id number]) [address] [place] [address] Glucose Glucometer (BldC) [M ass/Vol]on 12-22-2023 Glucose [Mass/Vol] 81 mg/dL Normal 65-99 [facility] Glucose [Mass/Vol] 46 mg/dL Critically low 65-99 [facility] Glucose [Mass/Vol] 131 mg/dL High 65-99 [facility] Glucose [Mass/Vol] 162 mg/dL High 65-99 [facility] Glucose [Mass/Vol] 131 mg/dL High 65-99 [facility] Myeloperoxidase Ab Qn (S)on 12-22-2023 Myeloperoxidase Ab <0.2 Normal <1.0 [facility] Comment on above: Performed By: #### C SAVANNAH, 2731-02, JOHNY, 1751-01, , 2776-07, 29022-7 #### [facility] ([id number]) [address], [address] [place] [address] Nuclear Ab IA Ql (S)on 12-21 JUVE Screen w/reflex Negative Normal NEG [facility] Comment on above: Result Comment: Testing performed using multiplex flow immunoassay. Eleven different antigens associated with systemic autoimmune diseases (dsDNA,Sm,Sm/APPRENTICE MACHINIST OUTSIDE,APPRENTICE MACHINIST OUTSIDE,Chromatin, SSA,SSB,Ermelinda-1,Scl70,Ribo P,Centromere B) are included in this screening test. Performed By: #### Rob NUÑEZ, 2731-8, BMP, 7, 44243-4, 2776-1, 40776-9 #### [facility] ([id number]) [address] [place] [address] PHOSPHORUSon 12-22-2023 Phosphate [Mass/Vol] 4.9 mg/dL Normal 2.4-4.9 [facility] Comment on above: Performed By: #### Rob NUÑEZ, 2730-8, BMP, 1750-7, 42267-0, 2776-1, 49893-2 #### [facility] ([id number]) [address] [place] [address] PROTIME AND INRon 12-22-2023 INR Coag (PPP) [Relative time] 1.7 {INR} High 0.8-1.1 [facility] Comment on above: Performed By: #### Rob NUÑEZ, 2730-8, BMP, 1750-7, 85141-3, 2776-1, 73234-8 #### [facility] ([id number]) [address] [facility] [facility] [place] [address] PT Coag (PPP) [Time] 18.9 s High 9.8-13.2 [facility] Comment on above: Result Comment: NEW REFERENCE RANGE Performed By: #### Rob NUÑEZ, 2730-8, BMP, 1750-7, 80417-8, 2776-1, 57851-2 #### [facility] ([id number]) [address] [place] [address] Proteinase 3 Ab Qn (S)on Proteinase 3 IgG Ab <0.2 Normal <1.0 [facility] Comment on above: Performed By: #### Rob NUÑEZ, 2730-8, BMP, 1750-7, 07045-2, 2776-1, 42863-2 #### [facility] ([id number]) [address] [place] [address] SERUM PROTEIN ELECTROPHORESI Son 12-22-2023 Albumin [Mass/Vol] 3.0 g/dL Low 3.4-5.3 [facility] Comment on above: Performed By: #### C BC, 2731-8, BMP, 175-7, 00974-9, 2777-1, 42727-2 #### [facility] ([id number]) [address], [address] [place] [address] ALPHA 1 GLOBULIN 0.5 g/dL High 0.1-0.4 [facility] Comment on above: Performed By: #### Rob NUÑEZ, 2730-8, BMP, 1750-7, 27410-3, 2776-1, 43862-9 #### [facility] ([id number]) [address], [address] [place] [address] ALPHA 2 GLOBULIN 0.9 g/dL Normal 0.4-1.1 [facility] Comment on above: Performed By: #### Rob NUÑEZ, 2730-8, BMP, 1750-7, 35326-8, 7-1, 72334-4 #### [facility] ([id number]) [address], [address] [place] [address] BETA GLOBULIN 0.6 g/dL Normal 0.5-1.2 [facility] Comment on above: Performed By: #### Rob NUÑEZ, 2730-8, BMP, 1750-7, 66884-1, 2776-1, 48588-7 #### [facility] ([id number]) [address], [address] [place] [address] GAMMA GLOBULIN 0.6 g/dL Normal 0.5-1.6 [facility] Comment on above: Performed By: #### Rob NUÑEZ, 2731-8, BMP, 175-7, 43793-8, 2777-1, 20800-1 #### [facility] ([id number]) [address], [address] [place] [address] PROT. ELECTROPHORESIS INTERP SEE SEPARATE REPORT Normal [facility] Comment on above: Performed By: #### C BC, 1-8, BMP, 1750-7, 18322-1, 2776-1, 79130-4 #### [facility] ([id number]) [address], [address] [place] [address] Protein [Mass/Vol] 5.7 g/dL Low 6.0-8.0 [facility] Comment on above: Performed By: #### Rob NUÑEZ, 1-8, BMP, 1750-7, 77608-3, 2776-1, 98385-4 #### [facility] ([id number]) [address], [address] [place] [address] BASIC METABOLIC PANLon 12-20 Anion gap [Moles/Vol] 14 mmol/L Normal 5-15 [facility] Comment on above: Performed By: #### Rob NUÑEZ, 2730-8, BMP, 1750-, 21528-9, 2776-1, 95131-8 #### [facility] ([id number]) [address], [address] [place] [address] Calcium [Mass/Vol] 8.7 mg/dL Normal 8.5-10.5 [facility] Comment on above: Performed By: #### Rob NUÑEZ, 2730-8, BMP, 1750-, 32137-6, 2776-, 35377-5 #### [facility] ([id number]) [address], [address] [place] [address] Chloride [Moles/Vol] 101 mmol/L Normal 98-109 [facility] Comment on above: Performed By: #### Rob BC, 2731-8, BMP, 1750-, 38373-2, 7-1, 61219-1 #### [facility] ([id number]) [address], [address] [place] [address] CO2 [Moles/Vol] 26 mmol/L Normal 22-32 [facility] Comment on above: Performed By: #### C BC, 2731-8, BMP, 1750-7, 96195-7, 2776-1, 09227-9 #### [facility] ([id number]) [address], [address] [place] [address] Creatinine [Mass/Vol] 2.99 mg/dL High 0.40-1.00 [facility] Comment on above: Result Comment: METH OD TRACEABLE TO IDMS STANDARD Performed By: #### C SAVANNAH, 2730-8, BMP, 1750-7, 11952-9, 2776-1, 98964-9 #### [facility] ([id number]) [address] [place] [address] GFR/1.73 sq M.predicted among non-blacks MDRD (S/P/Bld) [Vol rate/Area] 15 mL/min/{1.73_m2} Low >59 [facility] Comment on above: Result Comment: Reported eGFR is based on the CKD-EPI 2020 equation that does not use a race coefficient. Performed By: #### C BC, 2730-8, BMP, 1751-01, 98024-3, 2776-1, 39139-2 #### [facility] ([id number]) [address], [address] [place] [address] Glucose [Mass/Vol] 84 mg/dL Normal 65-99 [facility] Comment on above: Performed By: #### Rob BC, 1-8, BMP, 1750-7, 48879-3, 7-1, 79223-0 #### [facility] ([id number]) [address], [address] [place] [address] Potassium [Moles/Vol] 3.4 mmol/L Low 3.5-5.0 [facility] Comment on above: Performed By: #### Rob BC, 273-8, BMP, 1751-01, , 2776-07, 51025-6 #### [facility] ([id number]) [address], [address] [place] [address] Sodium [Moles/Vol] 141 mmol/L Normal 134-146 [facility] Comment on above: Performed By: #### Rob NUÑEZ, 2730-8, BMP, 1751-01, , 2776-07, 96635-4 #### [facility] ([id number]) [address], [address] [place] [address] Urea nitrogen [Mass/Vol] 70 mg/dL High 5-27 [facility] Comment on above: Performed By: #### Rob NUÑEZ, 2730-8, BMP, 1751-01, , 2776-07, 09787-9 #### [facility] ([id number]) [address], [address] [place] [address] CBC AND AUTO DIFFon 12-21-19 24 ABSOLUTE BASOPHIL 0.1 X10E9/L Normal 0.0-0.2 [facility] Comment on above: Performed By: #### Rob NUÑEZ, 2730-8, BMP, 1751-01, , 2776-07, 50464-0 #### [facility] ([id number]) [address], [address] [place] [address] ABSOLUTE NEUTROPHIL 11.9 X10E9/L High 1.5-6.6 [facility] Comment on above: Performed By: #### Rob NUÑEZ, 2730-8, BMP, 1751-01, , 2776-, 25918-2 #### [facility] ([id number]) [address] [address] [place] [address] Basophils/100 WBC (Bld) 0.5 % Normal [facility] Comment on above: Performed By: #### Rob NUÑEZ, 2730-8, BMP, 1751-01, , 2776-07, 96337-0 #### [facility] ([id number]) [address], [address] [place] [address] Eosinophils (Bld) [#/Vol] 0.3 10*3/uL Normal 0.0-0.4 [facility] Comment on above: Performed By: #### Rob NUÑEZ, 2730-8, BMP, 1751-01, , 2776-07, 85120-2 #### [facility] ([id number]) [address], [address] [place] [address] Eosinophils/100 WBC (Bld) 2.2 % Normal [facility] Comment on above: Performed By: #### Rob NUÑEZ, 8, BMP, 1751-01, , 2776-07, 00304-4 #### [facility] ([id number]) [address], [address] [place] [address] Erythrocyte distribution width (RBC) [Ratio] 21.3 % High 11.5-15.0 [facility] Comment on above: Performed By: #### Rob NUÑEZ, 8, BMP, 1751-01, , 2776-07, 06683-7 #### [facility] ([id number]) [address], [facility] [address] [place] [address] Hematocrit (Bld) [Volume fraction] 30.5 % Low 35-47 [facility] Comment on above: Performed By: #### Rob NUÑEZ, 2730-8, BMP, 1751-01, , 2776-07, 58263-5 #### [facility] ([id number]) [address], [address] [place] [address] Hemoglobin (Bld) [Mass/Vol] 9.4 g/dL Low 11.7-15.5 [facility] Comment on above: Performed By: #### Rob NUÑEZ, 8, BMP, 1751-01, , 2776-, 04828-8 #### [facility] ([id number]) [address], [facility] [address] [place] [address] Lymphocytes (Bld) [#/Vol] 1.3 10*3/uL Normal 1.0-3.5 [facility] Comment on above: Performed By: #### Rob NUÑEZ, 2730-8, BMP, 1751-01, , 2776-, 45228-1 #### [facility] ([id number]) [address], [facility] [address] [place] [address] Lymphocytes/100 WBC (Bld) 8.8 % Normal [facility] Comment on above: Performed By: #### Rob NUÑEZ, 8, BMP, 1751-01, , 2776-, 00818-3 #### [facility] ([id number]) [address], [address] [address] MCH (RBC) [Entitic mass] 25.3 pg Low 27-34 [facility] Comment on above: Performed By: #### Rob NUÑEZ, 8, BMP, 1751-01, , 2776-, 53305-4 #### [facility] ([id number]) [address] [address] [place] [address] MCHC (RBC) [Mass/Vol] 31.0 g/dL Low 32-36 [facility] Comment on above: Performed By: #### Rob NUÑEZ, 2730-8, BMP, 1750-, , 2776-, 68978-3 #### [facility] ([id number]) [address] [address] [place] [address] MCV (RBC) [Entitic vol] 82 fL Normal 80-100 [facility] Comment on above: Performed By: #### Rob NUÑEZ, 2730-8, BMP, 1751-01, , 7-1, 44022-2 #### [facility] ([id number]) [address], [address] [place] [address] Monocytes (Bld) [#/Vol] 1.1 10*3/uL High 0-0.9 [facility] Comment on above: Performed By: #### Rob NUÑEZ, 2730-8, BMP, 1750-7, 06453-4, 7-1, 77323-3 #### [facility] ([id number]) [address], [address] [place] [address] Monocytes/100 WBC (Bld) 7.5 % Normal [facility] Comment on above: Performed By: #### Rob NUÑEZ, 2730-8, BMP, 1750-7, 79697-2, 2776-1, 74342-0 #### [facility] ([id number]) [address], [address] [place] [address] Neutrophils/100 WBC (Bld) 81.0 % Normal [facility] Comment on above: Performed By: #### Rob NUÑEZ, 2730-8, BMP, 1750-7, 33946-1, 2776-, 16868-8 #### [facility] ([id number]) [address], [address] [place] [address] Platelet mean volume (Bld) [Entitic vol] 9.0 fL Normal 7-12 [facility] Comment on above: Performed By: #### Rob BC, 1-8, BMP, 1750-7, 92551-1, 2777-1, 25651-8 #### [facility] ([id number]) [address], [address] [place] [address] Platelets (Bld) [#/Vol] 422 10*3/uL Normal 150-450 [facility] Comment on above: Performed By: #### Rob BC, 2730-8, BMP, 1750-7, 90656-0, 2777-1, 44463-0 #### [facility] ([id number]) [address], [address] [place] [address] RBC COUNT 3.74 X10E12/L Low 3.80-5.20 [facility] Comment on above: Performed By: #### Rob NUÑEZ, 2730-8, BMP, 1750-, , 2776-, 84349-4 #### [facility] ([id number]) [address], [address] [place] [address] WBC (Bld) [#/Vol] 14.7 10*3/uL High 4.0-11.0 [facility] Comment on above: Performed By: #### Rob NUÑEZ, 2730-8, BMP, 1751-01, , 2776-, 57029-5 #### [facility] ([id number]) [address], [address] [place] [address] ELECTROLYTESon 12-21-2023 Anion gap [Moles/Vol] 10 mmol/L Normal 5-15 [facility] Comment on above: Performed By: #### Rob NUÑEZ, 2730-8, BMP, 1751-01, , 2776-07, 67970-4 #### [facility] ([id number]) [address], [address] [place] [address] Chloride [Moles/Vol] 103 mmol/L Normal 98-109 [facility] Comment on above: Performed By: #### Rob BC, 2731-8, BMP, 1750-, , 2776-, 67762-3 #### [facility] ([id number]) [address], [address] [place] [address] CO2 [Moles/Vol] 27 mmol/L Normal 22-32 [facility] Comment on above: Performed By: #### Rob BC, 273-8, BMP, 1751-01, , 2776-, 34133-7 #### [facility] ([id number]) [address], [address] [place] [address] Potassium [Moles/Vol] 3.4 mmol/L Low 3.5-5.0 [facility] Comment on above: Performed By: #### Rob NUÑEZ, 2730-8, BMP, 1751-01, , 2776-07, 15618-2 #### [facility] ([id number]) [address], [address] [place] [address] Sodium [Moles/Vol] 140 mmol/L Normal 134-146 [facility] Comment on above: Performed By: #### Rob NUÑEZ, 8, BMP, 1751-01, , 2776-07, 95369-3 #### [facility] ([id number]) [address], [address] [place] [address] FERRITINon 12-21-2023 Ferritin [Mass/Vol] 26 ng/mL Normal 11-307 [facility] Comment on above: Performed By: #### Rob NUÑEZ, 8, BMP, 1751-01, , 2776-07, 34843-6 #### [facility] ([id number]) [address], [address] [place] [address] Glucose Glucometer (BldC) [M ass/Vol]on 12-21-2023 Glucose [Mass/Vol] 158 mg/dL High 65-99 [facility] Glucose [Mass/Vol] 154 mg/dL High 65-99 [facility] Glucose [Mass/Vol] 138 mg/dL High 65-99 [facility] Glucose [Mass/Vol] 138 mg/dL High 65-99 [facility] IRON PROFILEon 12-21-2023 Iron [Mass/Vol] 23 ug/dL Low 50-170 [facility] Comment on above: Performed By: #### C BC, 2731-8, BMP, 1750-7, 82388-6, 2776-1, 51941-0 #### [facility] ([id number]) [address], [address] [place] [address] IRON BINDING 284 ug/dL Normal 250-425 [facility] Comment on above: Performed By: #### Rob , 2730-8, BMP, 1750-7, 56914-5, 2776-1, 51133-1 #### [facility] ([id number]) [address], [address] [place] [address] IRON SATURATION 8 % SATURATION Low 15-50 [facility] Comment on above: Performed By: #### Rob , 2730-8, [facility], 1750-7, 30736-9, 2776-, 89369-8 #### [facility] ([id number]) [address], [address] [place] [address] PROTIME AND INRon 12-21-2023 INR Coag (PPP) [Relative time] 2.5 {INR} High 0.8-1.1 [facility] Comment on above: Performed By: #### Rob , 2730-8, [facility], 1750-, 36430-2, 2776-, 57589-8 #### [facility] ([id number]) [address], [address] [place] [address] PT Coag (PPP) [Time] 28.7 s High 9.8-13.2 [facility] Comment on above: Result Comment: NEW REFERENCE RANGE Performed By: #### C BC, 1-8, BMP, 1750-7, 91252-5, 2776-, 36828-3 #### [facility] ([id number]) [address], [address] [place] [address] CBC AND AUTO DIFFon 12-20-19 24 ABSOLUTE BASOPHIL 0.2 X10E9/L Normal 0.0-0.2 [facility] Comment on above: Performed By: #### C BC, 2730-8, BMP, 1751-01, , 2776-07, 28785-9 #### [facility] ([id number]) [address], [address] [place] [address] ABSOLUTE NEUTROPHIL 13.6 X10E9/L High 1.5-6.6 [facility] Comment on above: Performed By: #### C BC, 2730-8, BMP, 1751-01, , 2776-, 17804-7 #### [facility] ([id number]) [address], [address] [place] [address] Basophils/100 WBC (Bld) 1.1 % Normal [facility] Comment on above: Performed By: #### Rob NUÑEZ, 2730-8, BMP, 1751-01, , 2776-07, 92320-2 #### [facility] ([id number]) [address], [address] [place] [address] Eosinophils (Bld) [#/Vol] 0.3 10*3/uL Normal 0.0-0.4 [facility] Comment on above: Performed By: #### Rob NUÑEZ, 2730-8, BMP, 1751-01, , 2776-07, 77441-6 #### [facility] ([id number]) [address], [address] [place] [address] Eosinophils/100 WBC (Bld) 1.7 % Normal [facility] Comment on above: Performed By: #### C BC, 2730-8, BMP, 1751-01, , 2776-07, 82121-4 #### [facility] ([id number]) [address], [address] [place] [address] Erythrocyte distribution width (RBC) [Ratio] 21.1 % High 11.5-15.0 [facility] Comment on above: Performed By: #### Rob NUÑEZ, 2730-8, BMP, 1750-, 72713-9, 2776-, 75683-2 #### [facility] ([id number]) [address], [address] [place] [address] Hematocrit (Bld) [Volume fraction] 30.8 % Low 35-47 [facility] Comment on above: Performed By: #### Rob NUÑEZ, 2730-8, BMP, 1751-01, , 2776-, 54346-3 #### [facility] ([id number]) [address], [address] [place] [address] Hemoglobin (Bld) [Mass/Vol] 9.8 g/dL Low 11.7-15.5 [facility] Comment on above: Performed By: #### Rob NUÑEZ, 2730-8, BMP, 1750-, , 2776-07, 36113-8 #### [facility] ([id number]) [address], [address] [place] [address] Lymphocytes (Bld) [#/Vol] 1.2 10*3/uL Normal 1.0-3.5 [facility] Comment on above: Performed By: #### Rob NUÑEZ, 2730-8, BMP, 1750-, , 2776-, 82615-7 #### [facility] ([id number]) [address] [place] [address] Lymphocytes/100 WBC (Bld) 7.1 % Normal [facility] Comment on above: Performed By: #### Rob NUÑEZ, 2730-8, BMP, 1751-01, , 2776-07, 89852-9 #### [facility] ([id number]) [address] [place] [address] MCH (RBC) [Entitic mass] 25.6 pg Low 27-34 [facility] Comment on above: Performed By: #### Rob NUÑEZ, 2730-8, BMP, 1750-7, 87117-1, 2776-, 52199-1 #### [facility] ([id number]) [address], [address] [place] [address] MCHC (RBC) [Mass/Vol] 32.0 g/dL Normal 32-36 [facility] Comment on above: Performed By: #### Rob NUÑEZ, 2730-8, BMP, 1750-7, 59576-7, 2776-, 98387-0 #### [facility] ([id number]) [address], [address] [place] [address] MCV (RBC) [Entitic vol] 80 fL Normal 80-100 [facility] Comment on above: Performed By: #### Rob NUÑEZ, 2730-8, BMP, 1750-, 39927-0, 2776-, 79231-3 #### [facility] ([id number]) [address], [address] [place] [address] Monocytes (Bld) [#/Vol] 1.2 10*3/uL High 0-0.9 [facility] Comment on above: Performed By: #### Rob NUÑEZ, 2730-8, BMP, 1750-, 53592-5, 2776-, 57444-5 #### [facility] ([id number]) [address] [place] [address] Monocytes/100 WBC (Bld) 7.4 % Normal [facility] Comment on above: Performed By: #### Rob NUÑEZ, 2730-8, BMP, 1750-, , 2776-, 27771-4 #### [facility] ([id number]) [address] [place] [address] Neutrophils/100 WBC (Bld) 82.7 % Normal [facility] Comment on above: Performed By: #### Rob NUÑEZ, 1-8, BMP, 175-7, 27538-8, 2777-1, 57939-0 #### [facility] ([id number]) [address] [place] [address] Platelet mean volume (Bld) [Entitic vol] 8.0 fL Normal 7-12 [facility] Comment on above: Performed By: #### C BC, 1-8, BMP, 175-7, 62703-7, 2777-1, 67380-8 #### [facility] ([id number]) [address] [place] [address] Platelets (Bld) [#/Vol] 436 10*3/uL Normal 150-450 [facility] Comment on above: Performed By: #### Rob NUÑEZ, 2730-8, BMP, 1750-7, 81873-3, 7-1, 38309-5 #### [facility] ([id number]) [address] [place] [address] RBC COUNT 3.85 X10E12/L Normal 3.80-5.20 [facility] Comment on above: Performed By: #### C SAVANNAH, 2730-8, BMP, 1750-7, 58862-0, 7-1, 48232-7 #### [facility] ([id number]) [address] [place] [address] WBC (Bld) [#/Vol] 16.5 10*3/uL High 4.0-11.0 [facility] Comment on above: Performed By: #### C BC, 1-8, BMP, 1750-7, 63236-4, 2777-1, 62956-0 #### [facility] ([id number]) [address] [place] [address] COMPREHENSIVE METABOLIC PANE Harley 12-20-2023 Albumin [Mass/Vol] 3.0 g/dL Low 3.2-5.3 [facility] Comment on above: Performed By: #### C BC, 2731-8, BMP, 1751-7, 51466-6, 2777-1, 98983-7 #### [facility] ([id number]) [address] [place] [address] ALP [Catalytic activity/Vol] 99 U/L Normal 39-130 [facility] Comment on above: Performed By: #### C BC, 2731-8, BMP, 1751-7, 89320-8, 2777-1, 55833-4 #### [facility] ([id number]) [address] [place] [address] ALT [Catalytic activity/Vol] 19 U/L Normal 0-31 [facility] Comment on above: Performed By: #### Rob BC, 2731-8, BMP, 175-7, 56806-5, 2777-1, 79500-2 #### [facility] ([id number]) [address] [place] [address] Anion gap [Moles/Vol] 11 mmol/L Normal 5-15 [facility] Comment on above: Performed By: #### Rob BC, 2731-8, BMP, 1751-7, 80315-5, 2777-1, 79905-9 #### [facility] ([id number]) [address] [place] [address] AST [Catalytic activity/Vol] 25 U/L Normal 0-41 [facility] Comment on above: Performed By: #### C BC, 2731-8, BMP, 175-7, 37331-8, 2777-1, 49730-5 #### [facility] ([id number]) [address] [place] [address] Bilirubin [Mass/Vol] 0.2 mg/dL Low 0.3-1.2 [facility] Comment on above: Performed By: #### C BC, 1-8, BMP, 1750-7, 95422-9, 7-1, 15382-7 #### [facility] ([id number]) [address] [place] [address] Calcium [Mass/Vol] 8.7 mg/dL Normal 8.5-10.5 [facility] Comment on above: Performed By: #### C BC, 2730-8, BMP, 1750-7, 03882-4, 7-1, 05243-9 #### [facility] ([id number]) [address] [place] [address] Chloride [Moles/Vol] 103 mmol/L Normal 98-109 [facility] Comment on above: Performed By: #### Rob NUÑEZ, 2730-8, BMP, 1750-, 86793-1, 2776-1, 45814-2 #### [facility] ([id number]) [address] [place] [address] CO2 [Moles/Vol] 26 mmol/L Normal 22-32 [facility] Comment on above: Performed By: #### C BC, 2730-8, BMP, 1750-7, 35279-2, 7-1, 10284-4 #### [facility] ([id number]) [address] [place] [address] Creatinine [Mass/Vol] 3.03 mg/dL High 0.40-1.00 [facility] Comment on above: Result Comment: METH OD TRACEABLE TO IDMS STANDARD Performed By: #### C BC, 1-8, BMP, 1750-, 21919-0, 7-1, 67610-1 #### [facility] ([id number]) [address] [place] [address] GFR/1.73 sq M.predicted among non-blacks MDRD (S/P/Bld) [Vol rate/Area] 15 mL/min/{1.73_m2} Low >59 [facility] Comment on above: Result Comment: Reported eGFR is based on the CKD-EPI 2020 equation that does not use a race coefficient. Performed By: #### C BC, 2731-8, BMP, 1751-7, 58846-8, 2777-1, 65118-3 #### [facility] ([id number]) [address] [place] [address] Glucose [Mass/Vol] 63 mg/dL Low 65-99 [facility] Comment on above: Performed By: #### C BC, 1-8, BMP, 175-7, 67174-9, 2777-1, 71947-9 #### [facility] ([id number]) [address] [place] [address] Potassium [Moles/Vol] 3.5 mmol/L Normal 3.5-5.0 [facility] Comment on above: Performed By: #### C BC, 2731-8, BMP, 175-7, 15617-8, 2777-1, 43868-7 #### [facility] ([id number]) [address] [place] [address] Protein [Mass/Vol] 6.5 g/dL Normal 6.0-8.0 [facility] Comment on above: Performed By: #### Rob BC, 2731-8, BMP, 175-7, 98603-0, 2777-1, 29118-3 #### [facility] ([id number]) [address] [place] [address] Sodium [Moles/Vol] 140 mmol/L Normal 134-146 [facility] Comment on above: Performed By: #### Rob BC, 2731-8, BMP, 175-7, 24596-4, 2777-1, 46110-4 #### [facility] ([id number]) [address] [place] [address] Urea nitrogen [Mass/Vol] 72 mg/dL High 5-27 [facility] Comment on above: Performed By: #### Rob NUÑEZ, 2730-8, JOHNY, 7, , 2776-, 31336-1 #### [facility] ([id number]) [address] [place] [address] Glucose Glucometer (BldC) [M ass/Vol]on 12-20-2023 Glucose [Mass/Vol] 87 mg/dL Normal 65-99 [facility] Glucose [Mass/Vol] 124 mg/dL High 65-99 [facility] HGB A1C (GLYCO-HGB)on 2023 Glucose [Mass/Vol] 117 mg/dL Normal [facility] Comment on above: Performed By: #### Rob NUÑEZ, 2730-8, JOHNY, 1751-01, , 2776-07, 13638-3 #### [facility] ([id number]) [address] [place] [address] HbA1c (Bld) [Mass fraction] 5.7 % High 4.4-5.6 [facility] Comment on above: Result Comment: NOTE ADA Guidelines Result HgbA1c Normal : less than 5.7 % Prediabetes : 5.7 % to 6.4 % Diabetes : > 6.4 % Use with caution in patients with abnormal hemoglobin variants as the half-life of red blood cells and in vivo glycation rates are affected. Performed By: #### Rob NUÑEZ, 2730-8, JOHNY, 1751-01, , 2776-07, 13175-1 #### [facility] ([id number]) [address] [place] [address] Lactate (P jose d) [Moles/Vol]o n 12-20-2023 LACTATE W/REFLEX 1.2 mmol/L Normal 0.4-2.0 [facility] Comment on above: Result Comment: Result did not trigger repeat Lactate, re-order if needed. Performed By: #### Rob NUÑEZ, 1-8, BMP, 1750-7, 72963-6, 7-1, 65170-0 #### [facility] ([id number]) [address], [address] [place] [address] MAGNESIUMon 12-20-2023 Magnesium [Mass/Vol] 2.1 mg/dL Normal 1.8-2.6 [facility] Comment on above: Performed By: #### C SAVANNAH, 2730-8, BMP, 1750-7, 39919-0, 2776-, 88781-3 #### [facility] ([id number]) [address], [address] [place] [address] Magnesium [Mass/Vol] 2.0 mg/dL Normal 1.8-2.6 [facility] Comment on above: Performed By: #### Rob NUÑEZ, 2730-8, BMP, 1750-7, 14770-7, 2776-, 96941-3 #### [facility] ([id number]) [address], [address] [place] [address] Natriuretic peptide B [Mass/ Vol]on 12-20-2023 Natriuretic peptide B (Bld) [Mass/Vol] 780 pg/mL High <100.0 [facility] Comment on above: Performed By: #### Rob NUÑEZ, 2730-8, BMP, 1750-7, 31463-9, 2776-1, 85327-3 #### [facility] ([id number]) [address], [address] [place] [address] PHOSPHORUSon 12-20-2023 Phosphate [Mass/Vol] 4.6 mg/dL Normal 2.4-4.9 [facility] Comment on above: Performed By: #### Rob NUÑEZ, 2730-8, BMP, 1751-7, 78121-7, 2777-1, 19898-1 #### [facility] ([id number]) [address], [address] [place] [address] PROTIME AND INRon 12-20-2023 INR Coag (PPP) [Relative time] 6.1 {INR} Critically high 0.8-1.1 [facility] Comment on above: Performed By: #### C , 2731-8, BMP, 1751-7, 98762-6, 2777-1, 41984-3 #### [facility] ([id number]) [address] [place] [address] PT Coag (PPP) [Time] 66.0 s High 9.8-13.2 [facility] Comment on above: Result Comment: NEW REFERENCE RANGE Performed By: #### C , 2731-8, [facility], 1-7, 64838-0, 7-1, 83900-2 #### [facility] ([id number]) [address] [place] [address] SARS/FLU A+B/RSV by NAAT/Mol ecularon 12-20-2023 SARS/FLU A+B/RSV by NAAT/Molecular FLU A PCR Negative (qualifier value) FLU B PCR Negative (qualifier value) RSV by PCR Negative (qualifier value) SARS CoV 2 Not detected (qualifier value) NOTE The Xpert Xpress SARS-CoV-2/Flu/RSV Plus test is a rapid, multiplexed real-time RT-PCR test intended for the simultaneous qualitative detection and differentiation of SARS-CoV-2, influenza A, influenza B and respiratory syncytial virus (RSV) viral RNA from individuals suspected of respiratory viral infection consistent with COVID-19 by their healthcare provider. This test has not been validated in asymptomatic patients. The Xpert Xpress SARS-CoV-2 test is intended for use by qualified and trained operators who are performing tests using either [employer] or [employer] systems and is limited to laboratories that meet the CLIA requirements to perform high and moderate complexity tests. The Xpert Xpress SARS-CoV-2/Flu/RSV Plus is only for use under the Food and Drug Administration's Emergency Use Authorization. Results are for the simultaneous detection and differentiation of SARS-CoV-2, influenza A, influenza B and RSV nucleic acids in clinical specimens. SARS-CoV-2, influenza A, influenza B and RSV RNA identified by this test are generally detectable in upper respiratory samples during the acute phase of infection. Positive results are indicative of the presence of the identified virus, but do not rule out bacterial infection or co-infection with other pathogens not detected by this test. Clinical correlation with patient history and other diagnostic information is necessary to determine patient infection status. The agent detected may not be the definite cause of disease. Negative results do not preclude SARS-CoV-2, influenza A, influenza B and RSV infection and should not be used as the sole basis for treatment or other patient management decisions. Negative results must be combined with clinical observations, patient history and epidemiological information. An Invalid result may occur with specimen-associated inhibition unable to be resolved with specimen repeat. Fact Sheet for Healthcare Providers: https://www.fda.gov/media/ 756321/download Fact Sheet for Patients: https://www.fda.gov/media/ 298875/download Normal [facility] Comment on above: Performed By: #### C SAVANNAH, 273-8, BMP, 1751-01, 53270-7, 7-1, 02574-1 #### [facility] ([id number]) [address] [facility], [facility] [address] [place] [address] T3 [Mass/Vol]on 12-20-2023 TOTAL T3 (TT3) 96 ng/dL Normal 87-178 [facility] Comment on above: Performed By: #### Rob NUÑEZ, 273-8, BMP, 1750-7, 18676-4, 7-1, 17483-4 #### [facility] ([id number]) [address] [place] [address], [facility] [address] [place] [address] THYROID PROFILEon 12-20-2023 Free T4 [Mass/Vol] 0.77 ng/dL Normal 0.61-1.60 [facility] Comment on above: Performed By: #### Rob NUÑEZ, 2731-8, BMP, 1751-01, 77874-4, 2777-1, 66484-3 #### [facility] ([id number]) [address] [place] [address] TSH 7.32 uIU/mL High 0.49-4.67 [facility] Comment on above: Performed By: #### Rob , 2731-8, [facility], 1750-7, 41012-7, 7-1, 86192-9 #### [facility] ([id number]) [address] [place] [address] Troponin I.cardiac High sens itivity method [Mass/Vol]on 12-20-2023 1 HOUR TROP I, HIGH SENSITIVITY 19 ng/L High <16 [facility] Comment on above: Result Comment: Elevations of hs-Troponin may be due to causes other than myocardial ischemia. Recommend serial hs-Troponin testing be performed. For the initial evaluation and management of chest pain patients, refer to the algorithms linked below. Emergency Patient: [email or web address] Inpatient: [email or web address] uh=[email or web address] Performed By: #### Rob , 2731-8, [facility], 1750-7, 54330-1, 7-1, 68594-0 #### [facility] ([id number]) [address] [place] [address] TROPONIN I, HIGH SENSITIVITY 23 ng/L High <16 [facility] Comment on above: Result Comment: Elevations of hs-Troponin may be due to causes other than myocardial ischemia. Recommend serial hs-Troponin testing be performed. For the initial evaluation and management of chest pain patients, refer to the algorithms linked below. Emergency Patient: [email or web address] Inpatient: [email or web address] uh=[email or web address] Performed By: #### C SAVANNAH, 2731-8, BMP, 1751-7, 95932-2, 2777-1, 94400-5 #### [facility] ([id number]) [address] [place] [address] URN MACROSCOPIC NURon 2023 BILIRUBIN TRE Negative Normal NEG [facility] Comment on above: Performed By: #### C SAVANNAH, 2731-8, BMP, 1751-7, 47132-8, 2777-1, 97932-0 #### [facility] ([id number]) [address] [place] [address] BLOOD/HGB TRE Negative Normal NEG [facility] Comment on above: Performed By: #### Rob NUÑEZ, 2731-8, BMP, 1751-7, 71149-6, 2777-1, 56424-5 #### [facility] ([id number]) [address] [place] [address] GLUCOSE TRE Negative Normal NEG [facility] Comment on above: Performed By: #### Rob NUÑEZ, 2731-8, BMP, 1751-7, 65034-9, 2777-1, 67892-7 #### [facility] ([id number]) [address] [place] [address] KETONES TRE Negative Normal NEG [facility] Comment on above: Performed By: #### Rob NUÑEZ, 2731-8, BMP, 1751-7, 14624-9, 2777-1, 98065-0 #### [facility] ([id number]) [address] [place] [address] LEUKOCYTE ESTERASE TRE Negative Normal NEG [facility] Comment on above: Performed By: #### C BC, 2731-8, BMP, 1751-7, 44447-9, 2777-1, 29376-6 #### [facility] ([id number]) [address] [place] [address] NITRITE TRE Negative Normal NEG [facility] Comment on above: Performed By: #### C BC, 2731-8, BMP, 1751-7, 04007-2, 2777-1, 87122-5 #### [facility] ([id number]) [address] [place] [address] PH TRE 5.5 Normal 5.0-8.5 [facility] Comment on above: Performed By: #### Rob NUÑEZ, 2731-8, BMP, 1751-7, 86600-9, 2777-1, 34609-2 #### [facility] ([id number]) [address] [place] [address] PROTEIN TRE 100 mg/dL Abnormal NEG [facility] Comment on above: Performed By: #### Rob NUÑEZ, 2731-8, BMP, 1750-7, 97151-4, 7-1, 15896-7 #### [facility] ([id number]) [address] [place] [address] SPECIFIC GRAVITY TRE 1.015 Normal 1.003-1 .03 5 [facility] Comment on above: Performed By: #### Rob BC, 2731-8, BMP, 175-7, 87008-6, 2777-1, 91314-0 #### [facility] ([id number]) [address] [place] [address] UROBILINOGEN TRE 0.2 eu/dL Normal <1.1 [facility] Comment on above: Performed By: #### Rob BC, 2731-8, BMP, 1751-7, 55537-7, 2777-1, 24545-3 #### [facility] ([id number]) [address] [place] [address] XR CHEST 2 VWSon 12-20-2023 XR CHEST 2 VWS XR CHEST 2 VWS HISTORY: An 78-year-old female with the history of the chronic renal disease. Complaining of shortness of breath. Cardiac failure is suspected. TECHNIQUE: Chest: Upright AP and lateral views, 2 views COMPARISON: Comparison is made with the chest radiograph of 05/17/2023. FINDINGS: Examination is compromised due to patient's body habitus. The heart is enlarged. Trachea is in midline. There are aortic calcifications. Mediastinum is otherwise unremarkable. There is a prominence of the markings bilaterally suggestive of vascular congestions. Small right-sided pleural effusion is seen. Left costophrenic angle is clear. There is a right basilar atelectasis. There is a calcified granuloma in the left lower lung. No pneumothorax is identified. Hemidiaphragms are normal in position and contour. IMPRESSION: * Cardiomegaly with prominence of the markings consistent with vascular congestions and congestive cardiac failure. * Small right-sided pleural effusion and right basilar atelectasis. * Progress study is recommended. Finalized by Max Rodriguez MD on 12/20/2023 9:27 AM Normal [facility] ALBUMINon 11-06-2023 Albumin [Mass/Vol] 3.4 g/dL Normal 3.2-5.3 [facility] Comment on above: Performed By: #### C SAVANNAH, 2731-8, BMP, 175-7, 76165-3, 7-1, 09569-9 #### [facility] ([id number]) [address] [place] [address] BASIC METABOLIC PANLon 11-05 Anion gap [Moles/Vol] 10 mmol/L Normal 5-15 [facility] Comment on above: Performed By: #### C BC, 2731-8, BMP, 1751-7, 84774-4, 2777-1, 68196-1 #### [facility] ([id number]) [address] [place] [address] Calcium [Mass/Vol] 8.9 mg/dL Normal 8.5-10.5 [facility] Comment on above: Performed By: #### C SAVANNAH, 2731-8, BMP, 175-7, 85867-9, 2777-1, 74820-2 #### [facility] ([id number]) [address] [place] [address] Chloride [Moles/Vol] 105 mmol/L Normal 98-109 [facility] Comment on above: Performed By: #### Rob NUÑEZ, 1-8, BMP, 1750-7, 82148-6, 7-1, 71430-2 #### [facility] ([id number]) [address] [place] [address] CO2 [Moles/Vol] 29 mmol/L Normal 22-32 [facility] Comment on above: Performed By: #### Rob NUÑEZ, 2730-8, BMP, 1750-7, 90107-0, 7-1, 62033-9 #### [facility] ([id number]) [address] [place] [address] Creatinine [Mass/Vol] 2.90 mg/dL High 0.40-1.00 [facility] Comment on above: Result Comment: METH OD TRACEABLE TO IDMS STANDARD Performed By: #### Rob NUÑEZ, 2730-8, BMP, 1750-7, 58663-9, 2777-1, 01510-0 #### [facility] ([id number]) [address] [place] [address] GFR/1.73 sq M.predicted among non-blacks MDRD (S/P/Bld) [Vol rate/Area] 16 mL/min/{1.73_m2} Low >59 [facility] Comment on above: Result Comment: Reported eGFR is based on the CKD-EPI 2020 equation that does not use a race coefficient. Performed By: #### C SAVANNAH, 1-8, BMP, 1750-7, 31642-4, 2777-1, 78093-5 #### [facility] ([id number]) [address] [place] [address] Glucose [Mass/Vol] 75 mg/dL Normal 65-99 [facility] Comment on above: Performed By: #### Rob NUÑEZ, 2730-8, BMP, 1750-7, 29002-9, 2777-1, 05103-0 #### [facility] ([id number]) [address] [place] [address] Potassium [Moles/Vol] 3.1 mmol/L Low 3.5-5.0 [facility] Comment on above: Performed By: #### Rob NUÑEZ, 2730-8, BMP, 1750-7, 75191-4, 2776-1, 72539-3 #### [facility] ([id number]) [address] [place] [address] Sodium [Moles/Vol] 144 mmol/L Normal 134-146 [facility] Comment on above: Performed By: #### Rob NUÑEZ, 2730-8, BMP, 1750-7, 08471-5, 2776-1, 03387-7 #### [facility] ([id number]) [address] [place] [address] Urea nitrogen [Mass/Vol] 54 mg/dL High 5-27 [facility] Comment on above: Performed By: #### Rob BC, 2730-8, BMP, 1750-7, 15949-3, 7-1, 51658-1 #### [facility] ([id number]) [address] [place] [address] COMPLETE BLOOD COUNTon 11-05 Erythrocyte distribution width (RBC) [Ratio] 22.0 % High 11.5-15.0 [facility] Comment on above: Performed By: #### C SAVANNAH, 2730-8, BMP, 1750-7, 69888-0, 2776-, 86071-1 #### [facility] ([id number]) [address] [place] [address] Hematocrit (Bld) [Volume fraction] 32.2 % Low 35-47 [facility] Comment on above: Performed By: #### Rob NUÑEZ, 2730-8, BMP, 1750-, 63762-6, 2776-, 97178-8 #### [facility] ([id number]) [address] [place] [address] Hemoglobin (Bld) [Mass/Vol] 10.1 g/dL Low 11.7-15.5 [facility] Comment on above: Performed By: #### Rob NUÑEZ, 2730-8, BMP, 1750-, , 2776-, 03375-4 #### [facility] ([id number]) [address] [place] [address] MCH (RBC) [Entitic mass] 26.2 pg Low 27-34 [facility] Comment on above: Performed By: #### Rob NUÑEZ, 2730-8, BMP, 1751-01, , 2776-, 18443-9 #### [facility] ([id number]) [address] [place] [address] MCHC (RBC) [Mass/Vol] 31.4 g/dL Low 32-36 [facility] Comment on above: Performed By: #### Rob NUÑEZ, 2730-8, BMP, 1751-01, , 2776-, 46817-8 #### [facility] ([id number]) [address] [place] [address] MCV (RBC) [Entitic vol] 83 fL Normal 80-100 [facility] Comment on above: Performed By: #### Rob NUÑEZ, 1-8, BMP, 1750-7, 44295-9, 7-1, 78796-6 #### [facility] ([id number]) [address] [place] [address] Platelet mean volume (Bld) [Entitic vol] 9.2 fL Normal 7-12 [facility] Comment on above: Performed By: #### Rob NUÑEZ, 2730-8, BMP, 1750-7, 66797-7, 2776-1, 47756-4 #### [facility] ([id number]) [address] [place] [address] Platelets (Bld) [#/Vol] 300 10*3/uL Normal 150-450 [facility] Comment on above: Performed By: #### Rob NUÑEZ, 2730-8, BMP, 1750-7, 28659-1, 2776-1, 72571-6 #### [facility] ([id number]) [address] [place] [address] RBC COUNT 3.87 X10E12/L Normal 3.80-5.20 [facility] Comment on above: Performed By: #### C SAVANNAH, 2730-8, BMP, 1750-, 32645-4, 2776-1, 03595-4 #### [facility] ([id number]) [address] [place] [address] WBC (Bld) [#/Vol] 12.4 10*3/uL High 4.0-11.0 [facility] Comment on above: Performed By: #### C SAVANNAH, 2730-8, BMP, 1750-, 85570-4, 2776-1, 29157-5 #### [facility] ([id number]) [address] [place] [address] MAGNESIUMon 11-06-2023 Magnesium [Mass/Vol] 1.8 mg/dL Normal 1.8-2.6 [facility] Comment on above: Performed By: #### Rob BC, 2731-8, BMP, 1750-7, 43369-6, 2776-1, 26388-1 #### [facility] ([id number]) [address] [place] [address] MICROALBUMIN - ALBUMIN:CREAT ININE URINE RATIOon 11-06-2023 ALB/CREAT RATIO 988.2 mg/g creat High 0.0-30.0 [facility] Comment on above: Performed By: #### Rob NUÑEZ, 2731-8, BMP, 1750-7, 39687-9, 2776-1, 48834-4 #### [facility] ([id number]) [address] [place] [address] Albumin DL <= 20 mg/L (U) [Mass/Vol] 114.3 mg/dL High 0.0-1.9 [facility] Comment on above: Performed By: #### Rob NUÑEZ, 2731-8, BMP, 1750-7, 91379-1, 2776-1, 65176-7 #### [facility] ([id number]) [address] [place] [address] URINE CREAT 115.66 mg/dL Normal [facility] Comment on above: Performed By: #### Rob NUÑEZ, 2731-8, BMP, 1750-7, 57382-3, 2776-1, 08232-8 #### [facility] ([id number]) [address] [place] [address] PHOSPHORUSon 11-06-2023 Phosphate [Mass/Vol] 4.0 mg/dL Normal 2.4-4.9 [facility] Comment on above: Performed By: #### Rob BC, 2731-8, BMP, 1750-7, 49735-8, 7-1, 97900-9 #### [facility] ([id number]) [address] [place] [address] Parathyrin.intact [Mass/Vol] on 11-06-2023 PTH INTACT 131 pg/mL High [facility] Comment on above: Performed By: #### Rob NUÑEZ, 2731-8, BMP, 1750-7, 29005-8, 2777-1, 90588-4 #### [facility] ([id number]) [address] [facility], [address] [place] [address] URIC ACIDon 11-06-2023 Urate [Mass/Vol] 5.9 mg/dL Normal 2.6-7.2 [facility] Comment on above: Performed By: #### Rob NUÑEZ, 273-8, BMP, 1750-7, 73926-3, 2776-1, 32520-2 #### [facility] ([id number]) [address] [facility], [address] [place] [address] URINALYSISon 11-06-2023 Bilirubin Ql (U) Negative Normal NEG [facility] Comment on above: Performed By: #### M ALBU #### [facility] ([id number]) [address] [facility], [address] [place] [address] BLOOD/HGB Negative Normal NEG [facility] Comment on above: Performed By: #### M ALBU #### [facility] ([id number]) [address] [facility], [address] [place] [address] Color (U) YELLOW Normal YELLOW [facility] Comment on above: Performed By: #### M ALBU #### [facility] ([id number]) [address] [facility], [address] [place] [address] Glucose Ql (U) Negative Normal NEG [facility] Comment on above: Performed By: #### M ALBU #### [facility] ([id number]) [address] [facility], [address] [place] [address] Ketones Ql (U) Negative Normal NEG [facility] Comment on above: Performed By: #### M ALBU #### [facility] ([id number]) [address] [facility], [address] [place] [address] Leukocyte esterase Test strip Ql (U) Small Abnormal NEG [facility] Comment on above: Performed By: #### M ALBU #### [facility] ([id number]) [address] [place] [address], [address] [place] [address] MUCOUS PRESENT Abnormal NONE [facility] Comment on above: Performed By: #### M ALBU #### [facility] ([id number]) [address] [place] [address], [address] [place] [address] Nitrite Ql (U) Negative Normal NEG [facility] Comment on above: Performed By: #### M ALBU #### [facility] ([id number]) [address] [place] [address], [address] [place] [address] pH (U) 6.0 [pH] Normal 5.0-8.5 [facility] Comment on above: Performed By: #### M ALBU #### [facility] ([id number]) [facility] [facility], [address] [place] [address] Protein Ql (U) 200 mg/dL Abnormal NEG [facility] Comment on above: Performed By: #### M ALBU #### [facility] ([id number]) [facility] [address] [place] [address] R.B.CELLS <1 Normal 0-5 [facility] Comment on above: Performed By: #### M ALBU #### [facility] ([id number]) [facility] [place] [address] Specific gravity (U) [Rel density] 1.017 Normal 1.003-1.03 5 [facility] Comment on above: Performed By: #### M ALBU #### [facility] ([id number]) [address] [place] [address] SQUAMOUS EPITHELIUM 7 /hpf High 0-5 [facility] Comment on above: Performed By: #### Ash ALBU #### [facility] ([id number]) [address] [place] [address] TURBIDITY CLEAR Normal CLEAR [facility] Comment on above: Performed By: #### Ash MAGALLON #### [facility] ([id number]) [address] [facility], [address] [place] [address] Urobilinogen (U) [Mass/Vol] mg/dL Normal <1.1 [facility] Comment on above: Performed By: #### Ash ALBBasim #### [facility] ([id number]) [address] [place] [address] W.B.CELLS 9 /hpf High 0-5 [facility] Comment on above: Performed By: #### Ash MAGALLON #### [facility] ([id number]) [address] [place] [address] Vitamin D+Metabolites [Mass/ Vol]on 11-06-2023 VITAMIN D 25 HYD TOT 47.2 ng/mL Normal 30-100 [facility] Comment on above: Result Comment: Vitamin D status 25 [place] Vitamin D Deficiency <20 ng/mL Insufficiency 20-29 ng/mL Sufficiency 30-100 ng/mL Toxicity >100 ng/mL NOTE: A pediatric reference range has not been established by the surg nurse of this kit. The [place] [employer] recommends a Vitamin D level of = or >20ng/mL in infants and children. Performed By: #### C BC, 2731-8, BMP, 1751-7, 45197-0, 2777-1, 59408-5 #### [facility] ([id number]) [address] [facility] [place] [address] POCT Protime / INRon 024 INR Coag (PPP) [Relative time] 2.2 {INR} Abnormal 0.8 - 1.2 [facility] Interpretation and review of laboratory results Abnormal [facility] Comprehensive metabolic pane harley 10-15-2023 Albumin [Mass/Vol] 3.4 g/dL 3.2 - 5.3 g/dL [facility] ALP [Catalytic activity/Vol] 69 U/L 39 - 130 U/L [facility] ALT No additional P-5'-P [Catalytic activity/Vol] 11 U/L 0 - 31 U/L [facility] Anion gap [Moles/Vol] 12 mmol/L 5 - 15 mmol/L [facility] AST [Catalytic activity/Vol] 15 U/L 0 - 41 U/L [facility] Bilirubin [Mass/Vol] 0.6 mg/dL 0.3 - 1 .2 mg/dL [facility] Calcium [Mass/Vol] 8.7 mg/dL 8.5 - 10. 5 mg/dL [facility] Chloride [Moles/Vol] 107 mmol/L 98 - 10 9 mmol/L [facility] CO2 [Moles/Vol] 25 mmol/L 22 - 32 mmol/L [facility] Creatinine [Mass/Vol] 3.24 mg/dL High 0.40 - 1.00 mg/dL [facility] Comment on above: METHOD TRACEABLE TO [employer]WV STANDARD eGFR (CKD-EPI)non-race dependent 14 Low - PINF [facility] Comment on above: Reported eGFR is based on the CKD-EPI 2020 equation that does not use a race coefficient. Glucose [Mass/Vol] 74 mg/dL 65 - 99 mg/dL [facility] Potassium [Moles/Vol] 3.5 mmol/L 3.5 - 5.0 mmol/L [facility] Protein [Mass/Vol] 5.7 g/dL Low 6.0 - 8.0 g/dL [facility] Sodium [Moles/Vol] 144 mmol/L 134 - 146 mmol/L [facility] Urea nitrogen [Mass/Vol] 49 mg/dL High 5 - 27 mg/dL [facility] Lipid 1996 panelon Cholesterol [Mass/Vol] 84 mg/dL Low 150 - 200 mg/dL [facility] Cholesterol in HDL [Mass/Vol] 27 mg/dL Low 39 - PINF mg/dL [facility] Comment on above: HDL <40 mg/dL - High Risk HDL > or = 40mg/dL- Desirable HDL >60 mg/dL - Negative Risk Cholesterol in LDL [Mass/Vol] 38 mg/dL NINF - 130 mg/dL [facility] Comment on above: LDL <100 mg/dL - Desirable LDL >160 mg/dL - High Risk Cholesterol in VLDL [Mass/Vol] 19 mg/dL 0 - 30 mg/dL [facility] Cholesterol.total/Chol esterol in HDL [Mass ratio] 3.1 {ratio} 1.0 - 5.0 [facility] Triglyceride [Mass/Vol] 93 mg/dL 27 - 150 mg/dL [facility] No Panel Informationon 10-14 Interpretation and review of laboratory results Abnormal [facility] COMPREHENSIVE METABOLIC PANE Harley 10-14-2023 Albumin [Mass/Vol] 3.4 g/dL Normal 3.2-5.3 [facility] Comment on above: Performed By: #### Rob CARRERO, 61813-8 #### [facility] ([id number]) [address] [address] [place] [address] ALP [Catalytic activity/Vol] 69 U/L Normal 39-130 [facility] Comment on above: Performed By: #### Rob CARRERO, 21482-7 #### [facility] ([id number]) [address] [place] [address] ALT [Catalytic activity/Vol] 11 U/L Normal 0-31 [facility] Comment on above: Performed By: #### Rob CARRERO, 50631-0 #### [facility] ([id number]) [address] [place] [address] Anion gap [Moles/Vol] 12 mmol/L Normal 5-15 [facility] Comment on above: Performed By: #### Rob CARRERO, 78490-3 #### [facility] ([id number]) [address] [place] [address] AST [Catalytic activity/Vol] 15 U/L Normal 0-41 [facility] Comment on above: Performed By: #### Rob CARRERO, 72067-8 #### [facility] ([id number]) [address], [address] [place] [address] Bilirubin [Mass/Vol] 0.6 mg/dL Normal 0.3-1.2 [facility] Comment on above: Performed By: #### Rob CARRERO, 58461-7 #### [facility] ([id number]) [address], [address] [place] [address] Calcium [Mass/Vol] 8.7 mg/dL Normal 8.5-10.5 [facility] Comment on above: Performed By: #### Rob CARRERO, 18311-7 #### [facility] ([id number]) [address], [address] [place] [address] Chloride [Moles/Vol] 107 mmol/L Normal 98-109 [facility] Comment on above: Performed By: #### Rob CARRERO, 51524-7 #### [facility] ([id number]) [address], [address] [place] [address] CO2 [Moles/Vol] 25 mmol/L Normal 22-32 [facility] Comment on above: Performed By: #### C MAGAN 71538-4 #### [facility] ([id number]) [address], [address] [place] [address] Creatinine [Mass/Vol] 3.24 mg/dL High 0.40-1.00 [facility] Comment on above: Result Comment: METH OD TRACEABLE TO IDMS STANDARD Performed By: #### Rob CARRERO, 27732-8 #### [facility] ([id number]) [address] [place] [address] GFR/1.73 sq M.predicted among non-blacks MDRD (S/P/Bld) [Vol rate/Area] 14 mL/min/{1.73_m2} Low >59 [facility] Comment on above: Result Comment: Reported eGFR is based on the CKD-EPI 2020 equation that does not use a race coefficient. Performed By: #### Rob CARRERO, 52533-1 #### [facility] ([id number]) [address] [place] [address] Glucose [Mass/Vol] 74 mg/dL Normal 65-99 [facility] [place] Comment on above: Performed By: #### Rob CARRERO, 86534-5 #### [facility] ([id number]) [address] [place] [address] Potassium [Moles/Vol] 3.5 mmol/L Normal 3.5-5.0 [facility] Comment on above: Performed By: #### Rob CARRERO, 27702-4 #### [facility] ([id number]) [address] [place] [address] Protein [Mass/Vol] 5.7 g/dL Low 6.0-8.0 [facility] [place] Comment on above: Performed By: #### Rob CARRERO, 23210-6 #### [facility] ([id number]) [address] [place] [address] Sodium [Moles/Vol] 144 mmol/L Normal 134-146 [facility] [place] Comment on above: Performed By: #### Rob CARRERO, 43020-8 #### [facility] ([id number]) [address] [place] [address] Urea nitrogen [Mass/Vol] 49 mg/dL High 5-27 [facility] Comment on above: Performed By: #### Rob CARRERO, 52204-6 #### [facility] ([id number]) [address] [place] [address] HGB A1C (GLYCO-HGB)on 2023 Glucose [Mass/Vol] 128 mg/dL Normal [facility] Comment on above: Performed By: #### Rob CARRERO, 79840-1 #### [facility] ([id number]) [address] [facility] [address] [place] [address] HbA1c (Bld) [Mass fraction] 6.1 % High 4.4-5.6 [facility] Comment on above: Result Comment: NOTE ADA Guidelines Result HgbA1c Normal : less than 5.7 % Prediabetes : 5.7 % to 6.4 % Diabetes : > 6.4 % Use with caution in patients with abnormal hemoglobin variants as the half-life of red blood cells and in vivo glycation rates are affected. Performed By: #### Rob CARRERO, 46627-2 #### [facility] ([id number]) [address] [place] [address] Lipid 1996 panelon Cholesterol [Mass/Vol] 84 mg/dL Low 150-200 Pr [facility] Comment on above: Performed By: #### Rob CARRERO, 86937-4 #### [facility] ([id number]) [address] [place] [address] Cholesterol in HDL [Mass/Vol] 27 mg/dL Low >39 [facility] Comment on above: Result Comment: HDL <40 mg/dL - High Risk HDL > or = 40mg/dL- Desirable HDL >60 mg/dL - Negative Risk Performed By: #### Rob CARRERO, 39691-3 #### [facility] ([id number]) [address] [place] [address] Cholesterol in LDL [Mass/Vol] 38 mg/dL Normal <130 [facility] Comment on above: Result Comment: LDL <100 mg/dL - Desirable LDL >160 mg/dL - High Risk Performed By: #### Rob CARRERO, 80834-4 #### [facility] ([id number]) [address], [address] [place] [address] Cholesterol in VLDL [Mass/Vol] 19 mg/dL Normal 0-30 [facility] Comment on above: Performed By: #### Rob CARRERO, 26409-9 #### [facility] ([id number]) [address] [place] [address] CHOLESTEROL:HDL 3.1 Normal 1.0-5.0 [facility] Comment on above: Performed By: #### Rob CARRERO, 79302-8 #### [facility] ([id number]) [address] [place] [address] Triglyceride [Mass/Vol] 93 mg/dL Normal 27-150 [facility] Comment on above: Performed By: #### Rob CARRERO, 51584-2 #### [facility] ([id number]) [address] [place] [address] POCT Protime / INRon 03-07-2 024 INR Coag (PPP) [Relative time] 1.5 {INR} Abnormal 0.8 - 1.2 [facility] Interpretation and review of laboratory results Abnormal [facility] POCT Protime / INRon 024 INR Coag (PPP) [Relative time] 1.5 {INR} Abnormal 0.8 - 1.2 [facility] Interpretation and review of laboratory results Abnormal [facility] MICROALBUMIN - ALBUMIN:CREAT ININE URINE RATIOon 08-31-2023 ALB/CREAT RATIO 1339.8 mg/g creat High 0.0-30.0 Pr [facility] Comment on above: Performed By: #### U A #### [facility] ([id number]) [address] [place] [address] #### MALBU #### [facility] ([id number]) [address] [facility] [place] [address] Albumin DL <= 20 mg/L (U) [Mass/Vol] 132.2 mg/dL High 0.0-1.9 [facility] Comment on above: Performed By: #### U A #### [facility] ([id number]) [address] [place] [address] #### MALBU #### [facility] ([id number]) [address] [facility] [place] [address] URINE CREAT 98.67 mg/dL Normal [facility] Comment on above: Performed By: #### U A #### [facility] ([id number]) [address] [place] [address] #### MALBU #### [facility] ([id number]) [address] [place] [address] URINALYSISon 08-31-2023 Bilirubin Ql (U) Negative Normal NEG [facility] Comment on above: Performed By: #### U A #### [facility] ([id number]) [address] [place] [address] 118[address] #### VYBU #### [facility] ([id number]) [address] [place] [address] BLOOD/HGB Negative Normal NEG [facility] Comment on above: Performed By: #### U A #### [facility] ([id number]) [address] [place] [address] #### MALBU #### [facility] ([id number]) [address] [place] [address] Color (U) YELLOW Normal YELLOW [facility] Comment on above: Performed By: #### U A #### [facility] ([id number]) [address] [place] [address] #### LANI #### [facility] ([id number]) [address] [place] [address] Glucose Ql (U) 250 mg/dL Abnormal NEG [facility] Comment on above: Performed By: #### U A #### [facility] ([id number]) [address] [place] [address] #### LANI #### [facility] ([id number]) [address] [place] [address] Hyaline casts LM Ql (Urine sed) 0 to 3 Normal 0-2 [facility] Comment on above: Performed By: #### U A #### [facility] ([id number]) [address] [place] [address] #### MALBU #### [facility] ([id number]) [address] [place] [address] Ketones Ql (U) Negative Normal NEG [facility] Comment on above: Performed By: #### U A #### [facility] ([id number]) [address] [place] [address] #### MALBU #### [facility] ([id number]) [address] [place] [address] Leukocyte esterase Test strip Ql (U) SMALL Abnormal NEG [facility] Comment on above: Performed By: #### U A #### [facility] ([id number]) [address] [place] [address] #### LANI #### [facility] ([id number]) [address] [place] [address] Nitrite Ql (U) Negative Normal NEG [facility] Comment on above: Performed By: #### U A #### [facility] ([id number]) [address] [place] [address] #### LANI #### [facility] ([id number]) [address] [place] [address] pH (U) 6.0 [pH] Normal 5.0-8.5 [facility] Comment on above: Performed By: #### U A #### [facility] ([id number]) [address] [place] [address] #### LANI #### [facility] ([id number]) [address] [place] [address] Protein Ql (U) 100 mg/dL Abnormal NEG [facility] Comment on above: Performed By: #### U A #### [facility] ([id number]) [address] [place] [address] #### VYBU #### [facility] ([id number]) [address] [place] [address] R.B.CELLS 0 /hpf Normal 0-5 [facility] Comment on above: Performed By: #### U A #### [facility] ([id number]) [address] [place] [address] #### MALBU #### [facility] ([id number]) [address] [place] [address] Specific gravity (U) [Rel density] 1.025 Normal 1.003-1.03 5 [facility] Comment on above: Performed By: #### U A #### [facility] ([id number]) [address] [place] [address] #### MALBU #### [facility] ([id number]) [address] [facility] [place] [address] SQUAMOUS EPITHELIUM 20 to 30 Normal 0-5 [facility] Comment on above: Performed By: #### U A #### [facility] ([id number]) [address] [place] [address] #### MALBU #### [facility] ([id number]) [address] [place] [address] TURBIDITY HAZY Abnormal CLEAR [facility] Comment on above: Performed By: #### U A #### [facility] ([id number]) [address] [place] [address] #### MALBU #### [facility] ([id number]) [address] [facility] [facility] [place] [address] Urobilinogen Qn (U) 0.2 {Tarsha'U}/dL Normal <1.1 [facility] Comment on above: Performed By: #### U A #### [facility] ([id number]) [address] [place] [address] #### MALBU #### [facility] ([id number]) [address] [place] [address] W.B.CELLS >100 High 0-5 [facility] Comment on above: Performed By: #### U A #### [facility] ([id number]) [address] [place] [address] #### MALBU #### [facility] ([id number]) [address] [place] [address] ALBUMINon 08-26-2023 Albumin [Mass/Vol] 3.3 g/dL Normal 3.2-5.3 [facility] Comment on above: Performed By: #### Rob NUÑEZ, 2731-8, BMP, 1750-7, 48763-7, 2776-1, 19991-0 #### [facility] ([id number]) [address] [place] [address] BASIC METABOLIC PANLon 08-26 Anion gap [Moles/Vol] 13 mmol/L Normal 5-15 [facility] Comment on above: Performed By: #### Rob NUÑEZ, 2731-8, BMP, 1750-7, 07513-4, 7-1, 90151-5 #### [facility] ([id number]) [address] [place] [address] Calcium [Mass/Vol] 8.7 mg/dL Normal 8.5-10.5 [facility] Comment on above: Performed By: #### Rob NUÑEZ, 2731-8, BMP, 1750-7, 97260-4, 2777-1, 14769-3 #### [facility] ([id number]) [address] [place] [address] Chloride [Moles/Vol] 104 mmol/L Normal 98-109 [facility] Comment on above: Performed By: #### C BC, 2731-8, BMP, 1751-7, 32677-7, 2777-1, 76246-5 #### [facility] ([id number]) [address] [place] [address] CO2 [Moles/Vol] 26 mmol/L Normal 22-32 [facility] Comment on above: Performed By: #### C BC, 1-8, BMP, 175-7, 62809-7, 2777-1, 02448-1 #### [facility] ([id number]) [address] [facility] [facility] [place] [address] Creatinine [Mass/Vol] 2.99 mg/dL High 0.40-1.00 [facility] Comment on above: Result Comment: METH OD TRACEABLE TO IDMS STANDARD Performed By: #### C BC, 2730-8, BMP, 175-7, 81098-2, 2777-1, 19181-0 #### [facility] ([id number]) [address] [facility] [facility] [place] [address] GFR/1.73 sq M.predicted among non-blacks MDRD (S/P/Bld) [Vol rate/Area] 15 mL/min/{1.73_m2} Low >59 [facility] Comment on above: Result Comment: Reported eGFR is based on the CKD-EPI 2020 equation that does not use a race coefficient. Performed By: #### C BC, 2731-8, BMP, 175-7, 30850-0, 2777-1, 44242-8 #### [facility] ([id number]) [address] [facility] [facility] [place] [address] Glucose [Mass/Vol] 88 mg/dL Normal 65-99 [facility] Comment on above: Performed By: #### C BC, 2731-8, BMP, 1751-7, 80574-7, 2777-1, 38874-2 #### [facility] ([id number]) [address] [place] [address] Potassium [Moles/Vol] 3.5 mmol/L Normal 3.5-5.0 [facility] Comment on above: Performed By: #### Rob BC, 2731-8, BMP, 1751-7, 51653-3, 2777-1, 27115-2 #### [facility] ([id number]) [address] [place] [address] Sodium [Moles/Vol] 143 mmol/L Normal 134-146 [facility] Comment on above: Performed By: #### Rob BC, 2731-8, BMP, 175-7, 50549-5, 7-1, 84105-2 #### [facility] ([id number]) [address] [place] [address] Urea nitrogen [Mass/Vol] 39 mg/dL High 5-27 [facility] Comment on above: Performed By: #### Rob NUÑEZ, 2731-8, BMP, 175-7, 11293-2, 2777-1, 04178-1 #### [facility] ([id number]) [address] [place] [address] COMPLETE BLOOD COUNTon 08-26 Erythrocyte distribution width (RBC) [Ratio] 18.7 % High 11.5-15.0 [facility] Comment on above: Performed By: #### Rob BC, 2731-8, BMP, 175-7, 86970-3, 2777-1, 09092-1 #### [facility] ([id number]) [address] [place] [address] Hematocrit (Bld) [Volume fraction] 32.7 % Low 35-47 [facility] Comment on above: Performed By: #### Rob BC, 2731-8, BMP, 175-7, 80239-1, 2777-1, 34825-8 #### [facility] ([id number]) [address] [place] [address] Hemoglobin (Bld) [Mass/Vol] 10.4 g/dL Low 11.7-15.5 [facility] Comment on above: Performed By: #### Rob NUÑEZ, 2731-8, BMP, 175-7, 39332-4, 7-1, 13998-4 #### [facility] ([id number]) [address] [place] [address] MCH (RBC) [Entitic mass] 27.7 pg Normal 27-34 [facility] Comment on above: Performed By: #### Rob NUÑEZ, 1-8, BMP, 1750-7, 20950-8, 2776-1, 40386-9 #### [facility] ([id number]) [address] [place] [address] MCHC (RBC) [Mass/Vol] 31.8 g/dL Low 32-36 [facility] Comment on above: Performed By: #### Rob NUÑEZ, 1-8, BMP, 1750-7, 23572-8, 2776-1, 89786-4 #### [facility] ([id number]) [address] [place] [address] MCV (RBC) [Entitic vol] 87 fL Normal 80-100 [facility] Comment on above: Performed By: #### Rob NUÑEZ, 1-8, BMP, 1750-7, 76699-8, 2776-1, 43938-7 #### [facility] ([id number]) [address] [place] [address] Platelet mean volume (Bld) [Entitic vol] 9.2 fL Normal 7-12 [facility] Comment on above: Performed By: #### Rob NUÑEZ, 2731-8, BMP, 1750-7, 51000-3, 2776-1, 04770-8 #### [facility] ([id number]) [address] [place] [address] Platelets (Bld) [#/Vol] 376 10*3/uL Normal 150-450 [facility] Comment on above: Performed By: #### Rob NUÑEZ, 2730-8, BMP, 1750-7, 89720-0, 2776-1, 45770-0 #### [facility] ([id number]) [address] [place] [address] RBC COUNT 3.75 X10E12/L Low 3.80-5.20 [facility] Comment on above: Performed By: #### Rob NUÑEZ, 2730-8, BMP, 1751-01, 58561-7, 2776-, 69220-6 #### [facility] ([id number]) [address] [place] [address] WBC (Bld) [#/Vol] 13.3 10*3/uL High 4.0-11.0 [facility] Comment on above: Performed By: #### Rob NUÑEZ, 2730-8, BMP, 1751-01, , 2776-, 77349-0 #### [facility] ([id number]) [address] [place] [address] MAGNESIUMon 08-26-2023 Magnesium [Mass/Vol] 1.8 mg/dL Normal 1.8-2.6 [facility] Comment on above: Performed By: #### Rob NUÑEZ, 2730-8, BMP, 1750-, 49421-6, 2776-, 44155-3 #### [facility] ([id number]) [address] [place] [address] PHOSPHORUSon 08-26-2023 Phosphate [Mass/Vol] 3.7 mg/dL Normal 2.4-4.9 [facility] Comment on above: Performed By: #### Rob NUÑEZ, 2730-8, BMP, 1751-01, 73054-4, 2776-, 45033-5 #### [facility] ([id number]) [address] [facility] [place] [address] Parathyrin.intact [Mass/Vol] on 08-26-2023 PTH INTACT 227 pg/mL High 12-88 [facility] Comment on above: Performed By: #### Rob , 2730-8, [facility], 1751-01, , 2776-07, 19440-9 #### [facility] ([id number]) [address] [place] [address] Vitamin D+Metabolites [Mass/ Vol]on 08-26-2023 VITAMIN D 25 HYD TOT 37.6 ng/mL Normal 30-100 [facility] Comment on above: Result Comment: Vitamin D status 25 [place] Vitamin D Deficiency <20 ng/mL Insufficiency 20-29 ng/mL Sufficiency 30-100 ng/mL Toxicity >100 ng/mL NOTE: A pediatric reference range has not been established by the surg nurse of this kit. The [place] [employer] recommends a Vitamin D level of = or >20ng/mL in infants and children. Performed By: #### Rob , 2730-8, [facility], 1751-01, , 2776-07, 88539-5 #### [facility] ([id number]) [address] [place] [address] POCT Protime / INRon 17-2 024 INR Coag (PPP) [Relative time] 1.7 {INR} Abnormal 0.8 - 1.2 [facility] Interpretation and review of laboratory results Abnormal [facility] POCT Protime / INRon 07-22-2 023 INR Coag (PPP) [Relative time] 2.3 {INR} Abnormal 0.8 - 1.2 [facility] Interpretation and review of laboratory results Abnormal [facility] ALBUMIN, RANDOM URINE W/CREA Thomas 06-18-2021 ALBUMIN, URINE 87.1 mg/dL Normal See Note: [facility] Comment on above: Result Comment: Refe rentodd Range: Reference Range Not established Verified by repeat analysis. Performed By: #### 6 399, 94855, 7600, 6517, 718, 905 #### [facility] [address], [address] [place] [address] Professor Of Criminal Justice: Rigoberto Osman MD ALBUMIN/CREATININE RATIO, RANDOM URINE 1244 mcg/mg creat High <30 [facility] Comment on above: Result Comment: The ADA defines abnormalities in albumin excretion as follows: Albuminuria Category Result (mcg/mg creatinine) Normal to Mildly increased <30 Moderately increased 30-299 Severely increased > OR = 300 The ADA recommends that at least two of three specimens collected within a 3-6 month period be abnormal before considering a patient to be within a diagnostic category. Performed By: #### 6 399, 65228, 7600, 6517, 718, 905 #### [facility] [address], [address] [place] [address] Professor Of Criminal Justice: Rigoberto Omsan MD Creatinine (U) [Mass/Vol] 70 mg/dL Normal 20-275 [facility] Comment on above: Performed By: #### 6 399, 52176, 7600, 6517, 718, 905 #### [facility] [place] [address] Professor Of Criminal Justice: Rigoberto Osman MD CBC (INCLUDES DIFF/PLT)on Basophils (Bld) [#/Vol] 0.079 10*3/uL Normal 0-200 [facility] Comment on above: Performed By: #### 6 399, 47897, 7600, 6517, 718, 905 #### [facility] [address], [address] [place] [address] Professor Of Criminal Justice: Rigoberto Osman MD Basophils/100 WBC (Bld) 0.5 % Normal [facility] Comment on above: Performed By: #### 6 399, 72055, 7600, 6517, 718, 905 #### [facility] [place] [address] Professor Of Criminal Justice: Rigoberto Osman MD Eosinophils (Bld) [#/Vol] 0.267 10*3/uL Normal 15-500 [facility] Comment on above: Performed By: #### 6 399, 93161, 7600, 6517, 718, 905 #### [facility] [place] [address] Professor Of Criminal Justice: Rigoberto Osman MD Eosinophils/100 WBC (Bld) 1.7 % Normal [facility] Comment on above: Performed By: #### 6 399, 93891, 7600, 6517, 718, 905 #### [facility] [place] [address] Professor Of Criminal Justice: Rigoberto Osman MD Erythrocyte distribution width (RBC) [Ratio] 17.3 % High 11.0-15.0 [facility] Comment on above: Performed By: #### 6 399, 06025, 7600, 6517, 718, 905 #### [facility] [place] [address] Professor Of Criminal Justice: Rigoberto Osman MD Hematocrit (Bld) [Volume fraction] 39.0 % Normal 35.0-45.0 [facility] Comment on above: Performed By: #### 6 399, 03342, 7600, 6517, 718, 905 #### [facility] [place] [address] Professor Of Criminal Justice: Rigoberto Osman MD Hemoglobin (Bld) [Mass/Vol] 12.5 g/dL Normal 11.7-15.5 [facility] Comment on above: Performed By: #### 6 399, 82149, 7600, 6517, 718, 905 #### [facility] [place] [address] Professor Of Criminal Justice: Rigoberto Osman MD Lymphocytes (Bld) [#/Vol] 1.963 10*3/uL Normal 850-3900 [facility] Comment on above: Performed By: #### 6 399, 69095, 7600, 6517, 718, 905 #### [facility] [place] [address] Professor Of Criminal Justice: Rigoberto Osman MD Lymphocytes/100 WBC (Bld) 12.5 % Normal [facility] Comment on above: Performed By: #### 6 399, 21075, 7600, 6517, 718, 905 #### [facility] [place] [address] Professor Of Criminal Justice: Rigoberto Osman MD MCH (RBC) [Entitic mass] 25.7 pg Low 27.0-33.0 [facility] Comment on above: Performed By: #### 6 399, 52712, 7600, 6517, 718, 905 #### [facility] [place] [address] Professor Of Criminal Justice: Rigoberto Osman MD MCHC (RBC) [Mass/Vol] 32.1 g/dL Normal 32.0-36.[address] [facility] Comment on above: Performed By: #### 6 399, 11910, 7600, 6517, 718, 905 #### [facility] [place] [address] Professor Of Criminal Justice: Rigoberto Osman MD MCV (RBC) [Entitic vol] 80.2 fL Normal 80.0-100.0 [facility] Comment on above: Performed By: #### 6 399, 17984, 7600, 6517, 718, 905 #### [facility] [place] [address] Professor Of Criminal Justice: Rigoberto Osman MD Monocytes (Bld) [#/Vol] 1.13 10*3/uL High 200-950 [facility] Comment on above: Performed By: #### 6 399, 92944, 7600, 6517, 718, 905 #### [facility] [place] [address] Professor Of Criminal Justice: Rigoberto Osman MD Monocytes/100 WBC (Bld) 7.2 % Normal [facility] Comment on above: Performed By: #### 6 399, 22270, 7600, 6517, 718, 905 #### [facility] [place] [address] Professor Of Criminal Justice: Rigoberto Osman MD Neutrophils (Bld) [#/Vol] 12.262 10*3/uL High 7515-8607 [facility] Comment on above: Performed By: #### 6 399, 66547, 7600, 6517, 718, 905 #### [facility] [place] [address] Professor Of Criminal Justice: Rigoberto Osman MD Neutrophils/100 WBC (Bld) 78.1 % Normal [facility] Comment on above: Performed By: #### 6 399, 61419, 7600, 6517, 718, 905 #### [facility] [place] [address] Professor Of Criminal Justice: Rigoberto Osman MD Platelet mean volume (Bld) [Entitic vol] 11.4 fL Normal 7.5-12.5 [facility] Comment on above: Performed By: #### 6 399, 14172, 7600, 6517, 718, 905 #### [facility] [place] [address] Professor Of Criminal Justice: Rigoberto Osman MD Platelets (Bld) [#/Vol] 420 10*3/uL High 140-400 [facility] Comment on above: Performed By: #### 6 399, 07424, 7600, 6517, 718, 905 #### [facility] [place] [address] Professor Of Criminal Justice: Rigoberto Osman MD RBC (Bld) [#/Vol] 4.86 10*6/uL Normal 3.80-5.10 [facility] Comment on above: Performed By: #### 6 399, 48323, 7600, 6517, 718, 905 #### [facility] [place] [address] Professor Of Criminal Justice: Rigoberto Osman MD WBC (Bld) [#/Vol] 15.7 10*3/uL High 3.8-10.8 [facility] Comment on above: Performed By: #### 6 399, 14658, 7600, 6517, 718, 905 #### [facility] of [address], [address] [place] [address] Professor Of Criminal Justice: Rigoberto Osman MD [facility] 06-18-2021 Albumin [Mass/Vol] 3.6 g/dL Normal 3.6-5.1 [facility] Comment on above: Performed By: #### 6 399, 16429, 7600, 6517, 718, 905 #### [facility] [place] [address] Professor Of Criminal Justice: Rigoberto Osman MD Albumin/Globulin [Mass ratio] 1.4 {ratio} Normal 1.0-2.5 [facility] Comment on above: Performed By: #### 6 399, 93205, 7600, 6517, 718, 905 #### [facility] [place] [address] Professor Of Criminal Justice: Rigoberto Osman MD ALP [Catalytic activity/Vol] 91 U/L Normal 37-153 [facility] Comment on above: Performed By: #### 6 399, 08929, 7600, 6517, 718, 905 #### [facility] [place] [address] Professor Of Criminal Justice: Rigoberto Osman MD ALT [Catalytic activity/Vol] 11 U/L Normal 6-29 [facility] Comment on above: Performed By: #### 6 399, 15092, 7600, 6517, 718, 905 #### [facility] of [place] [address] Professor Of Criminal Justice: Rigoberto Osman MD AST [Catalytic activity/Vol] 15 U/L Normal 10-35 [facility] Comment on above: Performed By: #### 6 399, 89918, 7600, 6517, 718, 905 #### [facility] [place] [address] Professor Of Criminal Justice: Rigoberto Osman MD Bilirubin [Mass/Vol] 0.5 mg/dL Normal 0.2-1.2 [facility] t [facility] Comment on above: Performed By: #### 6 399, 84744, 7600, 6517, 718, 905 #### [facility] [place] [address] Professor Of Criminal Justice: Rigoberto Osman MD Calcium [Mass/Vol] 9.1 mg/dL Normal 8.6-10.4 [facility] Comment on above: Performed By: #### 6 399, 50662, 7600, 17, 718, 905 #### [facility] [place] [address] Professor Of Criminal Justice: Rigoberto Osman MD Chloride [Moles/Vol] 104 mmol/L Normal 98-110 [facility] Comment on above: Performed By: #### 6 399, 44679, 7600, 6517, 718, 905 #### [facility] [place] [address] Professor Of Criminal Justice: Rigoberto Osman MD CO2 [Moles/Vol] 28 mmol/L Normal 20-32 [facility] Comment on above: Performed By: #### 6 399, 00365, 7600, 6517, 718, 905 #### [facility] [place] [address] Professor Of Criminal Justice: Rigoberto Osman MD Creatinine [Mass/Vol] 1.59 mg/dL High 0.60-0.[address] [facility] Comment on above: Result Comment: For patients >49 years of age, the reference limit for Creatinine is approximately 13% higher for people identified as -Gibraltarian. Performed By: #### 6 399, 41619, 7600, 6517, 718, 905 #### [facility] [place] [address] Professor Of Criminal Justice: Rigoberto Osman MD eGFR NON-AFR. NIGERIEN 31 mL/min/1.73m2 Low > OR = 60 [facility] Comment on above: Performed By: #### 6 399, 89840, 7600, 6517, 718, 905 #### [facility] [place] [address] Professor Of Criminal Justice: Rigoberto Osman MD GFR/1.73 sq M.predicted among blacks MDRD (S/P/Bld) [Vol rate/Area] 36 mL/min/{1.73_m2} Low > OR = 60 [facility] Comment on above: Performed By: #### 6 399, 96716, 7600, 6517, 718, 905 #### [facility] [place] [address] Professor Of Criminal Justice: Rigoberto Osman MD Globulin (S) [Mass/Vol] 2.6 g/dL Normal 1.9-3.7 [facility] Comment on above: Performed By: #### 6 399, 67082, 7600, 6517, 718, 905 #### [facility] [place] [address] Professor Of Criminal Justice: Rigoberto Osman MD Glucose [Mass/Vol] 89 mg/dL Normal 65-99 [facility] Comment on above: Result Comment: Fasting reference interval Performed By: #### 6 399, 26554, 7600, 6517, 718, 905 #### [facility] [place] [address] Professor Of Criminal Justice: Rigoberto Osman MD Potassium [Moles/Vol] 3.8 mmol/L Normal 3.5-5.3 [facility] Comment on above: Performed By: #### 6 399, 83575, 7600, 6517, 718, 905 #### [facility] [address] [place] [address] Professor Of Criminal Justice: Rigoberto Osman MD Protein [Mass/Vol] 6.2 g/dL Normal 6.1-8.1 [facility] Comment on above: Performed By: #### 6 399, 33520, 7600, 6517, 718, 905 #### [facility] of [place] [address] Professor Of Criminal Justice: Rigoberto Osman MD Sodium [Moles/Vol] 142 mmol/L Normal 135-146 [facility] Comment on above: Performed By: #### 6 399, 46707, 7600, 6517, 718, 905 #### [facility] of [place] [address] Professor Of Criminal Justice: Rigoberto Osman MD Urea nitrogen [Mass/Vol] 25 mg/dL Normal 7-25 [facility] Comment on above: Performed By: #### 6 399, 52885, 7600, 6517, 718, 905 #### [facility] of [place] [address] Professor Of Criminal Justice: Rigoberto Osman MD Urea nitrogen/Creatinine [Mass ratio] 16 mg/mg Normal 6-22 [facility] Comment on above: Performed By: #### 6 399, 19882, 7600, 6517, 718, 905 #### [facility] [place] [address] Professor Of Criminal Justice: Rigoberto Osman MD LIPID PANEL, [facility] 11-2 Cholesterol [Mass/Vol] 119 mg/dL Normal <200 [facility] Comment on above: Performed By: #### 6 399, 10390, 7600, 6517, 718, 905 #### [facility] of [place] [address] Professor Of Criminal Justice: Rigoberto Osman MD Cholesterol in HDL [Mass/Vol] 34 mg/dL Low > OR = 50 [facility] Comment on above: Performed By: #### 6 399, 25920, 7600, 6517, 718, 905 #### [facility] [place] [address] Professor Of Criminal Justice: Rigoberto Osman MD Cholesterol in LDL [Mass/Vol] 60 mg/dL Normal [facility] Comment on above: Result Comment: Refe rence range: <100 Desirable range <100 mg/dL for primary prevention; <70 mg/dL for patients with CHD or diabetic patients with > or = 2 CHD risk factors. LDL-C is now calculated using the Marielena calculation, which is a validated novel method providing better accuracy than the Friedewald equation in the estimation of LDL-C. Rohan REAVES et al. DILCIA. 2013;310(19): 3864-9681 (http://education.RPO.TriActive/faq/SWA393) Performed By: #### 6 399, 78241, 7600, 6517, 516, 905 #### [facility] [place] [address] Professor Of Criminal Justice: Rigoberto Osman MD Cholesterol.total/Chol esterol in HDL [Mass ratio] 3.5 {ratio} Normal <5.0 [facility] Comment on above: Performed By: #### 6 399, 67917, 7600, 6517, 718, 905 #### [facility] [place] [address] Professor Of Criminal Justice: Rigoberto Osman MD NON HDL CHOLESTEROL 85 mg/dL (calc) Normal <130 [facility] Comment on above: Result Comment: For patients with diabetes plus 1 major ASCVD risk factor, treating to a non-HDL-C goal of <100 mg/dL (LDL-C of <70 mg/dL) is considered a therapeutic option. Performed By: #### 6 399, 58395, 7600, 6517, 718, 905 #### [facility] [place] [address] Professor Of Criminal Justice: Rigoberto Osman MD Triglyceride [Mass/Vol] 178 mg/dL High <150 [facility] Comment on above: Performed By: #### 6 399, 02774, 7600, 6517, 718, 905 #### [facility] [place] [address] Professor Of Criminal Justice: Rigoberto Osman MD PHOSPHATE ( PHOSPHORUS)on 06-18-2021 Phosphate [Mass/Vol] 4.2 mg/dL Normal 2.1-4.3 [facility] Comment on above: Performed By: #### 6 399, 06480, 7600, 7217, 179, 905 #### [facility] [place] [address] Professor Of Criminal Justice: Rigoberto Osman MD PTH, INTACT WITHOUT CALCIUMo n 06-18-2021 PARATHYROID HORMONE, INTACT 187 pg/mL High 14-64 [facility] Comment on above: Result Comment: Interpretive Guide Intact PTH Calcium ------- Normal Parathyroid Normal Normal Hypoparathyroidism Low or Low Normal Low Hyperparathyroidism Primary Normal or High High Secondary High Normal or Low Tertiary High High Non-Parathyroid Hypercalcemia Low or Low Normal High NO COLLECTION DATE RECEIVED. WE HAVE USED THE DATE THE SPECIMEN WAS RECEIVED BY THIS LABORATORY THE COLLECTION DATE. IF THIS IS INCORRECT, PLEASE CONTACT CLIENT SERVICES. PHONE NUMBER: [phone] Performed By: #### 6 399, 31964, 7600, 5023, 834, 264 #### [facility] [place] [address] Professor Of Criminal Justice: Rigoberto Osman MD URIC ACIDon 06-18-2021 Urate [Mass/Vol] 5.2 mg/dL Normal 2.5-7.0 [facility] Comment on above: Result Comment: Ther apeutic target for gout patients: <6.0 mg/dL Performed By: #### 6 399, 73244, 7600, 7244, 280, 907 #### [facility] [place] [address] Professor Of Criminal Justice: Rigoberto Osman MD BASIC METABOLIC PANELon 3 Calcium [Mass/Vol] 8.8 mg/dL Normal 8.6-10.4 [facility] Comment on above: Order Comment: FASTI NG:NOFASTING: NO Performed By: #### 6 399, 68605, 7600, 6517, 718, 905 #### [facility] [address], [address] [place] [address] Professor Of Criminal Justice: Rigoberto Osman MD Chloride [Moles/Vol] 105 mmol/L Normal 98-110 [facility] Comment on above: Order Comment: FASTI NG:NOFASTING: NO Performed By: #### 6 399, 37021, 7600, 6517, 718, 905 #### [facility] [place] [address] Professor Of Criminal Justice: iRgoberto Osman MD CO2 [Moles/Vol] 28 mmol/L Normal 20-32 [facility] Comment on above: Order Comment: FASTI NG:NOFASTING: NO Performed By: #### 6 399, 46763, 7600, 6517, 718, 905 #### [facility] [address], [address] [place] [address] Professor Of Criminal Justice: Rigoberto Osman MD Creatinine [Mass/Vol] 1.56 mg/dL High 0.60-0.93 [facility] Comment on above: Order Comment: FASTI NG:NOFASTING: NO Result Comment: For patients >49 years of age, the reference limit for Creatinine is approximately 13% higher for people identified as -Gibraltarian. Performed By: #### 6 399, 72999, 7600, 6517, 718, 905 #### [facility] [place] [address] Professor Of Criminal Justice: Rigoberto Osman MD eGFR NON-AFR. NIGERIEN 32 mL/min/1.73m2 Low > OR = 60 [facility] Comment on above: Order Comment: FASTI NG:NOFASTING: NO Performed By: #### 6 399, 63625, 7600, 6517, 718, 905 #### [facility] [address], [address] [place] [address] Professor Of Criminal Justice: Rigoberto Osman MD GFR/1.73 sq M.predicted among blacks MDRD (S/P/Bld) [Vol rate/Area] 37 mL/min/{1.73_m2} Low > OR = 60 [facility] Comment on above: Order Comment: FASTI NG:NOFASTING: NO Performed By: #### 6 399, 82050, 7600, 6517, 718, 905 #### [facility] [place] [address] Professor Of Criminal Justice: Rigoberto Osman MD Glucose [Mass/Vol] 160 mg/dL High 65-139 [facility] Comment on above: Order Comment: FASTI NG:NOFASTING: NO Result Comment: Non-fasting reference interval For someone without known diabetes, a glucose value >125 mg/dL indicates that they may have diabetes and this should be confirmed with a follow-up test. Performed By: #### 6 399, 98893, 7600, 6517, 718, 905 #### [facility] [place] [address] Professor Of Criminal Justice: Rigoberto Osman MD Potassium [Moles/Vol] 4.0 mmol/L Normal 3.5-5.3 [facility] Comment on above: Order Comment: FASTI NG:NOFASTING: NO Performed By: #### 6 399, 54552, 7600, 6517, 718, 905 #### [facility] [place] [address] Professor Of Criminal Justice: Rigoberto Osman MD Sodium [Moles/Vol] 144 mmol/L Normal 135-146 [facility] Comment on above: Order Comment: FASTI NG:NOFASTING: NO Performed By: #### 6 399, 26108, 7600, 6517, 718, 905 #### [facility] [place] [address] Professor Of Criminal Justice: Rigoberto Osman MD Urea nitrogen [Mass/Vol] 29 mg/dL High 7-25 [facility] Comment on above: Order Comment: FASTI NG:NOFASTING: NO Performed By: #### 6 399, 34370, 7600, 6517, 718, 905 #### [facility] [address], [address] [place] [address] Professor Of Criminal Justice: Rigoberto Osman MD Urea nitrogen/Creatinine [Mass ratio] 19 mg/mg Normal 6-22 [facility] Comment on above: Order Comment: FASTI NG:NOFASTING: NO Performed By: #### 6 399, 04320, 7600, 6517, 718, 905 #### [facility] [address], [address] [place] [address] Professor Of Criminal Justice: Rigoberto Osman MD MAGNESIUMon 06-28-2020 Magnesium [Mass/Vol] 1.6 mg/dL Normal 1.5-2.5 [facility] Comment on above: Performed By: #### 7 18, , 622 #### [facility], [address] [place] [address] Professor Of Criminal Justice: Rigoberto Osman MD PHOSPHATE ( PHOSPHORUS)on 06-28-2020 Phosphate [Mass/Vol] 3.5 mg/dL Normal 2.1-4.3 [facility] Comment on above: Performed By: #### 7 , , 622 #### [facility] [address] Professor Of Criminal Justice: Rigoberto Osman MD URIC ACIDon 06-28-2020 Urate [Mass/Vol] 6.5 mg/dL Normal 2.5-7.0 [facility] Comment on above: Result Comment: Ther apeutic target for gout patients: <6.0 mg/dL NO COLLECTION DATE RECEIVED. WE HAVE USED THE DATE THE SPECIMEN WAS RECEIVED BY THIS LABORATORY THE COLLECTION DATE. IF THIS IS INCORRECT, PLEASE CONTACT CLIENT SERVICES. PHONE NUMBER: [phone] Performed By: #### 7 18, , 622 #### [facility], [address] [place] [address] Professor Of Criminal Justice: Rigoberto Osman MD CBC AUTO DIFFon 02-09-2018 Basophils Auto #/vol (Bld) 0.1 103/ul Normal 0.0-0.1 [facility] Comment on above: Performed By: #### C BC ####[facility] Cnuadqrrls6872 [place] [address]Gerkiersten Villafana Basophils/100 WBC Auto (Bld) 0.7 % Normal 0.2-2.0 [facility] Comment on above: Performed By: #### C BC ####[facility] Jfzuvenfla0206 [place] [address]Gerken [place] Eosinophils 0.7 103/ul Normal 0.0-0.7 [facility] Comment on above: Performed By: #### C BC ####[facility] Lbigrtscab0412 [address] [place] Eosinophils/100 leukocytes 6.2 % Normal 0.9-7.0 [facility] Comment on above: Performed By: #### C BC ####[facility] Vimsigljxt8802 [address] [place] Erythrocyte distribution width Auto Ratio (RBC) 15.8 % Critically high 11.0-15.0 [facility] Comment on above: Performed By: #### C BC ####[facility] [address] [place] [address] [place] Erythrocytes (RBC) 3.71 106/ul Critically low 4.20-5.40 [facility] Comment on above: Performed By: #### C BC ####[facility] Airornyojd3410 [place] [address]Gerken [place] Hematocrit (HCT) 32.3 % Critically low 36.0-48.0 [facility] Comment on above: Performed By: #### C BC ####[facility] Zeviglkllf1659 [place] [address]Gerkiersten Villafana Hemoglobin mass conc (Bld) 10.4 g/dL Critically low 12.0-16.0 [facility] Comment on above: Performed By: #### C BC ####[facility] Ssjthqczng3647 [place] [address]Gerken [place] IG # 0.05 10e3/ul Critically high 0.00-0.03 [facility] Comment on above: Performed By: #### C BC ####[facility] Lhikduywvz25[address] [place] IG % 0.4 % Normal 0.0-0.5 [facility] Comment on above: Performed By: #### C BC ####[facility] Qghpnfmhvz1713 [address] [place] Lymphocytes 1.8 103/ul Normal 1.2-3.8 [facility] Comment on above: Performed By: #### C BC ####[facility] Osmahyjqim8934 [address] [place] Lymphocytes/100 leukocytes 14.8 % Critically low 20.5-60.0 [facility] Comment on above: Performed By: #### C BC ####[facility] [address] [place] [address] [place] MANUAL DIFF REQ NO Normal [facility] Comment on above: Performed By: #### C BC ####[facility] [address] [place] [address] [place] MCH 28.0 pg Normal 26.7-34.0 [facility] Comment on above: Performed By: #### C BC ####[facility] [address] [place] [address] [place] MCHC mass conc (RBC) 32.2 g/dL Normal 29.9-35.2 [facility] Comment on above: Performed By: #### C BC ####[facility] Qqvylbhxyb3322 [address] [place] MCV 87.1 fL Normal 81.0-99.0 [facility] Comment on above: Performed By: #### C BC ####[facility] Kycayupilp6113 [address] [place] Monocytes 0.9 103/ul Critically high 0.3-0.8 [facility] Comment on above: Performed By: #### C BC ####[facility] [address] [place] [address] [place] Monocytes/100 leukocytes 7.7 % Normal 1.7-12.0 [facility] Comment on above: Performed By: #### C BC ####[facility] Jbemkvxotk8398 [place], [place] [address]Rxirhq [place] Neutrophils 8.3 103/ul Critically high 1.4-6.5 [facility] Comment on above: Performed By: #### C BC ####[facility] Nhzgkkwgui0940 [place] [address]Gerken [place] Neutrophils/100 WBC Auto (Bld) 70.2 % Normal 43.0-75.0 [facility] Comment on above: Performed By: #### C BC ####[facility] Coygkknpxn3492 [place] [address]Gm [place] Platelet mean volume (PMV) 10.1 fL Normal 9.5-13.5 [facility] Comment on above: Performed By: #### C BC ####[facility] Dmgtwzameq5045 [place] [address]Gerkiersten Villafana Platelets 362 103/ul Normal 150-450 [facility] Comment on above: Performed By: #### C BC ####[facility] Ovbtmoajgs5242 [place] [address]Gerkiersten Villafana WBC (Leukocytes) 11.8 103/ul Critically high 4.0-11.0 [facility] Comment on above: Performed By: #### C BC ####[facility] Xssepflshp3721 [place] [address]Gerken [place] PROF 14(COMP METB)on 018 Alanine aminotransferase (ALT) 26 U/L Normal 9-52 [facility] Comment on above: Performed By: #### C MP ####[facility] Izukxaiqgm5279 [place] [address]Gerkiersten Villafana Albumin 3.9 g/dL Normal 3.5-5.0 [facility] Comment on above: Performed By: #### C MP ####[facility] Vipusxexpu4831 [place] [address]Gerken [place] Albumin/Globulin Ratio 1.4 {ratio} Normal T he [facility] Comment on above: Performed By: #### C MP ####[facility] Nyuyhrhyhg2360 [address] [place] Alkaline phosphatase (ALP) 71 U/L Normal 38-126 [facility] Comment on above: Performed By: #### C MP ####[facility] Rjzbrsrhij7101 [place] [address]Gerken [place] Anion gap 12.9 mmol/L Normal [facility] Comment on above: Performed By: #### C MP ####[facility] Rosdreuqeg5665 [address] [place] Aspartate aminotransferase (AST) 29 U/L Normal 14-36 [facility] Comment on above: Performed By: #### C MP ####[facility] [address] [place] [address] [place] Bilirubin Ql (U) 0.5 mg/dL Normal 0.2-1.3 [facility] Comment on above: Performed By: #### C MP ####[facility] [address] [place] [address] [place] BUN/Creatinine Ratio 16.5 mg/mg Normal [facility] Comment on above: Performed By: #### C MP ####[facility] [address] [place] [address] [place] Calcium 8.8 mg/dL Normal 8.4-10.2 [facility] Comment on above: Performed By: #### C MP ####[facility] Cekabtsqoa1617 [place] [address]Gerken [place]edy Chloride 101 mmol/L Normal 98-107 [facility] Comment on above: Performed By: #### C MP ####[facility] [address] [place], [place] [address]Gerken Ledy CO2 30.0 mmol/L Normal 22.0-30.0 [facility] Comment on above: Performed By: #### C MP ####[facility] [address] [place] [address] [place] Creatinine 2.00 mg/dL Critically high 0.52-1.04 [facility] Comment on above: Performed By: #### C MP ####[facility] Ujngijngcb6292 [place] [address]Gerken [place] EGFR-AF NIGERIEN 30 mL/min/1.73m2 Critically low >=60 [facility] Comment on above: Performed By: #### C MP ####[facility] Yduvpduxyt5105 [place] [address]Ger[place] EGFR-NON AF NIGERIEN 24 mL/min/1.73m2 Critically low >=60 [facility] Comment on above: Performed By: #### C MP ####[facility] Mkltlknaef4399 [place] [address]Gerken [place] Globulin 2.8 g/dL Normal [facility] Comment on above: Performed By: #### C MP ####[facility] Ddedzyzkge3923 [place] [address]Gerken [place] Glucose mass conc 157 mg/dL Critically high 74-106 Th [facility] Comment on above: Performed By: #### C MP ####[facility] Afbwglgqdy1811 [place] [address]Ger[place] Potassium molar conc 4.1 mmol/L Normal 3.4-5.0 [facility] Comment on above: Performed By: #### C MP ####[facility] Ejvsqyhvts1319 [place] [address]Ger[place] Protein 6.7 g/dL Normal 6.1-8.2 [facility] Comment on above: Performed By: #### C MP ####[facility] Onztykdjmx5875 [place] [address]Gerken [place] Sodium 140 mmol/L Normal 137-145 [facility] Comment on above: Performed By: #### C MP ####[facility] Jubnphbuvo0663 [place] [address]Gerken [place] Urea nitrogen 33.0 mg/dL Critically high 7.0-17.0 [facility] Comment on above: Performed By: #### C MP ####[facility] Zhybesywvx7467 [place], [place] [address]FnnyniGm Villafana Vital Signs Date Time Vital Sign Value Performing Clinician Facility 02-19-2024 13:06-0400 Body temperature 97 [degF] DO Annabelle Yuhas Work Phone: [facility] 02-19-2024 13:06-0400 Diastolic blood pressure 59 mm[Hg] DO Annabelle Yuhas Work Phone: [facility] 02-19-2024 13:06-0400 Heart rate 80 /min DO Annabelle Yuhas Work Phone: [facility] 02-19-2024 13:06-0400 Respiratory rate 16 /min DO Annabelle Yuhas Work Phone: [facility] 02-19-2024 13:06-0400 SaO2% (BldA) [Mass fraction] 96 % DO Annabelle Yuhas Work Phone: [facility] 02-19-2024 13:06-0400 Systolic blood pressure 118 mm[Hg] DO Annabelle Yuhas Work Phone: [facility] 02-19-2024 06:00-0400 Body weight 100.3 kg DO Annabelle Yuhas Work Phone: [facility] 02-16-2024 12:57-0400 Body height 154.94 cm DO Annabelle Yuhas Work Phone: [facility] 02-15-2024 21:01-0400 Body temperature 97.5 [degF] DO Annabelle Yuhas Work Phone: [facility] 02-15-2024 21:01-0400 Diastolic blood pressure 61 mm[Hg] DO Annabelle Yuhas Work Phone: [facility] 02-15-2024 21:01-0400 Heart rate 53 /min DO Annabelle Yuhas Work Phone: [facility] 02-15-2024 21:01-0400 Respiratory rate 18 /min DO Annabelle Yuhas Work Phone: [facility] 02-15-2024 21:01-0400 SaO2% (BldA) [Mass fraction] 97 % DO Annabelle Chopras Work Phone: [facility] 02-15-2024 21:01-0400 Systolic blood pressure 113 mm[Hg] DO Annabelle Chopras Work Phone: [facility] 02-15-2024 13:53-0400 Body height 156.21 cm DO Annabelle Chopras Work Phone: [facility] 02-15-2024 13:53-0400 Body weight 93.7 kg DO Annabelle Chopras Work Phone: [facility] 10-14-2023 15:08-0400 Diastolic blood pressure 62 mm[Hg] Annabelle Marinhas DO Work Phone: [facility] [employer] [facility] 10-14-2023 15:08-0400 Systolic blood pressure 130 mm[Hg] Annabelle Chopras DO Work Phone: [facility] [facility] 10-14-2023 14:31-0400 Body height 154.9 cm Annabelle Marinhas DO Work Phone: [facility] [employer] [facility] 10-14-2023 14:31-0400 Body mass index (BMI) [Ratio] 48.03 kg/m2 Annabelle Marinhas DO Work Phone: [facility] [employer] 10-14-2023 14:31-0400 Body temperature 97.39 [degF] Annabelle Chopras DO Work Phone: [facility] 10-14-2023 14:31-0400 Body weight 115.3 kg Annabelle Marinhas DO Work Phone: [facility] [employer] 10-14-2023 14:31-0400 Heart rate 50 /min Annabelle Marinhas DO Work Phone: [facility] [employer] [facility] 10-14-2023 14:31-0400 Respiratory rate 18 /min Annabelle Archer DO Work Phone: [facility] [facility] 10-14-2023 14:31-0400 SaO2% (BldA) [Mass fraction] 97 % Annabelle Archer DO Work Phone: [facility] Encounters Encounter Date Encounter Type Care Provider Facility Start: 02-25-2024 ambulatory Margret Morales Facility:[facility] Start: 02-17-2024 Non-patient / Non-visit DO Wil n Navs Work Phone: [facility] Pall[facility] Work Phone: Start: 02-16-2024 Non-patient / Non-visit DO Wil n Navs Work Phone: [facility] Nephrology Work Phone: Start: 02-16-2024 Non-patient / Non-visit DO Wil Archer Work Phone: [facility] Pulmonary Disease Work Phone: Start: 02-16-2024 End: 02-16-2024 [facility] Start: 02-15-2024 End: 02-19-2024 Evaluation and management of inpatient DO Annabelle Archer Work Phone: [facility] [place] [facility] Work Phone: Start: 02-08-2024 End: 02-08-2024 Evaluation and management of inpatient BHAVESH BOYLE [facility] Start: 02-01-2024 End: 02-01-2024 ambulatory [facility] Start: 02-01-2024 End: 02-13-2024 [facility] Start: 01-31-2024 End: 02-01-2024 Emergency department patient visit YONAS FREEMAN [facility] Start: 01-31-2024 End: 02-01-2024 Emergency department patient visit ANNABELLE L [facility] Start: 01-29-2024 End: 01-29-2024 ambulatory [facility] Start: 01-21-2024 End: 01-22-2024 Emergency department patient visit DOTTY HADLEY [facility] Start: 01-20-2024 End: 01-20-2024 ambulatory [facility] Start: 01-15-2024 End: 01-15-2024 ambulatory [facility] Start: 01-07-2024 End: 01-07-2024 ambulatory [facility] Start: 01-01-2024 End: 01-01-2024 ambulatory [facility] Start: 12-22-2023 End: 12-26-2023 Evaluation and management of inpatient [facility] Start: 12-22-2023 End: 12-26-2023 [facility] Start: 12-20-2023 End: 12-26-2023 Emergency department patient visit ERNESTO DELEON [facility] Start: 12-20-2023 End: 12-25-2023 Evaluation and management of inpatient [facility] Start: 12-04-2023 End: 12-04-2023 [facility] Start: 11-06-2023 End: 11-06-2023 [facility] Start: 10-31-2023 Refill Annabelle Johnnie Taniashanita Mary Russell Work Phone: [facility] Comment on above: Hyperuricemia; Chronic kidney disease, stage 4 (severe) ([facility]); Atrial fibrillation ([facility]) Start: 10-16-2023 End: 10-16-2023 [facility] Start: 10-16-2023 End: 10-16-2023 Follow-up encounter [facility] Comment on above: Atrial fibrillation ([facility]) (Primary Dx) Start: 10-14-2023 End: 10-14-2023 ambulatory [facility] Start: 10-14-2023 End: 10-14-2023 Office outpatient visit 25 minutes Annabelle Archer DO Work Phone: [facility] Comment on above: Type 2 diabetes monalisa 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, with long-term current use of insulin ([facility]) (Primary Dx); Chronic renal disease, stage V ([facility]); Renal cell carcinoma of left kidney ([facility]); Chronic diastolic CHF (congestive heart failure) ([facility]); Atrial fibrillation; Body mass index 50.0-59.9, adult ([facility]); Hypertensive renal disease Start: 10-14-2023 End: 10-14-2023 [facility] Start: 10-01-2023 End: 10-01-2023 [facility] Start: 10-01-2023 End: 10-01-2023 Follow-up encounter [facility] Comment on above: Atrial fibrillation (Primary Dx) Start: 09-23-2023 Refill Annabelle Russell Work Phone: [facility] Comment on above: Hyperlipidemia, unsp ecified hyperlipidemia type; Chronic kidney disease, stage 4 (severe) ([facility]) Start: 09-17-2023 End: 09-17-2023 [facility] Start: 09-17-2023 End: 09-17-2023 Follow-up encounter [facility] Comment on above: Atrial fibrillation (Primary Dx) Start: 08-31-2023 End: 08-31-2023 [facility] Start: 08-26-2023 End: 08-26-2023 [facility] Start: 08-12-2023 End: 08-12-2023 Follow-up encounter [facility] Comment on above: Atrial fibrillation (Primary Dx) Start: 08-12-2023 End: 08-12-2023 ambulatory [facility] Start: 07-22-2023 End: 07-22-2023 ambulatory [facility] Start: 07-22-2023 End: 07-22-2023 Follow-up encounter [facility] Comment on above: Atrial fibrillation (Primary Dx) Start: 02-09-2018 End: 02-10-2018 Patient encounter MONA BANKS Facility: Procedures Date Procedure Procedure Detail Performing Clinician Start: 02-15-2024 Computed tomography of abdomen and pelvis with contrast DO Annabelle Archer Work Phone: Start: 02-15-2024 Plain chest X-ray DO Ermelinda Archer Work Phone: Start: 01-29-2024 Follow-up visit Follow-up ANNABELLE ARCHER Start: 10-16-2023 [employer] Work Phone: Start: 10-14-2023 Adult depression scr eening assessment Annabelle Marinkalerenny Work Phone: Start: 10-01-2023 [employer] Work Phone: Start: 09-17-2023 [employer] Work Phone: Start: 08-12-2023 [employer] Work Phone: Start: 07-22-2023 [employer] Work Phone: Start: 06-01-2023 Adult depression scr eening assessment [facility] Plan of Treatment Date Care Activity Detail Author Start: 09-10-2025 DTaP,Tdap and Td Vaccines (2 - Td or Tdap) DTaP,Tdap and Td Vaccines (2 - Td or Tdap) [facility] Start: 10-13-2024 Adult BMI Screening Adult BMI Screen ing [facility] Start: 10-13-2024 Depression Screening Depression Scre ening [facility] Start: 10-13-2024 Fall Risk Screening Fall Risk Screen ing [facility] Start: 10-13-2024 Tobacco Screening Tobacco Screening [facility] Start: 06-03-2024 Adult BMI Screening Adult BMI Screen ing [facility] Start: 06-03-2024 Tobacco Screening Tobacco Screening [facility] Start: 06-01-2024 Depression Screening Depression Scre ening [facility] Start: 06-01-2024 Fall Risk Screening Fall Risk Screen ing [facility] Start: 03-27-2024 Influenza vaccination Influenza Vacc ine [facility] Start: 02-19-2024 [facility] Start: 02-16-2024 Referral to palliati ve care physician [facility] Start: 02-16-2024 Referral to general surgeon [facility] Start: 02-16-2024 Comprehensive metabo lic 2000 panel - Serum or Plasma [facility] Start: 02-16-2024 [facility] Start: 02-15-2024 Consultation [facility] Start: 02-15-2024 Referral to infectio us diseases physician [facility] Start: 02-15-2024 Hospital admission [facility] Start: 02-15-2024 Referral to pack worker [facility] Start: 02-15-2024 [facility] Start: 02-15-2024 Bacteria identified in Blood by Culture [facility] Start: 02-15-2024 Blood culture for bacteria, including anaerobic screen Blood Culture [facility] Start: 11-06-2023 End: 11-06-2023 Follow-up encounter 11/06/2023 2:00 PM EDT Follow Up Anticoagulation [facility] [address] [place] [address] [facility] Start: 10-16-2023 End: 10-16-2023 Follow-up encounter 10/16/2023 2:15 PM EDT Follow Up Anticoagulation [facility] [address] [address] [facility] Start: 10-14-2023 End: 10-14-2023 Patient encounter procedure 10/14/2023 2:30 PM EDT [facility] [address] [place] [address] Annabelle Archer, [address] [facility] [place] [address] [facility] Start: 10-01-2023 End: 10-01-2023 Follow-up encounter 10/01/2023 2:15 PM EST Follow Up Anticoagulation [facility] [address] [place] [address] [facility] Start: 08-26-2023 End: 08-26-2023 Follow-up encounter 08/26/2023 1:30 PM EST Follow Up Anticoagulation [facility] [address] [place] [address] [facility] Start: 08-12-2023 End: 08-12-2023 Follow-up encounter 08/12/2023 2:00 PM EST Follow Up Anticoagulation [facility] [address] [place] [address] [facility] Start: 06-18-2023 Administration of varicella zoster vaccine Zoster (Shingles) Vaccine (2 of 2) [facility] Start: 03-27-2023 COVID-19 Vaccine ( season) COVID-19 Vaccine ( season) [facility] Start: 1963 Adult BMI Follow Up Plan Adult BMI F ollow Up Plan [facility] Start: 1945 Medicare Annual Well ness Visit Medicare Annual Wellness Visit [facility] End: 10-13-2024 Hemoglobin A1c/Hemoglobin.total in Blood Hemoglobin A1c Lab Routine Type 2 diabetes mell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, with long-term current use of insulin ([facility]) 1 Occurrences starting 10/14/2023 until 10/13/2024 [employer] Work Phone: Comment on above: 1 Occurrences starti ng 10/14/2023 until 10/13/2024 Hemoglobin A1c/Hemoglobin.total in Blood Hemoglobin A1c Lab Routine Type 2 diabetes mell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, with long-term current use of insulin ([facility]) 10/15/2023 12:23 AM EDT [facility] Patient referral [facility] Work Phone: [facility] Immunizations Immunization Date Immunization Notes Care Provider Rafa sethi 10-16-2023 zoster vaccine recombinant Annabelle Archer DO Work Phone: [facility] 04-23-2023 Influenza Vaccine, Quadrivalent, Adjuvanted [facility] 04-23-2023 Influenza, High-dose , Quadrivalent [facility] 2 [facility] 04-23-2023 Pneumococcal Conjuga te 20-valent [facility] 2 [facility] 04-23-2023 zoster vaccine recombinant [facility] 2 [facility] 04-23-2023 influenza virus vacc ine, unspecified formulation Annabelle Archer DO Work Phone: [facility] 04-23-2023 zoster vaccine, unspecified formulation [facility] 05-14-2022 Influenza, High-dose , Quadrivalent [facility] 2 [facility] 10-28-2020 COVID-19, mRNA, LNP- S, PF, 100mcg/0.5mL Dose [facility] 2 [facility] 10-25-2020 COVID-19 mRNA-1273 (Moderna) DO Annabelle Archer Work Phone: [facility] 09-27-2020 COVID-19, mRNA, LNP- S, PF, 100mcg/0.5mL Dose [facility] 2 [facility] 09-24-2020 COVID-19 mRNA-1273 (Moderna) DO Annabelle Archer Work Phone: [facility] 08-30-2020 COVID-19, mRNA, LNP- S, PF, 100mcg/0.5mL Dose [facility] 2 [facility] 05-18-2020 Influenza, High-dose , Quadrivalent [facility] 2 [facility] 05-03-2019 influenza, high dose seasonal, preservative-free [facility] 2 [facility] 05-21-2018 influenza, high dose seasonal, preservative-free [facility] 2 [facility] 05-28-2017 Influenza, injectabl e, Madin Rogers Canine Kidney, preservative free, quadrivalent [facility] 2 [facility] 07-02-2016 influenza, injectabl e, madin ivelisse canine kidney, preservative free [facility] 2 [facility] 05-28-2016 Seasonal trivalent influenza vaccine, adjuvanted, preservative free [facility] 2 [facility] 09-10-2015 tetanus toxoid, redu ismael diphtheria toxoid, and acellular pertussis vaccine, adsorbed [facility] 2 [facility] 06-04-2015 influenza, seasonal, injectable, preservative free [facility] 2 [facility] 08-17-2014 influenza, seasonal, injectable, preservative free [facility] 2 [facility] 08-17-2014 pneumococcal conjuga te vaccine, 13 valent [facility] 2 [facility] 08-17-2012 pneumococcal polysaccharide vaccine, 23 valent [facility] 2 [facility] 08-18-2009 novel influenza-H1N1 -09, preservative-free, injectable [facility] 2 [facility] Payers Date Payer Category Payer Self-pay [id number] 2022 Medicare ANTH MEDICARE ANTHEM MEDICARE ADVANTAGE [id number] [facility] [phone] [address] [place] [address] [id number]. [id number] 2022 Medicare [id number] 1959 Self-pay [id number] 1945 Unknown [id number] 2.16.840.1.917212.3.579. 2.1286 1943 Unknown [id number] 2.16.840.1.767249.3.579. 2.128 1943 Unknown [id number] 2.16.840.1.846477.3.579. 2.1285 1943 Unknown [id number] 2.16.840.1.631418.3.579. 2.1285 1943 Unknown [id number] 2.16.840.1.596979.3.579. 2.1285 1943 Unknown [id number] 2.16.840.1.890725.3.579. 2.1285 1943 Unknown [id number] 2.16.840.1.441745.3.579. 2.1285 1943 Unknown [id number] 2.16.840.1.361142.3.579. 2.1285 1943 Unknown [id number] 2.16.840.1.583852.3.579. 2.1285 1943 Unknown [id number] 2.16.840.1.473783.3.579. 2.1285 1943 Unknown [id number] 2.16.840.1.204609.3.579. 2.128 1943 Unknown [id number] 2.16.840.1.543986.3.579. 2.1285 1943 Unknown [id number] 2.16.840.1.235886.3.579. 2.128 1943 Unknown [id number] 2.16.840.1.112394.3.579. 2.1286 1943 Unknown [id number] 2.16.840.1.485376.3.579. 2.1285 1943 Unknown [id number] 2.16.840.1.210052.3.579. 2.1285 1943 Unknown [id number] 2.16.840.1.497961.3.579. 2.1285 1943 Unknown [id number] 2.16.840.1.803036.3.579. 2.1285 1943 Unknown [id number] 2.16.840.1.925095.3.579. 2.1285 1943 Unknown [id number] 2.16.840.1.634495.3.579. 2.1285 1943 Unknown [id number] 2.16.840.1.319226.3.579. 2.1285 1943 Unknown [id number] 2.16.840.1.646285.3.579. 2.1285 1943 Unknown [id number] 2.16.840.1.253175.3.579. 2.1285 1943 Unknown [id number] 2.16.840.1.347349.3.579. 2.1285 1943 Unknown [id number] 2.16.840.1.907986.3.579. 2.1285 1943 Unknown [id number] 2.16.840.1.371529.3.579. 2.1285 1943 Unknown [id number] 2.16.840.1.195336.3.579. 2.1285 1943 Unknown [id number] 2.16.840.1.019932.3.579. 2.1285 1943 Unknown [id number] 2.16.840.1.913182.3.579. 2.1285 1943 Unknown [id number] 2.16.840.1.041523.3.579. 2.1286 Medicare Medicare [id number] Private Health [facility] [id number] Unknown [id number] 2.16.840.1.670885.3.579. 2.531 Unknown [id number] 2.16.840.1.097742.3.579. 2.531 Social History Date Type Detail Facility Start: 06-01-2023 End: 02-17-2024 Tobacco smoking status NHIS Never smoked tobacco [facility] Start: 06-01-2023 Tobacco use and exposure Smokeless tobacco non-user [facility] Start: 06-03-2023 End: 10-14-2023 Alcohol intake Current non-drinker of alcohol (finding) [facility] Start: 08-29-2020 End: 06-03-2023 History of Social function [facility] Start: 08-29-2020 End: 06-03-2023 Tobacco use panel [facility] Adolescent depressio n screening assessment 0 [facility] Start: 1945 Sex Assigned At Not on file P [facility] Start: 1945 Sex Assigned At Female F [facility] Goals Date Patient Goal Desired Activity /State Personal health goal Comment on above: Formatting of this n ote might be different from the original. Evaluation of progress towards goal: safe transition from hospital to home alone with family support. Functional Status Date Assessment Result Facility 02-19-2024 Functional status Patient at Baseline [facility] Work Phone: Mental Status Date Assessment Result Facility 02-19-2024 Cognitive function Cognitive Sta tus Patient at Baseline [facility] Work Phone: Clinical Notes 07-22-2023 to 02-19-2024 Note Date & Type Note Facility 02-19-2024 Progress note Note Date/Time February 19, 2024 2:54pm [facility] [address] [place] [address] Palliative Care Progress Note Signed Patient: Rosa Winter MR#: [id number] : 1945 Acct:[id number] Age/Sex: 78 / F Adm Date: 4 Loc: 3T Room: [address] [place] [address] Type: ADM IN Attending Dr: Virgen Vivar MD Copies to: ~ Date of Service: 02/19/2024 Subjective Subjective HPI: Ms. Winter is an 78-year-old female with past medical history significant for end-stage renal disease, diabetes mellitus, hypertension, congestive heart failure, anemia, atrial fibrillation, previous renal cell carcinoma. She was sent to the ED from the [place] dialysis unit after a syncopal episode. She has end-stage renal disease secondary to diabetes nephropathy and hypertensive nephrosclerosis. She was recently at [facility], from January 31 to February 12, and has been on hemodialysis for about a month according to records. Today is hospitalization day #2. In the ED patient was given multiple fluid boluses and was found to have leukocytosis. She has been on meropenem and vancomycin during dialysis after discharge from [facility]. She was admitted to the ICU at [facility], and was started on vasopressors onadmission. This morning she was weaned off vasopressors. She has wounds on herhips, back, buttocks, breast, heel, suspicious for calciphylaxis. Infectious disease, general surgery, pulmonary/critical care, nephrology were all consultedduring this hospitalization so far. Recommendation was not to pursue surgical intervention for her ulcers because of the calciphylaxis. She did get dialysis today, and has had pain from her multiple ulcers. PT/OT were consulted. Blood cultures are negative x 1 day. Patient remains afebrile, but continues to have elevated white count at 20.2. She does not have diarrhea, and the recommendation was to maintain antibiotics for another 24 hours and if cultures remain negative then to stop antibiotics. Palliative medicine was consulted to help with goals of care and with advance care planning. According to reports, patient has expressed desire to consider stopping dialysis and to enroll into hospice. Patient seen and evaluated. She is alert and oriented x 3 in her bed. She doesseem to have a good understanding of her medical condition. She tells us she is[place]. She was 30 years ago, and has 3 children?Ross, Sidra, Bryan. Her son Ross is an RN in [place]. She tells me she lives next-door to her son, Bryan, who helps her at home. She sayjesus albertohe worked various jobs when she was younger, but also worked at [employer] in [place] for 7 or 8 years in the past. Spiritual things are important to her, she has belonged to the [employer] in [place], but has been unable to get there since she does not drive. Rosa says that several months ago she was mostly independent with ADLs and wasable to get around her house without much of a problem, just some assistance. She says she got help from her son, Bryan, with cleaning and some cooking. She tells me she did need some help with showering, but was independent with ADLs otherwise. We spent a total of 40 minutes discussing goals of care and advance care planning today with Rosa and then afterwards with her son, Ross, on thephone. Rosa says that she has been very frustrated since she was in the hospital at [facility]. She says she is not sure if she will ever get better, and she has a poor quality life. She says she can't even sit and watch TV without being in severe pain. Currently Rosa is so weak she is unable to reposition herself in bed. She was unable to stand and bear weight today with physical therapy. Rosa says she started dialysis because she was hoping she might improve and have a good quality life. After much discussion, Rosa says she does want to continue dialysis for now. She is hoping she might somehow improve and get better. She does want to focus more on symptom management while she is in the hospital. Will Rx gabapentin 100mg every 48 hours and oxycodone 2.5 mg every 4 hours as needed pain. Will discontinue hydromorphone IV for now. She is tolerating by mouth intake okay, but says she has a poor appetite. Biopsy of her wound was done at [facility], and Rosa does state that they were suspicious of calciphylaxis. We did have along talk about how it is often difficult to recover from multiple wounds secondary to calciphylaxis and renal failure. Patient was intermittently tearful, but says for now she will continue hemodialysis. Plan is to discharge back to the [facility] for skilled care after her admission here at [facility]. Her ultimate goal is to go home. If she feels her quality life is poor or she is not getting better, she will consider hospice in the future. We also reviewed resuscitation preferences, and Rosa says that she would not want CPR in the future and she would not want to be put on a ventilator machine. She requested CODE STATUS changed to DNR CCA without intubation. She asked that I call her son, Ross, and updated him on her decisions. I was able to call her son, Ross, who is an RN in [place]. He agrees with his mom's decisions, and plans on visiting her as well. Thank you for the consult. CODE STATUS was adjusted to DNR CCA without intubation based on Rosa's request. Oxycodone was adjusted to 2.5 mg every 4 hours as needed pain, IV hydromorphone was discontinued. Gabapentin 100 mg every 48 hours was added. Will follow-up tomorrow. Please call if questions. 02/18 Patient seen and evaluated. She is sitting up at her bedside chair. She says she is feeling better, but still is very frustrated that she is so weak. She says she is continuing dialysis for now. She wants to see if she can get stronger. Plan is to proceed with biopsy of her wounds to confirm calciphylaxisif needed. It does sound like she had some kind of biopsy at [facility], and records are pending. Oxycodone 2.5 mg every 4 hours as needed for pain was ordered, she received just a few doses over the past couple of days. I encouraged her to ask for pain medicine if she is in pain. She does admit to having some pain currently. She still has reduced appetite. She was intermittently tearful, but support was given. She would benefit from outpatient follow-up with the [facility] palliative navigator program. Please call if questions Exam Physical Exam Vital Signs: Temp Pulse Resp BP Pulse Ox O2 Del Method 97 F L 80 16 118/59 L 96 Room Air 02/19/24 13:02/19/24 13:02/19/24 13:06 02/19/24 13:06 02/19/24 13:06 02/19/24 13:06 Const General: comfortable, no acute distress, frail appearing and ill appearing chronically Orientation: alert, awake and oriented x3 HEENT Head: normal to inspection, normocephalic and atraumatic Nose: external nose normal Mouth: oral mucosae normal Eyes Eyelids: eyelids normal Conjunctivae: conjunctivae normal Sclera: sclerae normal Neck Neck: supple Resp Auscultation: clear to auscultation bilaterally, diminished lung sounds bilaterally, no rales, no rhonchi and no wheezes Cardio Rate: regular rate Rhythm: abnormal rhythm irregularly irregular Heart Sounds: no murmurs GI Palpation: soft, no guarding, no masses and nontender Skin Other: Multiple wounds and skin discoloration noted on lower extremities. Extrem General: no edema Objective Labs 02/19/24 05:00 02/19/24 06:10 Labs: Laboratory Results - last 24 hr 02/18/24 02/18/24 02/19/24 16:30 20:44 05:00 Corrected WBC 15.1 H RBC 3.13 L Hgb 8.4 L Hct 26.3 L MCV 84.0 MCH 26.8 MCHC 31.8 L RDW 23.5 H Plt Count 489 H MPV 7.9 PT 33.2 H INR 3.0 PHA Creatinine Clear Sodium Potassium Chloride Carbon Dioxide Anion Gap BUN Creatinine Est GFR (CKD-EPI) Glucose POC Glucose 241 266 Calcium Phosphorus Albumin 02/19/24 02/19/24 06:10 06:25 Corrected WBC RBC Hgb Hct MCV MCH MCHC RDW Plt Count MPV PT INR PHA Creatinine Clear 15.97 Sodium 132 L Potassium 4.3 Chloride 96 L Carbon Dioxide 27.1 Anion Gap 13.2 BUN 35 H Creatinine 3.00 H D Est GFR (CKD-EPI) 15.239 Glucose 147 H POC Glucose 159 Calcium 8.1 L Phosphorus 3.5 Albumin 2.5 L Microbiology Microbiology: Microbiology 02/15/24 18:16 Blood - Left Arm Blood Culture - Preliminary No Growth 3 Days 02/15/24 17:59 Blood - Left Arm Blood Culture - Preliminary No Growth 3 Days Assessment/Plan Assessment/Plan (1) Unstageable pressure ulcer of right hip: Code(s): L89.210 - Pressure ulcer of right hip, unstageable (2) Unstageable pressure ulcer of sacral region: Code(s): L89.150 - Pressure ulcer of sacral region, unstageable (3) Unstageable pressure ulcer of left hip: Code(s): L89.220 - Pressure ulcer of left hip, unstageable (4) ESRD (end stage renal disease): Code(s): N18.6 - End stage renal disease (5) Calciphylaxis: Code(s): 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 She is sitting up at her bedside chair. She says she is feeling better, but still is very frustrated that she is so weak. She says she is continuing dialysis for now. She wants to see if she can get stronger. Plan is to proceed with biopsy of her wounds to confirm calciphylaxisif needed. It does sound like she had some kind of biopsy at [facility], and records are pending. Oxycodone 2.5 mg every 4 hours as needed for pain was ordered, she received just a few doses over the past couple of days. I encouraged her to ask for pain medicine if she is in pain. She does admit to having some pain currently. She still has reduced appetite. She was intermittently tearful, but support was given. She would benefit from outpatient follow-up with the [facility] palliative navigator program. Please call if questions. Documented By: Teddy Valero DO 02/19/24 1 450 Signed By: <Electronically signed by DO Teddy Valero> 02/19/[address] [facility] Work Phone: 1(828) 152-924407-26-2024 Discharge summary Author Virgen Vivar [facility] February 19, 2024 1:35pm Note Date/Time February 19, 2024 1:35 pm [facility] [address] [place] [id number] Discharge Summary Signed Patient: Rosa Winter MR#: [id number] : 1945 Acct:[id number] Age/Sex: 78 / F Adm Date: 4 Loc: 3T Room: 6S0774-[address]: Virgen Vivar MD Copies to: DO Virgen Quiroz MD~ Providers Date of Discharge: 02/19/24 Discharging Provider: Virgen Vivar Primary Care Provider: Annabelle Archer Consults: 02/15/24 17:45 Consult to Nephrology Routine Comment: Consulting Provider: Emelyn Bennett Has Provider Been Notified: Yes Date of Notification: 02/15/24 Time of Notification: 19:32 Reason for Consult: Dialysis Treatment 02/15/24 18:29 Consult to Infectious Diseases Routine Comment: Consulting Provider: Tres King Reason For Exam: sepsis Has Provider Been Notified: Yes Date of Notification: 02/15/24 Time of Notification: 19:25 Consult to Pulmonology Routine Comment: Consulting Provider: Mukul Durbin Reason For Exam: CC management Has Provider Been Notified: Yes Date of Notification: 02/15/24 Time of Notification: 19:24 02/16/24 09:14 Consult to General Surgery Routine Comment: Consulting Provider: Carlos Novak Reason For Exam: necrotic wounds suspect calciphylaxis Has Provider Been Notified: Yes Date of Notification: 02/16/24 Time of Notification: 09:18 02/16/24 13:47 Consult to Palliative Care Doctor Routine Comment: Consulting Provider: Teddy Valero Reason For Exam: Goals of care Has Provider Been Notified: Yes Date of Notification: 02/16/24 Time of Notification: 15:49 02/17/24 13:37 Consult to Occupational Therapy Routine Comment: Physician Instructions: Consult to OT for:: Evaluation and Treat Consult to Physical Therapy Routine Comment: Physician Instructions: Consult to PT for:: Evaluation and Treat Discharge Diagnosis (1) Septic shock: (2) ESRD (end stage renal disease): (3) Calciphylaxis: (4) Anemia of renal disease: (5) Type 2 diabetes mellitus with diabetic chronic kidney disease: (6) Afib: (7) Counseling regarding advance directives and goals of care: (8) Unstageable pressure ulcer of right hip: (9) Unstageable pressure ulcer of sacral region: (10) Unstageable pressure ulcer of left hip: (11) Multiple wounds of skin: (12) Diabetes: (13) Leukocytosis: (14) Hypotension: (15) Syncope: Final Diagnosis Final Discharge Diagnosis: as above Summary Hospital Course Hospital course: Patient is an 78-year-old female with medical history as listed below presented to the ER from [facility] after syncopal event. Patient states that she has been feeling dizzy and lightheaded over couple days. In the dialysis unit she was noted to have low blood pressure 90s over 60s, per report,she passed out at dialysis when she woke up here in the hospital. Patient denies fever, chills, nausea, vomiting, she states has been feeling constipated however denies any diarrhea. She does have a wound on her R hip area, follows at [place] wound [facility], she lives at [place]. On her medication list she is supposed to be on vancomycin and meropenem with dialysis sessions. Patient is not the best historian to provide information regarding her wound if has been aninfection or while she is on these antibiotics. Patient afebrile here, however blood pressure is borderline with episodes of hypotension with transient response to gentle IV boluses of fluids given in the ER, found to have leukocytosis 24.2. Hemoglobin stable, sodium 129, anion gap of 18, bicarb 20.8 and creatinine 4.04, BUN 52. After discussion with ER staff, recommended to obtain CT abdomen and pelvis to rule out intra-abdominal infection process, lactate, broad-spectrum antibiotics, blood cultures. Central line was inserted in the ER via right femoral access and patient was started on pressors with Levophed. During hospital course, patient was hospitalized in the ICU, required IV pressors with Levophed, ID was consulted for concern for sepsis. Patient was started on broad-spectrum antibiotics with vancomycin and meropenem. Blood cultures negative to date. Patient responded well to treatment. Decision was made to stop AB per ID since patient has received and completed adequate course of treatment. Patient followed with wound clinic in [place]. Pulmonary was consulted here for critical care management, input appreciated. Nephrology was consulted to maintain dialysis schedule, input appreciated, surgery team was consulted also for possible debridement and biopsy which decided to be done as outpatient. As of today, patient received her hemodialysis session. Patient appears hemodynamically stable, will continue to hold her blood pressure medications since she appears normotensive, mentation at baseline. Palliative team was consulted, input appreciated, patient was changed to DNR CCA without intubation. CM followed and patient has been accepted to [facility]. Will proceed with discharge planning at this time. Discussed with patient at bedside, all question answered, patient is stable for discharge at this time. Patient has multiple complex medical issues as listed above and others that are not listed. All appear to be stable at this time. Patient is feeling significantly better and feeling comfortable with this plan of discharge. I do not have any clear or strong clinical justification to extend inpatient hospitalization. Patient however will require close and the frequent monitoringas well as additional work-up, investigation and therapeutic intervention that could take place from this point on post discharge. That is to prevent relapse,decompensation, rehospitalization and other medical implications. Outpatient follow up as directed for continuity of care. Verbal and written discharge instructions will be provided to the patient. Condition Condition at Discharge: Stable Time Spent with Patient Time spent providing/coordinating discharge services (# min): 41 Discharge Plan Discharge Plan [facility] Disposition[facility] Activity: Ambulate as Tolerated Diet: Renal Prescriptions: New allopurinol 100 mg Tablet 100 mg PO MoWeFr@1630 Qty: 0 0RF gabapentin 100 mg Capsule 100 mg PO Q48H Qty: 0 0RF Continued brimonidine 0.2 % drops 1 drp ophthalmic (eye) TID ferrous sulfate [FeroSul] 325 mg (65 mg iron) tablet 325 mg PO DAILY lidocaine [Aspercreme (lidocaine)] 4 % adhesive patch,medicated 1 patch topical DAILY PRN (Reason: pain) Rx Instructions: may leave on for up to 12 hrs lidocaine 3 % cream 1 applic topical BID PRN (Reason: pain) polyethylene glycol 3350 [Laxative PEG 3350] 17 gram/dose powder 17 g PO DAILY PRN (Reason: constipation) warfarin 2.5 mg Tablet 2.5 mg PO QHS Rx Instructions: Follow your doctor's instructions on dosing based on the blood test PT/INR report Humulin N NPH Insulin KwikPen 100 unit/mL (3 mL) Insulin Pen 30 unit subcut BID hydrocodone-acetaminophen 5-325 mg tablet 1 tab PO Q6HR PRN (Reason: pain) 3 Days Qty: 12 0RF atorvastatin 20 mg Tablet 20 mg PO QHS acetaminophen 650 mg Tablet 650 mg PO Q6H PRN (Reason: Pain) Rx Instructions: Pain or Fever Changed docusate sodium 100 mg capsule 100 mg PO BID PRN (Reason: constipation) Qty: 30 0RF Held calcitriol 0.25 mcg capsule 0.25 mcg PO DAILY Hold Instructions: hold until follow with nephrology hydralazine 25 mg tablet 25 mg PO TID Hold Instructions: hold until follow with nephrology quetiapine [Seroquel] 50 mg tablet 50 mg PO QHS Hold Instructions: Hold for now, restart if needed at NH per PCP quetiapine [Seroquel] 25 mg tablet 25 mg PO QAM Hold Instructions: Hold for now, restart if needed at NH per PCP furosemide [Lasix] 40 mg Tablet 40 mg PO BID Hold Instructions: hold until follow with nephrology labetalol 100 mg Tablet 200 mg PO BID Hold Instructions: hold until follow with nephrology Discontinued meropenem-0.9% sodium chloride 500 mg/50 mL piggyback 500 mg IV 3XW Patient Comments: to be done at dialysis vancomycin in 0.9 % sodium chl 1 gram/250 mL solution 1 g IV 3XW Patient Comments: to be done at dialysis allopurinol 100 mg Tablet 100 mg PO HS Follow Up: [facility] [Outside] (Call and make an appointment to be seen next week if possible.) Exam Physical Exam Vital Signs: Temp Pulse Resp BP Pulse Ox O2 Del Method 97 F L 80 16 118/59 L 96 Room Air 02/19/24 13:06 02/19/24 13:06 02/19/24 13:06 02/19/24 13:06 02/19/24 13:06 02/19/24 13:06 Narrative: Const General: cooperative HEENT Normal oropharyngeal mucosa without any ulcers or exudates Eyes: Conjunctiva normal Pulmonary Auscultation: clear to auscultation , no crackles, no wheezes Patient has HD access on left chest area. Cardiovascular Rate: normal rate Rhythm: irregular rhythm Heart Sounds: S1 normal, S2 normal and no murmurs GI Inspection: non-distended Palpation: soft, nontender. No rigidity or rebound. Deferred Neuro General: alert, awake and oriented x3. No obvious new focal deficit Extrem General: no cyanosis, trace nonpitting pedal edema skin: Multiple wounds with skin discoloration noted on the lower extremities and right hip groin area on the buttocks. dressing noted on R hip region. Psych Appearance: appropriate affect. Grossly normal. Diagnostic Studies Completed and Pending Studies Pending studies at discharge: 02/15/24 17:45 Urinalysis Stat 02/15/24 18:16 Blood Culture Stat 02/20/24 05:00 Prothrombin Time INR IN AM 02/21/24 05:00 Prothrombin Time INR IN AM 02/22/24 05:00 Prothrombin Time INR IN AM 02/23/24 05:00 Prothrombin Time INR IN AM 02/24/24 05:00 Prothrombin Time INR IN AM 02/25/24 05:00 Prothrombin Time INR IN AM 02/26/24 05:00 Prothrombin Time INR IN AM 02/27/24 05:00 Prothrombin Time INR IN AM 02/28/24 05:00 Prothrombin Time INR IN AM 02/29/24 05:00 Prothrombin Time INR IN AM 03/01/24 05:00 Prothrombin Time INR IN AM 03/02/24 05:00 Prothrombin Time INR IN AM Preliminary micro results at discharge 02/15/24 18:16 Blood Culture - Preliminary Blood - Left Arm No Growth 3 Days 02/15/24 17:59 Blood Culture - Preliminary Blood - Left Arm No Growth 3 Days Labs on day of discharge: 02/19/24 06:25: POC Glucose 159 02/19/24 06:10: PHA Creatinine Clear 15.97, Sodium 132 L, Potassium 4.3, Chloride 96 L, Carbon Dioxide 27.1, Anion Gap 13.2, BUN 35 H, Creatinine 3.00 H D, Est GFR (CKD-EPI) 15.239, Glucose 147 H, Calcium 8.1 L, Phosphorus 3.5, Albumin 2.5 L 02/19/24 05:00: Corrected WBC 15.1 H, RBC 3.13 L, Hgb 8.4 L, Hct 26.3 L, MCV 84.0, MCH 26.8, MCHC 31.8 L, RDW 23.5 H, Plt Count 489 H, MPV 7.9, PT 33.2 H, INR 3.0 02/18/24 20:44: POC Glucose 266 02/18/24 16:30: POC Glucose 241 Documented By: Virgen Vivar MD 02/19/24 13 30 Signed By: <Electronically signed by Virgen Vivar MD> 02/19/24 6771 [facility] Work Phone: 1(383) 323-789507-26-2024 Progress note Author Emelyn Bennett [facility] February 19, 2024 12:42pm Note Date/Time February 19, 2024 11:4 2am [facility] [address] [place], [place] [id number] Nephrology Progress Note Signed Patient: Rosa Winter MR#: [id number] : 1945 Acct:[id number] Age/Sex: 78 / F Adm Date: 4 Loc: Room: [address] [place] [address] Type: ADM IN Attending Dr: Virgen Vivar MD Copies to: ~ Date of Service: 02/19/2024 Subjective Subjective Narrative: This is a 78-year-old female with medical history of ESRD, DM, HTN, anemia of renal disease, A-fib and gout was sent from the [place] dialysis unit after fainting episode. 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 She went for her routine dialysis yesterday and found to have hypotension with trending episode 45 minutes after she was initiated on dialysis. Patient was sent to the emergency room and was given multiple fluid boluses. She was also found to have a leukocytosis and was started on broad-spectrum antibiotic after blood cultures. Patient reported that she has multiple bone lesions for while and she had extensive workup done at the [facility] in [place]. She was following with Dr. Jaramillo for her CKD care. She said she was started on dialysis about a month ago. Nephrology is consulted for ESRD management during her hospital stay. INTERIM HISTORY Patient was seen and examined at bedside during hemodialysis. She denies any chest pain palpation cough or shortness of breath. She was followed at the general surgery and plan to do outpatient I&D with biopsy due to her supratherapeutic INR. Exam Physical Exam Vital Signs: Temp Pulse Resp BP Pulse Ox O2 Del Method 97.4 F L 88 16 126/75 98 Room Air 02/19/24 09:05 02/19/24 11:00 02/19/24 09:05 02/19/24 11:00 02/19/24 09:05 02/19/24 09:05 Narrative: General: Appears comfortable and not in distress Heart: S1-S2, no rub Lung: Bilateral air entry, no wheezing or crackles Abdomen: Soft, positive bowel sounds Extremities: No edema, no cyanosis Head: Atraumatic, normocephalic Ear: No gross hearing Deficit or external ear redness Eyes: No pallor or redness Neck: No JVD or visible mass Skin: warm to touch, she has multiple skin wounds with necrotic skin CLIENT SUCCESS MANAGER: Awake,Alert, following simple command Musculoskeletal: No swelling or limitation of movement of the large joints Psychiatric: Cooperative, normal mood and affect Objective Intake and Output I&O: Intake & Output 02/16/24 02/17/24 02/18/24 02/19/24 23:59 23:59 23:59 23:59 Intake Total 850 / 850 870 / 870 1000 / 1000 600 / 600 Output Total 751 / 751 502 / 502 Balance 99 / 99 368 / 368 1000 / 1000 600 / 600 Weight 95.3 kg 97.4 kg 100.3 kg Meds and Allergies Meds: Active Medications Acetaminophen (Acetaminophen 325 Mg Tablet) 650 mg PO Q6HR PRN PRN Reason: Pain Scale 1 - 3 or fever Stop: 02/14/25 17:44 Last Admin: 02/18/24 15:02 Dose: 650 mg Allopurinol (Allopurinol 100 Mg Tablet) 100 mg PO MoWeFr@1630 [facility] Stop: 02/16/25 16:29 Last Admin: 02/17/24 16:12 Dose: 100 mg Atorvastatin Calcium (Atorvastatin 20 Mg Tablet) 20 mg PO QHS [facility] Stop: 02/14/25 21:59 Last Admin: 02/18/24 22:22 Dose: Not Given Brimonidine Tartrate (Brimonidine 0.2% Op Soln 100 Drops/5 Ml Bottle) 1 drops EYE-BOTH Q8HR [facility] Stop: 02/14/25 21:59 Last Admin: 02/19/24 05:59 Dose: 1 drops Darbepoetin Gary (Darbepoetin Gary In Polysorbat 40 Mcg/Ml Vial) 40 mcg IV-PUSHWe@0900 [facility]; Protocol Stop: 02/16/25 08:59 Last Admin: 02/17/24 11:24 Dose: 40 mcg Dextrose (Dextrose 50% In Water 25 Gm/50 Ml Syringe) 0 gm IV-PUSH PRN PRN PRN Reason: Hypoglycemia Stop: 02/15/25 15:25 Ferric Sodium Gluconate Complex (Sodium Ferric Gluconat/Sucrose 62.5 Mg/5 Ml Vial) 125 mg IV-PUSH QWEEK [facility] Stop: 02/18/25 08:59 Last Admin: 02/19/24 09:34 Dose: 125 mg Gabapentin (Gabapentin 100 Mg Capsule) 100 mg PO Q48H [facility] Stop: 02/16/25 20:59 Last Admin: 02/17/24 21:27 Dose: 100 mg Glucose (Dextrose 40% Gel 15 Gm Tube) 0 gm PO PRN PRN PRN Reason: Hypoglycemia Stop: 02/15/25 15:25 Heparin Sodium (Porcine) (Heparin 10,000 Unit/10 Ml Vial) 3,600 unit IV PRN PRN PRN Reason: Dialysis Stop: 02/15/25 08:41 Last Admin: 02/19/24 09:34 Dose: 3,600 unit Sodium Chloride (0.9% Sodium Chloride 1,000 Ml) 1,000 mls @ 0 mls/hr MISCELLANE.Q0M PRN PRN Reason: Dialysis Stop: 02/15/25 08:41 Last Infusion: 02/19/24 09:36 Dose: Infused Insulin Aspart (Insulin Aspart 300 Units/3 Ml Insuln.Pen) 0 units SUBCUT TID.[facility]; Protocol Stop: 02/15/25 16:59 Last Admin: 02/19/24 10:59 Dose: Not Given Oxycodone HCl (Oxycodone Ir 5 Mg Tablet) 2.5 mg PO Q4HR PRN PRN Reason: Pain Last Admin: 02/19/24 09:33 Dose: 2.5 mg Prochlorperazine Edisylate (Prochlorperazine Edisylate 10 Mg/2 Ml Vial) 5 mg IV- PUSH Q4H PRN PRN Reason: Nausea And Vomiting Stop: 02/14/25 17:44 Sodium Chloride (Sodium Chloride 0.9 % 10 Ml Syringe) 0 ml IV-PUSH PRN PRN PRN Reason: Flush Stop: 02/14/25 13:51 Last Admin: 02/15/24 19:43 Dose: 10 ml Sodium Chloride (Sodium Chloride 0.9 % 10 Ml Syringe) 0 ml IV-PUSH PRN PRN PRN Reason: Flush Stop: 02/15/25 08:41 Last Admin: 02/19/24 09:34 Dose: 40 ml Warfarin Sodium (Warfarin - Pharmacy Dosing) 1 each MISCELLANE ONCE PRN; Protocol PRN Reason: ZZ.Pharmacy Consult Stop: 02/14/25 17:47 Warfarin Sodium (Warfarin 2.5 Mg Tablet) 2.5 mg PO ONCE ONE Stop: 02/19/24 17:01 Allergies No Known Allergies Allergy (Verified 02/10/21 22:57) Results - Nephrology Labs 02/19/24 05:00 02/19/24 06:10 Labs: 02/19/24 06:10 BUN 35 H Creatinine 3.00 H D Phosphorus 3.5 Albumin 2.5 L Radiology Impressions Impressions - last 24 hours: Any impression(s) listed above is documentation that was entered by the reading physician into a diagnostic report(s) for Rosa Winter. I have reviewed the report(s) and am incorporating any findings in the treatment plan of this patient where applicable. A&P - Nephrology Assessment/Plan (1) Septic shock: Assessment/Problem Details: Patient presented with hypotension and leukocytosis. She has likely sepsis due to the skin wound infection. Currently on broad-spectrum antibiotic. ID and general surgery has been consulted. (2) ESRD (end stage renal disease): Assessment/Problem Details: She has a ESRD due to the diabetic nephropathy hypertensive nephrosclerosis. She was recently excepted at our [place] dialysis unit and currently runs MWF schedule. 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 (4) Anemia of renal disease: Assessment/Problem Details: Hemoglobin is below the goal. (5) Type 2 diabetes mellitus with diabetic chronic kidney disease: Assessment/Problem Details: She has an insulin-dependent type 2 diabetes mellitus. (6) Afib: Assessment/Problem Details: She currently has A-fib and was taking a labetalol and Coumadin at home. Plan * Hemodialysis today as ordered. * Continue antibiotic and adjust as needed based on culture sensitivity. Pharmacy to dose medication based on ESRD * Will await for wound biopsy and start sodium thiosulfate if she has a calciphylaxis. * Continue Aranesp 40 mcg once weekly with dialysis * Will give ferric gluconate 125 mg q. weekly * Will continue to hold calcitriol. * Continue DM management as per the primary hospitalist team. * Prognosis is guarded. Documented By: Emelyn Bennett MD 02/19/24 1140 Signed By: <Electronically signed by Emelyn Bennett MD> 02/19/[address] [facility] Work Phone: 1(774) 802-281707-26-2024 Progress note Author Virgen Vivar [facility] February 19, 2024 11:42am Note Date/Time February 19, 2024 11:4 2am [facility] [address] [place] [address] Hospitalist Progress Note Signed Patient: Rosa Winter MR#: [id number] : 1945 Acct:[id number] Age/Sex: 78 / F Adm Date: 4 Loc: Room: [address] [place] [address] Type: ADM IN Attending Dr: Virgen Vivar MD Copies to: ~ Date of Service: 02/19/2024 Subjective Subjective Narrative: Patient was seen evaluated at bedside, remained afebrile here. WBC downtrending to 15. Remained stable on medical floor. She feels better. denies nausea, vomiting, abdominal pain. Palliative input appreciated. Code status changed to DNR CCA without intubation. Seen by PT/OT recs to SNF. CM following. Surgery followed and planning debridement/biopsy today. Exam Physical Exam Vital Signs: Temp Pulse Resp BP Pulse Ox O2 Del Method 97.4 F L 88 16 126/75 98 Room Air 02/19/24 09:05 02/19/24 11:00 02/19/24 09:05 02/19/24 11:00 02/19/24 09:05 02/19/24 09:05 Narrative: Const General: cooperative HEENT Normal oropharyngeal mucosa without any ulcers or exudates Eyes: Conjunctiva normal Pulmonary Auscultation: clear to auscultation , no crackles, no wheezes Patient has HD access on left chest area. Cardiovascular Rate: normal rate Rhythm: irregular rhythm Heart Sounds: S1 normal, S2 normal and no murmurs GI Inspection: non-distended Palpation: soft, nontender. No rigidity or rebound. Deferred Neuro General: alert, awake and oriented x3. No obvious new focal deficit Extrem General: no cyanosis, trace nonpitting pedal edema skin: Multiple wounds with skin discoloration noted on the lower extremities andright hip groin area on the buttocks. dressing noted on R hip region. Psych Appearance: appropriate affect. Grossly normal. Objective Lab Results 02/19/24 05:00 02/19/24 06:10 Microbiology Results Microbiology 02/15/24 18:16 Blood - Left Arm Blood Culture - Preliminary No Growth 3 Days 02/15/24 17:59 Blood - Left Arm Blood Culture - Preliminary No Growth 3 Days Meds Allergies and Active Meds Allergies No Known Allergies Allergy (Verified 02/10/21 22:57) Active Meds: Active Medications Generic Name Dose Route Start Last Admin Trade Name Freq PRN Reason Stop Dose Admin Acetaminophen 650 mg 02/15/24 17:45 02/18/24 15:02 Acetaminophen 325 Mg Tablet PO 02/14/25 17:44 650 mg Q6HR PRN Administration Pain Scale 1 - 3 or fever Allopurinol 100 mg 02/17/24 16:30 02/17/24 16:12 Allopurinol 100 Mg Tablet PO 02/16/25 16:29 100 mg MoWeFr@1630 [facility] Administration Atorvastatin Calcium 20 mg 02/15/24 22:00 02/18/24 22:22 Atorvastatin 20 Mg Tablet PO 02/14/25 21:59 Not Given QHS [facility] Brimonidine Tartrate 1 drops 02/15/24 22:00 02/19/24 05:59 Brimonidine 0.2% Op Soln 100 Drops/5 Ml Bottle EYE-BOTH 02/14/25 21:59 1 drops Q8HR [facility] Administration Darbepoetin Gary 40 mcg 02/17/24 09:00 02/17/24 11:24 Darbepoetin Gary In Polysorbat 40 Mcg/Ml Vial IV-PUSH 02/16/25 08:59 40 mcg We@0900 [facility] Administration Protocol Dextrose 0 gm 02/16/24 15:26 Dextrose 50% In Water 25 Gm/50 Ml Syringe IV-PUSH 02/15/25 15:25 PRN PRN Hypoglycemia Ferric Sodium Gluconate Complex 125 mg 02/19/24 09:00 02/19/24 09:34 Sodium Ferric Gluconat/Sucrose 62.5 Mg/5 Ml Vial IV-PUSH 02/18/25 08:59 125mg QWEEK [facility] Administration Gabapentin 100 mg 02/17/24 21:00 02/17/24 21:27 Gabapentin 100 Mg Capsule PO 02/16/25 20:59 100 mg Q48H [facility] Administration Glucose 0 gm 02/16/24 15:26 Dextrose 40% Gel 15 Gm Tube PO 02/15/25 15:25 PRN PRN Hypoglycemia Heparin Sodium (Porcine) 3,600 unit 02/16/24 08:42 02/19/24 09:34 Heparin 10,000 Unit/10 Ml Vial IV 02/15/25 08:41 3,600 unit PRN PRN Administration Dialysis Sodium Chloride 1,000 mls @ 0 mls/hr 02/16/24 08:42 02/19/24 09:36 0.9% Sodium Chloride 1,000 Ml MISCELLANE 02/15/25 08:41 Infused .Q0M PRN Infusion Dialysis As Directed Insulin Aspart 0 units 02/16/24 17:00 02/19/24 10:59 Insulin Aspart 300 Units/3 Ml Insuln.Pen SUBCUT 02/15/25 16:59 Not Given TID.WM.HS [facility] Protocol Oxycodone HCl 2.5 mg 02/17/24 15:23 02/19/24 09:33 Oxycodone Ir 5 Mg Tablet PO 2.5 mg Q4HR PRN Administration Pain Prochlorperazine Edisylate 5 mg 02/15/24 17:45 Prochlorperazine Edisylate 10 Mg/2 Ml Vial IV-PUSH 02/14/25 17:44 Q4H PRN Nausea And Vomiting Sodium Chloride 0 ml 02/15/24 13:52 02/15/24 19:43 Sodium Chloride 0.9 % 10 Ml Syringe IV-PUSH 02/14/25 13:51 10 ml PRN PRN Administration Flush Sodium Chloride 0 ml 02/16/24 08:42 02/19/24 09:34 Sodium Chloride 0.9 % 10 Ml Syringe IV-PUSH 02/15/25 08:41 40 ml PRN PRN Administration Flush Warfarin Sodium 1 each 02/15/24 17:48 Warfarin - Pharmacy Dosing MISCELLANE 02/14/25 17:47 ONCE PRN ZZ.Pharmacy Consult Protocol Warfarin Sodium 2.5 mg 02/19/24 17:00 Warfarin 2.5 Mg Tablet PO 02/19/24 17:01 ONCE ONE A&P - Hospitalist Assessment/Plan (1) Septic shock: (2) Syncope: (3) Hypotension: (4) Leukocytosis: (5) Unstageable pressure ulcer of right hip: (6) Unstageable pressure ulcer of sacral region: (7) Unstageable pressure ulcer of left hip: (8) Type 2 diabetes mellitus with diabetic chronic kidney disease: (9) Anemia of renal disease: (10) ESRD (end stage renal disease): (11) Calciphylaxis: (12) Diabetes: (13) Multiple wounds of skin: (14) Afib: Plan Syncope and collapse in the setting of hypotension events Concern for Septic shock likely secondary to soft tissue infection (multiple wounds) ESRD on HD Calciphylaxis Multiple unstageable ulcers -Afebrile here, WBC downtrending to 15 -CT AP w contrast with no acute pathology -Observing off antibiotics -Has been weaned off pressors for >24 hours -Blood cultures negative to date. -Cardiac monitoring -Nephrology consulted. input appreciated. -ID consulted. input appreciated. Decision made to stop IV AB since patient received adequate course -General surgery consulted. input appreciated. -Pulm consulted. input appreciated. -Hold BP meds and diuretics -Pain control added as directed as needed. Hx of Afib- rate controlled Supratherapeutic INR -On Coumadin dosing per pharmacy -INR today 3.0 Home medications resumed as appropriate Diet: as directed DVT ppx: SCD, warfarin Code status: DNR CCA without intubation per palliative team, input appreciated. Status: inpatient Discussed with patient at bedside. All questions answered. In agreement with theove plan Plan for surgical debridement/biopsy today If remains stable, plan to discharge tomorrow to SNF. Patient has been already accepted. Virgen Young MD Internal Medicine Hospitalist Attending Physician Documented By: Virgen Vivar MD 02/19/24 11 36 Signed By: <Electronically signed by Viregn Vivar MD> 02/19/[address] [facility] Work Phone: 1(259) 301-355207-25-2024 Progress note Author Carlos Novak [facility] February 18, 2024 4:31pm Note Date/Time February 18, 2024 4:31 pm [facility] [address] [place] [id number] Progress Note Signed Patient: Rosa Winter MR#: [id number] : 1945 Acct:[id number] Age/Sex: 78 / F Adm Date: 4 Loc: Room: [address] [place] [address] Type: ADM IN Attending Dr: Virgen Vivar MD Copies to: ~ Date of Service: 02/18/2024 Progress Narrative Note PROGRESS NOTE Progress Note: Patient out of intensive care unit now. She is on warfarin and INR is about 4.5. Will plan debridement/biopsy of her sacral/hip ulcers. According to daughter, patient may be discharged to [facility] tomorrow. Therefore, we will try to arrange for the patient to follow-up with me in the wound care center andwe can schedule surgery at that time and also have the warfarin held prior to any surgery. Documented By: Carlos Novak MD 02/18/24 1630 Signed By: <Electronically signed by MD Carlos Novak> 02/18/[address] [facility] Work Phone: 1(503) 349-685107-25-2024 Progress note Author Mukul Durbin [facility] February 18, 2024 2:52pm Note Date/Time February 18, 2024 8:09 am [facility] [address] [place], [place] [id number] Pulmonology Progress Note Signed Patient: Rosa Winter MR#: [id number] : 1945 Acct:[id number] Age/Sex: 78 / F Adm Date: 4 Loc: Room: 1M2605-9 Type: ADM IN Attending Dr: Virgen Vivar MD Copies to: ~ Date of Service: 02/18/2024 Subjective Subjective Narrative: Patient is hemodynamically stable and on room air. There are no reported issuesovernight. Exam Physical Exam Vital Signs: Temp Pulse Resp BP Pulse Ox O2 Del Method 98.4 F 72 24 118/55 L 97 Room Air 02/18/24 05:00 02/18/24 07:00 02/18/24 07:00 02/18/24 07:00 02/18/24 05:00 02/18/24 07:00 Const General: cooperative Nutritional Appearance: obese Orientation: alert and awake HEENT Head: normal to inspection Ears: hearing grossly normal bilaterally and external ears normal Nose: external nose normal Face and sinus: normal facial exam Eyes Sclera: sclerae normal Neck Neck: normal visual inspection Chest Chest palpation & inspection: normal inspection of the chest (Left internal jugular hemodialysis catheter with dressing intact) Resp Effort & Inspection: normal respiratory effort Auscultation: clear to auscultation bilaterally, diminished lung sounds, no rales, no rhonchi and no wheezes Cardio Rate: regular rate Rhythm: regular rhythm Heart Sounds: S1 normal, S2 normal and no murmurs GI Inspection: normal to inspection and obesity Palpation: soft and nontender Auscultation: hypoactive bowel sounds Rectal Exam: deferred General: deferred and other (Right femoral central venous catheter with dressingin place) Skin General: no rashes or lesions noted (Warm and dry) Extrem General: no pedal edema and edema Laterality: bilaterally Objective Intake and Output I&O - Last 24 Hours: Intake & Output 02/17/24 02/18/24 02/18/24 23:59 07:59 15:59 Intake Total 270 / 870 200 / 200 Balance 270 / 368 200 / 200 Weight 214 lb 11.684 oz Labs 02/18/24 05:00 02/18/24 05:00 Microbiology Micro: Microbiology 3 02/15/24 18:16 Blood Culture - Preliminary Blood - Left Arm No Growth 2 Days 02/15/24 17:59 Blood Culture - Preliminary Blood - Left Arm No Growth 2 Days Assessment/Plan Assessment/Plan (1) Septic shock: (2) CKD (chronic kidney disease): (3) Afib: (4) Diabetes: Plan Hospital day #3, right femoral central venous catheter day #3 for patient with prior history of chronic kidney disease, diabetes mellitus, and multiple wounds on vancomycin and meropenem admitted for septic shock with hypotension, leukocytosis presenting from dialysis with syncopal episode. Patient is hemodynamically stable and on room air. She is stable to transfer out of the ICU from a pulmonary/critical care medicine perspective. Her right femoral central venous catheter can also be discontinued as she no longer requires pressors. I have no further recommendations and will sign off when patient is transferred out of the ICU. Documented By: Mukul Durbin MD [id number] Signed By: <Electronically signed by MD Mukul Durbin> 02/18/[address] [facility] Work Phone: 1(474) 231-310707-25-2024 Progress note Author Emelyn Bennett [facility] February 18, 2024 12:40pm Note Date/Time February 18, 2024 12:1 0pm [facility] [address] [place] [address] Nephrology Progress Note Signed Patient: Rosa Winter MR#: [id number] : 1945 Acct:[id number] Age/Sex: 78 / F Adm Date: 4 Loc: Room: [address] [place] [address] Type: ADM IN Attending Dr: Virgen Vivar MD Copies to: ~ Date of Service: 02/18/2024 Subjective Subjective Narrative: This is a 78-year-old female with medical history of ESRD, DM, HTN, anemia of renal disease, A-fib and gout was sent from the [place] dialysis unit after fainting episode. 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 She went for her routine dialysis yesterday and found to have hypotension with trending episode 45 minutes after she was initiated on dialysis. Patient was sent to the emergency room and was given multiple fluid boluses. She was also found to have a leukocytosis and was started on broad-spectrum antibiotic after blood cultures. Patient reported that she has multiple bone lesions for while and she had extensive workup done at the [facility] in [place]. She was following with Dr. Jaramillo for her CKD care. She said she was started on dialysis about a month ago. Nephrology is consulted for ESRD management during her hospital stay. INTERIM HISTORY Patient was seen and examined at bedside. She denies any chest pain palpation cough or shortness of breath. She had a dialysis yesterday tolerated well with no issues. Exam Physical Exam Vital Signs: Temp Pulse Resp BP Pulse Ox O2 Del Method 97.6 F 74 17 112/62 96 Room Air 02/18/24 08:00 02/18/24 11:00 02/18/24 11:00 02/18/24 11:00 02/18/24 08:00 02/18/24 11:00 Narrative: General: Appears comfortable and not in distress Heart: S1-S2, no rub Lung: Bilateral air entry, no wheezing or crackles Abdomen: Soft, positive bowel sounds Extremities: No edema, no cyanosis Head: Atraumatic, normocephalic Ear: No gross hearing Deficit or external ear redness Eyes: No pallor or redness Neck: No JVD or visible mass Skin: warm to touch, she has multiple skin wounds with necrotic skin CLIENT SUCCESS MANAGER: Awake,Alert, following simple command Musculoskeletal: No swelling or limitation of movement of the large joints Psychiatric: Cooperative, normal mood and affect Objective Intake and Output I&O: Intake & Output 02/15/24 02/16/24 02/17/24 02/18/24 23:59 23:59 23:59 23:59 Intake Total 1100 / 1100 850 / 850 870 / 870 200 / 200 Output Total 751 / 751 502 / 502 Balance 1100 / 1100 99 / 99 368 / 368 200 / 200 Weight 93.7 kg 95.3 kg 97.4 kg Meds and Allergies Meds: Active Medications Acetaminophen (Acetaminophen 325 Mg Tablet) 650 mg PO Q6HR PRN PRN Reason: Pain Scale 1 - 3 or fever Stop: 02/14/25 17:44 Last Admin: 02/18/24 05:09 Dose: 650 mg Allopurinol (Allopurinol 100 Mg Tablet) 100 mg PO MoWeFr@1630 [facility] Stop: 02/16/25 16:29 Last Admin: 02/17/24 16:12 Dose: 100 mg Atorvastatin Calcium (Atorvastatin 20 Mg Tablet) 20 mg PO QHS [facility] Stop: 02/14/25 21:59 Last Admin: 02/17/24 21:27 Dose: 20 mg Brimonidine Tartrate (Brimonidine 0.2% Op Soln 100 Drops/5 Ml Bottle) 1 drops EYE-BOTH Q8HR [facility] Stop: 02/14/25 21:59 Last Admin: 02/18/24 05:58 Dose: 1 drops Darbepoetin Gary (Darbepoetin Gary In Polysorbat 40 Mcg/Ml Vial) 40 mcg IV-PUSHWe@0900 [facility]; Protocol Stop: 02/16/25 08:59 Last Admin: 02/17/24 11:24 Dose: 40 mcg Dextrose (Dextrose 50% In Water 25 Gm/50 Ml Syringe) 0 gm IV-PUSH PRN PRN PRN Reason: Hypoglycemia Stop: 02/15/25 15:25 Ferric Sodium Gluconate Complex (Sodium Ferric Gluconat/Sucrose 62.5 Mg/5 Ml Vial) 125 mg IV-PUSH QWEEK [facility] Stop: 02/18/25 08:59 Gabapentin (Gabapentin 100 Mg Capsule) 100 mg PO Q48H [facility] Stop: 02/16/25 20:59 Last Admin: 02/17/24 21:27 Dose: 100 mg Glucose (Dextrose 40% Gel 15 Gm Tube) 0 gm PO PRN PRN PRN Reason: Hypoglycemia Stop: 02/15/25 15:25 Heparin Sodium (Porcine) (Heparin 10,000 Unit/10 Ml Vial) 3,600 unit IV PRN PRN PRN Reason: Dialysis Stop: 02/15/25 08:41 Last Admin: 02/17/24 10:00 Dose: 3,600 unit Norepinephrine Bitartrate (Levophed) 16 mg in 250 mls @ 4.688 mls/hr IV .Q24H [facility]; Protocol Stop: 02/14/25 20:14 Last Admin: 02/17/24 21:52 Dose: Not Given Sodium Chloride (0.9% Sodium Chloride 1,000 Ml) 1,000 mls @ 0 mls/hr MISCELLANE.Q0M PRN PRN Reason: Dialysis Stop: 02/15/25 08:41 Last Infusion: 02/17/24 10:01 Dose: Infused Insulin Aspart (Insulin Aspart 300 Units/3 Ml Insuln.Pen) 0 units SUBCUT TID.WM.[facility]; Protocol Stop: 02/15/25 16:59 Last Admin: 02/18/24 11:33 Dose: 3 units Oxycodone HCl (Oxycodone Ir 5 Mg Tablet) 2.5 mg PO Q4HR PRN PRN Reason: Pain Last Admin: 02/17/24 22:45 Dose: 2.5 mg Prochlorperazine Edisylate (Prochlorperazine Edisylate 10 Mg/2 Ml Vial) 5 mg IV- PUSH Q4H PRN PRN Reason: Nausea And Vomiting Stop: 02/14/25 17:44 Sodium Chloride (Sodium Chloride 0.9 % 10 Ml Syringe) 0 ml IV-PUSH PRN PRN PRN Reason: Flush Stop: 02/14/25 13:51 Last Admin: 02/15/24 19:43 Dose: 10 ml Sodium Chloride (Sodium Chloride 0.9 % 10 Ml Syringe) 0 ml IV-PUSH PRN PRN PRN Reason: Flush Stop: 02/15/25 08:41 Last Admin: 02/17/24 10:00 Dose: 40 ml Warfarin Sodium (Warfarin - Pharmacy Dosing) 1 each MISCELLANE ONCE PRN; Protocol PRN Reason: ZZ.Pharmacy Consult Stop: 02/14/25 17:47 Allergies No Known Allergies Allergy (Verified 02/10/21 22:57) Results - Nephrology Labs 02/18/24 05:00 02/18/24 05:00 Labs: 02/18/24 05:00 BUN 21 Creatinine 2.21 H Phosphorus 2.8 Albumin 2.5 L Radiology Impressions Impressions - last 24 hours: Any impression(s) listed above is documentation that was entered by the reading physician into a diagnostic report(s) for Rosa Winter. I have reviewed the report(s) and am incorporating any findings in the treatment plan of this patient where applicable. A&P - Nephrology Assessment/Plan (1) Septic shock: Assessment/Problem Details: Patient presented with hypotension and leukocytosis. She has likely sepsis due to the skin wound infection. Currently on broad-spectrum antibiotic. ID and general surgery has been consulted. (2) ESRD (end stage renal disease): Assessment/Problem Details: She has a ESRD due to the diabetic nephropathy hypertensive nephrosclerosis. She was recently excepted at our [place] dialysis unit and currently runs MWF schedule. 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 (4) Anemia of renal disease: Assessment/Problem Details: Hemoglobin is below the goal. (5) Type 2 diabetes mellitus with diabetic chronic kidney disease: Assessment/Problem Details: She has an insulin-dependent type 2 diabetes mellitus. (6) Afib: Assessment/Problem Details: She currently has A-fib and was taking a labetalol and Coumadin at home. Plan * No need for dialysis today. Next dialysis will be tomorrow. * Continue antibiotic and adjust as needed based on culture sensitivity. Pharmacy to dose medication based on ESRD * Will await for wound biopsy and start sodium thiosulfate if she has a calciphylaxis. * Continue Aranesp 40 mcg once weekly with dialysis * Will give ferric gluconate 125 mg q. weekly * Will continue to hold calcitriol. * Continue DM management as per the primary hospitalist team. * Prognosis is guarded. Documented By: Emelyn Bennett MD 02/18/24 1209 Signed By: <Electronically signed by Emelyn Bennett MD> 02/18/[address] [facility] Work Phone: [phone]) [phone] Progress note Author Virgen Vivar [facility] February 18, 2024 11:34am Note Date/Time February 18, 2024 11:3 4am [facility] [address] [place] [address] Hospitalist Progress Note Signed Patient: Rosa Winter MR#: [id number] : 1945 Acct:[id number] Age/Sex: 78 / F Adm Date: 4 Loc: Room: [address] [place] [address] Type: ADM IN Attending Dr: Virgen Vivar MD Copies to: ~ Date of Service: 02/18/2024 Subjective Subjective Narrative: Patient was seen evaluated at bedside, remained afebrile here. WBC downtrending to 16. Has been weaned off pressors for more than 24 hours. She feels better. denies nausea, vomiting, abdominal pain. Palliative input appreciated. Code status changed to DNR CCA without intubation. Seen by PT/OT recs to SNF. CM following. Exam Physical Exam Vital Signs: Temp Pulse Resp BP Pulse Ox O2 Del Method 97.6 F 74 17 112/62 96 Room Air 02/18/24 08:00 02/18/24 11:00 02/18/24 11:00 02/18/24 11:00 02/18/24 08:02/18/24 11:00 Narrative: Const General: cooperative HEENT Normal oropharyngeal mucosa without any ulcers or exudates Eyes: Conjunctiva normal Pulmonary Auscultation: clear to auscultation , no crackles, no wheezes Patient has HD access on left chest area. Cardiovascular Rate: normal rate Rhythm: irregular rhythm Heart Sounds: S1 normal, S2 normal and no murmurs GI Inspection: non-distended Palpation: soft, nontender. No rigidity or rebound. Deferred Neuro General: alert, awake and oriented x3. No obvious new focal deficit Extrem General: no cyanosis, trace nonpitting pedal edema skin: Multiple wounds with skin discoloration noted on the lower extremities andright hip groin area on the buttocks. Necrotic tissue noted on R hip area, no discharge noted. defer exam and management to wound care team. Psych Appearance: appropriate affect. Grossly normal. Objective Lab Results 02/18/24 05:00 02/18/24 05:00 Microbiology Results Microbiology 02/15/24 18:16 Blood - Left Arm Blood Culture - Preliminary No Growth 2 Days 02/15/24 17:59 Blood - Left Arm Blood Culture - Preliminary No Growth 2 Days Meds Allergies and Active Meds Allergies No Known Allergies Allergy (Verified 02/10/21 22:57) Active Meds: Active Medications Generic Name Dose Route Start Last Admin Trade Name Freq PRN Reason Stop Dose Admin Acetaminophen 650 mg 02/15/24 17:45 02/18/24 05:09 Acetaminophen 325 Mg Tablet PO 02/14/25 17:44 650 mg Q6HR PRN Administration Pain Scale 1 - 3 or fever Allopurinol 100 mg 02/17/24 16:30 02/17/24 16:12 Allopurinol 100 Mg Tablet PO 02/16/25 16:29 100 mg MoWeFr@1630 [facility] Administration Atorvastatin Calcium 20 mg 02/15/24 22:00 02/17/24 21:27 Atorvastatin 20 Mg Tablet PO 02/14/25 21:59 20 mg QHS [facility] Administration Brimonidine Tartrate 1 drops 02/15/24 22:00 02/18/24 05:58 Brimonidine 0.2% Op Soln 100 Drops/5 Ml Bottle EYE-BOTH 02/14/25 21:59 1 drops Q8HR [facility] Administration Darbepoetin Gary 40 mcg 02/17/24 09:00 02/17/24 11:24 Darbepoetin Gary In Polysorbat 40 Mcg/Ml Vial IV-PUSH 02/16/25 08:59 40 mcg We@0900 [facility] Administration Protocol Dextrose 0 gm 02/16/24 15:26 Dextrose 50% In Water 25 Gm/50 Ml Syringe IV-PUSH 02/15/25 15:25 PRN PRN Hypoglycemia Ferric Sodium Gluconate Complex 125 mg 02/19/24 09:00 Sodium Ferric Gluconat/Sucrose 62.5 Mg/5 Ml Vial IV-PUSH 02/18/25 08:59 QWEEK AS[facility] Gabapentin 100 mg 02/17/24 21:00 02/17/24 21:27 Gabapentin 100 Mg Capsule PO 02/16/25 20:59 100 mg Q48H [facility] Administration Glucose 0 gm 02/16/24 15:26 Dextrose 40% Gel 15 Gm Tube PO 02/15/25 15:25 PRN PRN Hypoglycemia Heparin Sodium (Porcine) 3,600 unit 02/16/24 08:42 02/17/24 10:00 Heparin 10,000 Unit/10 Ml Vial IV 02/15/25 08:41 3,600 unit PRN PRN Administration Dialysis Norepinephrine Bitartrate 16 mg in 250 mls @ 4.688 mls/hr 02/15/24 20:15 02/17/24 21:52 Levophed IV 02/14/25 20:14 Not Given .Q24H [facility] Protocol 5 MCG/MIN Sodium Chloride 1,000 mls @ 0 mls/hr 02/16/24 08:42 02/17/24 10:01 0.9% Sodium Chloride 1,000 Ml MISCELLANE 02/15/25 08:41 Infused .Q0M PRN Infusion Dialysis As Directed Insulin Aspart 0 units 02/16/24 17:00 02/18/24 07:45 Insulin Aspart 300 Units/3 Ml Insuln.Pen SUBCUT 02/15/25 16:59 1 units TID.WM.[facility] Administration Protocol Oxycodone HCl 2.5 mg 02/17/24 15:23 02/17/24 22:45 Oxycodone Ir 5 Mg Tablet PO 2.5 mg Q4HR PRN Administration Pain Prochlorperazine Edisylate 5 mg 02/15/24 17:45 Prochlorperazine Edisylate 10 Mg/2 Ml Vial IV-PUSH 02/14/25 17:44 Q4H PRN Nausea And Vomiting Sodium Chloride 0 ml 02/15/24 13:52 02/15/24 19:43 Sodium Chloride 0.9 % 10 Ml Syringe IV-PUSH 02/14/25 13:51 10 ml PRN PRN Administration Flush Sodium Chloride 0 ml 02/16/24 08:42 02/17/24 10:00 Sodium Chloride 0.9 % 10 Ml Syringe IV-PUSH 02/15/25 08:41 40 ml PRN PRN Administration Flush Warfarin Sodium 1 each 02/15/24 17:48 Warfarin - Pharmacy Dosing MISCELLANE 02/14/25 17:47 ONCE PRN ZZ.Pharmacy Consult Protocol A&P - Hospitalist Assessment/Plan (1) Septic shock: (2) Syncope: (3) Hypotension: (4) Leukocytosis: (5) Unstageable pressure ulcer of right hip: (6) Unstageable pressure ulcer of sacral region: (7) Unstageable pressure ulcer of left hip: (8) Type 2 diabetes mellitus with diabetic chronic kidney disease: (9) Anemia of renal disease: (10) ESRD (end stage renal disease): (11) Calciphylaxis: (12) Diabetes: (13) Multiple wounds of skin: (14) Afib: Plan Syncope and collapse in the setting of hypotension events Septic shock likely secondary to soft tissue infection (multiple wounds) ESRD on HD Calciphylaxis Multiple unstageable ulcers -Afebrile here, WBC downtrending to 16 -CT AP w contrast with no acute pathology -Broad spectrum antibiotics as directed -Has been weaned off pressors for >24 hours -Blood cultures negative at 2 day. -Cardiac monitoring -Nephrology consulted. input appreciated. -ID consulted. input appreciated. Decision made to stop IV AB since patient received adequate course -General surgery consulted. input appreciated. -Pulm consulted. input appreciated. -Hold BP meds and diuretics -Pain control added as directed as needed. Hx of Afib- rate controlled Supratherapeutic INR -On Coumadin dosing per pharmacy -INR today 4.1 Home medications resumed as appropriate Diet: as directed DVT ppx: SCD, warfarin Code status: DNR CCA without intubation per palliative team, input appreciated. Status: inpatient Discussed with patient at bedside. All questions answered. In agreement with theabove plan Stable to be transferred out of ICU to medical floor w tele. Virgen Young MD Internal Medicine Hospitalist Attending Physician Documented By: Virgen Vivar MD 02/18/24 11 31 Signed By: <Electronically signed by Virgen Vivar MD> 02/18/[address] [facility] Work Phone: 1(257) 753-394607-25-2024 Progress note Author Tres King [facility] February 18, 2024 8:58am Note Date/Time February 18, 2024 8:58 am [facility] [address] [place] [address] Infect. Disease Progress Note Signed Patient: Rosa Winter MR#: [id number] : 1945 Acct:[id number] Age/Sex: 78 / F Adm Date: 4 Loc: Room: [address] [place] [address] Type: ADM IN Attending Dr: Virgen Vivar MD Copies to: ~ Date of Service: 02/18/2024 Subjective Interval history: Patient states she is more comfortable. No new complaints Exam Physical Exam Vital Signs: Temp Pulse Resp BP Pulse Ox O2 Del Method 97.6 F 68 21 123/58 L 96 Room Air 02/18/24 08:00 02/18/24 08:00 02/18/24 08:00 02/18/24 08:00 02/18/24 08:00 02/18/24 08:00 Const General: no acute distress Orientation: oriented x3 HEENT Head: normal to inspection Ears: hearing grossly normal bilaterally Nose: external nose normal Eyes General: appearance normal, both eyes and all related structures Neck Neck: normal visual inspection Chest Chest palpation & inspection: abnormal inspection of the chest (HD catheter leftchest) Resp Effort & Inspection: normal respiratory effort Cardio Rate: regular rate Rhythm: regular rhythm GI Inspection: abnormal to inspection and obesity Palpation: soft Skin Lesions: lesion noted Wounds: wounds noted Other: Multiple discolorations/wounds noted on her lower legs and hip groin areas and buttock. All are necrotic in appearance without any of them draining purulent material. Coccygeal wound the deepest with out drainage. Extrem General: abnormal to inspection Objective Labs CBC/BMP: CBC, BMP 02/18/24 05:00 Corrected WBC 16.3 H RBC 3.14 L Hgb 8.4 L Hct 26.1 L Plt Count 471 H Sodium 134 L Potassium 4.0 Chloride 97 L Carbon Dioxide 27.6 Anion Gap 13.4 BUN 21 Creatinine 2.21 H Calcium 8.1 L Labs: 02/18/24 05:00 BUN 21 Creatinine 2.21 H Microbiology Microbiology: Microbiology - Results from entire visit 02/15/24 18:16 Blood - Left Arm Blood Culture - Preliminary No Growth 2 Days 02/15/24 17:59 Blood - Left Arm Blood Culture - Preliminary No Growth 2 Days Allergies and Medications Allergies and Active Meds Allergies No Known Allergies Allergy (Verified 02/10/21 22:57) Active Medications Acetaminophen (Acetaminophen 325 Mg Tablet) 650 mg PO Q6HR PRN PRN Reason: Pain Scale 1 - 3 or fever Stop: 02/14/25 17:44 Last Admin: 02/18/24 05:09 Dose: 650 mg Allopurinol (Allopurinol 100 Mg Tablet) 100 mg PO MoWeFr@1630 [facility] Stop: 02/16/25 16:29 Last Admin: 02/17/24 16:12 Dose: 100 mg Atorvastatin Calcium (Atorvastatin 20 Mg Tablet) 20 mg PO QHS [facility] Stop: 02/14/25 21:59 Last Admin: 02/17/24 21:27 Dose: 20 mg Brimonidine Tartrate (Brimonidine 0.2% Op Soln 100 Drops/5 Ml Bottle) 1 drops EYE-BOTH Q8HR [facility] Stop: 02/14/25 21:59 Last Admin: 02/18/24 05:58 Dose: 1 drops Darbepoetin Gary (Darbepoetin Gary In Polysorbat 40 Mcg/Ml Vial) 40 mcg IV-PUSHWe@0900 [facility]; Protocol Stop: 02/16/25 08:59 Last Admin: 02/17/24 11:24 Dose: 40 mcg Dextrose (Dextrose 50% In Water 25 Gm/50 Ml Syringe) 0 gm IV-PUSH PRN PRN PRN Reason: Hypoglycemia Stop: 02/15/25 15:25 Ferric Sodium Gluconate Complex (Sodium Ferric Gluconat/Sucrose 62.5 Mg/5 Ml Vial) 125 mg IV-PUSH QWEEK [facility] Stop: 02/18/25 08:59 Gabapentin (Gabapentin 100 Mg Capsule) 100 mg PO Q48H [facility] Stop: 02/16/25 20:59 Last Admin: 02/17/24 21:27 Dose: 100 mg Glucose (Dextrose 40% Gel 15 Gm Tube) 0 gm PO PRN PRN PRN Reason: Hypoglycemia Stop: 02/15/25 15:25 Heparin Sodium (Porcine) (Heparin 10,000 Unit/10 Ml Vial) 3,600 unit IV PRN PRN PRN Reason: Dialysis Stop: 02/15/25 08:41 Last Admin: 02/17/24 10:00 Dose: 3,600 unit Norepinephrine Bitartrate (Levophed) 16 mg in 250 mls @ 4.688 mls/hr IV .Q24H [facility]; Protocol Stop: 02/14/25 20:14 Last Admin: 02/17/24 21:52 Dose: Not Given Sodium Chloride (0.9% Sodium Chloride 1,000 Ml) 1,000 mls @ 0 mls/hr MISCELLANE.Q0M PRN PRN Reason: Dialysis Stop: 02/15/25 08:41 Last Infusion: 02/17/24 10:01 Dose: Infused Meropenem (Merrem) 0.5 gm in 100 mls @ 200 mls/hr IV Q24H [facility] Last Admin: 02/17/24 17:22 Dose: 200 mls/hr Insulin Aspart (Insulin Aspart 300 Units/3 Ml Insuln.Pen) 0 units SUBCUT TID.WM.HS [facility]; Protocol Stop: 02/15/25 16:59 Last Admin: 02/18/24 07:45 Dose: 1 units Oxycodone HCl (Oxycodone Ir 5 Mg Tablet) 2.5 mg PO Q4HR PRN PRN Reason: Pain Last Admin: 02/17/24 22:45 Dose: 2.5 mg Prochlorperazine Edisylate (Prochlorperazine Edisylate 10 Mg/2 Ml Vial) 5 mg IV- PUSH Q4H PRN PRN Reason: Nausea And Vomiting Stop: 02/14/25 17:44 Sodium Chloride (Sodium Chloride 0.9 % 10 Ml Syringe) 0 ml IV-PUSH PRN PRN PRN Reason: Flush Stop: 02/14/25 13:51 Last Admin: 02/15/24 19:43 Dose: 10 ml Sodium Chloride (Sodium Chloride 0.9 % 10 Ml Syringe) 0 ml IV-PUSH PRN PRN PRN Reason: Flush Stop: 02/15/25 08:41 Last Admin: 02/17/24 10:00 Dose: 40 ml Vancomycin HCl (Vancomycin - Pharmacy Dosing 1 Each Miscell) 1 each IV ONCE PRN; Protocol PRN Reason: ZZ.Pharmacy Consult Warfarin Sodium (Warfarin - Pharmacy Dosing) 1 each MISCELLANE ONCE PRN; Protocol PRN Reason: ZZ.Pharmacy Consult Stop: 02/14/25 17:47 A&P - Infectious Disease Assessment/Plan (1) Leukocytosis: (2) Multiple wounds of skin: (3) Calciphylaxis: (4) ESRD (end stage renal disease): Plan Patient recently hospitalized January 31 through February 12 at outside hospital. Now here at [facility]. Wounds on exam essentially necrotic and clinically consistent with calciphylaxis. Significant open wound on her coccyx that is notsuggestive of infection. Wounds are firm around the margins and likely debridement will be needed. General surgery consulted and will plan to biopsy when patient was more hemodynamically stable. Patient has been on IV antibiotics since January 31 it appears and is now currently on vancomycin and meropenem. Blood cultures are negative at 2 day. Patient remains afebrile however white count trending down. Of note her white count was elevated when at [place] as well. Patient without complaints of diarrhea. Will dc abx as she hasbeen on broad coverage since January 31. Documented By: Tres King MD 02/18/24 0856 Signed By: <Electronically signed by MD Tres King> 02/18/[address] [facility] Work Phone: [phone]) 973-522307-24-2024 Consult note Author Teddy Valero [facility] February 17, 2024 4:16pm Note Date/Time February 17, 2024 2:43 pm [facility] [address] [place] [address] Palliative Care Consult Note Signed Patient: Rosa Winter MR#: [id number] : 1945 Acct:[id number] Age/Sex: 78 / F Adm Date: 4 Loc: Room: [address] [place] [address] Type: ADM IN Attending Dr: Virgne Vivar MD Copies to: DO Teddy Quiroz Jr, DO Obaydah M Daromar, MD~ HPI Data of Consult Date of Consult: 02/17/2024 Requesting Physician: Virgen Vivar MD Primary Care Provider: Annabelle Archer DO Consult Narrative Reason for Consult: Advance care planning, goals of care HPI: Ms. Winter is an 78-year-old female with past medical history significant for end-stage renal disease, diabetes mellitus, hypertension, congestive heart failure, anemia, atrial fibrillation, previous renal cell carcinoma. She was sent to the ED from the [place] dialysis unit after a syncopal episode. She has end-stage renal disease secondary to diabetes nephropathy and hypertensive nephrosclerosis. She was recently at [facility], from January 31 to February 12, and has been on hemodialysis for about a month according to records. Today is hospitalization day #2. In the ED patient was given multiple fluid boluses and was found to have leukocytosis. She has been on meropenem and vancomycin during dialysis after discharge from [facility]. She was admitted to the ICU at [facility], and was started on vasopressors onadmission. This morning she was weaned off vasopressors. She has wounds on herhips, back, buttocks, breast, heel, suspicious for calciphylaxis. Infectious disease, general surgery, pulmonary/critical care, nephrology were all consultedduring this hospitalization so far. Recommendation was not to pursue surgical intervention for her ulcers because of the calciphylaxis. She did get dialysis today, and has had pain from her multiple ulcers. PT/OT were consulted. Blood cultures are negative x 1 day. Patient remains afebrile, but continues to have elevated white count at 20.2. She does not have diarrhea, and the recommendation was to maintain antibiotics for another 24 hours and if cultures remain negative then to stop antibiotics. Palliative medicine was consulted to help with goals of care and with advance care planning. According to reports, patient has expressed desire to consider stopping dialysis and to enroll into hospice. Patient seen and evaluated. She is alert and oriented x 3 in her bed. She doesseem to have a good understanding of her medical condition. She tells us she isoriginally from [facility] [place] born [place] raised. She was 30 years ago, and has 3 children?Sidra Hawkins, Bryan. Her son Ross is an RN in [place]. She tells me she lives next-door to her son, Bryan, who helps her at home. She saysshe worked various jobs when she was younger, but also worked at [employer] for 7 or 8 years in the past. Spiritual things are important to her, she has belonged to the [facility] in [place], but has been unable to get there since she does not drive. Rosa says that several months ago she was mostly independent with ADLs and wasable to get around her house without much of a problem, just some assistance. She says she got help from her son, Bryan, with cleaning and some cooking. She tells me she did need some help with showering, but was independent with ADLs otherwise. We spent a total of 40 minutes discussing goals of care and advance care planning today with Rosa and then afterwards with her son, Ross, on thephone. Rosa says that she has been very frustrated since she was in the hospital at [facility]. She says she is not sure if she will ever get better, and she has a poor quality life. She says she can't even sit and watch TV without being in severe pain. Currently Rosa is so weak she is unable to reposition herself in bed. She was unable to stand and bear weight today with physical therapy. Rosa says she started dialysis because she was hoping she might improve and have a good quality life. After much discussion, Rosa says she does want to continue dialysis for now. She is hoping she might somehow improve and get better. She does want to focus more on symptom management while she is in the hospital. Will Rx gabapentin 100mg every 48 hours and oxycodone 2.5 mg every 4 hours as needed pain. Will discontinue hydromorphone IV for now. She is tolerating by mouth intake okay, but says she has a poor appetite. Biopsy of her wound was done at [facility], and Rosa does state that they were suspicious of calciphylaxis. We did have along talk about how it is often difficult to recover from multiple wounds secondary to calciphylaxis and renal failure. Patient was intermittently tearful, but says for now she will continue hemodialysis. Plan is to discharge back to the [facility] for skilled care after her admission here at [facility]. Her ultimate goal is to go home. If she feels her quality life is poor or she is not getting better, she will consider hospice in the future. We also reviewed resuscitation preferences, and Rosa says that she would not want CPR in the future and she would not want to be put on a ventilator machine. She requested CODE STATUS changed to DNR CCA without intubation. She asked that I call her son, Ross, and updated him on her decisions. I was able to call her son, Ross, who is an RN in [place]. He agrees with his mom's decisions, and plans on visiting her as well. Thank you for the consult. CODE STATUS was adjusted to DNR CCA without intubation based on Rosa's request. Oxycodone was adjusted to 2.5 mg every 4 hours as needed pain, IV hydromorphone was discontinued. Gabapentin 100 mg every 48 hours was added. Will follow-up tomorrow. Please call if questions Review of Systems Constitutional Constitutional: Reports fatigue, Reports poor appetite and Reports weakness Eyes Eyes: Reports system reviewed and no additional complaints, except as documented ENT Ears, Nose, Mouth, and Throat: Reports system reviewed and no additional complaints, except as documented Cardiovascular Cardiovascular: Reports system reviewed and no additional complaints, except as documented Respiratory Respiratory: Reports dyspnea on exertion Gastrointestinal Gastrointestinal: Reports system reviewed and no additional complaints, except as documented Genitourinary Genitourinary: Reports system reviewed and no additional complaints, except as documented Comments: No significant urine output according to nursing. Musculoskeletal Musculoskeletal: Reports muscle weakness Comments: hip pain Integumentary/Breasts Skin/Breast: Reports system reviewed and no additional complaints, except as documented Neurologic Neurologic: Reports weakness Psychiatric Psychiatric: Reports system reviewed and no additional complaints, except as documented Endocrine Endocrine: Reports fatigue [facility] Medical History (Updated 02/17/24 @ 14:43 by Teddy Valero DO) Diabetes Problem List clean-up per request of Phys. EHR Cmte Afib Problem List clean-up per request of Phys. EHR Cmte Nocturnal hypoxemia Problem List clean-up per request of Phys. EHR Cmte Iron deficiency anemia Problem List clean-up per request of Phys. EHR Cmte CHF (congestive heart failure) Problem List clean-up per request of Phys. EHR Cmte UTI (urinary tract infection) Problem List clean-up per request of Phys. EHR Cmte Colon polyp Problem List clean-up per request of Phys. EHR Cmte HLD (hyperlipidemia) Problem List clean-up per request of Phys. EHR Cmte Renal cell carcinoma Problem List clean-up per request of Phys. EHR Cmte Social History Smoking Status: Never smoker Substance Use Type: None Allergies & Medications Medications and Allergies Allergies No Known Allergies Allergy (Verified 02/10/21 22:57) Home Medications acetaminophen 650 mg tablet 650 mg PO Q6H PRN Pain 02/10/21 [History Confirmed 02/16/24] allopurinol 100 mg tablet 100 mg PO HS 02/10/21 [History Confirmed 02/15/24] atorvastatin 20 mg tablet 20 mg PO QHS 02/10/21 [History Confirmed 02/16/24] brimonidine 0.2 % eye drops 1 drp ophthalmic (eye) TID 02/15/24 [History Confirmed 02/16/24] calcitriol 0.25 mcg capsule 0.25 mcg PO DAILY 02/15/24 [History Confirmed 02/16/24] docusate sodium 100 mg capsule 100 mg PO BID 02/15/24 [History Confirmed 02/16/24] ferrous sulfate 325 mg (65 mg iron) tablet (FeroSul) 325 mg PO DAILY 02/15/24 [History Confirmed 02/16/24] furosemide 40 mg tablet (Lasix) 40 mg PO BID 02/15/24 [History Confirmed 02/16/24] hydralazine 25 mg tablet 25 mg PO TID 02/15/24 [History Confirmed 02/16/24] hydrocodone 5 mg-acetaminophen 325 mg tablet 1 tab PO Q6HR PRN pain 02/15/24 [History Confirmed 02/16/24] insulin NPH isoph U-100 human 100 unit/mL (3 mL) subcutaneous pen (Humulin N NPHU-100 Insulin KwikPen) 30 unit subcut BID 02/15/24 [History Confirmed 02/16/24] labetalol 100 mg tablet 200 mg PO BID 02/15/24 [History Confirmed 02/16/24] lidocaine 3 % topical cream 1 applic topical BID PRN pain 02/15/24 [History Confirmed 02/16/24] lidocaine 4 % topical patch (Aspercreme (lidocaine)) 1 patch topical DAILY PRN pain 02/15/24 [History Confirmed 02/16/24] meropenem 500 mg/50 mL in 0.9% sodium chloride intravenous piggyback 500 mg IV 3XW 02/15/24 [History Confirmed 02/15/24] polyethylene glycol 3350 17 gram/dose oral powder (Laxative PEG 3350) 17 g PO DAILY PRN constipation 02/15/24 [History Confirmed 02/16/24] quetiapine 25 mg tablet (Seroquel) 25 mg PO QAM 02/15/24 [History Confirmed 02/16/24] quetiapine 50 mg tablet (Seroquel) 50 mg PO QHS 02/15/24 [History Confirmed 02/16/24] vancomycin 1 gram/250 mL in 0.9 % sodium chloride intravenous 1 g IV 3XW 02/15/24 [History Confirmed 02/15/24] warfarin 2.5 mg tablet 2.5 mg PO QHS 02/15/24 [History Confirmed 02/16/24] Active Medications Acetaminophen (Acetaminophen 325 Mg Tablet) 650 mg PO Q6HR PRN PRN Reason: Pain Scale 1 - 3 or fever Stop: 02/14/25 17:44 Last Admin: 02/17/24 09:07 Dose: 650 mg Allopurinol (Allopurinol 100 Mg Tablet) 100 mg PO MoWeFr@1630 [facility] Stop: 02/16/25 16:29 Atorvastatin Calcium (Atorvastatin 20 Mg Tablet) 20 mg PO QHS [facility] Stop: 02/14/25 21:59 Last Admin: 02/16/24 21:47 Dose: 20 mg Brimonidine Tartrate (Brimonidine 0.2% Op Soln 100 Drops/5 Ml Bottle) 1 drops EYE-BOTH Q8HR [facility] Stop: 02/14/25 21:59 Last Admin: 02/17/24 13:33 Dose: 1 drops Darbepoetin Gary (Darbepoetin Gary In Polysorbat 40 Mcg/Ml Vial) 40 mcg IV-PUSHWe@0900 [facility]; Protocol Stop: 02/16/25 08:59 Last Admin: 02/17/24 11:24 Dose: 40 mcg Dextrose (Dextrose 50% In Water 25 Gm/50 Ml Syringe) 0 gm IV-PUSH PRN PRN PRN Reason: Hypoglycemia Stop: 02/15/25 15:25 Glucose (Dextrose 40% Gel 15 Gm Tube) 0 gm PO PRN PRN PRN Reason: Hypoglycemia Stop: 02/15/25 15:25 Heparin Sodium (Porcine) (Heparin 10,000 Unit/10 Ml Vial) 3,600 unit IV PRN PRN PRN Reason: Dialysis Stop: 02/15/25 08:41 Last Admin: 02/17/24 10:00 Dose: 3,600 unit Hydromorphone HCl (Hydromorphone 0.5 Mg/0.5 Ml Syringe) 0.5 mg IV-PUSH Q4H PRN PRN Reason: pain 8-10 Last Admin: 02/16/24 21:48 Dose: 0.5 mg Norepinephrine Bitartrate (Levophed) 16 mg in 250 mls @ 4.688 mls/hr IV .Q24H [facility]; Protocol Stop: 02/14/25 20:14 Last Infusion: 02/16/24 22:00 Dose: 0 mcg/min, 0 mls/hr Sodium Chloride (0.9% Sodium Chloride 1,000 Ml) 1,000 mls @ 0 mls/hr MISCELLANE.Q0M PRN PRN Reason: Dialysis Stop: 02/15/25 08:41 Last Infusion: 02/17/24 10:01 Dose: Infused Meropenem (Merrem) 0.5 gm in 100 mls @ 200 mls/hr IV Q24H [facility] Last Admin: 02/16/24 17:10 Dose: 200 mls/hr Vancomycin HCl (Vancomycin) 0.75 gm in 250 mls @ 250 mls/hr IV ONCE ONE Stop: 02/17/24 16:59 Insulin Aspart (Insulin Aspart 300 Units/3 Ml Insuln.Pen) 0 units SUBCUT TID.WM.[facility]; Protocol Stop: 02/15/25 16:59 Last Admin: 02/17/24 12:45 Dose: Not Given Oxycodone HCl (Oxycodone Ir 5 Mg Tablet) 5 mg PO Q6HR PRN PRN Reason: pain 4-7 Prochlorperazine Edisylate (Prochlorperazine Edisylate 10 Mg/2 Ml Vial) 5 mg IV- PUSH Q4H PRN PRN Reason: Nausea And Vomiting Stop: 02/14/25 17:44 Sodium Chloride (Sodium Chloride 0.9 % 10 Ml Syringe) 0 ml IV-PUSH PRN PRN PRN Reason: Flush Stop: 02/14/25 13:51 Last Admin: 02/15/24 19:43 Dose: 10 ml Sodium Chloride (Sodium Chloride 0.9 % 10 Ml Syringe) 0 ml IV-PUSH PRN PRN PRN Reason: Flush Stop: 02/15/25 08:41 Last Admin: 02/17/24 10:00 Dose: 40 ml Vancomycin HCl (Vancomycin - Pharmacy Dosing 1 Each Miscell) 1 each IV ONCE PRN; Protocol PRN Reason: ZZ.Pharmacy Consult Warfarin Sodium (Warfarin - Pharmacy Dosing) 1 each MISCELLANE ONCE PRN; Protocol PRN Reason: ZZ.Pharmacy Consult Stop: 02/14/25 17:47 Exam Physical Exam Vital Signs: Temp Pulse Resp BP Pulse Ox O2 Del Method 97.9 F 73 16 130/85 96 Room Air 02/17/24 12:00 02/17/24 14:00 02/17/24 14:00 02/17/24 14:00 02/17/24 13:00 02/17/24 14:00 Const General: comfortable, no acute distress, frail appearing and ill appearing chronically Orientation: alert, awake and oriented x3 HEENT Head: normal to inspection, normocephalic and atraumatic Nose: external nose normal Mouth: oral mucosae normal Eyes Eyelids: eyelids normal Conjunctivae: conjunctivae normal Sclera: sclerae normal Neck Neck: supple Resp Auscultation: clear to auscultation bilaterally, diminished lung sounds bilaterally, no rales, no rhonchi and no wheezes Cardio Rate: regular rate Rhythm: abnormal rhythm irregularly irregular Heart Sounds: no murmurs GI Palpation: soft, no guarding, no masses and nontender Skin Other: Multiple wounds and skin discoloration noted on lower extremities. Extrem General: no edema Results - Palliative Care Labs 02/17/24 04:42 02/17/24 04:42 Labs: Laboratory Last Values Corrected WBC 20.2 X10E3/uL (3.8-11.6) H 02/17/24 04:42 Uncorrected WBC Count 25.6 x10E3/uL (3.8-11.6) H 02/16/24 05:00 RBC 3.18 X10E6/uL (3.60-5.00) L 02/17/24 04:42 Hgb 8.5 g/dL (11.8-15.4) L 02/17/24 04:42 Hct 26.8 % (34.0-46.4) L 02/17/24 04:42 MCV 84.3 fl (80-100) 02/17/24 04:42 MCH 26.8 pg (24.7-34.3) 02/17/24 04:42 MCHC 31.8 g/dL (32.0-35.0) L 02/17/24 04:42 RDW 23.3 % (11.9-15.3) H 02/17/24 04:42 Plt Count 478 x10E3/uL (150-450) H 02/17/24 04:42 MPV 8.6 fl (6.3-10.7) 02/17/24 04:42 Neut % (Auto) 84.9 % (.) 02/16/24 05:00 Lymph % (Auto) 3.3 % (.) 02/16/24 05:00 Dale % (Auto) 9.0 % (.) 02/16/24 05:00 Eos % (Auto) 2.1 % (.) 02/16/24 05:00 Baso % (Auto) 0.7 % (.) 02/16/24 05:00 Nucleat RBC Rel Count 0.1 /100 WBC (0-0.5) 02/16/24 05:00 Neut # (Auto) 21.8 x10E3/uL (1.8-7.7) H 02/16/24 05:00 Lymph # (Auto) 0.8 x10E3/uL (1.00-4.8) L 02/16/24 05:00 Dale # (Auto) 2.3 x10E3/uL (0.0-0.8) H 02/16/24 05:00 Eos # (Auto) 0.5 x10E3/uL (0.0-0.45) H 02/16/24 05:00 Baso # (Auto) 0.2 x10E3/uL (0.0-0.2) 02/16/24 05:00 Band Neutrophils % 3 % (0-5) 02/15/24 15:19 Lymphocytes % 6 % (18-42) L 02/15/24 15:19 Monocytes % 6 % (2-11) 02/15/24 15:19 Metamyelocytes % 1 % (0-0) H 02/15/24 15:19 Myelocytes % 1 % (0-0) H 02/15/24 15:19 Promyelocytes % 1 % (0-0) H 02/15/24 15:19 Segmented Neutrophils 83 % (50-70) H 02/15/24 15:19 Monocyte Dist Width 25.57 % (0.00-20.00) H 02/15/24 15:19 Platelet Estimate Increased (Normal) 02/16/24 05:00 Large Platelets Slight 02/16/24 05:00 Giant Platelets 1 /100 WBC 02/15/24 15:19 Plt Morphology Comment N/A 02/16/24 05:00 RBC Morphology N/A 02/16/24 05:00 Polychromasia Slight 02/16/24 05:00 Hypochromasia Slight 02/16/24 05:00 Poikilocytosis Slight 02/15/24 15:19 Anisocytosis Marked 02/16/24 05:00 Tear Drop Cells Slight 02/15/24 15:19 Ovalocytes Slight 02/16/24 05:00 ESR > 130 mm/hr (0-29) H 02/16/24 05:00 PT 63.0 Seconds (9.0-12.9) H 02/17/24 04:42 INR 5.7 H* 02/17/24 04:42 PHA Creatinine Clear 20.38 02/17/24 04:42 Sodium 134 mmol/L (136-145) L 02/17/24 04:42 Potassium 4.0 mmol/L (3.5-5.1) 02/17/24 04:42 Chloride 99 mmol/L (98-107) 02/17/24 04:42 Carbon Dioxide 25.8 mmol/L (21.0-31.0) 02/17/24 04:42 Anion Gap 13.2 mEq/L (6.0-15.0) 02/17/24 04:42 BUN 23 mg/dL (7-25) D 02/17/24 04:42 Creatinine 2.30 mg/dL (0.60-1.20) H D 02/17/24 04:42 Est GFR (CKD-EPI) 20.962 mL/Min 02/17/24 04:42 Glucose 117 mg/dL (70-100) H 02/17/24 04:42 POC Glucose 135 mg/dl 02/17/24 12:45 POC Glucose Comment Glu2: cleaned meter 02/16/24 21:47 Lactic Acid 1.5 mmol/L (0.5-2.2) 02/15/24 17:59 Calcium 8.1 mg/dL (8.6-10.3) L 02/17/24 04:42 Phosphorus 2.9 mg/dL (2.5-4.5) 02/17/24 04:42 Magnesium 2.0 mg/dL (1.9-2.7) 02/16/24 05:00 Iron 12 ug/dL (50-212) L 02/16/24 05:00 TIBC 123 ug/dL (255-450) L 02/16/24 05:00 Iron Saturation 9.8 % (20-50) L 02/16/24 05:00 Transferrin 88 mg/dL (203-362) L 02/16/24 05:00 Ferritin 655.5 ng/mL (11.0-306.8) H 02/16/24 05:00 Total Bilirubin 0.7 mg/dl (0.3-1.0) 02/16/24 05:00 AST 32 U/L (13-39) 02/16/24 05:00 ALT 26 U/L (7-52) 02/16/24 05:00 Alkaline Phosphatase 158 U/L (34-104) H 02/16/24 05:00 Troponin I High Sens 21.4 pg/mL (0.0-15.0) H 02/15/24 15:19 C-Reactive Prot, Quant 28.4 mg/dL (0.0-0.5) H 02/16/24 05:00 B-Natriuretic Peptide 525.0 pg/mL (5-100) H 02/15/24 15:19 Total Protein 6.2 gm/dL (6.4-8.9) L 02/16/24 05:00 Albumin 2.5 gm/dL (3.5-5.7) L 02/17/24 04:42 Globulin 3.4 gm/dL 02/16/24 05:00 Albumin/Globulin Ratio 0.8 02/16/24 05:00 B-Hydroxybutyrate 0.22 mmol/L (0.02-0.27) 02/16/24 05:00 Microbiology Microbiology: 02/15/24 18:16 Blood Culture - Preliminary Blood - Left Arm No Growth 1 Day 02/15/24 17:59 Blood Culture - Preliminary Blood - Left Arm No Growth 1 Day Assessment/Plan (1) Unstageable pressure ulcer of right hip: Code(s): L89.210 - Pressure ulcer of right hip, unstageable (2) Unstageable pressure ulcer of sacral region: Code(s): L89.150 - Pressure ulcer of sacral region, unstageable (3) Unstageable pressure ulcer of left hip: Code(s): L89.220 - Pressure ulcer of left hip, unstageable (4) ESRD (end stage renal disease): Code(s): N18.6 - End stage renal disease (5) Calciphylaxis: Code(s): E83.59 - Other disorders of calcium metabolism (6) Counseling regarding advance directives and goals of care: Code(s): Z71.89 - Other specified counseling Plan Patient seen and evaluated. She is alert and oriented x 3 in her bed. She doesseem to have a good understanding of her medical condition. She tells us she isoriginally from [place] [facility] [place] raised. She was 30 years ago, and has 3 children?Sidra Hawkins, Bryan. Her son Ross is an RN in [place]. She tells me she lives next-door to her son, Bryan, who helps her at home. She saysshe worked various jobs when she was younger, but also worked at [employer] for 7 or 8 years in the past. Spiritual things are important to her, she has belonged to the [employer] [facility] in [place], but has been unable to get there since she does not drive. Rosa says that several months ago she was mostly independent with ADLs and wasable to get around her house without much of a problem, just some assistance. She says she got help from her son, Bryan, with cleaning and some cooking. She tells me she did need some help with showering, but was independent with ADLs otherwise. We spent a total of 40 minutes discussing goals of care and advance care planning today with Rosa and then afterwards with her son, Ross, on thephone. Rosa says that she has been very frustrated since she was in the hospital at [facility]. She says she is not sure if she will ever get better, and she has a poor quality life. She says she can't even sit and watch TV without being in severe pain. Currently Rosa is so weak she is unable to reposition herself in bed. She was unable to stand and bear weight today with physical therapy. Rosa says she started dialysis because she was hoping she might improve and have a good quality life. After much discussion, Rosa says she does want to continue dialysis for now. She is hoping she might somehow improve and get better. She does want to focus more on symptom management while she is in the hospital. Will Rx gabapentin 100mg every 48 hours and oxycodone 2.5 mg every 4 hours as needed pain. Will discontinue hydromorphone IV for now. She is tolerating by mouth intake okay, but says she has a poor appetite. Biopsy of her wound was done at [facility], and Rosa does state that they were suspicious of calciphylaxis. We did have along talk about how it is often difficult to recover from multiple wounds secondary to calciphylaxis and renal failure. Patient was intermittently tearful, but says for now she will continue hemodialysis. Plan is to discharge back to the [facility] for skilled care after her admission here at [facility]. Her ultimate goal is to go home. If she feels her quality life is poor or she is not getting better, she will consider hospice in the future. We also reviewed resuscitation preferences, and Rosa says that she would not want CPR in the future and she would not want to be put on a ventilator machine. She requested CODE STATUS changed to DNR CCA without intubation. She asked that I call her son, Ross, and updated him on her decisions. I was able to call her son, Ross, who is an RN in [place]. He agrees with his mom's decisions, and plans on visiting her as well. Thank you for the consult. CODE STATUS was adjusted to DNR CCA without intubation based on Rosa's request. Oxycodone was adjusted to 2.5 mg every 4 hours as needed pain, IV hydromorphone was discontinued. Gabapentin 100 mg every 48 hours was added. Will follow-up tomorrow. Please call if questions Documented By: Teddy Valero DO 02/17/24 6 433 Signed By: <Electronically signed by DO Teddy Valero> 02/17/[address] [facility] Work Phone: 1([phone]) 285-673907-24-2024 Progress note Author Emelyn Bennett [facility] February 17, 2024 3:04pm Note Date/Time February 17, 2024 2:57 pm [facility] [address] [place], [place] [id number] Nephrology Progress Note Signed Patient: Rosa Winter MR#: [id number] : 1945 Acct:[id number] Age/Sex: 78 / F Adm Date: 4 Loc: Room: [address] [place] [address] Type: ADM IN Attending Dr: Virgen Vivar MD Copies to: ~ Date of Service: 02/17/2024 Subjective Subjective Narrative: This is a 78-year-old female with medical history of ESRD, DM, HTN, anemia of renal disease, A-fib and gout was sent from the [place] dialysis unit after fainting episode. 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 She went for her routine dialysis yesterday and found to have hypotension with trending episode 45 minutes after she was initiated on dialysis. Patient was sent to the emergency room and was given multiple fluid boluses. She was also found to have a leukocytosis and was started on broad-spectrum antibiotic after blood cultures. Patient reported that she has multiple bone lesions for while and she had extensive workup done at the [facility] in [place]. She was following with Dr. Jaramillo for her CKD care. She said she was started on dialysis about a month ago. Nephrology is consulted for ESRD management during her hospital stay. INTERIM HISTORY Patient was seen and examined at bedside. She is complaining of pain in her wounds. She was seen by the general surgery recommended debridement and biopsy of the ulcers. She denies any chest pain palpation cough or shortness of breath. She is now weaned off of the vasopressors. Exam Physical Exam Vital Signs: Temp Pulse Resp BP Pulse Ox O2 Del Method 97.9 F 73 16 130/85 96 Room Air 02/17/24 12:00 02/17/24 14:00 02/17/24 14:02/17/24 14:02/17/24 13:00 02/17/24 14:00 Narrative: General: Appears comfortable and not in distress Heart: S1-S2, no rub Lung: Bilateral air entry, no wheezing or crackles Abdomen: Soft, positive bowel sounds Extremities: No edema, no cyanosis Head: Atraumatic, normocephalic Ear: No gross hearing Deficit or external ear redness Eyes: No pallor or redness Neck: No JVD or visible mass Skin: warm to touch, she has multiple skin wounds with necrotic skin CLIENT SUCCESS MANAGER: Awake,Alert, following simple command Musculoskeletal: No swelling or limitation of movement of the large joints Psychiatric: Cooperative, normal mood and affect Objective Intake and Output I&O: Intake & Output 02/14/24 02/15/24 02/16/24 02/17/24 23:59 23:59 23:59 23:59 Intake Total 1100 / 1100 750 / 750 600 / 600 Output Total 751 / 751 502 / 502 Balance 1100 / 1100 -1 / -1 98 / 98 Weight 93.7 kg 95.3 kg Meds and Allergies Meds: Active Medications Acetaminophen (Acetaminophen 325 Mg Tablet) 650 mg PO Q6HR PRN PRN Reason: Pain Scale 1 - 3 or fever Stop: 02/14/25 17:44 Last Admin: 02/17/24 09:07 Dose: 650 mg Allopurinol (Allopurinol 100 Mg Tablet) 100 mg PO MoWeFr@1630 [facility] Stop: 02/16/25 16:29 Atorvastatin Calcium (Atorvastatin 20 Mg Tablet) 20 mg PO QHS [facility] Stop: 02/14/25 21:59 Last Admin: 02/16/24 21:47 Dose: 20 mg Brimonidine Tartrate (Brimonidine 0.2% Op Soln 100 Drops/5 Ml Bottle) 1 drops EYE-BOTH Q8HR [facility] Stop: 02/14/25 21:59 Last Admin: 02/17/24 13:33 Dose: 1 drops Darbepoetin Gary (Darbepoetin Gary In Polysorbat 40 Mcg/Ml Vial) 40 mcg IV-PUSHWe@0900 [facility]; Protocol Stop: 02/16/25 08:59 Last Admin: 02/17/24 11:24 Dose: 40 mcg Dextrose (Dextrose 50% In Water 25 Gm/50 Ml Syringe) 0 gm IV-PUSH PRN PRN PRN Reason: Hypoglycemia Stop: 02/15/25 15:25 Glucose (Dextrose 40% Gel 15 Gm Tube) 0 gm PO PRN PRN PRN Reason: Hypoglycemia Stop: 02/15/25 15:25 Heparin Sodium (Porcine) (Heparin 10,000 Unit/10 Ml Vial) 3,600 unit IV PRN PRN PRN Reason: Dialysis Stop: 02/15/25 08:41 Last Admin: 02/17/24 10:00 Dose: 3,600 unit Hydromorphone HCl (Hydromorphone 0.5 Mg/0.5 Ml Syringe) 0.5 mg IV-PUSH Q4H PRN PRN Reason: pain 8-10 Last Admin: 02/16/24 21:48 Dose: 0.5 mg Norepinephrine Bitartrate (Levophed) 16 mg in 250 mls @ 4.688 mls/hr IV .Q24H [facility]; Protocol Stop: 02/14/25 20:14 Last Infusion: 02/16/24 22:00 Dose: 0 mcg/min, 0 mls/hr Sodium Chloride (0.9% Sodium Chloride 1,000 Ml) 1,000 mls @ 0 mls/hr MISCELLANE.Q0M PRN PRN Reason: Dialysis Stop: 02/15/25 08:41 Last Infusion: 02/17/24 10:01 Dose: Infused Meropenem (Merrem) 0.5 gm in 100 mls @ 200 mls/hr IV Q24H ASAD Last Admin: 02/16/24 17:10 Dose: 200 mls/hr Vancomycin HCl (Vancomycin) 0.75 gm in 250 mls @ 250 mls/hr IV ONCE ONE Stop: 02/17/24 16:59 Insulin Aspart (Insulin Aspart 300 Units/3 Ml Insuln.Pen) 0 units SUBCUT TID.[facility]; Protocol Stop: 02/15/25 16:59 Last Admin: 02/17/24 12:45 Dose: Not Given Oxycodone HCl (Oxycodone Ir 5 Mg Tablet) 5 mg PO Q6HR PRN PRN Reason: pain 4-7 Prochlorperazine Edisylate (Prochlorperazine Edisylate 10 Mg/2 Ml Vial) 5 mg IV- PUSH Q4H PRN PRN Reason: Nausea And Vomiting Stop: 02/14/25 17:44 Sodium Chloride (Sodium Chloride 0.9 % 10 Ml Syringe) 0 ml IV-PUSH PRN PRN PRN Reason: Flush Stop: 02/14/25 13:51 Last Admin: 02/15/24 19:43 Dose: 10 ml Sodium Chloride (Sodium Chloride 0.9 % 10 Ml Syringe) 0 ml IV-PUSH PRN PRN PRN Reason: Flush Stop: 02/15/25 08:41 Last Admin: 02/17/24 10:00 Dose: 40 ml Vancomycin HCl (Vancomycin - Pharmacy Dosing 1 Each Miscell) 1 each IV ONCE PRN; Protocol PRN Reason: ZZ.Pharmacy Consult Warfarin Sodium (Warfarin - Pharmacy Dosing) 1 each MISCELLANE ONCE PRN; Protocol PRN Reason: ZZ.Pharmacy Consult Stop: 02/14/25 17:47 Allergies No Known Allergies Allergy (Verified 02/10/21 22:57) Results - Nephrology Labs 02/17/24 04:42 02/17/24 04:42 Labs: 02/17/24 04:42 BUN 23 D Creatinine 2.30 H D Phosphorus 2.9 Albumin 2.5 L Radiology Impressions Impressions - last 24 hours: Any impression(s) listed above is documentation that was entered by the reading physician into a diagnostic report(s) for Rosa Winter. I have reviewed the report(s) and am incorporating any findings in the treatment plan of this patient where applicable. A&P - Nephrology Assessment/Plan (1) Septic shock: Assessment/Problem Details: Patient presented with hypotension and leukocytosis. She has likely sepsis due to the skin wound infection. Currently on broad-spectrum antibiotic. ID and general surgery has been consulted. (2) ESRD (end stage renal disease): Assessment/Problem Details: She has a ESRD due to the diabetic nephropathy hypertensive nephrosclerosis. She was recently excepted at our [place] dialysis unit and currently runs MWF schedule. 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 (4) Anemia of renal disease: Assessment/Problem Details: Hemoglobin is below the goal. (5) Type 2 diabetes mellitus with diabetic chronic kidney disease: Assessment/Problem Details: She has an insulin-dependent type 2 diabetes mellitus. (6) Afib: Assessment/Problem Details: She currently has A-fib and was taking a labetalol and Coumadin at home. Plan * Hemodialysis today as ordered. Will do a short session today so she can stay on her MWF schedule. * Continue antibiotic and adjust as needed based on culture sensitivity. Pharmacy to dose medication based on ESRD * Will await for wound biopsy and start sodium thiosulfate if she has a calciphylaxis. * Continue Aranesp 40 mcg once weekly with dialysis * Will give ferric gluconate 125 mg q. weekly * Will continue to hold calcitriol. * Continue DM management as per the primary hospitalist team. * Monitor INR and pharmacy to dose medication * Prognosis is guarded. * Documented By: Emelyn Bennett MD 02/17/24 1456 Signed By: <Electronically signed by Emelyn Bennett MD> 02/17/[address] [facility] Work Phone: 1(193) 658-737207-24-2024 Progress note Author Virgen Vivar [facility] February 17, 2024 12:30pm Note Date/Time February 17, 2024 12:3 0pm [facility] [address] [place] [address] Hospitalist Progress Note Signed Patient: Rosa Winter MR#: [id number] : 1945 Acct:[id number] Age/Sex: 78 / F Adm Date: 4 Loc: Room: [address] [place] [address] Type: ADM IN Attending Dr: Virgen Vivar MD Copies to: ~ Date of Service: 02/17/2024 Subjective Subjective Narrative: Patient was seen evaluated at dialysis unit, remained afebrile here. WBC downtrending to 20.2. Has been weaned off pressors this am. Remained on IV AB. She feels better. denies nausea, vomiting, abdominal pain. Exam Physical Exam Vital Signs: Temp Pulse Resp BP Pulse Ox O2 Del Method 97.5 F L 65 16 116/43 L 99 Room Air 02/17/24 11:50 02/17/24 11:50 02/17/24 11:50 02/17/24 11:41 02/17/24 11:50 02/17/24 11:50 Narrative: Const General: cooperative HEENT Normal oropharyngeal mucosa without any ulcers or exudates Eyes: Conjunctiva normal Pulmonary Auscultation: clear to auscultation , no crackles, no wheezes Patient has HD access on left chest area. Cardiovascular Rate: normal rate Rhythm: irregular rhythm Heart Sounds: S1 normal, S2 normal and no murmurs GI Inspection: non-distended Palpation: soft, nontender. No rigidity or rebound. Deferred Neuro General: alert, awake and oriented x3. No obvious new focal deficit Extrem General: no cyanosis, trace nonpitting pedal edema skin: Multiple wounds with skin discoloration noted on the lower extremities andright hip groin area on the buttocks. Necrotic tissue noted on R hip area, no discharge noted. defer exam and management to wound care team. Psych Appearance: appropriate affect. Grossly normal. Objective Lab Results 02/17/24 04:42 02/17/24 04:42 Microbiology Results Microbiology 02/15/24 18:16 Blood - Left Arm Blood Culture - Preliminary No Growth 1 Day 02/15/24 17:59 Blood - Left Arm Blood Culture - Preliminary No Growth 1 Day Meds Allergies and Active Meds Allergies No Known Allergies Allergy (Verified 02/10/21 22:57) Active Meds: Active Medications Generic Name Dose Route Start Last Admin Trade Name Freq PRN Reason Stop Dose Admin Acetaminophen 650 mg 02/15/24 17:45 02/17/24 09:07 Acetaminophen 325 Mg Tablet PO 02/14/25 17:44 650 mg Q6HR PRN Administration Pain Scale 1 - 3 or fever Allopurinol 100 mg 02/17/24 16:30 Allopurinol 100 Mg Tablet PO 02/16/25 16:29 MoWeFr@1630 [facility] Atorvastatin Calcium 20 mg 02/15/24 22:00 02/16/24 21:47 Atorvastatin 20 Mg Tablet PO 02/14/25 21:59 20 mg QHS ASAD Administration Brimonidine Tartrate 1 drops 02/15/24 22:00 02/17/24 06:35 Brimonidine 0.2% Op Soln 100 Drops/5 Ml Bottle EYE-BOTH 02/14/25 21:59 1 drops Q8HR ASAD Administration Darbepoetin Gary 40 mcg 02/17/24 09:00 02/17/24 11:24 Darbepoetin Gary In Polysorbat 40 Mcg/Ml Vial IV-PUSH 02/16/25 08:59 40 mcg We@0900 [facility] Administration Protocol Dextrose 0 gm 02/16/24 15:26 Dextrose 50% In Water 25 Gm/50 Ml Syringe IV-PUSH 02/15/25 15:25 PRN PRN Hypoglycemia Glucose 0 gm 02/16/24 15:26 Dextrose 40% Gel 15 Gm Tube PO 02/15/25 15:25 PRN PRN Hypoglycemia Heparin Sodium (Porcine) 3,600 unit 02/16/24 08:42 02/17/24 10:00 Heparin 10,000 Unit/10 Ml Vial IV 02/15/25 08:41 3,600 unit PRN PRN Administration Dialysis Hydromorphone HCl 0.5 mg 02/16/24 15:17 02/16/24 21:48 Hydromorphone 0.5 Mg/0.5 Ml Syringe IV-PUSH 0.5 mg Q4H PRN Administration pain 8-10 Norepinephrine Bitartrate 16 mg in 250 mls @ 4.688 mls/hr 02/15/24 20:15 02/16/24 22:00 Levophed IV 02/14/25 20:14 0 mcg/min .Q24H ASAD 0 mls/hr Infusion Protocol 5 MCG/MIN Sodium Chloride 1,000 mls @ 0 mls/hr 02/16/24 08:42 02/17/24 10:01 0.9% Sodium Chloride 1,000 Ml MISCELLANE 02/15/25 08:41 Infused .Q0M PRN Infusion Dialysis As Directed Meropenem 0.5 gm in 100 mls @ 200 mls/hr 02/16/24 17:00 02/16/24 17:10 Merrem IV 200 mls/hr Q24H [facility]AD Administration Vancomycin HCl 0.75 gm in 250 mls @ 250 mls/hr 02/17/24 16:00 Vancomycin IV 02/17/24 16:59 ONCE ONE Insulin Aspart 0 units 02/16/24 17:00 02/17/24 07:52 Insulin Aspart 300 Units/3 Ml Insuln.Pen SUBCUT 02/15/25 16:59 1 units TID.WM.HS ASAD Administration Protocol Oxycodone HCl 5 mg 02/16/24 15:17 Oxycodone Ir 5 Mg Tablet PO Q6HR PRN pain 4-7 Prochlorperazine Edisylate 5 mg 02/15/24 17:45 Prochlorperazine Edisylate 10 Mg/2 Ml Vial IV-PUSH 02/14/25 17:44 Q4H PRN Nausea And Vomiting Sodium Chloride 0 ml 02/15/24 13:52 02/15/24 19:43 Sodium Chloride 0.9 % 10 Ml Syringe IV-PUSH 02/14/25 13:51 10 ml PRN PRN Administration Flush Sodium Chloride 0 ml 02/16/24 08:42 02/17/24 10:00 Sodium Chloride 0.9 % 10 Ml Syringe IV-PUSH 02/15/25 08:41 40 ml PRN PRN Administration Flush Vancomycin HCl 1 each 02/15/24 17:51 Vancomycin - Pharmacy Dosing 1 Each Miscell IV ONCE PRN ZZ.Pharmacy Consult Protocol Warfarin Sodium 1 each 02/15/24 17:48 Warfarin - Pharmacy Dosing MISCELLANE 02/14/25 17:47 ONCE PRN ZZ.Pharmacy Consult Protocol A&P - Hospitalist Assessment/Plan (1) Septic shock: (2) Syncope: (3) Hypotension: (4) Leukocytosis: (5) Unstageable pressure ulcer of right hip: (6) Unstageable pressure ulcer of sacral region: (7) Unstageable pressure ulcer of left hip: (8) Type 2 diabetes mellitus with diabetic chronic kidney disease: (9) Anemia of renal disease: (10) ESRD (end stage renal disease): (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 -CT AP w contrast with no acute pathology -Broad spectrum antibiotics as directed -Has been weaned off pressors. -Blood cultures negative at 1 day. -Cardiac monitoring -Nephrology consulted. input appreciated. -ID consulted. input appreciated. -General surgery consulted. input appreciated. -Pulm consulted. input appreciated. -Hold BP meds and diuretics -Pain control added as directed as needed. Hx of Afib- rate controlled Supratherapeutic INR -On Coumadin dosing per pharmacy -INR today 5.7. Home medications resumed as appropriate Diet: restarted diet DVT ppx: SCD, warfarin Code status: Full as discussed with patient. Consulted palliative team since pt thinking about hospice today with all her comorbidities and end stage renal disease with complications of calciphylaxis Status: inpatient Discussed with patient at bedside. All questions answered. In agreement with theabove plan Virgen Young MD Internal Medicine Hospitalist Attending Physician Documented By: Virgen Vivar MD 02/17/24 12 25 Signed By: <Electronically signed by Virgen Vivar MD> 02/17/[address] [facility] Work Phone: 1(355) 792-194207-24-2024 Progress note Author Mukul Durbin [facility] February 17, 2024 12:01pm Note Date/Time February 17, 2024 8:34 am [facility] [address] [place] [address] Pulmonology Progress Note Signed Patient: Rosa Winter MR#: [id number] : 1945 Acct:[id number] Age/Sex: 78 / F Adm Date: 4 Loc: Room: [address] [place] [address] Type: ADM IN Attending Dr: Virgen Vivar MD Copies to: ~ Date of Service: 02/17/2024 Subjective Subjective Narrative: Patient has been weaned off pressors and is doing well on room air. She is getting dialysis today. Exam Physical Exam Vital Signs: Temp Pulse Resp BP Pulse Ox O2 Del Method 98 F 81 26 H 131/58 L 97 Room Air 02/17/24 00:00 02/17/24 06:00 02/17/24 06:00 02/17/24 06:00 02/17/24 05:00 02/17/24 06:00 Const General: cooperative Nutritional Appearance: obese Orientation: alert and awake HEENT Head: normal to inspection Ears: hearing grossly normal bilaterally and external ears normal Nose: external nose normal Face and sinus: normal facial exam Eyes Sclera: sclerae normal Neck Neck: normal visual inspection Chest Chest palpation & inspection: normal inspection of the chest (Left internal jugular hemodialysis catheter with dressing intact) Resp Effort & Inspection: normal respiratory effort Auscultation: clear to auscultation bilaterally, diminished lung sounds, no rales, no rhonchi and no wheezes Cardio Rate: regular rate Rhythm: regular rhythm Heart Sounds: S1 normal, S2 normal and no murmurs GI Inspection: normal to inspection and obesity Palpation: soft and nontender Auscultation: hypoactive bowel sounds Rectal Exam: deferred General: deferred and other (Right femoral central venous catheter with dressingin place) Skin General: no rashes or lesions noted (Warm and dry) Extrem General: no pedal edema and edema Laterality: bilaterally Objective Intake and Output I&O - Last 24 Hours: Intake & Output 02/16/24 02/17/24 02/17/24 23:59 07:59 15:59 Intake Total 150 / 750 100 / 100 Output Total 751 / 751 Balance -601 / -1 100 / 100 Weight 210 lb 1.608 oz Labs 02/17/24 04:42 02/17/24 04:42 Microbiology Micro: Microbiology 3 02/15/24 18:16 Blood Culture - Preliminary Blood - Left Arm No Growth 1 Day 02/15/24 17:59 Blood Culture - Preliminary Blood - Left Arm No Growth 1 Day Imaging and Cardiology Echo: Additional comments: Date of Service: 02/16/24 ECH/ECH echo transthoracic: evaluate for systolic/diastolic dysfunction Copies to: MD Anders Ramirez MD~ Weight: 207 lb Performed By: Mary Jo Vogel [facility] BSA: 1.9 m2 BP: 93/55 mmHg HR: 55 Reason For Study: evaluate for systolic/diastolic dysfunction History: DM. Afib. CHF. CKD. HLD. Morbid Obesity. Interpretation Summary The left ventricular wall motion is normal. Mild concentric left ventricular hypertrophy. Ejection Fraction = 60-65%. The left atrium appears severely dilated. The right atrium is moderately dilated. There is mild mitral regurgitation. There is mild tricuspid regurgitation. The right ventricular systolic pressure is 55 mmHg. Right ventricular systolic pressure is consistent with moderate pulmonary hypertension. Moderately dilated inferior vena cava There is no comparison study available. Procedure/Quality: A two-dimensional transthoracic echocardiogram with color flow, Doppler and injection of contrast agent Definity was performed. A two- dimensional transthoracic echocardiogram with color flow and Doppler was performed. Left Ventricle: The left ventricular size is normal. Mild concentric left ventricular hypertrophy. Ejection Fraction = 60-65%. The left ventricular wall motion is normal. Left Atrium: The left atrium appears severely dilated. The atrial septum appears normal. Right Atrium: The right atrium is moderately dilated. Right Ventricle: The right ventricular size, thickness and function are normal. Aortic Valve: The aortic valve is normal in structure and function. No aortic regurgitation is present. Mitral Valve: The mitral valve is moderately sclerotic. There is mild mitral regurgitation. Tricuspid Valve: The tricuspid valve is normal in structure and function. There is mild tricuspid regurgitation. The right ventricular systolic pressure is 55 mmHg. Right ventricular systolic pressure is consistent with moderate pulmonary hypertension. Pulmonic Valve: The pulmonic valve is normal in structure and function. Arteries: The aortic root is normal size. Pericardium/Pleura: No pericardial effusion seen. There is no pleural effusion. IVC/Hepatic Veins: Moderately dilated inferior vena cava. Measurements with Normals IVSd: 1.2 cm (0.7-1.1 cm)LVIDd: 4.7 cm (3.7-5.4 cm) LVPWd: 1.3 cm (0.7-1.1 cm)LVIDs: 3.3 cm (2.3-3.6 cm) LA dimension: 5.9 cm (2.3-4.0 cm)Ao root diam: 2.7 cm(2.0-3.6 cm) asc Aorta Diam: 3.1 cm(2.1-3.4cm) Doppler with Normals RVSP(TR): 57.8 mmHg (18-35mmHg) Assessment/Plan Assessment/Plan (1) Septic shock: (2) CKD (chronic kidney disease): (3) Afib: (4) Diabetes: Plan Hospital day #2, right femoral central venous catheter day #2 for patient with prior history of chronic kidney disease, diabetes mellitus, and multiple wounds on vancomycin and meropenem admitted for septic shock with hypotension, leukocytosis presenting from dialysis with syncopal episode. Patient has multiple longstanding wounds with concerns for calciphylaxis. Patient was volume resuscitated yesterday him and has been weaned off pressors. Defer antibiotic management to infectious disease specialist. Patient is noted to have pulmonary hypertension and in therapy given her body habitus may be at riskfor obstructive sleep apnea with workup potentially pursued as an outpatient if patient so desires. I have no further recommendations at this time. Anticoagulation being managed by pharmacy. Patient is stable for transfer out of the ICU from a pulmonary/critical care medicine perspective. Documented By: Mukul Drubin MD [id number] Signed By: <Electronically signed by MD Muklu Durbin> 02/17/[address] [facility] Work Phone: 1(643) 460-558507-24-2024 Progress note Author Tres King [facility] February 17, 2024 8:48am Note Date/Time February 17, 2024 8:48 am [facility] [address] [place] [address] Infect. Disease Progress Note Signed Patient: Rosa Winter MR#: [id number] : 1945 Acct:[id number] Age/Sex: 78 / F Adm Date: 4 Loc: Room: [address] [place] [address] Type: ADM IN Attending Dr: Virgen Vivar MD Copies to: ~ Date of Service: 02/17/2024 Subjective Interval history: Patient states she cannot get comfortable in the bed but does state her right hip is feeling better. Exam Physical Exam Vital Signs: Vital Signs Temp Pulse Pulse Resp BP BP Pulse Ox 02/17/24 06:00 81 26 H 131/58 L 02/17/24 05:00 88 16 125/91 97 02/17/24 04:00 70 16 128/56 L 98 02/17/24 02:00 72 16 116/53 L 02/17/24 00:00 98 F 76 18 109/54 L 98 02/16/24 23:00 78 17 117/47 L 98 02/16/24 22:00 72 116/44 L 02/16/24 22:00 72 20 116/44 L 98 02/16/24 21:00 72 18 152/59 H 98 02/16/24 20:00 78 20 101/59 L 98 02/16/24 20:00 02/16/24 19:00 70 23 119/47 L 95 02/16/24 18:33 75 124/56 L 02/16/24 18:00 62 18 98/51 L 98 02/16/24 17:30 20 112/71 96 02/16/24 17:20 67 102/50 L 02/16/24 17:00 64 111/51 L 02/16/24 17:00 62 18 102/50 L 99 02/16/24 16:49 60 134/54 L 02/16/24 16:30 71 114/75 02/16/24 16:00 60 18 118/55 L 100 02/16/24 16:00 64 114/49 L 02/16/24 15:30 61 137/56 L 02/16/24 15:00 97.6 F 64 18 109/45 L 99 02/16/24 15:00 60 107/55 L 02/16/24 14:30 81 125/56 L 02/16/24 14:05 54 L 121/53 L 02/16/24 14:00 63 18 121/54 L 96 02/16/24 13:48 56 L 125/67 02/16/24 13:38 79 16 112/55 L 99 02/16/24 13:00 54 L 30 H 106/43 L 96 02/16/24 12:27 51 L 73/42 L 02/16/24 12:00 97.8 F 53 L 20 102/49 L 96 02/16/24 11:00 65 28 H 110/46 L 96 02/16/24 10:04 60 105/52 L 02/16/24 10:00 68 21 105/57 L 94 L 02/16/24 09:00 64 23 96/55 L 96 O2 Del Method 02/17/24 06:00 Room Air 02/17/24 05:00 Room Air 02/17/24 04:00 Room Air 02/17/24 02:00 Room Air 02/17/24 00:00 Room Air 02/16/24 23:00 Room Air 02/16/24 22:00 02/16/24 22:00 Room Air 02/16/24 21:00 Room Air 02/16/24 20:00 Room Air 02/16/24 20:00 Room Air 02/16/24 19:00 Room Air 02/16/24 18:33 02/16/24 18:00 Room Air 02/16/24 17:30 Room Air 02/16/24 17:20 02/16/24 17:00 02/16/24 17:00 Room Air 02/16/24 16:49 02/16/24 16:30 02/16/24 16:00 Room Air 02/16/24 16:00 02/16/24 15:30 02/16/24 15:00 Room Air 02/16/24 15:00 02/16/24 14:30 02/16/24 14:05 02/16/24 14:00 Room Air 02/16/24 13:48 02/16/24 13:38 Room Air 02/16/24 13:00 Room Air 02/16/24 12:27 02/16/24 12:00 Room Air 02/16/24 11:00 Room Air 02/16/24 10:04 02/16/24 10:00 Room Air 02/16/24 09:00 Room Air Intake and Output 02/16/24 02/17/24 02/17/24 23:59 07:59 15:59 Intake Total 150 / 750 100 / 100 Output Total 751 / 751 Balance -601 / -1 100 / 100 Intake: Oral 150 / 250 100 / 100 Output: Urine 250 / 250 Dialysis Output 501 / 501 Other: # Unmeasured Voids 1 # Incontinent Voids 1 # Bowel Movements 0 Weight 210 lb 1.608 oz Patient Weight 02/17/24 23:59 Weight 210 lb 1.608 oz Const General: no acute distress Orientation: oriented x3 HEENT Head: normal to inspection Ears: hearing grossly normal bilaterally Nose: external nose normal Eyes General: appearance normal, both eyes and all related structures Neck Neck: normal visual inspection Chest Chest palpation & inspection: abnormal inspection of the chest (HD catheter leftchest) Resp Effort & Inspection: normal respiratory effort Cardio Rate: regular rate Rhythm: regular rhythm GI Inspection: abnormal to inspection and obesity Palpation: soft Skin Lesions: lesion noted Wounds: wounds noted Other: Multiple discolorations/wounds noted on her lower legs and hip groin areas and buttock. All are necrotic in appearance without any of them draining purulent material. Coccygeal wound the deepest with out drainage. Extrem General: abnormal to inspection Objective Labs CBC/BMP: CBC, BMP 02/17/24 04:42 Corrected WBC 20.2 H RBC 3.18 L Hgb 8.5 L Hct 26.8 L Plt Count 478 H Sodium 134 L Potassium 4.0 Chloride 99 Carbon Dioxide 25.8 Anion Gap 13.2 BUN 23 D Creatinine 2.30 H D Calcium 8.1 L Labs: 02/17/24 04:42 BUN 23 D Creatinine 2.30 H D Microbiology Microbiology: Microbiology - Results from entire visit 02/15/24 18:16 Blood - Left Arm Blood Culture - Preliminary No Growth 1 Day 02/15/24 17:59 Blood - Left Arm Blood Culture - Preliminary No Growth 1 Day Allergies and Medications Allergies and Active Meds Allergies No Known Allergies Allergy (Verified 02/10/21 22:57) Active Medications Acetaminophen (Acetaminophen 325 Mg Tablet) 650 mg PO Q6HR PRN PRN Reason: Pain Scale 1 - 3 or fever Stop: 02/14/25 17:44 Last Admin: 02/15/24 23:21 Dose: 650 mg Allopurinol (Allopurinol 100 Mg Tablet) 100 mg PO MoWeFr@1630 [facility] Stop: 02/16/25 16:29 Atorvastatin Calcium (Atorvastatin 20 Mg Tablet) 20 mg PO QHS ASAD Stop: 02/14/25 21:59 Last Admin: 02/16/24 21:47 Dose: 20 mg Brimonidine Tartrate (Brimonidine 0.2% Op Soln 100 Drops/5 Ml Bottle) 1 drops EYE-BOTH Q8HR [facility] Stop: 02/14/25 21:59 Last Admin: 02/17/24 06:35 Dose: 1 drops Darbepoetin Gary (Darbepoetin Gary In Polysorbat 40 Mcg/Ml Vial) 40 mcg IV-PUSHWe@0900 [facility]; Protocol Stop: 02/16/25 08:59 Dextrose (Dextrose 50% In Water 25 Gm/50 Ml Syringe) 0 gm IV-PUSH PRN PRN PRN Reason: Hypoglycemia Stop: 02/15/25 15:25 Glucose (Dextrose 40% Gel 15 Gm Tube) 0 gm PO PRN PRN PRN Reason: Hypoglycemia Stop: 02/15/25 15:25 Heparin Sodium (Porcine) (Heparin 10,000 Unit/10 Ml Vial) 3,600 unit IV PRN PRN PRN Reason: Dialysis Stop: 02/15/25 08:41 Last Admin: 02/16/24 15:53 Dose: 3,600 unit Hydromorphone HCl (Hydromorphone 0.5 Mg/0.5 Ml Syringe) 0.5 mg IV-PUSH Q4H PRN PRN Reason: pain 8-10 Last Admin: 02/16/24 21:48 Dose: 0.5 mg Norepinephrine Bitartrate (Levophed) 16 mg in 250 mls @ 4.688 mls/hr IV .Q24H [facility]; Protocol Stop: 02/14/25 20:14 Last Infusion: 02/16/24 22:00 Dose: 0 mcg/min, 0 mls/hr Sodium Chloride (0.9% Sodium Chloride 1,000 Ml) 1,000 mls @ 0 mls/hr MISCELLANE.Q0M PRN PRN Reason: Dialysis Stop: 02/15/25 08:41 Last Infusion: 02/16/24 15:55 Dose: Infused Meropenem (Merrem) 0.5 gm in 100 mls @ 200 mls/hr IV Q24H [facility] Last Admin: 02/16/24 17:10 Dose: 200 mls/hr Insulin Aspart (Insulin Aspart 300 Units/3 Ml Insuln.Pen) 0 units SUBCUT TID..[facility]; Protocol Stop: 02/15/25 16:59 Last Admin: 02/17/24 07:52 Dose: 1 units Oxycodone HCl (Oxycodone Ir 5 Mg Tablet) 5 mg PO Q6HR PRN PRN Reason: pain 4-7 Prochlorperazine Edisylate (Prochlorperazine Edisylate 10 Mg/2 Ml Vial) 5 mg IV- PUSH Q4H PRN PRN Reason: Nausea And Vomiting Stop: 02/14/25 17:44 Sodium Chloride (Sodium Chloride 0.9 % 10 Ml Syringe) 0 ml IV-PUSH PRN PRN PRN Reason: Flush Stop: 02/14/25 13:51 Last Admin: 02/15/24 19:43 Dose: 10 ml Sodium Chloride (Sodium Chloride 0.9 % 10 Ml Syringe) 0 ml IV-PUSH PRN PRN PRN Reason: Flush Stop: 02/15/25 08:41 Last Admin: 02/16/24 15:53 Dose: 40 ml Vancomycin HCl (Vancomycin - Pharmacy Dosing 1 Each Miscell) 1 each IV ONCE PRN; Protocol PRN Reason: ZZ.Pharmacy Consult Warfarin Sodium (Warfarin - Pharmacy Dosing) 1 each MISCELLANE ONCE PRN; Protocol PRN Reason: ZZ.Pharmacy Consult Stop: 02/14/25 17:47 A&P - Infectious Disease Assessment/Plan (1) Leukocytosis: (2) Multiple wounds of skin: (3) Calciphylaxis: (4) ESRD (end stage renal disease): Plan Patient recently hospitalized January 31 through February 12 at outside hospital. Now here at [facility]. Wounds on exam essentially necrotic and clinically consistent with calciphylaxis. Significant open wound on her coccyx that is notsuggestive of infection. Wounds are firm around the margins and likely debridement will be needed. General surgery consulted and will plan to biopsy when patient was more hemodynamically stable. Patient has been on IV antibiotics since January 31 it appears and is now currently on vancomycin and meropenem. Blood cultures are negative at 1 day. Patient remains afebrile however white count is elevated at 20.2. Of note her white count was elevated when at [place] as well. Patient without complaints of diarrhea. Maintain antibiotics another 24 hours if cultures negative then would stop. Documented By: Tres King MD 02/17/24 0844 Signed By: <Electronically signed by MD Tres King> 02/17/[address] [facility] Work Phone: 1(359) 334-107407-23-2024 Consult note Author Mukul Durbin [facility] February 16, 2024 7:25pm Note Date/Time February 16, 2024 8:40 am [facility] [address] [place] [address] Pulmonology Consult Note Signed Patient: Rosa Winter MR#: [id number] : 1945 Acct:[id number] Age/Sex: 78 / F Adm Date: 4 Loc: Room: [address] [place] [address] Type: ADM IN Attending Dr: Virgen Vivar MD Copies to: MD Annabelle Ramirez DO Obaydah M Daromar, MD~ HPI Date/Time of Consultation: Date of Service: 02/16/2024 Time of Service: 08:35 Consulting Provider: Mukul Durbin Requesting Provider: Virgen Vivar History of Present Illness History of present illness: Ms. Winter is a 78 year old female seen at the request of the hospitalist service for critical care medicine management. Patient has a prior history of chronic kidney disease on hemodialysis, morbid obesity with prior history of renal cell carcinoma status post nephrectomy, diabetes mellitus, hypertension, and hyperlipidemia who presented to the emergency department from [place] outpatient dialysis apparently due to syncopal episode. Patient reportedly had some dizziness/lightheadedness for several days prior and was noted to be hypotensive in the dialysis unit. Patient has chronic wounds on her right hip following in [place] for this with patient reportedly on vancomycin and meropenemwith dialysis. In the emergency department, she was noted to have leukocytosis with anion gap acidosis with patient fluid resuscitated and started on broad-spectrum antibiotics and pressors. Note that patient is on Coumadin for atrial fibrillation. Patient is also a very poor historian. Patient has been started on meropenem and vancomycin. A right femoral 3 lumen central venous catheter was inserted in the emergency department. Review of Systems Review of Systems All other systems reviewed & are negative unless noted below or in HPI [facility] Medical History (Updated 02/16/24 @ 12:47 by Carlos Novak MD) Diabetes Problem List clean-up per request of Phys. EHR Cmte Afib Problem List clean-up per request of Phys. EHR Cmte Nocturnal hypoxemia Problem List clean-up per request of Phys. EHR Cmte Iron deficiency anemia Problem List clean-up per request of Phys. EHR Cmte CHF (congestive heart failure) Problem List clean-up per request of Phys. EHR Cmte UTI (urinary tract infection) Problem List clean-up per request of Phys. EHR Cmte Colon polyp Problem List clean-up per request of Phys. EHR Cmte HLD (hyperlipidemia) Problem List clean-up per request of Phys. EHR Cmte Renal cell carcinoma Problem List clean-up per request of Phys. EHR [facility] Social History Smoking Status: Never smoker Substance Use Type: None Meds Medications and Allergies Allergies No Known Allergies Allergy (Verified 02/10/21 22:57) Home Medications acetaminophen 650 mg tablet 650 mg PO Q6H PRN Pain 02/10/21 [History Confirmed 02/16/24] allopurinol 100 mg tablet 100 mg PO HS 02/10/21 [History Confirmed 02/15/24] atorvastatin 20 mg tablet 20 mg PO QHS 02/10/21 [History Confirmed 02/16/24] brimonidine 0.2 % eye drops 1 drp ophthalmic (eye) TID 02/15/24 [History Confirmed 02/16/24] calcitriol 0.25 mcg capsule 0.25 mcg PO DAILY 02/15/24 [History Confirmed 02/16/24] docusate sodium 100 mg capsule 100 mg PO BID 02/15/24 [History Confirmed 02/16/24] ferrous sulfate 325 mg (65 mg iron) tablet (FeroSul) 325 mg PO DAILY 02/15/24 [History Confirmed 02/16/24] furosemide 40 mg tablet (Lasix) 40 mg PO BID 02/15/24 [History Confirmed 02/16/24] hydralazine 25 mg tablet 25 mg PO TID 02/15/24 [History Confirmed 02/16/24] hydrocodone 5 mg-acetaminophen 325 mg tablet 1 tab PO Q6HR PRN pain 02/15/24 [History Confirmed 02/16/24] insulin NPH isoph U-100 human 100 unit/mL (3 mL) subcutaneous pen (Humulin N NPHU-100 Insulin KwikPen) 30 unit subcut BID 02/15/24 [History Confirmed 02/16/24] labetalol 100 mg tablet 200 mg PO BID 02/15/24 [History Confirmed 02/16/24] lidocaine 3 % topical cream 1 applic topical BID PRN pain 02/15/24 [History Confirmed 02/16/24] lidocaine 4 % topical patch (Aspercreme (lidocaine)) 1 patch topical DAILY PRN pain 02/15/24 [History Confirmed 02/16/24] meropenem 500 mg/50 mL in 0.9% sodium chloride intravenous piggyback 500 mg IV 3XW 02/15/24 [History Confirmed 02/15/24] polyethylene glycol 3350 17 gram/dose oral powder (Laxative PEG 3350) 17 g PO DAILY PRN constipation 02/15/24 [History Confirmed 02/16/24] quetiapine 25 mg tablet (Seroquel) 25 mg PO QAM 02/15/24 [History Confirmed 02/16/24] quetiapine 50 mg tablet (Seroquel) 50 mg PO QHS 02/15/24 [History Confirmed 02/16/24] vancomycin 1 gram/250 mL in 0.9 % sodium chloride intravenous 1 g IV 3XW 02/15/24 [History Confirmed 02/15/24] warfarin 2.5 mg tablet 2.5 mg PO QHS 02/15/24 [History Confirmed 02/16/24] Exam Physical Exam Vital Signs: Temp Pulse Resp BP Pulse Ox O2 Del Method 97.9 F 66 26 H 92/50 L 96 Room Air 02/16/24 07:00 02/16/24 07:00 02/16/24 07:00 02/16/24 07:00 02/16/24 07:00 02/16/24 07:00 Const General: cooperative Nutritional Appearance: obese Orientation: alert and awake HEENT Head: normal to inspection Ears: hearing grossly normal bilaterally and external ears normal Nose: external nose normal Face and sinus: normal facial exam Eyes Sclera: sclerae normal Neck Neck: normal visual inspection Chest Chest palpation & inspection: normal inspection of the chest (Left internal jugular hemodialysis catheter with dressing intact) Resp Effort & Inspection: normal respiratory effort Auscultation: clear to auscultation bilaterally, diminished lung sounds, no rales, no rhonchi and no wheezes Cardio Rate: regular rate Rhythm: regular rhythm Heart Sounds: S1 normal, S2 normal and no murmurs GI Inspection: normal to inspection and obesity Palpation: soft and nontender Auscultation: hypoactive bowel sounds Rectal Exam: deferred General: other (Right femoral central venous catheter with dressing in place) Skin General: no rashes or lesions noted (Warm and dry) Extrem General: edema Laterality: bilaterally Results - Pulmonology Intake and Output I&O - Last 24 Hours: Intake & Output 02/15/24 02/16/24 02/16/24 23:59 07:59 15:59 Intake Total 1100 / 1100 100 / 100 Balance 1100 / 1100 100 / 100 Weight 206 lb 9.17 oz Labs 02/16/24 05:00 02/16/24 05:00 Microbiology Micro: 02/15/24 18:16 Blood Culture - Pending Blood - Left Arm 02/15/24 17:59 Blood Culture - Pending Blood - Left Arm Imaging and Cardiology Chest x-ray: Status: image reviewed by me Additional comments: Date of Service: 02/15/24 XR/XR chest 1V portable: Weakness SINGLE VIEW CHEST CLINICAL HISTORY: Unresponsive at dialysis. COMPARISON: Chest 02/10/2021 FINDINGS: Left-sided dialysis catheter is in place. Heart and mediastinal structures appear unchanged. Degree of vascular congestion is unchanged. No consolidationpneumothorax pleural effusion or free air. XR/XR chest 1V portable IMPRESSION: NO ACUTE FINDINGS Assessment/Plan (1) Septic shock: (2) CKD (chronic kidney disease): (3) Afib: (4) Diabetes: Plan Hospital day #1, right femoral central venous catheter day #1 for patient with prior history of chronic kidney disease, diabetes mellitus, and multiple wounds on vancomycin and meropenem admitted for septic shock with hypotension, leukocytosis presenting from dialysis with syncopal episode. Patient has had longstanding antibiotics and leukocytosis per report. We will try gentle volumeresuscitation and wean pressors as tolerated. Will defer antibiotics to infectious disease specialist. Continue supportive care. Documented By: Mukul Durbin MD 4 0835 Signed By: <Electronically signed by MD Mukul Durbin> 02/16/24 [facility] Work Phone: 1(901) 791-535107-23-2024 Progress note Author Virgen Vivar [facility] February 16, 2024 3:27pm Note Date/Time February 16, 2024 3:17 pm [facility] [address] [place] [address] Hospitalist Progress Note Signed Patient: Rosa Winter MR#: [id number] : 1945 Acct:[id number] Age/Sex: 78 / F Adm Date: 4 Loc: Room: [address] [place] [address] Type: ADM IN Attending Dr: Virgen Vivar MD Copies to: ~ Date of Service: 02/16/2024 Subjective Subjective Narrative: Patient was seen evaluated at bedside, remained afebrile here. WBC still elevated at 25.6. She did respond to fluids last night and required pressors and admission to ICU. Currently on 8 mics of Levophed. Denies nausea, vomiting, diarrhea. mentation at baseline. Consultants followed, inputs appreciated. Exam Physical Exam Vital Signs: Temp Pulse Resp BP Pulse Ox O2 Del Method 97.8 F 54 L 18 121/53 L 96 Room Air 02/16/24 12:00 02/16/24 14:05 02/16/24 14:00 02/16/24 14:05 02/16/24 14:00 02/16/24 14:00 Narrative: Const General: cooperative, ill appearing HEENT Normal oropharyngeal mucosa without any ulcers or exudates Eyes: Conjunctiva normal Pulmonary Auscultation: clear to auscultation , no crackles, no wheezes Patient has HD access on left chest area. Cardiovascular Rate: bradycardic Rhythm: irregular rhythm Heart Sounds: S1 normal, S2 normal and no murmurs GI Inspection: non-distended Palpation: soft, slightly tender in lower abdomen No rigidity or rebound. Deferred Neuro General: alert, awake and oriented x3. Ill appearing. No obvious new focal deficit Extrem General: no cyanosis, trace nonpitting pedal edema skin: Multiple wounds with skin discoloration noted on the lower extremities andright hip groin area on the buttocks. Necrotic tissue noted on R hip area, no discharge noted. defer exam and management to wound care team. Psych Appearance: appropriate affect. Grossly normal. Ill appearing Objective Lab Results 02/16/24 05:00 02/16/24 05:00 Meds Allergies and Active Meds Allergies No Known Allergies Allergy (Verified 02/10/21 22:57) Active Meds: Active Medications Generic Name Dose Route Start Last Admin Trade Name Freq PRN Reason Stop Dose Admin Acetaminophen 650 mg 02/15/24 17:45 02/15/24 23:21 Acetaminophen 325 Mg Tablet PO 02/14/25 17:44 650 mg Q6HR PRN Administration Pain Scale 1 - 3 or fever Allopurinol 100 mg 02/17/24 16:30 Allopurinol 100 Mg Tablet PO 02/16/25 16:29 [id number]@1630 [facility] Atorvastatin Calcium 20 mg 02/15/24 22:00 02/15/24 23:21 Atorvastatin 20 Mg Tablet PO 02/14/25 21:59 20 mg QHS [facility] Administration Brimonidine Tartrate 1 drops 02/15/24 22:00 02/16/24 05:49 Brimonidine 0.2% Op Soln 100 Drops/5 Ml Bottle EYE-BOTH 02/14/25 21:59 1 drops Q8HR [facility] Administration Darbepoetin Gary 40 mcg 02/17/24 09:00 Darbepoetin Gary In Polysorbat 40 Mcg/Ml Vial IV-PUSH 02/16/25 08:59 We@0900 [facility] Protocol Heparin Sodium (Porcine) 3,600 unit 02/16/24 08:42 Heparin 10,000 Unit/10 Ml Vial IV 02/15/25 08:41 PRN PRN Dialysis Norepinephrine Bitartrate 16 mg in 250 mls @ 4.688 mls/hr 02/15/24 20:15 02/16/24 14:05 Levophed IV 02/14/25 20:14 8 mcg/min .Q24H [facility] 7.5 mls/hr Infusion Protocol 5 MCG/MIN Sodium Chloride 1,000 mls @ 0 mls/hr 02/16/24 08:42 0.9% Sodium Chloride 1,000 Ml MISCELLANE 02/15/25 08:41 .Q0M PRN Dialysis As Directed Meropenem 0.5 gm in 100 mls @ 200 mls/hr 02/16/24 17:00 Merrem IV Q24H [facility] Vancomycin HCl 0.75 gm in 250 mls @ 250 mls/hr 02/16/24 16:00 Vancomycin IV 02/16/24 16:59 ONCE ONE Prochlorperazine Edisylate 5 mg 02/15/24 17:45 Prochlorperazine Edisylate 10 Mg/2 Ml Vial IV-PUSH 02/14/25 17:44 Q4H PRN Nausea And Vomiting Sodium Chloride 0 ml 02/15/24 13:52 02/15/24 19:43 Sodium Chloride 0.9 % 10 Ml Syringe IV-PUSH 02/14/25 13:51 10 ml PRN PRN Administration Flush Sodium Chloride 0 ml 02/16/24 08:42 Sodium Chloride 0.9 % 10 Ml Syringe IV-PUSH 02/15/25 08:41 PRN PRN Flush Vancomycin HCl 1 each 02/15/24 17:51 Vancomycin - Pharmacy Dosing 1 Each Miscell IV ONCE PRN ZZ.Pharmacy Consult Protocol Warfarin Sodium 1 each 02/15/24 17:48 Warfarin - Pharmacy Dosing MISCELLANE 02/14/25 17:47 ONCE PRN ZZ.Pharmacy Consult Protocol A&P - Hospitalist Assessment/Plan (1) Septic shock: (2) Syncope: (3) Hypotension: (4) Leukocytosis: (5) Unstageable pressure ulcer of right hip: (6) Unstageable pressure ulcer of sacral region: (7) Unstageable pressure ulcer of left hip: (8) Type 2 diabetes mellitus with diabetic chronic kidney disease: (9) Anemia of renal disease: (10) ESRD (end stage renal disease): (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 -lactate 1.5 -CT AP w contrast with no acute pathology -Broad spectrum antibiotics as directed -On IV pressors with Levophed for BP support. -Blood cultures pending -Cardiac monitoring -Nephrology consulted. input appreciated. -ID consulted. input appreciated. -General surgery consulted. input appreciated. -Pulm consulted. input appreciated. -Hold BP meds and diuretics -Pain control added as directed as needed. Hx of Afib- rate controlled Supratherapeutic INR -On Coumadin dosing per pharmacy -INR today 4.6. Home medications resumed as appropriate Diet: restarted diet DVT ppx: SCD, warfarin Code status: Full as discussed with patient. Consulted palliative team since pt thinking about hospice today with all her comorbidities and end stage renal disease with complications of calciphylaxis Status: inpatient Discussed with patient at bedside. All questions answered. In agreement with theabove plan Virgen Young MD Internal Medicine Hospitalist Attending Physician Documented By: Virgen Vivar MD 02/16/24 15 16 Signed By: <Electronically signed by Virgen Vivar MD> 02/16/[address] [facility] Work Phone: [phone]) 100-496007-23-2024 Consult note Author Emelyn Bennett [facility] February 16, 2024 3:16pm Note Date/Time February 16, 2024 9:44 am [facility] [address] [place] [address] Nephrology Consult Note Signed with Jesus Patient: Rosa Winter MR#: [id number] : 1945 Acct:[id number] Age/Sex: 78 / F Adm Date: 4 Loc: Room: [address] [place] [address] Type: ADM IN Attending Dr: Virgen Vivar MD Copies to: MD Annabelle Hernandez DO Obaydah M Daromar, MD~ ADDENDUM1 Patient was seen and examined at bedside during hemodialysis. Case was discussed with HD RN. No issues were reported by the HD RN and DAMPPROOFER. Her vasopressor requirement has been trending down. Addendum Documented By: Emelyn Bennett MD 02/16/24 151 Addendum Signed By: <Electronically signed by Emelyn Bennett MD> 02/16/24 1516 Providers Consult Date: 02/16/24 Requesting Provider: Virgen Vivar MD Primary Care Provider: Annabelle Archer DO HPI Reason for Consult: ESRD management History of Present Illness: This is a 78-year-old female with medical history of ESRD, DM, HTN, anemia of renal disease, A-fib and gout was sent from the [place] dialysis unit after fainting episode. 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 She went for her routine dialysis yesterday and found to have hypotension with trending episode 45 minutes after she was initiated on dialysis. Patient was sent to the emergency room and was given multiple fluid boluses. She was also found to have a leukocytosis and was started on broad-spectrum antibiotic after blood cultures. Patient reported that she has multiple bone lesions for while and she had extensive workup done at the [facility] in [place]. She was following with Dr. Jaramillo for her CKD care. She said she was started on dialysis about a month ago. Nephrology is consulted for ESRD management during her hospital stay. Patient was seen and examined at bedside reported to have pain in her skin wounds Review of Systems Review of Systems All other systems reviewed & are negative unless noted below or in HPI Review of systems: Cardiovascular: denies any chest pain, palpitation Pulmonary: denies any cough, hemoptysis Gastrointestinal: denies any nausea, vomiting, diarrhea Neurological :denies any headache, numbness, weakness Endocrine: denies any polyuria, polydipsia Dermatological: denies any itching or rash PMFSH Medical History (Updated 02/16/24 @ 12:47 by Carlos Novak MD) Diabetes Problem List clean-up per request of Phys. EHR Cmte Afib Problem List clean-up per request of Phys. EHR Cmte Nocturnal hypoxemia Problem List clean-up per request of Phys. EHR Cmte Iron deficiency anemia Problem List clean-up per request of Phys. EHR Cmte CHF (congestive heart failure) Problem List clean-up per request of Phys. EHR Cmte UTI (urinary tract infection) Problem List clean-up per request of Phys. EHR Cmte Colon polyp Problem List clean-up per request of Phys. EHR Cmte HLD (hyperlipidemia) Problem List clean-up per request of Phys. EHR Cmte Renal cell carcinoma Problem List clean-up per request of Phys. EHR Cmte Social History Smoking Status: Never smoker Substance Use Type: None Meds Medications & Allergies Allergies No Known Allergies Allergy (Verified 02/10/21 22:57) Home Medications acetaminophen 650 mg tablet 650 mg PO Q6H PRN Pain 02/10/21 [History Confirmed 02/16/24] allopurinol 100 mg tablet 100 mg PO HS 02/10/21 [History Confirmed 02/15/24] atorvastatin 20 mg tablet 20 mg PO QHS 02/10/21 [History Confirmed 02/16/24] brimonidine 0.2 % eye drops 1 drp ophthalmic (eye) TID 02/15/24 [History Confirmed 02/16/24] calcitriol 0.25 mcg capsule 0.25 mcg PO DAILY 02/15/24 [History Confirmed 02/16/24] docusate sodium 100 mg capsule 100 mg PO BID 02/15/24 [History Confirmed 02/16/24] ferrous sulfate 325 mg (65 mg iron) tablet (FeroSul) 325 mg PO DAILY 02/15/24 [History Confirmed 02/16/24] furosemide 40 mg tablet (Lasix) 40 mg PO BID 02/15/24 [History Confirmed 02/16/24] hydralazine 25 mg tablet 25 mg PO TID 02/15/24 [History Confirmed 02/16/24] hydrocodone 5 mg-acetaminophen 325 mg tablet 1 tab PO Q6HR PRN pain 02/15/24 [History Confirmed 02/16/24] insulin NPH isoph U-100 human 100 unit/mL (3 mL) subcutaneous pen (Humulin N NPHU-100 Insulin KwikPen) 30 unit subcut BID 02/15/24 [History Confirmed 02/16/24] labetalol 100 mg tablet 200 mg PO BID 02/15/24 [History Confirmed 02/16/24] lidocaine 3 % topical cream 1 applic topical BID PRN pain 02/15/24 [History Confirmed 02/16/24] lidocaine 4 % topical patch (Aspercreme (lidocaine)) 1 patch topical DAILY PRN pain 02/15/24 [History Confirmed 02/16/24] meropenem 500 mg/50 mL in 0.9% sodium chloride intravenous piggyback 500 mg IV 3XW 02/15/24 [History Confirmed 02/15/24] polyethylene glycol 3350 17 gram/dose oral powder (Laxative PEG 3350) 17 g PO DAILY PRN constipation 02/15/24 [History Confirmed 02/16/24] quetiapine 25 mg tablet (Seroquel) 25 mg PO QAM 02/15/24 [History Confirmed 02/16/24] quetiapine 50 mg tablet (Seroquel) 50 mg PO QHS 02/15/24 [History Confirmed 02/16/24] vancomycin 1 gram/250 mL in 0.9 % sodium chloride intravenous 1 g IV 3XW 02/15/24 [History Confirmed 02/15/24] warfarin 2.5 mg tablet 2.5 mg PO QHS 02/15/24 [History Confirmed 02/16/24] Active Medications: Active Medications Acetaminophen (Acetaminophen 325 Mg Tablet) 650 mg PO Q6HR PRN PRN Reason: Pain Scale 1 - 3 or fever Stop: 02/14/25 17:44 Last Admin: 02/15/24 23:21 Dose: 650 mg Allopurinol (Allopurinol 100 Mg Tablet) 100 mg PO HS ASAD Stop: 02/14/25 21:59 Atorvastatin Calcium (Atorvastatin 20 Mg Tablet) 20 mg PO QHS [facility] Stop: 02/14/25 21:59 Last Admin: 02/15/24 23:21 Dose: 20 mg Brimonidine Tartrate (Brimonidine 0.2% Op Soln 100 Drops/5 Ml Bottle) 1 drops EYE-BOTH Q8HR ASAD Stop: 02/14/25 21:59 Last Admin: 02/16/24 05:49 Dose: 1 drops Calcitriol (Calcitriol 0.25 Mcg Capsule) 0.25 mcg PO DAILY ASAD Stop: 02/15/25 08:59 Darbepoetin Gary (Darbepoetin Gary In Polysorbat 40 Mcg/Ml Vial) 40 mcg IV-PUSHWe@0900 [facility]; Protocol Stop: 02/16/25 08:59 Heparin Sodium (Porcine) (Heparin 10,000 Unit/10 Ml Vial) 3,600 unit IV PRN PRN PRN Reason: Dialysis Stop: 02/15/25 08:41 Norepinephrine Bitartrate (Levophed) 16 mg in 250 mls @ 4.688 mls/hr IV .Q24H [facility]; Protocol Stop: 02/14/25 20:14 Last Infusion: 02/15/24 21:20 Dose: 12 mcg/min, 11.25 mls/hr Sodium Chloride (0.9% Sodium Chloride 1,000 Ml) 1,000 mls @ 250 mls/hr IV .Q4H ONE Stop: 02/16/24 12:42 Last Admin: 02/16/24 09:26 Dose: 250 mls/hr Sodium Chloride (0.9% Sodium Chloride 1,000 Ml) 1,000 mls @ 0 mls/hr MISCELLANE.Q0M PRN PRN Reason: Dialysis Stop: 02/15/25 08:41 Meropenem (Meropenem - Pharmacy Dosing) 1 each MISCELLANE ONCE PRN; Protocol PRN Reason: KOURTNEY.Pharmacy Consult Prochlorperazine Edisylate (Prochlorperazine Edisylate 10 Mg/2 Ml Vial) 5 mg IV- PUSH Q4H PRN PRN Reason: Nausea And Vomiting Stop: 02/14/25 17:44 Sodium Chloride (Sodium Chloride 0.9 % 10 Ml Syringe) 0 ml IV-PUSH PRN PRN PRN Reason: Flush Stop: 02/14/25 13:51 Last Admin: 02/15/24 19:43 Dose: 10 ml Sodium Chloride (Sodium Chloride 0.9 % 10 Ml Syringe) 0 ml IV-PUSH PRN PRN PRN Reason: Flush Stop: 02/15/25 08:41 Vancomycin HCl (Vancomycin - Pharmacy Dosing 1 Each Miscell) 1 each IV ONCE PRN; Protocol PRN Reason: ZHeavenly.Pharmacy Consult Warfarin Sodium (Warfarin - Pharmacy Dosing) 1 each MISCELLANE ONCE PRN; Protocol PRN Reason: ZZ.Pharmacy Consult Stop: 02/14/25 17:47 Exam Physical Exam Vital Signs: Temp Pulse Resp BP Pulse Ox O2 Del Method 97.9 F 64 23 96/55 L 96 Room Air 02/16/24 07:00 02/16/24 09:00 02/16/24 09:00 02/16/24 09:00 02/16/24 09:00 02/16/24 09:00 Narrative: General: Appears comfortable and not in distress Heart: S1-S2, no rub Lung: Bilateral air entry, no wheezing or crackles Abdomen: Soft, positive bowel sounds Extremities: No edema, no cyanosis Head: Atraumatic, normocephalic Ear: No gross hearing Deficit or external ear redness Eyes: No pallor or redness Neck: No JVD or visible mass Skin: warm to touch, she has multiple skin wounds with necrotic skin CLIENT SUCCESS MANAGER: Awake,Alert, following simple command Musculoskeletal: No swelling or limitation of movement of the large joints Psychiatric: Cooperative, normal mood and affect Results - Nephrology Labs 02/16/24 05:00 02/16/24 05:00 Labs: 02/15/24 02/15/24 02/16/24 15:19 18:16 05:00 BUN 52 H 57 H Creatinine 4.04 H 4.26 H Phosphorus 5.1 H Albumin 2.8 L 2.8 L Radiology Impressions Impressions - last 24 hours: Impressions Chest X-Ray 02/15/24 14:12 IMPRESSION: NO ACUTE FINDINGS Impression dictated by: Brennan Mcdonough Jr., D.O.02/15/2024 2:52 PM Dictation Location: [facility]15 Abdomen/Pelvis CT 02/15/24 17:32 IMPRESSION: No acute findings. Impression dictated by: Brennan Mcdonough Jr., D.O.02/15/2024 7:43 PM Dictation Location: [facility] Any impression(s) listed above is documentation that was entered by the reading physician into a diagnostic report(s) for Rosa Winter. I have reviewed the report(s) and am incorporating any findings in the treatment plan of this patient where applicable. A&P - Nephrology Assessment/Plan (1) Septic shock: Assessment/Problem Details: Patient presented with hypotension and leukocytosis. She has likely sepsis due to the skin wound infection. Currently on broad-spectrum antibiotic. ID and general surgery has been consulted. (2) ESRD (end stage renal disease): Assessment/Problem Details: She has a ESRD due to the diabetic nephropathy hypertensive nephrosclerosis. She was recently excepted at our [place] dialysis unit and currently runs MWF schedule. 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 (4) Anemia of renal disease: Assessment/Problem Details: Hemoglobin is below the goal. (5) Type 2 diabetes mellitus with diabetic chronic kidney disease: Assessment/Problem Details: She has an insulin-dependent type 2 diabetes mellitus. (6) Afib: Assessment/Problem Details: She currently has A-fib and was taking a labetalol and Coumadin at home. Plan * Hemodialysis today as ordered. Patient was not able to receive her routine dialysis yesterday. * Continue vasopressors to keep the MAP 65 mmHg. * Continue broad-spectrum antibiotic and adjust as needed based on culture sensitivity. Pharmacy to dose medication based on ESRD * Stop calcitriol. Will get the records from the [facility] and if she has calciphylaxis will start sodium thiosulfate. * Will check iron studies and start Aranesp 40 mcg once weekly with dialysis * Continue DM management as per the primary hospitalist team. * Monitor INR and pharmacy to dose medication * Prognosis is guarded. * Thanks for consult. Will continue follow-up with you. Please feel free to call us with any question. Documented By: Emelyn Bennett MD 02/16/24 0943 Signed By: <Electronically signed by Emelyn Bennett MD> 02/16/[address] [facility] Work Phone: [phone] 496-762707-23-2024 Consult note Author Carlos Novak [facility] February 16, 2024 12:48pm Note Date/Time February 16, 2024 12:4 8pm [facility] [address] [place] [address] General Surgery Consult Note Signed Patient: Rosa Winter MR#: [id number] : 1945 Acct:[id number] Age/Sex: 78 / F Adm Date: 4 Loc: Room: [address] [place] [address] Type: ADM IN Attending Dr: Virgen Vivar MD Copies to: MD Annabelle Pulido DO Obaydah M Daromar, MD~ History of Present Illness Date of consult: 02/16/2024 Requesting/Attending Provider: Virgen Vivar MD History of present illness: The patient is an 78-year-old female for whom a consultation is obtained regarding hip and sacral ulcers with possible calciphylaxis. Patient states robert had these ulcers for some time. She was recently in a hospital in [place] and states she had some debridement done at that time. Patient states she can ambulate and uses a walker, cane and also does use a wheelchair. She states shedoes not ambulate far or well. She has a multiple medical problems including end-stage renal disease on dialysis, diabetes mellitus, atrial fibrillation, on warfarin. She is currently in the intensive care unit on a Levophed drip. She is awake and alert. Review of Systems Cardiovascular Cardiovascular: Denies chest pain Respiratory Respiratory: Denies dyspnea Integumentary/Breasts Skin/Breast: Reports wounds PMFSH Medical History (Updated 02/16/24 @ 12:47 by Carlos Novak MD) Diabetes Problem List clean-up per request of Phys. EHR Cmte Afib Problem List clean-up per request of Phys. EHR Cmte Nocturnal hypoxemia Problem List clean-up per request of Phys. EHR Cmte Iron deficiency anemia Problem List clean-up per request of Phys. EHR Cmte CHF (congestive heart failure) Problem List clean-up per request of Phys. EHR Cmte UTI (urinary tract infection) Problem List clean-up per request of Phys. EHR Cmte Colon polyp Problem List clean-up per request of Phys. EHR Cmte HLD (hyperlipidemia) Problem List clean-up per request of Phys. EHR Cmte Renal cell carcinoma Problem List clean-up per request of Phys. EHR Cmte Social History Smoking Status: Never smoker Substance Use Type: None Allergies & Medications Medications and Allergies Allergies No Known Allergies Allergy (Verified 02/10/21 22:57) Home Medications acetaminophen 650 mg tablet 650 mg PO Q6H PRN Pain 02/10/21 [History Confirmed 02/15/24] allopurinol 100 mg tablet 100 mg PO HS 02/10/21 [History Confirmed 02/15/24] atorvastatin 20 mg tablet 20 mg PO QHS 02/10/21 [History Confirmed 02/15/24] brimonidine 0.2 % eye drops 1 drp ophthalmic (eye) Q8HR 02/15/24 [History Confirmed 02/15/24] calcitriol 0.25 mcg capsule 0.25 mcg PO DAILY 02/15/24 [History Confirmed 02/15/24] docusate sodium 100 mg capsule 100 mg PO BID 02/15/24 [History Confirmed 02/15/24] ferrous sulfate 325 mg (65 mg iron) tablet (FeroSul) 325 mg PO DAILY 02/15/24 [History Confirmed 02/15/24] furosemide 40 mg tablet (Lasix) 40 mg PO BID 02/15/24 [History Confirmed 02/15/24] hydralazine 25 mg tablet 25 mg PO TID 02/15/24 [History Confirmed 02/15/24] hydrocodone 5 mg-acetaminophen 325 mg tablet 1 tab PO Q6HR PRN pain 02/15/24 [History Confirmed 02/15/24] insulin NPH isoph U-100 human 100 unit/mL (3 mL) subcutaneous pen (Humulin N NPHU-100 Insulin KwikPen) 30 unit subcut BID 02/15/24 [History Confirmed 02/15/24] labetalol 100 mg tablet 200 mg PO BID 02/15/24 [History Confirmed 02/15/24] lidocaine 3 % topical cream 1 applic topical BID PRN pain 02/15/24 [History Confirmed 02/15/24] lidocaine 4 % topical patch (Aspercreme (lidocaine)) 1 patch topical DAILY PRN pain 02/15/24 [History Confirmed 02/15/24] meropenem 500 mg/50 mL in 0.9% sodium chloride intravenous piggyback 500 mg IV 3XW 02/15/24 [History Confirmed 02/15/24] polyethylene glycol 3350 17 gram/dose oral powder (Laxative PEG 3350) 17 g PO DAILY PRN constipation 02/15/24 [History Confirmed 02/15/24] quetiapine 25 mg tablet (Seroquel) 25 mg PO QAM 02/15/24 [History Confirmed 02/15/24] quetiapine 50 mg tablet (Seroquel) 50 mg PO QHS 02/15/24 [History Confirmed 02/15/24] vancomycin 1 gram/250 mL in 0.9 % sodium chloride intravenous 1 g IV 3XW 02/15/24 [History Confirmed 02/15/24] warfarin 2.5 mg tablet 2.5 mg PO QHS 02/15/24 [History Confirmed 02/15/24] Active Medications Acetaminophen (Acetaminophen 325 Mg Tablet) 650 mg PO Q6HR PRN PRN Reason: Pain Scale 1 - 3 or fever Stop: 02/14/25 17:44 Last Admin: 02/15/24 23:21 Dose: 650 mg Allopurinol (Allopurinol 100 Mg Tablet) 100 mg PO MoWeFr@1630 [facility] Stop: 02/16/25 16:29 Atorvastatin Calcium (Atorvastatin 20 Mg Tablet) 20 mg PO QHS [facility] Stop: 02/14/25 21:59 Last Admin: 02/15/24 23:21 Dose: 20 mg Brimonidine Tartrate (Brimonidine 0.2% Op Soln 100 Drops/5 Ml Bottle) 1 drops EYE-BOTH Q8HR [facility] Stop: 02/14/25 21:59 Last Admin: 02/16/24 05:49 Dose: 1 drops Darbepoetin Gary (Darbepoetin Gary In Polysorbat 40 Mcg/Ml Vial) 40 mcg IV-PUSHWe@0900 [facility]; Protocol Stop: 02/16/25 08:59 Heparin Sodium (Porcine) (Heparin 10,000 Unit/10 Ml Vial) 3,600 unit IV PRN PRN PRN Reason: Dialysis Stop: 02/15/25 08:41 Norepinephrine Bitartrate (Levophed) 16 mg in 250 mls @ 4.688 mls/hr IV .Q24H [facility]; Protocol Stop: 02/14/25 20:14 Last Infusion: 02/16/24 12:27 Dose: 10 mcg/min, 9.38 mls/hr Sodium Chloride (0.9% Sodium Chloride 1,000 Ml) 1,000 mls @ 0 mls/hr MISCELLANE.Q0M PRN PRN Reason: Dialysis Stop: 02/15/25 08:41 Meropenem (Merrem) 0.5 gm in 100 mls @ 200 mls/hr IV Q24H [facility] Vancomycin HCl (Vancomycin) 0.75 gm in 250 mls @ 250 mls/hr IV ONCE ONE Stop: 02/16/24 16:59 Prochlorperazine Edisylate (Prochlorperazine Edisylate 10 Mg/2 Ml Vial) 5 mg IV- PUSH Q4H PRN PRN Reason: Nausea And Vomiting Stop: 02/14/25 17:44 Sodium Chloride (Sodium Chloride 0.9 % 10 Ml Syringe) 0 ml IV-PUSH PRN PRN PRN Reason: Flush Stop: 02/14/25 13:51 Last Admin: 02/15/24 19:43 Dose: 10 ml Sodium Chloride (Sodium Chloride 0.9 % 10 Ml Syringe) 0 ml IV-PUSH PRN PRN PRN Reason: Flush Stop: 02/15/25 08:41 Vancomycin HCl (Vancomycin - Pharmacy Dosing 1 Each Miscell) 1 each IV ONCE PRN; Protocol PRN Reason: ZZ.Pharmacy Consult Warfarin Sodium (Warfarin - Pharmacy Dosing) 1 each MISCELLANE ONCE PRN; Protocol PRN Reason: ZZ.Pharmacy Consult Stop: 02/14/25 17:47 Exam Physical Exam Vital Signs: Temp Pulse Resp BP Pulse Ox O2 Del Method 97.8 F 51 L 20 73/42 L 96 Room Air 02/16/24 12:00 02/16/24 12:27 02/16/24 12:00 02/16/24 12:27 02/16/24 12:00 02/16/24 12:00 Const General: no acute distress Skin Wounds: wounds noted Other: She does have left hip, sacral, right hip, lower back ulcers with large areas ofdry black eschar. Neuro General: patient alert and patient awake Results - Gen. Surgery Intake and Output 24 hour I&O: Intake & Output 02/15/24 02/16/24 02/16/24 23:59 07:59 15:59 Intake Total 1100 / 1100 100 / 100 Balance 1100 / 1100 100 / 100 Weight 93.7 kg Labs 02/16/24 05:00 02/16/24 05:00 Laboratory Results - last 72 hr 02/16/24 05:00: Corrected WBC 25.6 H, Uncorrected WBC Count 25.6 H, RBC 3.50 L, Hgb 9.1 L, Hct 29.6 L, MCV 84.5, MCH 26.1, MCHC 30.9 L, RDW 23.7 H, Plt Count 543 H, MPV 8.3, Neut % (Auto) 84.9, Lymph % (Auto) 3.3, Dale % (Auto) 9.0, Eos %(Auto) 2.1, Baso % (Auto) 0.7, Nucleat RBC Rel Count 0.1, Neut # (Auto) 21.8 H, Lymph # (Auto) 0.8 L, Dale # (Auto) 2.3 H, Eos # (Auto) 0.5 H, Baso # (Auto) 0.2, Platelet Estimate Increased, Large Platelets Slight, Plt Morphology CommentN/A, RBC Morphology N/A, Polychromasia Slight, Hypochromasia Slight, Anisocytosis Marked, Ovalocytes Slight, ESR > 130 H, PT 51.2 H, INR 4.6, PHA Creatinine Clear 11.00, Sodium 129 L, Potassium 5.1, Chloride 96 L, Carbon Dioxide 20.6 L, Anion Gap 17.5 H, BUN 57 H, Creatinine 4.26 H, Est GFR (CKD-EPI)10.005, Glucose 172 H, Calcium 8.6, Magnesium 2.0, Iron 12 L, TIBC 123 L, Iron Saturation 9.8 L, Transferrin 88 L, Ferritin 655.5 H, Total Bilirubin 0.7, AST 32, ALT 26, Alkaline Phosphatase 158 H, C-Reactive Prot, Quant 28.4 H, Total Protein 6.2 L, Albumin 2.8 L, Globulin 3.4, Albumin/Globulin Ratio 0.8, B-Hydroxybutyrate 0.22 02/15/24 18:16: Phosphorus 5.1 H 02/15/24 17:59: Lactic Acid 1.5 02/15/24 17:41: PT 43.4 H, INR 3.9 02/15/24 15:19: Corrected WBC 24.2 H, Uncorrected WBC Count 24.2 H, RBC 3.79, Hgb 10.0 L, Hct 32.2 L, MCV 85.0, MCH 26.4, MCHC 31.1 L, RDW 23.2 H, Plt Count 465 H, MPV 8.3, Neut % (Auto) N/A, Lymph % (Auto) N/A, Dale % (Auto) N/A, Eos % (Auto) N/A, Baso % (Auto) N/A, Nucleat RBC Rel Count N/A, Neut # (Auto) N/A, Lymph # (Auto) N/A, Dale # (Auto) N/A, Eos # (Auto) N/A, Baso # (Auto) N/A, BandNeutrophils % 3, Lymphocytes % 6 L, Monocytes % 6, Metamyelocytes % 1 H, Myelocytes % 1 H, Promyelocytes % 1 H, Segmented Neutrophils 83 H, Monocyte DistWidth 25.57 H, Platelet Estimate Increased, Giant Platelets 1, Plt Morphology Comment Normal, RBC Morphology N/A, Polychromasia Marked, Poikilocytosis Slight,Anisocytosis Marked, Tear Drop Cells Slight, Ovalocytes Slight, PHA Creatinine Clear 11.60, Sodium 129 L, Potassium 4.9, Chloride 95 L, Carbon Dioxide 20.8 L, Anion Gap 18.1 H, BUN 52 H, Creatinine 4.04 H, Est GFR (CKD-EPI) 10.662, Xoaquns365 H, Calcium 8.9, Magnesium 2.1, Total Bilirubin 0.6, AST 40 H, ALT 28, Alkaline Phosphatase 151 H, Troponin I High Sens 21.4 H, B- Natriuretic Peptide 525.0 H, Total Protein 6.3 L, Albumin 2.8 L, Globulin 3.5, Albumin/Globulin Ratio 0.8 02/15/24 13:56: POC Glucose 254, POC Glucose Comment Glu2: cleaned meter A&P - General Surgery (1) Unstageable pressure ulcer of left hip: (2) Unstageable pressure ulcer of sacral region: (3) Unstageable pressure ulcer of right hip: (4) Calciphylaxis: (5) Septic shock: (6) ESRD (end stage renal disease): (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 If there is calciphylaxis, wide debridement/excision would be contraindicated. Documented By: Carlos Novak MD 02/16/24 1243 Signed By: <Electronically signed by MD Carlos Novak> 02/16/24 1248 [facility] Work Phone: [phone] 986-355007-23-2024 Consult note Author Tres King [facility] February 16, 2024 9:24am Note Date/Time February 16, 2024 9:07 am [facility] [address] [place] [address] Infect. Disease Consult Note Signed Patient: Rosa Winter MR#: [id number] : 1945 Acct:[id number] Age/Sex: 78 / F Adm Date: 4 Loc: Room: [address] [place] [address] Type: ADM IN Attending Dr: Virgen Vivar MD Copies to: DO Tres Quiroz MD Obaydah M Daromar, MD~ HPI Data of Consult Consult date: 02/16/24 Requesting Physician: Virgen Vivar MD Primary Care Provider: Annabelle Archer DO Consult Narrative History of present illness: Ms. Winter is a 78 year old female who was transferred here from dialysis afterher pressure had fallen. She apparently has been on IV vancomycin and meropenemfor various wounds on her body directed by [facility]. Patient states she is only been on dialysis now for 3 weeks and has an on mature fistula in her right upper extremity. She has a dialysis catheter in her left chest wall. Patient therefore was sent to [facility] is currently in the ICU and is on Levophed. She complains of pain overall these wounds are located. Her white count is elevated. Reviewing labs recently from [facility] her white count was elevated there similarly Patient with history of renal cell l carcinoma status post nephrectomy 2017. Did find notes in [facility] that suggested the patient was hospitalized January 31 through February 12 for sacral wound infection. She was given vancomycin metronidazole and cefepime. Cefepime and metronidazole was changed to meropenemand she was discharged on meropenem and vancomycin. CC: Virgen Vivar MD [facility] Medical History (Updated 02/16/24 @ 09:22 by Tres King MD) Diabetes Problem List clean-up per request of Phys. EHR Cmte Afib Problem List clean-up per request of Phys. EHR Cmte Nocturnal hypoxemia Problem List clean-up per request of Phys. EHR Cmte Iron deficiency anemia Problem List clean-up per request of Phys. EHR Cmte CHF (congestive heart failure) Problem List clean-up per request of Phys. EHR Cmte UTI (urinary tract infection) Problem List clean-up per request of Phys. EHR Cmte Colon polyp Problem List clean-up per request of Phys. EHR Cmte HLD (hyperlipidemia) Problem List clean-up per request of Phys. EHR Cmte CKD (chronic kidney disease) Stage 4 Problem List clean-up per request of Phys. EHR Cmte Renal cell carcinoma Problem List clean-up per request of Phys. EHR Cmte Social History Smoking Status: Never smoker Substance Use Type: None Allergies and Medications Allergies and Active Meds Allergies No Known Allergies Allergy (Verified 02/10/21 22:57) Active Medications Acetaminophen (Acetaminophen 325 Mg Tablet) 650 mg PO Q6HR PRN PRN Reason: Pain Scale 1 - 3 or fever Stop: 02/14/25 17:44 Last Admin: 02/15/24 23:21 Dose: 650 mg Allopurinol (Allopurinol 100 Mg Tablet) 100 mg PO HS [facility] Stop: 02/14/25 21:59 Atorvastatin Calcium (Atorvastatin 20 Mg Tablet) 20 mg PO QHS [facility] Stop: 02/14/25 21:59 Last Admin: 02/15/24 23:21 Dose: 20 mg Brimonidine Tartrate (Brimonidine 0.2% Op Soln 100 Drops/5 Ml Bottle) 1 drops EYE-BOTH Q8HR [facility] Stop: 02/14/25 21:59 Last Admin: 02/16/24 05:49 Dose: 1 drops Calcitriol (Calcitriol 0.25 Mcg Capsule) 0.25 mcg PO DAILY [facility] Stop: 02/15/25 08:59 Darbepoetin Gary (Darbepoetin Gary In Polysorbat 40 Mcg/Ml Vial) 40 mcg IV-PUSHWe@0900 [facility]; Protocol Stop: 02/16/25 08:59 Heparin Sodium (Porcine) (Heparin 10,000 Unit/10 Ml Vial) 3,600 unit IV PRN PRN PRN Reason: Dialysis Stop: 02/15/25 08:41 Norepinephrine Bitartrate (Levophed) 16 mg in 250 mls @ 4.688 mls/hr IV .Q24H [facility]; Protocol Stop: 02/14/25 20:14 Last Infusion: 02/15/24 21:20 Dose: 12 mcg/min, 11.25 mls/hr Sodium Chloride (0.9% Sodium Chloride 1,000 Ml) 1,000 mls @ 250 mls/hr IV .Q4H ONE Stop: 02/16/24 12:42 Sodium Chloride (0.9% Sodium Chloride 1,000 Ml) 1,000 mls @ 0 mls/hr MISCELLANE.Q0M PRN PRN Reason: Dialysis Stop: 02/15/25 08:41 Meropenem (Meropenem - Pharmacy Dosing) 1 each MISCELLANE ONCE PRN; Protocol PRN Reason: ZZ.Pharmacy Consult Prochlorperazine Edisylate (Prochlorperazine Edisylate 10 Mg/2 Ml Vial) 5 mg IV- PUSH Q4H PRN PRN Reason: Nausea And Vomiting Stop: 02/14/25 17:44 Sodium Chloride (Sodium Chloride 0.9 % 10 Ml Syringe) 0 ml IV-PUSH PRN PRN PRN Reason: Flush Stop: 02/14/25 13:51 Last Admin: 02/15/24 19:43 Dose: 10 ml Sodium Chloride (Sodium Chloride 0.9 % 10 Ml Syringe) 0 ml IV-PUSH PRN PRN PRN Reason: Flush Stop: 02/15/25 08:41 Vancomycin HCl (Vancomycin - Pharmacy Dosing 1 Each Miscell) 1 each IV ONCE PRN; Protocol PRN Reason: ZZ.Pharmacy Consult Warfarin Sodium (Warfarin - Pharmacy Dosing) 1 each MISCELLANE ONCE PRN; Protocol PRN Reason: ZZ.Pharmacy Consult Stop: 02/14/25 17:47 Exam Physical Exam Vital Signs: Vital Signs Temp Pulse Pulse Resp BP BP Pulse Ox 02/16/24 08:00 02/16/24 07:00 97.9 F 66 26 H 92/50 L 96 02/16/24 06:00 66 28 H 93/39 L 96 02/16/24 05:00 60 26 H 117/49 L 97 02/16/24 04:00 98.8 F 62 28 H 125/57 L 97 02/16/24 03:58 02/16/24 03:00 64 28 H 138/56 L 98 02/16/24 02:00 64 26 H 153/63 H 97 02/16/24 01:00 58 L 26 H 96/55 L 97 02/16/24 00:00 60 21 110/70 96 02/15/24 23:00 02/15/24 23:00 66 20 112/80 96 02/15/24 22:00 60 16 119/67 97 02/15/24 22:00 97.7 F 57 L 16 119/67 98 02/15/24 21:20 57 L 119/67 02/15/24 21:20 97.7 F 56 L 16 106/52 L 98 02/15/24 21:01 97.5 F L 53 L 18 113/61 97 02/15/24 21:00 58 L 16 106/52 L 97 02/15/24 20:51 55 L 18 139/59 L 97 02/15/24 20:40 57 L 14 123/40 L 98 02/15/24 20:38 50 L 86/51 L 02/15/24 20:25 95/55 L 02/15/24 20:21 60 90/41 L 02/15/24 20:21 60 16 90/41 L 100 02/15/24 20:11 57 L 65/43 L 02/15/24 19:52 59 L 16 84/40 L 95 02/15/24 19:01 57 L 16 73/39 L 100 02/15/24 18:45 57 L 16 82/30 L 99 02/15/24 18:26 98/46 L 02/15/24 18:10 54 L 14 58/23 L 100 02/15/24 17:00 56 L 16 92/37 L 93 L 02/15/24 16:54 58 L 18 89/39 L 96 02/15/24 16:39 59 L 18 90/55 L 98 02/15/24 16:15 66 18 90/55 L 98 02/15/24 15:44 60 16 104/44 L 93 L 02/15/24 15:24 108/57 L 02/15/24 15:03 61 02/15/24 15:02 57 L 20 71/42 L 97 02/15/24 15:02 97 02/15/24 14:09 56 L 02/15/24 13:53 97.8 F 60 16 74/35 L 99 O2 Del Method 02/16/24 08:00 Room Air 02/16/24 07:00 Room Air 02/16/24 06:00 Room Air 02/16/24 05:00 Room Air 02/16/24 04:00 Room Air 02/16/24 03:58 Room Air 02/16/24 03:00 Room Air 02/16/24 02:00 Room Air 02/16/24 01:00 Room Air 02/16/24 00:00 Room Air 02/15/24 23:00 Room Air 02/15/24 23:00 Room Air 02/15/24 22:00 Room Air 02/15/24 22:00 Room Air 02/15/24 21:20 02/15/24 21:20 Room Air 02/15/24 21:01 Room Air 02/15/24 21:00 Room Air 02/15/24 20:51 Room Air 02/15/24 20:40 Room Air 02/15/24 20:38 02/15/24 20:25 02/15/24 20:21 02/15/24 20:21 Room Air 02/15/24 20:11 02/15/24 19:52 Room Air 02/15/24 19:01 Room Air 02/15/24 18:45 Room Air 02/15/24 18:26 02/15/24 18:10 Room Air 02/15/24 17:00 Room Air 02/15/24 16:54 Room Air 02/15/24 16:39 Room Air 02/15/24 16:15 Room Air 02/15/24 15:44 Room Air 02/15/24 15:24 02/15/24 15:03 02/15/24 15:02 Room Air 02/15/24 15:02 Room Air 02/15/24 14:09 02/15/24 13:53 Room Air Intake and Output 02/15/24 02/16/24 02/16/24 23:59 07:59 15:59 Intake Total 1100 / 1100 100 / 100 Balance 1100 / 1100 100 / 100 Intake: IV 1100 / 1100 Meropenem 1Gm-*Ns* 1 gm In 100 100 / 100 ml @ 200 mls/hr IV ONCE ONE Rx# :[id number] Sodium Chloride 0.9% 1,000 ml 1000 / 1000 500 ml @ 999 mls/hr IV .Q31M ONE Rx#:[id number] Oral 100 / 100 Other: # Unmeasured Voids 0 # Bowel Movements 0 Weight 206 lb 9.17 oz Const General: no acute distress Orientation: oriented x3 HEENT Head: normal to inspection Ears: hearing grossly normal bilaterally Nose: external nose normal Eyes General: appearance normal, both eyes and all related structures Neck Neck: normal visual inspection Chest Chest palpation & inspection: abnormal inspection of the chest (HD catheter leftchest) Resp Effort & Inspection: normal respiratory effort Cardio Rate: regular rate Rhythm: regular rhythm GI Inspection: abnormal to inspection and obesity Palpation: soft Other: multiple wound lower abd Necrotic firm Skin Lesions: lesion noted Wounds: wounds noted Other: Multiple discolorations/wounds noted on her lower legs and hip groin areas and buttock. All are necrotic in appearance without any of them draining purulent material. Coccygeal wound the deepest with out drainage. Extrem General: abnormal to inspection Other: Posterior calf purpleish skin lesions with some necrotic occurring. Results - Infectious Disease Labs 02/16/24 05:00 02/16/24 05:00 Labs: 02/15/24 15:19: Corrected WBC 24.2 H, Uncorrected WBC Count 24.2 H, BUN 52 H, Creatinine 4.04 H 02/16/24 05:00: Corrected WBC 25.6 H, Uncorrected WBC Count 25.6 H, BUN 57 H, Creatinine 4.26 H Microbiology Results Microbiology Narrative: 02/15/24 18:16 Blood Culture - Pending Blood - Left Arm 02/15/24 17:59 Blood Culture - Pending Blood - Left Arm Imaging and Cardiology Status: report viewed by me A&P - Infectious Disease (1) Leukocytosis: (2) Multiple wounds of skin: (3) Calciphylaxis: (4) ESRD (end stage renal disease): Plan Patient recently hospitalized January 31 through February 12 at outside hospital. Now here at [facility]. Wounds on exam essentially necrotic and clinically consistent with calciphylaxis. Significant open wound on her coccyx that is notsuggestive of infection. Wounds are firm around the margins and likely debridement will be needed. Will consult general surgery. Patient has been on IV antibiotics since January 31 it appears and is now currently on vancomycin and meropenem. We can await new blood culture results however if cultures are negative and without significant signs of infection feel a lot of her presentingsymptoms are due to these painful wounds and presumptive calciphylaxis. Patientis on Levophed still so therefore we will continue the broad-spectrum coverage until culture results from the blood come back. Documented By: Tres King MD 02/16/24901 Signed By: <Electronically signed by MD Tres King> 02/16/[address] [facility] Work Phone: 1(155) 390-530707-22-2024 History and physical note Author Virgen Vivar [facility] February 15, 2024 6:42pm Note Date/Time February 15, 2024 5:51 pm [facility] [address] [place] [address] Hospitalist H&P Signed Patient: Rosa Winter MR#: [id number] : 1945 Acct:[id number] Age/Sex: 78 / F Adm Date: 4 Loc: ER Room: Type: [facility] ER Attending Dr: Copies to: ELEAZAR Sher DO Obaydah M Daromar, MD~ HPI DATE OF EXAMINATION: 02/15/24 CHIEF COMPLAINT: Syncope HISTORY OF PRESENT ILLNESS: Patient is an 78-year-old female with medical history as listed below presented to the ER from [facility] after syncopal event. Patient states that she has been feeling dizzy and lightheaded over the past couple days. In the dialysis unit today she was noted to have low blood pressure 90s over 60s, per report, she passed out at dialysis when she woke up here in the hospital. Patient denies fever, chills, nausea, vomiting, she states has been feeling constipated however denies any diarrhea. She does have a wound on her R hip area, follows at [place] [facility], she lives at [place]. On her medication list she is supposed to be on vancomycin and meropenem with dialysis sessions. Patient is not the best historian to provide information regarding her wound if has been an infection or while she is on these antibiotics. Patient afebrile here, however blood pressure is borderline with episodes of hypotension with transient response to gentle IV boluses of fluids given in the ER, found to haveleukocytosis 24.2. Hemoglobin stable, sodium 129, anion gap of 18, bicarb 20.8 and creatinine 4.04, BUN 52. After discussion with ER staff, recommended to obtain CT abdomen and pelvis to rule out intra-abdominal infection process, lactate, broad-spectrum antibiotics, blood cultures. If patient does not respond to IV fluids in the ER, plan to start pressors with Levophed and admit to ICU. Review of Systems Review of Systems Review of systems: 10 systems are reviewed and are negative except as mentioned elsewhere in the documentation [facility] Medical History Diabetes Problem List clean-up per request of Phys. EHR Cmte Nocturnal hypoxemia Problem List clean-up per request of Phys. EHR Cmte Iron deficiency anemia Problem List clean-up per request of Phys. EHR Cmte CHF (congestive heart failure) Problem List clean-up per request of Phys. EHR Cmte Afib Problem List clean-up per request of Phys. EHR Cmte UTI (urinary tract infection) Problem List clean-up per request of Phys. EHR Cmte Colon polyp Problem List clean-up per request of Phys. EHR Cmte HLD (hyperlipidemia) Problem List clean-up per request of Phys. EHR Cmte CKD (chronic kidney disease) Stage 4 Problem List clean-up per request of Phys. EHR Cmte Renal cell carcinoma Problem List clean-up per request of Phys. EHR Cmte Social History Smoking Status: Never smoker Substance Use Type: None Meds Medications and Allergies Allergies No Known Allergies Allergy (Verified 02/10/21 22:57) Home Medications acetaminophen 650 mg tablet 650 mg PO Q6H PRN Pain 02/10/21 [History Confirmed 02/15/24] allopurinol 100 mg tablet 100 mg PO HS 02/10/21 [History Confirmed 02/15/24] atorvastatin 20 mg tablet 20 mg PO QHS 02/10/21 [History Confirmed 02/15/24] brimonidine 0.2 % eye drops 1 drp ophthalmic (eye) Q8HR 02/15/24 [History Confirmed 02/15/24] calcitriol 0.25 mcg capsule 0.25 mcg PO DAILY 02/15/24 [History Confirmed 02/15/24] docusate sodium 100 mg capsule 100 mg PO BID 02/15/24 [History Confirmed 02/15/24] ferrous sulfate 325 mg (65 mg iron) tablet (FeroSul) 325 mg PO DAILY 02/15/24 [History Confirmed 02/15/24] furosemide 40 mg tablet (Lasix) 40 mg PO BID 02/15/24 [History Confirmed 02/15/24] hydralazine 25 mg tablet 25 mg PO TID 02/15/24 [History Confirmed 02/15/24] hydrocodone 5 mg-acetaminophen 325 mg tablet 1 tab PO Q6HR PRN pain 02/15/24 [History Confirmed 02/15/24] insulin NPH isoph U-100 human 100 unit/mL (3 mL) subcutaneous pen (Humulin N NPHU-100 Insulin KwikPen) 30 unit subcut BID 02/15/24 [History Confirmed 02/15/24] labetalol 100 mg tablet 200 mg PO BID 02/15/24 [History Confirmed 02/15/24] lidocaine 3 % topical cream 1 applic topical BID PRN pain 02/15/24 [History Confirmed 02/15/24] lidocaine 4 % topical patch (Aspercreme (lidocaine)) 1 patch topical DAILY PRN pain 02/15/24 [History Confirmed 02/15/24] meropenem 500 mg/50 mL in 0.9% sodium chloride intravenous piggyback 500 mg IV 3XW 02/15/24 [History Confirmed 02/15/24] polyethylene glycol 3350 17 gram/dose oral powder (Laxative PEG 3350) 17 g PO DAILY PRN constipation 02/15/24 [History Confirmed 02/15/24] quetiapine 25 mg tablet (Seroquel) 25 mg PO QAM 02/15/24 [History Confirmed 02/15/24] quetiapine 50 mg tablet (Seroquel) 50 mg PO QHS 02/15/24 [History Confirmed 02/15/24] vancomycin 1 gram/250 mL in 0.9 % sodium chloride intravenous 1 g IV 3XW 02/15/24 [History Confirmed 02/15/24] warfarin 2.5 mg tablet 2.5 mg PO QHS 02/15/24 [History Confirmed 02/15/24] Exam Physical Exam Vital Signs: Temp Pulse Resp BP Pulse Ox O2 Del Method 97.8 F 56 L 16 92/37 L 93 L Room Air 02/15/24 13:53 02/15/24 17:00 02/15/24 17:00 02/15/24 17:00 02/15/24 17:00 02/15/24 17:00 Narrative: Const General: cooperative, ill appearing HEENT Normal oropharyngeal mucosa without any ulcers or exudates Eyes: Conjunctiva normal Pulmonary Auscultation: clear to auscultation , no crackles, no wheezes Patient has HD access on left chest area. Cardiovascular Rate: bradycardic Rhythm: irregular rhythm Heart Sounds: S1 normal, S2 normal and no murmurs GI Inspection: non-distended Palpation: soft, slightly tender in lower abdomen No rigidity or rebound. Deferred Neuro General: alert, awake and oriented x3. Ill appearing. No obvious new focal deficit Extrem General: no cyanosis, trace nonpitting pedal edema On her R hip area, she has ulcerated wound about 5x5 cm with surrounding erythema and redness, eschar in the center, tender to touch around her hip area.No discharge noted. Psych Appearance: appropriate affect. Grossly normal. Ill appearing Results - Hospitalist H&P Lab Results Labs: Laboratory Last Values Corrected WBC 24.2 X10E3/uL (3.8-11.6) H 02/15/24 15:19 Uncorrected WBC Count 24.2 x10E3/uL (3.8-11.6) H 02/15/24 15:19 RBC 3.79 X10E6/uL (3.60-5.00) 02/15/24 15:19 Hgb 10.0 g/dL (11.8-15.4) L 02/15/24 15:19 Hct 32.2 % (34.0-46.4) L 02/15/24 15:19 MCV 85.0 fl (80-100) 02/15/24 15:19 MCH 26.4 pg (24.7-34.3) 02/15/24 15:19 MCHC 31.1 g/dL (32.0-35.0) L 02/15/24 15:19 RDW 23.2 % (11.9-15.3) H 02/15/24 15:19 Plt Count 465 x10E3/uL (150-450) H 02/15/24 15:19 MPV 8.3 fl (6.3-10.7) 02/15/24 15:19 Neut % (Auto) N/A 02/15/24 15:19 Lymph % (Auto) N/A 02/15/24 15:19 Dale % (Auto) N/A 02/15/24 15:19 Eos % (Auto) N/A 02/15/24 15:19 Baso % (Auto) N/A 02/15/24 15:19 Nucleat RBC Rel Count N/A 02/15/24 15:19 Neut # (Auto) N/A 02/15/24 15:19 Lymph # (Auto) N/A 02/15/24 15:19 Dale # (Auto) N/A 02/15/24 15:19 Eos # (Auto) N/A 02/15/24 15:19 Baso # (Auto) N/A 02/15/24 15:19 Band Neutrophils % 3 % (0-5) 02/15/24 15:19 Lymphocytes % 6 % (18-42) L 02/15/24 15:19 Monocytes % 6 % (2-11) 02/15/24 15:19 Metamyelocytes % 1 % (0-0) H 02/15/24 15:19 Myelocytes % 1 % (0-0) H 02/15/24 15:19 Promyelocytes % 1 % (0-0) H 02/15/24 15:19 Segmented Neutrophils 83 % (50-70) H 02/15/24 15:19 Monocyte Dist Width 25.57 % (0.00-20.00) H 02/15/24 15:19 Platelet Estimate Increased (Normal) 02/15/24 15:19 Giant Platelets 1 /100 WBC 02/15/24 15:19 Plt Morphology Comment Normal (Normal) 02/15/24 15:19 RBC Morphology N/A 02/15/24 15:19 Polychromasia Marked 02/15/24 15:19 Poikilocytosis Slight 02/15/24 15:19 Anisocytosis Marked 02/15/24 15:19 Tear Drop Cells Slight 02/15/24 15:19 Ovalocytes Slight 02/15/24 15:19 PHA Creatinine Clear 11.60 02/15/24 15:19 Sodium 129 mmol/L (136-145) L 02/15/24 15:19 Potassium 4.9 mmol/L (3.5-5.1) 02/15/24 15:19 Chloride 95 mmol/L (98-107) L 02/15/24 15:19 Carbon Dioxide 20.8 mmol/L (21.0-31.0) L 02/15/24 15:19 Anion Gap 18.1 mEq/L (6.0-15.0) H 02/15/24 15:19 BUN 52 mg/dL (7-25) H 02/15/24 15:19 Creatinine 4.04 mg/dL (0.60-1.20) H 02/15/24 15:19 Est GFR (CKD-EPI) 10.662 mL/Min 02/15/24 15:19 Glucose 211 mg/dL (70-100) H 02/15/24 15:19 POC Glucose 254 mg/dl 02/15/24 13:56 POC Glucose Comment Glu2: cleaned meter 02/15/24 13:56 Calcium 8.9 mg/dL (8.6-10.3) 02/15/24 15:19 Magnesium 2.1 mg/dL (1.9-2.7) 02/15/24 15:19 Total Bilirubin 0.6 mg/dl (0.3-1.0) 02/15/24 15:19 AST 40 U/L (13-39) H 02/15/24 15:19 ALT 28 U/L (7-52) 02/15/24 15:19 Alkaline Phosphatase 151 U/L (34-104) H 02/15/24 15:19 Troponin I High Sens 21.4 pg/mL (0.0-15.0) H 02/15/24 15:19 B-Natriuretic Peptide 525.0 pg/mL (5-100) H 02/15/24 15:19 Total Protein 6.3 gm/dL (6.4-8.9) L 02/15/24 15:19 Albumin 2.8 gm/dL (3.5-5.7) L 02/15/24 15:19 Globulin 3.5 gm/dL 02/15/24 15:19 Albumin/Globulin Ratio 0.8 02/15/24 15:19 Assessment & Plan Assessment/Plan (1) Syncope: (2) Hypotension: (3) Leukocytosis: Plan Syncope and collapse in the setting of hypotension events Leukocytosis Concern for underlying sepsis due to infectious process Hypotension present on admission Possible soft tissue infection, has wound in R hip region with eschar unknown chronicity ESRD on HD -Afebrile here, has leukocytosis, hypotensive on arrival here 70s/30s, -lactate 1.5 -CT AP w contrast pending to look for source of infection, she has wound on R hip ulcerated but no discharge, areas of erythema noted. -Broad spectrum antibiotics -Blood cultures -Cardiac monitoring -Nephrology consult -ID consult -Pulm consult for CC management -Hold BP meds and diuretics -Patient given IV fluids in ER, if does not respond to these fluids, plan to start pressors with Levophed and admit to ICU Hx of Afib- rate controlled -On Coumadin Home medications resumed as appropriate Diet: NPO for now, restart diet once more stable DVT ppx: SCD, warfarin Code status: Full as discussed with patient. she is leaning towards DNR without intubation however waiting to discuss with her family members. Status: inpatient Discussed with patient at bedside. All questions answered. In agreement with theabove plan Virgen Young MD Internal Medicine Hospitalist Attending Physician IP vs OBS Justification Based on differential dx, clinical care plan, and risk of adverse events, if untreated, in my clinical judgement this patient requires an acute care setting as: INPATIENT because of an expectation of an over 2 midnight stay. Estimated length of stay (# of days): 3 Quality Measures SEPSIS Tissue perfusion reassessment (select if applicable): Tissue perfusion reassessed after bolus given FOCUSED EXAM Capillary refill: Capillary refill < 3 seconds Peripheral pulses: Pulses present bilaterally Skin color/condition: Skin normal for ethnicity Documented By: Virgen Vivar MD 02/15/24 17 49 Signed By: <Electronically signed by Virgen Vivar MD> 02/15/24 1842 [facility] Work Phone: 1(754) 103-590807-22-2024 History and physical note Author Virgen Vivar [facility] February 15, 2024 6:42pm Note Date/Time February 15, 2024 5:51 pm [facility] [address] [place] [address] Hospitalist H&P Signed Patient: Rosa Winter MR#: [id number] : 1945 Acct:[id number] Age/Sex: 78 / F Adm Date: 4 Loc: ER Room: Type: [facility] ER Attending Dr: Copies to: ELEAZAR Sher DO Obaydah M Daromar, MD~ HPI DATE OF EXAMINATION: 02/15/24 CHIEF COMPLAINT: Syncope HISTORY OF PRESENT ILLNESS: Patient is an 78-year-old female with medical history as listed below presented to the ER from [facility] after syncopal event. Patient states that she has been feeling dizzy and lightheaded over the past couple days. In the dialysis unit today she was noted to have low blood pressure 90s over 60s, per report, she passed out at dialysis when she woke up here in the hospital. Patient denies fever, chills, nausea, vomiting, she states has been feeling constipated however denies any diarrhea. She does have a wound on her R hip area, follows at [place], she lives at [place]. On her medication list she is supposed to be on vancomycin and meropenem with dialysis sessions. Patient is not the best historian to provide information regarding her wound if has been an infection or while she is on these antibiotics. Patient afebrile here, however blood pressure is borderline with episodes of hypotension with transient response to gentle IV boluses of fluids given in the ER, found to haveleukocytosis 24.2. Hemoglobin stable, sodium 129, anion gap of 18, bicarb 20.8 and creatinine 4.04, BUN 52. After discussion with ER staff, recommended to obtain CT abdomen and pelvis to rule out intra-abdominal infection process, lactate, broad-spectrum antibiotics, blood cultures. If patient does not respond to IV fluids in the ER, plan to start pressors with Levophed and admit to ICU. Review of Systems Review of Systems Review of systems: 10 systems are reviewed and are negative except as mentioned elsewhere in the documentation [facility] Medical History Diabetes Problem List clean-up per request of Phys. EHR Cmte Nocturnal hypoxemia Problem List clean-up per request of Phys. EHR Cmte Iron deficiency anemia Problem List clean-up per request of Phys. EHR Cmte CHF (congestive heart failure) Problem List clean-up per request of Phys. EHR Cmte Afib Problem List clean-up per request of Phys. EHR Cmte UTI (urinary tract infection) Problem List clean-up per request of Phys. EHR Cmte Colon polyp Problem List clean-up per request of Phys. EHR Cmte HLD (hyperlipidemia) Problem List clean-up per request of Phys. EHR Cmte CKD (chronic kidney disease) Stage 4 Problem List clean-up per request of Phys. EHR Cmte Renal cell carcinoma Problem List clean-up per request of Phys. EHR Cmte Social History Smoking Status: Never smoker Substance Use Type: None Meds Medications and Allergies Allergies No Known Allergies Allergy (Verified 02/10/21 22:57) Home Medications acetaminophen 650 mg tablet 650 mg PO Q6H PRN Pain 02/10/21 [History Confirmed 02/15/24] allopurinol 100 mg tablet 100 mg PO HS 02/10/21 [History Confirmed 02/15/24] atorvastatin 20 mg tablet 20 mg PO QHS 02/10/21 [History Confirmed 02/15/24] brimonidine 0.2 % eye drops 1 drp ophthalmic (eye) Q8HR 02/15/24 [History Confirmed 02/15/24] calcitriol 0.25 mcg capsule 0.25 mcg PO DAILY 02/15/24 [History Confirmed 02/15/24] docusate sodium 100 mg capsule 100 mg PO BID 02/15/24 [History Confirmed 02/15/24] ferrous sulfate 325 mg (65 mg iron) tablet (FeroSul) 325 mg PO DAILY 02/15/24 [History Confirmed 02/15/24] furosemide 40 mg tablet (Lasix) 40 mg PO BID 02/15/24 [History Confirmed 02/15/24] hydralazine 25 mg tablet 25 mg PO TID 02/15/24 [History Confirmed 02/15/24] hydrocodone 5 mg-acetaminophen 325 mg tablet 1 tab PO Q6HR PRN pain 02/15/24 [History Confirmed 02/15/24] insulin NPH isoph U-100 human 100 unit/mL (3 mL) subcutaneous pen (Humulin N NPHU-100 Insulin KwikPen) 30 unit subcut BID 02/15/24 [History Confirmed 02/15/24] labetalol 100 mg tablet 200 mg PO BID 02/15/24 [History Confirmed 02/15/24] lidocaine 3 % topical cream 1 applic topical BID PRN pain 02/15/24 [History Confirmed 02/15/24] lidocaine 4 % topical patch (Aspercreme (lidocaine)) 1 patch topical DAILY PRN pain 02/15/24 [History Confirmed 02/15/24] meropenem 500 mg/50 mL in 0.9% sodium chloride intravenous piggyback 500 mg IV 3XW 02/15/24 [History Confirmed 02/15/24] polyethylene glycol 3350 17 gram/dose oral powder (Laxative PEG 3350) 17 g PO DAILY PRN constipation 02/15/24 [History Confirmed 02/15/24] quetiapine 25 mg tablet (Seroquel) 25 mg PO QAM 02/15/24 [History Confirmed 02/15/24] quetiapine 50 mg tablet (Seroquel) 50 mg PO QHS 02/15/24 [History Confirmed 02/15/24] vancomycin 1 gram/250 mL in 0.9 % sodium chloride intravenous 1 g IV 3XW 02/15/24 [History Confirmed 02/15/24] warfarin 2.5 mg tablet 2.5 mg PO QHS 02/15/24 [History Confirmed 02/15/24] Exam Physical Exam Vital Signs: Temp Pulse Resp BP Pulse Ox O2 Del Method 97.8 F 56 L 16 92/37 L 93 L Room Air 02/15/24 13:53 02/15/24 17:00 02/15/24 17:00 02/15/24 17:00 02/15/24 17:00 02/15/24 17:00 Narrative: Const General: cooperative, ill appearing HEENT Normal oropharyngeal mucosa without any ulcers or exudates Eyes: Conjunctiva normal Pulmonary Auscultation: clear to auscultation , no crackles, no wheezes Patient has HD access on left chest area. Cardiovascular Rate: bradycardic Rhythm: irregular rhythm Heart Sounds: S1 normal, S2 normal and no murmurs GI Inspection: non-distended Palpation: soft, slightly tender in lower abdomen No rigidity or rebound. Deferred Neuro General: alert, awake and oriented x3. Ill appearing. No obvious new focal deficit Extrem General: no cyanosis, trace nonpitting pedal edema On her R hip area, she has ulcerated wound about 5x5 cm with surrounding erythema and redness, eschar in the center, tender to touch around her hip area.No discharge noted. Psych Appearance: appropriate affect. Grossly normal. Ill appearing Results - Hospitalist H&P Lab Results Labs: Laboratory Last Values Corrected WBC 24.2 X10E3/uL (3.8-11.6) H 02/15/24 15:19 Uncorrected WBC Count 24.2 x10E3/uL (3.8-11.6) H 02/15/24 15:19 RBC 3.79 X10E6/uL (3.60-5.00) 02/15/24 15:19 Hgb 10.0 g/dL (11.8-15.4) L 02/15/24 15:19 Hct 32.2 % (34.0-46.4) L 02/15/24 15:19 MCV 85.0 fl (80-100) 02/15/24 15:19 MCH 26.4 pg (24.7-34.3) 02/15/24 15:19 MCHC 31.1 g/dL (32.0-35.0) L 02/15/24 15:19 RDW 23.2 % (11.9-15.3) H 02/15/24 15:19 Plt Count 465 x10E3/uL (150-450) H 02/15/24 15:19 MPV 8.3 fl (6.3-10.7) 02/15/24 15:19 Neut % (Auto) N/A 02/15/24 15:19 Lymph % (Auto) N/A 02/15/24 15:19 Dale % (Auto) N/A 02/15/24 15:19 Eos % (Auto) N/A 02/15/24 15:19 Baso % (Auto) N/A 02/15/24 15:19 Nucleat RBC Rel Count N/A 02/15/24 15:19 Neut # (Auto) N/A 02/15/24 15:19 Lymph # (Auto) N/A 02/15/24 15:19 Dale # (Auto) N/A 02/15/24 15:19 Eos # (Auto) N/A 02/15/24 15:19 Baso # (Auto) N/A 02/15/24 15:19 Band Neutrophils % 3 % (0-5) 02/15/24 15:19 Lymphocytes % 6 % (18-42) L 02/15/24 15:19 Monocytes % 6 % (2-11) 02/15/24 15:19 Metamyelocytes % 1 % (0-0) H 02/15/24 15:19 Myelocytes % 1 % (0-0) H 02/15/24 15:19 Promyelocytes % 1 % (0-0) H 02/15/24 15:19 Segmented Neutrophils 83 % (50-70) H 02/15/24 15:19 Monocyte Dist Width 25.57 % (0.00-20.00) H 02/15/24 15:19 Platelet Estimate Increased (Normal) 02/15/24 15:19 Giant Platelets 1 /100 WBC 02/15/24 15:19 Plt Morphology Comment Normal (Normal) 02/15/24 15:19 RBC Morphology N/A 02/15/24 15:19 Polychromasia Marked 02/15/24 15:19 Poikilocytosis Slight 02/15/24 15:19 Anisocytosis Marked 02/15/24 15:19 Tear Drop Cells Slight 02/15/24 15:19 Ovalocytes Slight 02/15/24 15:19 PHA Creatinine Clear 11.60 02/15/24 15:19 Sodium 129 mmol/L (136-145) L 02/15/24 15:19 Potassium 4.9 mmol/L (3.5-5.1) 02/15/24 15:19 Chloride 95 mmol/L (98-107) L 02/15/24 15:19 Carbon Dioxide 20.8 mmol/L (21.0-31.0) L 02/15/24 15:19 Anion Gap 18.1 mEq/L (6.0-15.0) H 02/15/24 15:19 BUN 52 mg/dL (7-25) H 02/15/24 15:19 Creatinine 4.04 mg/dL (0.60-1.20) H 02/15/24 15:19 Est GFR (CKD-EPI) 10.662 mL/Min 02/15/24 15:19 Glucose 211 mg/dL (70-100) H 02/15/24 15:19 POC Glucose 254 mg/dl 02/15/24 13:56 POC Glucose Comment Glu2: cleaned meter 02/15/24 13:56 Calcium 8.9 mg/dL (8.6-10.3) 02/15/24 15:19 Magnesium 2.1 mg/dL (1.9-2.7) 02/15/24 15:19 Total Bilirubin 0.6 mg/dl (0.3-1.0) 02/15/24 15:19 AST 40 U/L (13-39) H 02/15/24 15:19 ALT 28 U/L (7-52) 02/15/24 15:19 Alkaline Phosphatase 151 U/L (34-104) H 02/15/24 15:19 Troponin I High Sens 21.4 pg/mL (0.0-15.0) H 02/15/24 15:19 B-Natriuretic Peptide 525.0 pg/mL (5-100) H 02/15/24 15:19 Total Protein 6.3 gm/dL (6.4-8.9) L 02/15/24 15:19 Albumin 2.8 gm/dL (3.5-5.7) L 02/15/24 15:19 Globulin 3.5 gm/dL 02/15/24 15:19 Albumin/Globulin Ratio 0.8 02/15/24 15:19 Assessment & Plan Assessment/Plan (1) Syncope: (2) Hypotension: (3) Leukocytosis: Plan Syncope and collapse in the setting of hypotension events Leukocytosis Concern for underlying sepsis due to infectious process Hypotension present on admission Possible soft tissue infection, has wound in R hip region with eschar unknown chronicity ESRD on HD -Afebrile here, has leukocytosis, hypotensive on arrival here 70s/30s, -lactate 1.5 -CT AP w contrast pending to look for source of infection, she has wound on R hip ulcerated but no discharge, areas of erythema noted. -Broad spectrum antibiotics -Blood cultures -Cardiac monitoring -Nephrology consult -ID consult -Pulm consult for CC management -Hold BP meds and diuretics -Patient given IV fluids in ER, if does not respond to these fluids, plan to start pressors with Levophed and admit to ICU Hx of Afib- rate controlled -On Coumadin Home medications resumed as appropriate Diet: NPO for now, restart diet once more stable DVT ppx: SCD, warfarin Code status: Full as discussed with patient. she is leaning towards DNR without intubation however waiting to discuss with her family members. Status: inpatient Discussed with patient at bedside. All questions answered. In agreement with theabove plan Virgen Young MD Internal Medicine Hospitalist Attending Physician IP vs OBS Justification Based on differential dx, clinical care plan, and risk of adverse events, if untreated, in my clinical judgement this patient requires an acute care setting as: INPATIENT because of an expectation of an over 2 midnight stay. Estimated length of stay (# of days): 3 Quality Measures SEPSIS Tissue perfusion reassessment (select if applicable): Tissue perfusion reassessed after bolus given FOCUSED EXAM Capillary refill: Capillary refill < 3 seconds Peripheral pulses: Pulses present bilaterally Skin color/condition: Skin normal for ethnicity Documented By: Virgen Vivar MD 02/15/24 17 49 Signed By: <Electronically signed by Virgen Vivar MD> 02/15/[address] [facility] Work Phone: 1(333) 150-874403-22-2024 History of Present illness Narrative* Cayetano Mancilla RPH - 10/16/2023 2:15 PM EDT 15 minute bpeu-uq-[id number] follow-up anticoagulation appointment. INR performed in office per protocol. INR 2.2 (goal range: 2.0-3.0). Patient reports: Taking warfarin dosing as documented. Missed or extra doses of warfarin: No Changes to medications: No Changes to lifestyle (diet / alcohol / smoking / activity): No , pt has continued with meal replacements 3-4x/week Recent emergency department visit / hospitalization / health changes / new contraindication to current anticoagulant: No Signs/symptoms of bruising/bleeding or clotting or any intolerable adverse events: No Upcoming procedures: No Anticoagulant prescription needed: No Seen referring provider in the last year Duration of therapy reviewed Assessment: INR therapeutic today on current warfarin regimen. Plan: Patient instructed to continue warfarin dose of 1.25 mg Mon/Fri and 2.5 mg AOD. Check INR in 3 week(s). Patient verbalizes understanding of anticoagulant dosing instructions and information discussed. Dosing regimen, counseling, and follow-up appointment were provided to the patient. Patient reminded to call with questions or any medication changes. Patient instructed to seek medical attention if anymajor bleeding/bleeding that persists or worsens. Cayetano Mancilla RPH 10/16/23 1438 [facility] MedPageToday [id number] History of Present illness Narrative* Annabelle Archer DO - 10/14/2023 2:30 PM EDT IM PROGRESS NOTE Patient - Rosa Winter Age - 78 y.o. - 1945 [facility] # - [id number] ASSESSMENT & PLAN 1. Type 2 diabetes mell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, with long-term current use of insulin ([facility]) -home readings are unknown -repeat A1c today to assess efficacy of current treatment -current treatment is Novolin N 30 units twice daily -as her kidney disease progresses and starts dialysis, she may require less insulin -patient to start checking fasting glucose at least 3 times weekly for us to better monitor -process started to obtain a CGM. Paperwork completed for [employer]. - Lipid profile; Future - Comprehensive metabolic panel; Future - Hemoglobin A1c; Future 2. Chronic renal disease, stage V ([facility]) -now has fistula in her right arm -continue renal protective strategies -keep follow-up with Nephrology 3. Renal cell carcinoma of left kidney ([facility]) -currently stable -continue to monitor in conjunction with Urology 4. Chronic diastolic CHF (congestive heart failure) ([facility]) -currently stable -GDM T includes labetalol 400 mg b.i.d., Farxiga 5 mg daily, furosemide 40 mg b.i.d. 5. Atrial fibrillation -rate is controlled -on warfarin for thromboembolism prophylaxis -managed by [facility] clinic 6. Body mass index 50.0-59.9, adult ([facility]) -reviewed the role of her weight in her current medical diseases -patient limited in what she can do to address this problem at the current time -continue to monitor 7. Hypertensive renal disease -unchanged from previous -refill hydralazine - hydrALAZINE (APRESOLINE) 25 mg tablet; Take 1 tablet (25 mg total) by mouth 3 (three) times a day. Dispense: 270 tablet; Refill: 0 Subjective DIABETIC VISIT This is a follow up of a pre-existing problem. Patient self monitoring includes Not checking BG at home. Patient experiences hypoglycemia None. Patient symptoms of hyperglycemia include: none. Current prescribed diet is consistent carbohydrate. Patient is not following the prescribed diet plan. Does limit portion sizes Home activity includes: The patient does not participate in regular exercise at present.. Patient does not experience numbness or burning in their hands or feet. Patient does not have vision changes. Last eye exam was: 2022 Patient BP monitoring is done sporadically, and can't recall values. Patient reports: taking medications as instructed, no medication side effects noted, no chest pain on exertion, no dyspnea on exertion, noting swelling of ankles, no orthostatic dizziness or lightheadedness, no palpitations, and no intermittent claudication symptoms Issues affecting compliance with diabetic self management include: Not checking glucose readings athome due to cost. Also, recently had fistula created in her right arm. Anticipating dialysis over the next year. A review of systems was negative except for the following: General: weight gain ENT: hearing change and nasal congestion Musculoskeletal: gait disturbance, joint pain, joint stiffness, and is only able to stand or walk for a few minutes before having to rest because of joint pain. Exam BP 130/62 (BP Site: Left Arm, BP Postition: Sitting) Pulse 50 Temp 36.3 C (97.4 F) (Oral) Resp 18 Ht 154.9 cm (5' 1 ) Wt 115.3 kg (254 lb 3.2 oz) SpO2 97% BMI 48.03 kg/m Physical Exam Vitals reviewed. Constitutional: General: She is not in acute distress. Appearance: She is obese. She is not toxic-appearing. HENT: Head: Normocephalic. Right Ear: External ear normal. Left Ear: External ear normal. Nose: Nose normal. Mouth/Throat: Mouth: Mucous membranes are moist. Eyes: General: No scleral icterus. Neck: Comments: Decreased range of motion in right and left rotation Cardiovascular: Rate and Rhythm: Normal rate. Rhythm irregular. Heart sounds: No murmur heard. No gallop. Comments: Tones are distant. Fistula in right antecubital space with palpable thrill. Pulmonary: Breath sounds: No wheezing or rales. Abdominal: Palpations: Abdomen is soft. Musculoskeletal: General: Tenderness (Bilateral knees with palpation) present. Comments: Chronic bilateral lymphedema from feet to below the knees Skin: General: Skin is warm and dry. Coloration: Skin is not jaundiced. Findings: No bruising. Neurological: Mental Status: She is alert and oriented to person, place, and time. Motor: No weakness. Coordination: Coordination normal. Psychiatric: Mood and Affect: Mood normal. Behavior: Behavior normal. Left: Pulses Posterior Tibial: diminished Vibratory sensation normal Filament test variable Right: Pulses Posterior Tibial: diminished Vibratory sensation normal Filament test variable Meds Current Outpatient Medications: allopurinoL (ZYLOPRIM) 100 mg tablet, TAKE 2 TABLETS EVERY MORNING, Disp: 180 tablet, Rfl: 1 atorvastatin (LIPITOR) 20 mg tablet, Take 1 tablet by mouth once daily, Disp: 90 tablet, Rfl: 0 calcitrioL (ROCALTROL) 0.25 MCG capsule, TAKE 1 CAPSULE EVERY MORNING, Disp: 90 capsule, Rfl: 1 FARXIGA 5 mg tablet, Take 1 tablet (5 mg total) by mouth daily., Disp: , Rfl: furosemide (LASIX) 40 mg tablet, TAKE 1 TABLET TWICE A DAY (Patient taking differently: Take 1 tablet (40 mg total) by mouth 2 (two) times a day before meals.), Disp: 180 tablet, Rfl: 1 insulin NPH (HumuLIN N,NovoLIN N) 100 unit/mL injection, Inject 0.3 mL (30 Units total) under the skin in the morning and 0.3 mL (30 Units total) in the evening. Inject before meals., Disp: 30 mL, Rfl: 1 JANTOVEN 2.5 mg tablet, TAKE 1 TO 2 TABLETS IN THE EVENING. TAKE DAILY DIRECTED BY INTERNATIONALNORMALIZED RATIO TESTING, Disp: 180 tablet, Rfl: 1 labetaloL (NORMODYNE) 200 mg tablet, Take 2 tablets (400 mg total) by mouth in the morning and 2 tablets (400 mg total) before bedtime., Disp: 360 tablet, Rfl: 0 lidocaine (SALONPAS) 4 %, Place 1 patch on the skin daily., Disp: 30 patch, Rfl: 0 hydrALAZINE (APRESOLINE) 25 mg tablet, Take 1 tablet (25 mg total) by mouth 3 (three) times a day.,Disp: 270 tablet, Rfl: 0 zxwohfep-ymexuclko-trrZIARZrumep (MAXITROL) 3.5mg/mL-10,000 unit/mL-0.1 % ophthalmic suspension, INSTILL 1 DROP INTO EACH EYE ONCE DAILY (Patient not taking: Reported on 10/14/2023), Disp: , Rfl: vitamin D3-folic acid 125 mcg (5,000 unit)-1 mg tablet, Take 125 mcg by mouth daily. (Patient not taking: Reported on 10/14/2023), Disp: , Rfl: Lab Results Follow Up Anticoagulation on 10/01/2023 Component Date Value Ref Range Status INR 10/01/2023 1.5 (A) 0.8 - 1.2 Final Follow Up Anticoagulation on 09/17/2023 Component Date Value Ref Range Status INR 09/17/2023 1.5 (A) 0.8 - 1.2 Final Other Testing No results found. Annabelle Archer DO., [facility] Physicians Office: [phone] documented in [facility] encounter[facility] History of Present illness Narrative* Julia Mcnair, [facility] - 10/01/2023 2:15 PM EST 15 minute djog-ib-[id number] follow-up anticoagulation appointment. INR performed in office per protocol. INR 1.5 (goal range: 2.0-3.0). Patient reports: Taking warfarin dosing as documented. Missed or extra doses of warfarin: No Changes to medications: No Changes to lifestyle (diet / alcohol / smoking / activity): No Recent emergency department visit / hospitalization / health changes / new contraindication to current anticoagulant: No Signs/symptoms of bruising/bleeding or clotting or any intolerable adverse events: No Upcoming procedures: No Anticoagulant prescription needed: No Seen referring provider in the last year Duration of therapy reviewed Assessment: INR remains subtherapeutic. We will boost 3/8 to 2.5 mg, then increase weekly dose 9% Plan: Patient instructed to increase to warfarin 2.5 mg 3/8, then increase weekly dose to 1.25 mg Mon/Fri and 2.5 mg AOD. Check INR in 2 week(s). Patient verbalizes understanding of anticoagulant dosing instructions and information discussed. Dosing regimen, counseling, and follow-up appointment were provided to the patient. Patient reminded to call with questions or any medication changes. Patient instructed to seek medical attention if anymajor bleeding/bleeding that persists or worsens. Julia Mcnair [facility] 10/01/23 1623 documented in this encounterOhio [facility] Hospital02-22-2024 History of Present illness Narrative* Julia Mcnair, [facility] - 09/17/2023 1:00 PM EST 15 minute dsgc-[id number] follow-up anticoagulation appointment. INR performed in office per protocol. INR 1.5 (goal range: 2.0-3.0). Patient reports: Taking warfarin dosing as documented. Missed or extra doses of warfarin: No Changes to medications: No Changes to lifestyle (diet / alcohol / smoking / activity): No Recent emergency department visit / hospitalization / health changes / new contraindication to current anticoagulant: YES Numbness in right arm from surgery location. Patient has notified provider of this and will let them know if it worsens. F/U scheduled in 3 weeks Signs/symptoms of bruising/bleeding or clotting or any intolerable adverse events: YES Bruise on left hand Upcoming procedures: No Anticoagulant prescription needed: No Seen referring provider in the last year Duration of therapy reviewed Assessment: INR remains subtherapeutic. Anticipate this may be due to increase in meal replacement from every 3-4 days to ~3x per week. We will boost x1, then increase weekly dose by 10%. Plan: Patient instructed to increase to warfarin 2.5 mg 09/18, then increase weekly dose to 1.25 mg MWF and 2.5 mg AOD. Check INR in 2 week(s). Patient verbalizes understanding of anticoagulant dosing instructions and information discussed. Dosing regimen, counseling, and follow-up appointment were provided to the patient. Patient reminded to call with questions or any medication changes. Patient instructed to seek medical attention if anymajor bleeding/bleeding that persists or worsens. Julia Mcnair [facility] 09/17/23 1312 documented in this encounterOhio State [facility] Hospital01-17-2024 History of Present illness Narrative* Cayetano Mancilla, [facility] - 08/12/2023 2:00 PM EST 15 minute fzvk-zt-[id number] follow-up anticoagulation appointment. INR performed in office per protocol. INR 1.7 (goal range: 2.0-3.0). Patient reports: Taking warfarin dosing as documented. Missed or extra doses of warfarin: No Changes to medications: No Changes to lifestyle (diet / alcohol / smoking / activity): yes, appetite is down some. Pt does have meal replacement shakes, and usage sounds inconsistent Recent emergency department visit / hospitalization / health changes / new contraindication to current anticoagulant: No Signs/symptoms of bruising/bleeding or clotting or any intolerable adverse events: No Upcoming procedures: Yes, Beginning of August fistula procedure - Pt reports need to hold prior, we will confirm clearance Anticoagulant prescription needed: No Seen referring provider in the last year Duration of therapy reviewed Assessment: INR subtherapuetic today at 1.7. Pt already took dose today, so boosting pt tomorrow Aug 13 at 3.75mg (1.5 tabs). Pt has a fistula procedure in early August that she has to hold for, but pt is not able to recall doctor name, exactly where or date when Plan: Patient instructed to increase to warfarin tomorrow Aug 13 to 3.75mg (1.5 tabs), then result current maintenance dose of 2.5mg Sun, Tue, Thur, and 1.25mg all other days. Check INR in 2 week(s). *Pt instructed to find procedure info at home and to call us with exact date, location, and Dr's name of the procedure so that we can obtain proper clearance to hold Patient verbalizes understanding of anticoagulant dosing instructions and information discussed. Dosing regimen, counseling, and follow-up appointment were provided to the patient. Patient reminded to call with questions or any medication changes. Patient instructed to seek medical attention if anymajor bleeding/bleeding that persists or worsens. Cayetano Mancilla RPH 08/12/23 1426 * Julia Mcnair, [facility] - 08/12/2023 2:[address] Roberts note on 08/04/23, appears fistula to be placed 09/03/23. Patient reports she was instructedto hold warfarin x5 days prior. CHADsVASc= 6 (age, female, CHF, HTN, DM). Dx. Afib. Will route chart to PCP whom is referring provider to inquire about clearance to hold warfarin and bridging preference. Julia Mcnair RPH 08/12/23 1603 documented in this encounterOhio State East Hospital12-27-2023 History of Present illness Narrative* Lindsey Gill PharmD - 07/22/2023 2:00 PM EST 15 minute rixt-pp-zeec follow-up anticoagulation appointment. INR performed in office per protocol. INR 2.3 (goal range: 2.0-3.0). Patient reports: Taking warfarin dosing as documented. Missed or extra doses of warfarin: No Changes to medications: No Changes to lifestyle (diet / alcohol / smoking / activity): No Recent emergency department visit / hospitalization / health changes / new contraindication to current anticoagulant: No Signs/symptoms of bruising/bleeding or clotting or any intolerable adverse events: No Upcoming procedures: No Anticoagulant prescription needed: No Seen referring provider in the last year Duration of therapy reviewed Assessment: INR in therapeutic range following dose reduction. Will continue with current regimen and extend follow-up slightly. Plan: Patient instructed to continue warfarin 2.5 mg Blanca Virgen, Sindy; 1.25 mg all other days. Check INR in 3 week(s). Patient verbalizes understanding of anticoagulant dosing instructions and information discussed. Dosing regimen, counseling, and follow-up appointment were provided to the patient. Patient reminded to call with questions or any medication changes. Patient instructed to seek medical attention if anymajor bleeding/bleeding that persists or worsens. Lindsey Gill PharmD 07/22/23 1413 documented in this encounterOhio State East HospitalEvaluation note* Diagnosis Atrial fibrillation ([facility] Primary [facility] Diagnosis Atrial fibrillation ([facility] Primary [facility] encounter [facility]* Diagnosis Hyperlipidemia, unspecified hyperlipidemia type Chronic kidney disease, stage 4 (severe) (CMS-HCC) [facility]* Diagnosis Type 2 diabetes mell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, with long-term current use of insulin ([facility] Primary Chronic renal disease, stage V ([facility]) Renal cell carcinoma of left kidney ([facility]) Chronic diastolic CHF (congestive heart failure) ([facility]) Atrial fibrillation ([facility]) Body mass index 50.0-59.9, adult ([facility]) Body Mass Index 50.0-59.9, adult Hypertensive renal disease Unspecified hypertensive kidney disease with chronic kidney disease stage I through stage IV, or unspecified [facility]* Diagnosis Atrial fibrillation ([facility] Primary [facility]* Diagnosis Hyperuricemia Other abnormal blood chemistry Chronic kidney disease, stage 4 (severe) ([facility]) Atrial fibrillation ([facility]) documented [facility]* Diagnosis Onset Date Resolution Status Hypotension acute Leukocytosis acute Syncope acute [facility] Work Phone: Evaluation note* Diagnosis Onset Date Resolution Status Afib acute Anemia of renal disease acut e Calciphylaxis acute Counseling regarding advance directives and goals of care acute Diabetes acute ESRD (end stage renal disease) acute Hypotension acute Leukocytosis acute Multiple wounds of skin acut e Septic shock acute Syncope acute Type 2 diabetes mellitus wit h diabetic chronic kidney disease acute Unstageable pressure ulcer of left hip acute Unstageable pressure ulcer of right hip acute Unstageable pressure ulcer of sacral region [facility] Work Phone: InstructionsNot on filedocumented in this encounter [facility] filedocumented in this encounter [facility] System[facility]ructionsNot on filedocumented in this encounter [facility]ructionsNot on filedocumented in this encounter [facility] System[facility]ructionsNot on filedocumented in this encounter [facility]ructionsNot on filedocumented in this encounter [facility] Summary Purpose Family History No Family History Records FoundNo Family History Records FoundNo Family History Records FoundNo Family History Records FoundNo Family History Records FoundNo Family History Records Found Advance Directives No Advanced Directives Records FoundLatest Code Status on File Code Status Date Activated Date Inactivated Comments Full Code 05/17/2023 11:55 PM 05/18/2023 9:35 PM Code Status History Code Status Date Activated Date Inactivated Comments Full Code 01/23/2018 10:56 AM 01/29/2018 12:05 AM Advance Directive Response Recorded Date/ Time Advance Directives No February 10 10:15pm Chief Complaint and Reason for Visit Chief Complaint Weakness Reason for Visit Hypotension Leukocytosis Syncope Chief Complaint Weakness Weakness Weakness Weakness Weakness Reason for Visit Afib Anemia of renal disease Calciphylaxis Counseling regarding advance directives and goals of care Diabetes ESRD (end stage renal disease) Hypotension Leukocytosis Multiple wounds of skin Septic shock Syncope Type 2 diabetes mellitus with diabetic chronic kidney disease Unstageable pressure ulcer of left hip Unstageable pressure ulcer of right hip Unstageable pressure ulcer of sacral region Additional Source Comments INFORMATION SOURCE (unrecogn ized section and content) DATE CREATED AUTHOR 02/11/2018 [facility] DATE CREATED AUTHOR AUTHOR'S ORGANIZ ATION 06/19/2021 [facility] DATE CREATED AUTHOR AUTHOR'S ORGANIZ ATION [facility]20[facility] DATE CREATED AUTHOR AUTHOR'S ORGANIZ ATION 02/09/2024 [facility] DATE CREATED AUTHOR AUTHOR'S ORGANIZ ATION 02/16/2024 [facility] DATE CREATED AUTHOR AUTHOR'S ORGANIZ ATION 02/25/2024 [facility] Care Teams (unrecognized sec tion and content) Team Status: Active Member Role Status Dates Annabelle Archer DO Primary Care Provider Active Team Status: Inactive Member Role Status Dates Annabelle Archer DO Primary Care Provider Active Sta rt: February 15, 2024 End: February 19, 2024 Virgen Vivar MD Admit Provider, A ttending Provider Active Start: February 15, 2024 End: February 19, 2024 Mirza Coulter DO Emergency Provider Active Start: February 15, 2024 End: February 19, 2024 Carlos Novak MD Other Provider Active Start: February 15, 2024 End: February 19, 2024 Tres King MD Other Provider Active Start: February 15, 2024 End: February 19, 2024 Emelyn Bennett MD Other Provider Active Start: ly 2023 End: February 19, 2024 Teddy Valero DO Other Provider Active Start: February 15, 2024 End: February 19, 2024 Mukul Durbin MD Other Provider Active Start: February 15, 2024 End: February 19, 2024 Team Status: Active Member Role Status Dates Annabelle Archer DO Primary Care Provider Active Sta rt: February 16, 2024 Virgen Vivar MD Admit Provider, O ther Provider Active Start: February 16, 2024 Tres King MD Other Provider Active Start: February 16, 2024 Emelyn Bennett MD Other Provider Active Start: Nayeli schulte 2023 Mukul Durbin MD Attending Az ovider, Other Provider Active Start: February 16, 2024 Mirza Coulter DO Emergency Provider Active Start: February 16, 2024 Carlos Novak MD Other Provider Active Start: February 16, 2024 Teddy Valero DO Other Provider Active Start: February 16, 2024 Team Status: Active Member Role Status Dates Annabelle Archer DO Primary Care Provider Active Sta rt: February 16, 2024 Virgen Vivar MD Admit Provider, O ther Provider Active Start: February 16, 2024 Tres King MD Attending Provider, Other Provider Active Start: February 16, 2024 Emelyn Bennett MD Other Provider Active Start: eris 2023 Mukul Durbin MD Other Provider Active Start: February 16, 2024 Mirza Coulter DO Emergency Provider Active Start: February 16, 2024 Carlos Novak MD Other Provider Active Start: February 16, 2024 Team Status: Active Member Role Status Dates Annabelle Archer DO Primary Care Provider Active Sta rt: February 16, 2024 Virgen Vivar MD Admit Provider, O ther Provider Active Start: February 16, 2024 Tres King MD Other Provider Active Start: February 16, 2024 Emelyn Bennett MD Attending Provider, Other Provider Active Start: February 16, 2024 Mukul Durbin MD Other Provider Active Start: February 16, 2024 Mirza Coulter DO Emergency Provider Active Start: February 16, 2024 Carlos Novak MD Other Provider Active Start: February 16, 2024 Team Status: Active Member Role Status Dates Annabelle Archer DO Primary Care Provider Active Sta rt: February 17, 2024 Virgen Vivar MD Admit Provider, O ther Provider Active Start: February 17, 2024 Tres King MD Other Provider Active Start: February 17, 2024 Emelyn Bennett MD Other Provider Active Start: 2023 Mukul Durbin MD Other Provider Active Start: February 17, 2024 Mirza Coulter DO Emergency Provider Active Start: February 17, 2024 Carlos Novak MD Other Provider Active Start: February 17, 2024 Teddy Valero DO Attending Provider, Other Provider Active Start: February 17, 2024 Talent Specialist Relationship Specialty Start Date End Date Annabelle Archer DO [address] [place] [address] PCP - General Internal Medicine 09/22/17 Talent Specialist Relationship Specialty Start Date End Date Annabelle Archer DO [address] [place] [address] PCP - General Internal Medicine 09/22/17 Talent Specialist Relationship Specialty Start Date End Date Annabelle Archer DO [address] [place] [address] PCP - General Internal Medicine 09/22/17 Talent Specialist Relationship Specialty Start Date End Date Annabelle Archer DO [address] [place] [address] PCP - General Internal Medicine 09/22/17 Talent Specialist Relationship Specialty Start Date End Date Annabelle Archer DO [address] [place] [address] PCP - General Internal Medicine 09/22/17 Talent Specialist Relationship Specialty Start Date End Date TaniaAnnabelle diehlDO [address] [place] [address] PCP - General Internal Medicine 09/22/17 Team Status: Active Member Role Status Dates Annabelle Archer DO Primary Care Provider Active Sta rt: February 15, 2024 Virgen Vivar MD Admit Provider, A ttending Provider Active Start: February 15, 2024 Tres King MD Other Provider Active Start: February 15, 2024 Emelyn Bennett MD Other Provider Active Start: 2023 Mukul Durbin MD Other Provider Active Start: February 15, 2024 Mirza Coulter DO Emergency Provider Active Start: February 15, 2024 Reason for Visit (unrecogniz ed section and content) Reason Comments Med Refill Reason Comments Diabetes Goals (unrecognized section and content) Goals may be documented in a n alternate section FOR RECORDS PERTAINING TO PATIENTS WHO ARE OR HAVE BEEN ENROLLED IN A CHEMICAL DEPENDENCY/SUBSTANCEABUSE PROGRAM, SOME INFORMATION MAY BE OMITTED. This clinical summary was aggregated from multiple sources. Caution should be exercised in using it in the provision of clinical care. This summary normalizes information from multiple sources, and as a consequence, information in this document may materially change the coding, format and clinical context of patient data. In addition, data may be omitted in some cases. CLINICAL DECISIONS SHOULD BE BASED ON THE PRIMARY CLINICAL RECORDS. [facility]. provides no warranty or guarantee of the accuracy or completeness of information in this document.
[2024-02-29 11:20] LABS: Hematocrit 31.9 % (36.0-48.0); Hemoglobin 9.6 g/dL (12.0-16.0); Mean Corpuscular HGB Conc 30.1 g/dL (29.9-35.2); Mean Corpuscular Hemoglobin 26.3 pg (26.7-34.0); Mean Corpuscular Volume 87.4 fL (81.0-99.0); Mean Platelet Volume 10.1 fL (9.5-13.5); Platelet Count 587 10^3/uL (150-450); Red Blood Count 3.65 10^6/uL (4.20-5.40); Red Cell Distribution Width 21.2 % (11.0-15.0); White Blood Count 25.1 10^3/uL (4.0-11.0)
[2024-02-29 11:22] LABS: Alanine Aminotransferase 26 U/L (14-59); Albumin Globulin Ratio 0.3; Albumin Level 1.5 g/dL (3.4-5.0); Alkaline Phosphatase 220 U/L (46-116); Anion Gap 16.9; Aspartate Amino Transferase 35 U/L (15-37); BUN Creatinine Ratio 21.7; Bilirubin Total 0.6 mg/dL (0.2-1.0); Calcium 9.2 mg/dL (8.5-10.1); Carbon Dioxide 28.1 mmol/L (21.0-32.0); Chloride 93 mmol/L (98-107); Estimated GFR (African America 16 (>=60); Estimated GFR (Non-African Ame 13 (>=60); Globulin 4.8 g/dL; Glucose 201 mg/dL (74-106); Sodium 134 mmol/L (136-145); Total Protein 6.3 g/dL (6.4-8.2)
[2024-02-29 11:49] LABS: Prothrombin Time 52.4 sec (9.0-11.6)
[2024-02-29 11:50] LABS: INR 5.89
[2024-02-29 11:55] LABS: Band Neutrophils Absolute 1.3 10^3/uL (0.0-0.3); Eosinophils Absolute Manual 1.75 10^3/uL (0.00-0.70); Lymphocytes Absolute Manual 1.25 10^3/uL (1.20-3.80); Monocytes Absolute Manual 1.25 10^3/uL (0.30-0.80); Segmented Neut Absolute Manual 20.83 10^3/uL (1.4-6.5)
[2024-02-29 11:57] LABS: Anisocytosis 2+
== END 2024-02-29 09:01 | disposition home or self-care (01) ==
LOC: LAB 09:00
PROVIDERS: PCP Family Medicine; Visit Provider Family Medicine
DX: E16.2 Hypoglycemia, unspecified (principal); Z79.01 Long term (current) use of anticoagulants
CPT/HCPCS: 36415; 80053; 85007; 85027; 85610

== ENCOUNTER 2024-03-14 06:32 | Outpatient (RCR) | payer MEDICARE, SELFPAY ==
[2024-03-14 09:11] LABS: C Reactive Protein 17.72 mg/dL (<=0.50)
[2024-03-14 14:31] LABS: Hematocrit 28.1 % (36.0-48.0); Hemoglobin 8.5 g/dL (12.0-16.0); Mean Corpuscular HGB Conc 30.2 g/dL (29.9-35.2); Mean Corpuscular Hemoglobin 26.3 pg (26.7-34.0); Mean Platelet Volume 9.8 fL (9.5-13.5); Platelet Count 462 10^3/uL (150-450); Red Blood Count 3.23 10^6/uL (4.20-5.40); Red Cell Distribution Width 20.4 % (11.0-15.0); White Blood Count 23.7 10^3/uL (4.0-11.0)
[2024-03-14 14:38] LABS: INR 3.46; Prothrombin Time 32.4 sec (9.0-11.6)
[2024-03-14 15:22] LABS: Anisocytosis 2+; Band Neutrophils Absolute 0.2 10^3/uL (0.0-0.3); Basophils Abs Manual 0.47 10^3/uL (0.00-0.10); Eosinophils Absolute Manual 0.47 10^3/uL (0.00-0.70); Lymphocytes Absolute Manual 0.47 10^3/uL (1.20-3.80); Metamyelocytes Absolute Manual 0.23; Monocytes Absolute Manual 0.23 10^3/uL (0.30-0.80); Polychromasia 1+; Segmented Neut Absolute Manual 21.56 10^3/uL (1.4-6.5)
[2024-03-21 07:44] LABS: Basophils Absolute Auto 0.1 10^3/uL (0.0-0.1); Basophils Percent Auto 0.5 % (0.2-2.0); Eosinophils Absolute Auto 0.7 10^3/uL (0.0-0.7); Eosinophils Percent Auto 3.6 % (0.9-7.0); Hematocrit 30.5 % (36.0-48.0); Hemoglobin 9.2 g/dL (12.0-16.0); Immature Granulocytes Abs Auto 0.35 10^3/uL (0.00-0.03); Immature Granulocytes Pct Auto 1.7 % (0.0-0.5); Lymphocytes Absolute Auto 1.5 10^3/uL (1.2-3.8); Lymphocytes Percent Auto 7.4 % (20.5-60.0); Mean Corpuscular HGB Conc 30.2 g/dL (29.9-35.2); Mean Corpuscular Hemoglobin 26.6 pg (26.7-34.0); Mean Corpuscular Volume 88.2 fL (81.0-99.0); Mean Platelet Volume 9.3 fL (9.5-13.5); Monocytes Absolute Auto 1.5 10^3/uL (0.3-0.8); Monocytes Percent Auto 7.3 % (1.7-12.0); Neutrophils Absolute Auto 16.1 10^3/uL (1.4-6.5); Neutrophils Percent Auto 79.5 % (43.0-75.0); Platelet Count 451 10^3/uL (150-450); Red Blood Count 3.46 10^6/uL (4.20-5.40); Red Cell Distribution Width 20.5 % (11.0-15.0); White Blood Count 20.3 10^3/uL (4.0-11.0)
[2024-03-21 08:01] LABS: C Reactive Protein 12.15 mg/dL (<=0.50); Estimated GFR (African America 13 (>=60); Estimated GFR (Non-African Ame 11 (>=60)
[2024-03-21 09:03] LABS: Vancomycin Trough 16.5 ug/mL (5.0-20.0)
[2024-03-25 09:54] LABS: Basophils Absolute Auto 0.1 10^3/uL (0.0-0.1); Basophils Percent Auto 0.4 % (0.2-2.0); Eosinophils Absolute Auto 0.5 10^3/uL (0.0-0.7); Eosinophils Percent Auto 2.4 % (0.9-7.0); Hematocrit 26.1 % (36.0-48.0); Immature Granulocytes Abs Auto 0.31 10^3/uL (0.00-0.03); Immature Granulocytes Pct Auto 1.4 % (0.0-0.5); Lymphocytes Absolute Auto 1.1 10^3/uL (1.2-3.8); Lymphocytes Percent Auto 4.8 % (20.5-60.0); Mean Corpuscular HGB Conc 30.7 g/dL (29.9-35.2); Mean Corpuscular Hemoglobin 26.5 pg (26.7-34.0); Mean Corpuscular Volume 86.4 fL (81.0-99.0); Mean Platelet Volume 9.9 fL (9.5-13.5); Monocytes Absolute Auto 1.5 10^3/uL (0.3-0.8); Monocytes Percent Auto 6.9 % (1.7-12.0); Neutrophils Absolute Auto 18.2 10^3/uL (1.4-6.5); Neutrophils Percent Auto 84.1 % (43.0-75.0); Platelet Count 372 10^3/uL (150-450); Red Blood Count 3.02 10^6/uL (4.20-5.40); White Blood Count 21.7 10^3/uL (4.0-11.0)
[2024-03-25 09:54] LABS: Bilirubin Urine SMALL (NEGATIVE); Blood Urine NEGATIVE (NEGATIVE); Clarity Urine CLEAR (CLEAR); Color Urine DK. ORANGE (YELLOW); Glucose Urine UA 100 mg/dL (NEGATIVE); Ketones Urine TRACE mg/dL (NEGATIVE); Leukocyte Esterase Urine NEGATIVE (NEGATIVE); Nitrite Urine POSITIVE (NEGATIVE); Protein Urine TRACE mg/dL (NEG/TRACE); Specific Gravity Urine 1.025 (1.005-1.025)
[2024-03-25 10:02] LABS: Urine Microscopic Indicated YES
[2024-03-25 10:03] LABS: Bacteria Urine SMALL #/HPF (NONE SEEN); Cast Seen? NONE SEEN #/LPF (NONE SEEN); Crystals Seen? None Seen #/HPF (None Seen); Mucus Urine NONE SEEN (NONE SEEN); RBC Urine NONE SEEN #/HPF (0-2); Squamous Epithelial Cell Urine FEW #/LPF (NONE/RARE); Urine Culture Indicated YES; WBC Urine NONE SEEN #/HPF (NONE SEEN)
[2024-03-25 11:24] LABS: Albumin Globulin Ratio 0.4; Albumin Level 1.3 g/dL (3.4-5.0); Alkaline Phosphatase 154 U/L (46-116); Aspartate Amino Transferase 17 U/L (15-37); BUN Creatinine Ratio 13.7; Bilirubin Total 0.7 mg/dL (0.2-1.0); Chloride 96 mmol/L (98-107); Estimated GFR (African America 14 (>=60); Estimated GFR (Non-African Ame 12 (>=60); Globulin 3.7 g/dL; Glucose 98 mg/dL (74-106); Potassium 4.2 mmol/L (3.5-5.1); Sodium 134 mmol/L (136-145)
[2024-03-25 11:39] LABS: Alanine Aminotransferase 7 U/L (14-59)
[2024-03-25 12:46] LABS: Anion Gap 16.5; Carbon Dioxide 25.7 mmol/L (21.0-32.0)
[2024-03-26 12:37] LABS: A. calcoaceticus-baumannii Cpx NOT DETECTED (NOT DETECTE); Bacteroides fragilis NOT DETECTED (NOT DETECTE); Candida albicans NOT DETECTED (NOT DETECTE); Candida auris NOT DETECTED (NOT DETECTE); Candida glabrata NOT DETECTED (NOT DETECTE); Candida krusei NOT DETECTED (NOT DETECTE); Candida parapsilosis NOT DETECTED (NOT DETECTE); Candida tropicalis NOT DETECTED (NOT DETECTE); Cryptococcus neoformans/gattii NOT DETECTED (NOT DETECTE); Enterobacter cloacae complex NOT DETECTED (NOT DETECTE); Enterobacterales NOT DETECTED (NOT DETECTE); Enterococcus faecalis NOT DETECTED (NOT DETECTE); Enterococcus faecium NOT DETECTED (NOT DETECTE); Haemophilus influenzae NOT DETECTED (NOT DETECTE); Klebsiella aerogenes NOT DETECTED (NOT DETECTE); Klebsiella pneumoniae group NOT DETECTED (NOT DETECTE); Listeria monocytogenes NOT DETECTED (NOT DETECTE); Neisseria meningitidis NOT DETECTED (NOT DETECTE); Proteus spp. NOT DETECTED (NOT DETECTE); Pseudomonas aeruginosa NOT DETECTED (NOT DETECTE); Salmonella spp. NOT DETECTED (NOT DETECTE); Serratia marcescens NOT DETECTED (NOT DETECTE); Staphylococcus epidermidis NOT DETECTED (NOT DETECTE); Staphylococcus lugdunensis NOT DETECTED (NOT DETECTE); Stenotrophomonas maltophilia NOT DETECTED (NOT DETECTE); Streptococcus agalactiae NOT DETECTED (NOT DETECTE); Streptococcus pneumoniae NOT DETECTED (NOT DETECTE); Streptococcus pyogenes NOT DETECTED (NOT DETECTE); Streptococcus spp. NOT DETECTED (NOT DETECTE)
[2024-03-26 15:12] LABS: Source BLOOD
[2024-03-26 15:49] LABS: Staphylococcus spp. DETECTED (NOT DETECTE)
== END 2024-03-26 23:59 | disposition home or self-care (01) ==
LOC: LAB 06:32
PROVIDERS: PCP Family Medicine; Visit Provider Nurse Practitioner Family
DX: Z79.01 Long term (current) use of anticoagulants (principal); M86.9 Osteomyelitis, unspecified; I48.91 Unspecified atrial fibrillation; Z51.81 Encounter for therapeutic drug level monitoring; A41.9 Sepsis, unspecified organism; N18.9 Chronic kidney disease, unspecified
CPT/HCPCS: 36415; 80053; 80202; 81001; 82565; 84145; 84520; 85007; 85025; 85027; 85610; 86140; 87040; 87086; 87150; 87186

== ENCOUNTER 2024-03-18 12:09 | Emergency (ER) | payer MEDICARE, SELFPAY ==
[2024-03-18 12:21] VITALS: BP 84/45; PULSE 64; TEMP 36.4; O2SAT 98; BMI 37.8
[2024-03-18] MEDS: FENTANYL CITRATE/PF 100 MCG/2 ML VIAL 50 MCG IV (13:01)
[2024-03-18 13:03] LABS: Hematocrit 27.8 % (36.0-48.0); Hemoglobin 8.8 g/dL (12.0-16.0); Mean Corpuscular HGB Conc 31.7 g/dL (29.9-35.2); Mean Corpuscular Hemoglobin 26.7 pg (26.7-34.0); Mean Corpuscular Volume 84.5 fL (81.0-99.0); Mean Platelet Volume 10.2 fL (9.5-13.5); Platelet Count 450 10^3/uL (150-450); Red Blood Count 3.29 10^6/uL (4.20-5.40); Red Cell Distribution Width 20.2 % (11.0-15.0); White Blood Count 20.1 10^3/uL (4.0-11.0)
--- NOTE | 2024-03-18 13:15 | PC.NURSE ---
pt has multiple wounds on bilat buttocks == necrotic and draining in nature. Pt states she saw wound clinic one time but hasn't in awhlile
[2024-03-18 13:28] LABS: Segmented Neut Absolute Manual 16.88 10^3/uL (1.4-6.5)
[2024-03-18 13:39] LABS: Alanine Aminotransferase 7 U/L (14-59); Albumin Globulin Ratio 0.3; Albumin Level 1.3 g/dL (3.4-5.0); Alkaline Phosphatase 151 U/L (46-116); Anion Gap 14.7; Aspartate Amino Transferase 31 U/L (15-37); BUN Creatinine Ratio 10.1; Calcium 8.5 mg/dL (8.5-10.1); Carbon Dioxide 24.6 mmol/L (21.0-32.0); Chloride 96 mmol/L (98-107); Estimated GFR (African America 35 (>=60); Estimated GFR (Non-African Ame 29 (>=60); Globulin 4.3 g/dL; Glucose 115 mg/dL (74-106); Potassium 4.3 mmol/L (3.5-5.1); Sodium 131 mmol/L (136-145); Total Protein 5.6 g/dL (6.4-8.2)
--- NOTE | 2024-03-18 13:40 | ED_ITS ---
HPI HPI - General Adult General Chief complaint: Recheck/Abnormal Lab/Rx Stated complaint: ABNORMAL LABS Time Seen by Provider: 03/18/24 12:29 Source: patient Mode of arrival: Wheelchair Limitations: no limitations History of Present Illness HPI narrative: The patient is coming to the ER after she finished her dialysis because she recently almost 4 days ago had a workup done as outpatient for blood workup and the CBC showed leukocytosis to be a continuous prior, the patient herself denies any fever or chills she did have a problem controlling the pain in her back from her decubital ulcer but that not an acute issue The patient did not want to come to the ER She mentioned that her blood pressure is usually low after her dialysis but other than this she does not have any symptoms Related Data Home Medications ?Medication ?Instructions ?Recorded ?Confirmed atorvastatin 20 mg tablet 20 mg PO BEDTIME 03/18/24 03/18/24 brimonidine 0.2 % eye drops 1 drp ophthalmic (eye) Q8H 03/18/24 03/18/24 calcitriol 0.25 mcg capsule 0.25 mcg PO DAILY 03/18/24 03/18/24 gabapentin 300 mg capsule 300 mg PO DAILY 03/18/24 03/18/24 insulin NPH isoph U-100 human 100 15 unit subcut BID 03/18/24 03/18/24 unit/mL (3 mL) subcutaneous pen (Humulin N NPH U-100 Insulin KwikPen) insulin lispro 100 unit/mL 1 sliding scale dose subcut 03/18/24 03/18/24 subcutaneous pen USEASDIRECTD levofloxacin 500 mg tablet 500 mg PO QDAY 03/18/24 03/18/24 magnesium 200 mg tablet 400 mg PO DAILY 03/18/24 03/18/24 metronidazole 500 mg tablet 500 mg PO TID 03/18/24 03/18/24 nystatin 100,000 unit/mL oral 5 ml PO QID 03/18/24 03/18/24 suspension oxycodone-acetaminophen 5 mg-325 1 tab PO Q4H 03/18/24 03/18/24 mg tablet (Percocet) sennosides 8.6 mg-docusate sodium 2 tab-cap PO TID 03/18/24 03/18/24 50 mg tablet vancomycin 750 mg intravenous 750 mg IV QMWF 03/18/24 03/18/24 solution Allergies Allergy/AdvReac Type Severity Reaction Status Date / Time No Known Drug Allergies Allergy Verified 03/18/24 12:20 Opioid HPI Opioid Management Most Recent Opioid Data: Last Pain Scale 10 03/18/24 13:01 Last SEP Pain Assessment 03/18/24 13:01 Review of Systems ROS Status of ROS 10 or more systems reviewed and unremark able except as noted in history and below Exam Narrative Exam Narrative: Nurses notes and vital signs reviewed and patient is not hypoxic. General: Well-appearing and in no apparent distress. Skin: Warm, dry, no pallor noted. No rash. Head: Normocephalic, atraumatic. Neck: Supple, non-tender. Eye: Pupils are equal, round and EOMI. No scleral icterus. Ears, Nose, Mouth, and Throat: TM are clear, no nasal mucosal hypertrophy. Oral mucosa is moist, no posterior oropharynx erythema, uvula is mid-line Cardiovascular: Regular Rate and Rhythm without murmur, gallop or rub. Respiratory: No accessory muscle use or respiratory distress. Lungs are clear to auscultation, no wheezing, rales or rhonchi Chest Wall: no tenderness Musculoskeletal: normal ROM, no calf or popliteal tenderness, no lower extremity edema/swelling Lower back the patient have a multiple decubital ulcers the largest at the sacral area measuring almost 10 x 12 cm and it is stage III, the patient wound looks chronic there is no acute signs of infection no fluctuation multiple areas of Betadine dressing applied and ulcers ranging from 1-3 covering the whole lower back and decubital area GI: Abdomen is soft, non-distended. Normal bowel sounds. No masses appreciated. No tenderness to palpation. No rebound, guarding, or rigidity noted. Neurological: A&O x4. No cranial nerve dysfunction observed. No truncal ataxia. Moves all extremities. Sensation intact. Psychiatric: Cooperative and interactive. Normal mood and affect. Constitutional Vital Signs, click to edit/add: Last Vital Signs Temp 97.6 F 03/18/24 12:21 Pulse 64 03/18/24 12:21 Resp 16 03/18/24 12:21 BP 84/45 L 03/18/24 12:21 Pulse Ox 98 03/18/24 12:21 O2 Del Method Room Air 03/18/24 12:21 Course Vital Signs Vital signs: Vital Signs Temperature 97.6 F 03/18/24 12:21 Pulse Rate 64 03/18/24 12:21 Respiratory Rate 16 03/18/24 12:21 Blood Pressure 84/45 L 03/18/24 12:21 Pulse Oximetry 98 03/18/24 12:21 Oxygen Delivery Method Room Air 03/18/24 12:21 Temperature 97.6 F 03/18/24 12:21 Pulse Rate 64 03/18/24 12:21 Respiratory Rate 16 03/18/24 12:21 Blood Pressure 84/45 L 03/18/24 12:21 Pulse Oximetry 98 03/18/24 12:21 Oxygen Delivery Method Room Air 03/18/24 12:21 Medical Decision Making MDM Narrative Medical decision making narrative: Right now the patient repeated blood workup shows a white blood cells of 20 which is improved compared to her last workup of 25 The patient have no active symptoms of infection no fever no chills no other complaints The patient right now was provided with fentanyl for pain control Although her blood pressure is low but that is mostly secondary to her dialysis and she the patient is not symptomatic we will just continue monitoring and hydration p.o. as. The restriction of fluid The patient need better pain control and in addition to continue wound care and regular monitoring for the wound for the possibility of progression case no monitoring Also recommend doing a blood workup in 5 days Lab Data Labs: Lab Results 03/18/24 03/18/24 Range/Units 12:30 13:17 WBC 20.1 H (4.0-11.0) 10^3/uL RBC 3.29 L (4.20-5.40) 10^6/uL Hgb 8.8 L (12.0-16.0) g/dL Hct 27.8 L (36.0-48.0) % MCV 84.5 (81.0-99.0) fL MCH 26.7 (26.7-34.0) pg MCHC 31.7 (29.9-35.2) g/dL RDW 20.2 H (11.0-15.0) % Plt Count 450 (150-450) 10^3/uL MPV 10.2 (9.5-13.5) fL Seg Neuts % (Manual) 84.0 H (43.0-75.0) Lymphocytes % (Manual) 7.0 L (20.5-60.0) % Monocytes % (Manual) 8.0 (1.7-12.0) % Eosinophils % (Manual) 1.0 (0.9-7.0) % Basophils % (Manual) 0.0 L (0.2-2.0) % Neutrophils # (Manual) 16.88 H (1.4-6.5) 10^3/uL Lymphocytes # (Manual) 1.40 (1.20-3.80) 10^3/uL Monocytes # (Manual) 1.60 H (0.30-0.80) 10^3/uL Eosinophils # (Manual) 0.20 (0.00-0.70) 10^3/uL Basophils # (Manual) 0.00 (0.00-0.10) 10^3/uL Sodium 131 L (136-145) mmol/L Potassium 4.3 (3.5-5.1) mmol/L Chloride 96 L (98-107) mmol/L Carbon Dioxide 24.6 (21.0-32.0) mmol/L Anion Gap 14.7 BUN 17.0 (7.0-18.0) mg/dL Creatinine 1.69 H (0.55-1.02) mg/dL Est GFR ( Amer) 35 L (>=60) Est GFR (Non-Af Amer) 29 L (>=60) BUN/Creatinine Ratio 10.1 Glucose 115 H (74-106) mg/dL Calcium 8.5 (8.5-10.1) mg/dL Total Bilirubin 1.0 (0.2-1.0) mg/dL AST 31 (15-37) U/L ALT 7 L (14-59) U/L Alkaline Phosphatase 151 H (46-116) U/L Total Protein 5.6 L (6.4-8.2) g/dL Albumin 1.3 L (3.4-5.0) g/dL Globulin 4.3 g/dL Albumin/Globulin Ratio 0.3 Discharge Plan Discharge Stand Alone Forms: Work/School Release, Portal Instructions Chief Complaint: Recheck/Abnormal Lab/Rx Clinical Impression: Abnormal blood test Patient Disposition: Home, Self-Care Time of Disposition Decision: 13:49 Condition: Good Prescriptions / Home Meds: No Action atorvastatin 20 mg tablet 20 mg PO BEDTIME brimonidine 0.2 % drops 1 drp OPHTHALMIC (EYE) Q8H calcitriol 0.25 mcg capsule 0.25 mcg PO DAILY gabapentin 300 mg capsule 300 mg PO DAILY Humulin N NPH Insulin KwikPen 100 unit/mL (3 mL) insulin pen 15 unit subcut BID insulin lispro 100 unit/mL insulin pen 1 sliding scale dose subcut USEASDIRECTD levofloxacin 500 mg tablet 500 mg PO QDAY Rx Instructions: 500 mg orally; every other day magnesium 200 mg tablet 400 mg PO DAILY Rx Instructions: every other day metronidazole 500 mg tablet 500 mg PO TID nystatin 100,000 unit/mL suspension 5 ml PO QID Rx Instructions: swish and spit oxycodone-acetaminophen [Percocet] 5-325 mg tablet 1 tab PO Q4H sennosides-docusate sodium 8.6-50 mg tablet 2 tab-cap PO TID vancomycin 750 mg recon soln 750 mg IV QMWF Rx Instructions: to be given after hemodialysis Print Language: Mauritanian Instructions: Leukocytosis (ED) Referrals: MONA BANKS [Primary Care Provider] - 1 week
== END 2024-03-18 14:26 | disposition home or self-care (01) ==
PROVIDERS: Emergency Provider Emergency Medicine; PCP Family Medicine
DX: R79.89 Other specified abnormal findings of blood chemistry (principal); Z99.2 Dependence on renal dialysis; L89.153 Pressure ulcer of sacral region, stage 3; L89.109 Pressure ulcer of unspecified part of back, unspecified stage
CPT/HCPCS: 36415; 80053; 85007; 85027; 96374; 99284; J3010